=== PATIENT | female | born 1985 | race Two or more races ===

== ENCOUNTER → 2020-04-02 14:57 | Outpatient (BNVA) | payer OTHER, SELFPAY | PROVIDERS: PCP Internal Medicine; Visit Provider Advanced Practice Midwife | DX: Z30.42 Encounter for surveillance of injectable contraceptive (principal) | CPT/HCPCS: 96372; 99211; J1050 ==

== ENCOUNTER → 2020-06-23 12:37 | Outpatient (BNVA) | payer OTHER, SELFPAY | PROVIDERS: PCP Internal Medicine; Visit Provider Advanced Practice Midwife | DX: Z30.42 Encounter for surveillance of injectable contraceptive (principal) | CPT/HCPCS: 96372; 99211; J1050 ==

== ENCOUNTER → 2020-09-14 13:03 | Outpatient (BNVA) | payer OTHER, SELFPAY | PROVIDERS: PCP Internal Medicine; Visit Provider Advanced Practice Midwife | DX: Z30.42 Encounter for surveillance of injectable contraceptive (principal) | CPT/HCPCS: 96372; 99211 ==

== ENCOUNTER → 2020-10-22 13:01 | Outpatient (BNVA) | payer OTHER, SELFPAY | PROVIDERS: PCP Internal Medicine; Visit Provider Advanced Practice Midwife ==

== ENCOUNTER 2020-10-23 12:33 | Outpatient (REF) | payer OTHER, SELFPAY ==
[2020-10-23 13:22] LABS: MANUAL DIFF FLAG NO
[2020-10-23 13:27] LABS: Basophils Percent Auto 0.8 % (0-2); Eosinophils Absolute Auto 0.1 X10*3/uL (0.0-0.4); Hematocrit 41.1 % (37-47); Hemoglobin 13.6 g/dl (12.0-16.0); Imm Gran Abs Auto 0.05 X10*3/uL (0.00-0.03); Lymphocytes Absolute Auto 1.7 X10*3/uL (1.2-4.9); Lymphocytes Percent Auto 33.6 % (20-40); Mean Corpuscular HGB Conc 33.1 g/dl (31.0-35.0); Mean Corpuscular Hemoglobin 30.4 pg (27.0-33.0); Mean Corpuscular Volume 91.7 fL (80-98); Mean Platelet Volume 11.8 fL (9.4-12.3); Monocytes Absolute Auto 0.3 X10*3/uL (0.1-1.2); Monocytes Percent Auto 6.4 % (2-11); Neutrophils Percent Auto 57.2 % (45-73); Platelet Count 241 X10*3/uL (160-400); Red Blood Count 4.48 X10*6/uL (4.20-5.50); Red Cell Distribution Width 12.8 % (11.0-16.0); White Blood Count 5.2 X10*3/uL (4.8-10.8)
[2020-10-23 13:38] LABS: Glucose Urine UA NEG (NEG); Leukocyte Esterase Urine NEG (NEG); Nitrite Urine NEG (NEG); Specific Gravity - Urine 1.025 (1.005-1.025); Urine Blood NEG (NEG); Urine Ketones NEG (NEG); Urine Protein NEG (NEG-TRACE)
[2020-10-23 13:43] LABS: Appearance Urine CLEAR; Color Urine YELLOW
[2020-10-23 13:52] LABS: Alanine Aminotransferase 14 U/L (0-31); Albumin Level 4.6 g/dL (3.5-5.0); Alkaline Phosphatase 69 U/L (39-117); Anion Gap 13 (12-20); Aspartate Amino Transferase 12 U/L (5-31); Bilirubin Total 0.5 mg/dL (0.0-1.0); Blood Urea Nitrogen 9 mg/dL (9-16); Carbon Dioxide 27 mmol/L (22-29); Chloride 104 mmol/L (96-108); Cholesterol 209 mg/dL; Estimated Glomerular Filt Rate > 60; Glucose Fasting 100 mg/dL (60-99); HDL Cholesterol 55 mg/dL; LDL Cholesterol Calculated 130 mg/dl; Potassium 4.5 mmol/L (3.3-5.1); Sodium 139 mmol/L (135-145); Total Protein 7.4 g/dL (6.5-8.0); Triglycerides 124 mg/dL
[2020-10-23 14:13] LABS: TSH reflex Free T4 1.38 uIU/mL (0.32-4.0)
== END 2020-10-23 12:34 | disposition home or self-care (01) ==
LOC: HO.LAB 12:33
PROVIDERS: PCP Internal Medicine; Visit Provider Internal Medicine
DX: Z00.00 Encounter for general adult medical examination without abnormal findings (principal); F32.9 Major depressive disorder, single episode, unspecified
CPT/HCPCS: 36415; 80053; 80061; 81003; 84443; 85025

== ENCOUNTER → 2020-12-09 14:59 | Outpatient (BNVA) | payer OTHER, SELFPAY | PROVIDERS: PCP Internal Medicine; Visit Provider Advanced Practice Midwife | DX: Z30.42 Encounter for surveillance of injectable contraceptive (principal) | CPT/HCPCS: 96372; 99211 ==

== ENCOUNTER 2021-01-12 20:54 | Emergency (ER) | payer OTHER, SELFPAY ==
--- NOTE | ~2021-01-12 | XR_ITS ---
EXAMINATION: XR CHEST CLINICAL INFORMATION: Cough. Chest pain. COMPARISON: 12/30/2015 TECHNIQUE: Frontal view of the chest was obtained. FINDINGS: The lungs are well expanded. There is no focal consolidation, edema, or effusion. No pneumothorax. The cardiomediastinal silhouette is within normal limits. No acute osseous abnormality. XR/XR chest 1V IMPRESSION: Clear lungs.
[2021-01-12 22:20] VITALS: BP 117/85; PULSE 102; RESP 20; TEMP 36.8; O2SAT 98; BMI 25.9
--- NOTE | 2021-01-12 22:42 | ECG_ITS ---
Test Reason : CHEST PAIN Blood Pressure : / mmHG Vent. Rate : 089 BPM Atrial Rate : 089 BPM P-R Int : 138 ms QRS Dur : 072 ms QT Int : 354 ms P-R-T Axes : 047 036 020 degrees QTc Int : 430 ms Normal sinus rhythm Normal ECG When compared with ECG of 12-SEP-2019 10:16, No significant change was found Heart rate has increased Referred By: Madalyn Pedersen Electronically Signed By:MECHELLE BARRETT MD
--- NOTE | 2021-01-12 22:46 | ED.URI ---
HPI - URI/Sore Throat General Chief Complaint: Upper Respiratory Symptoms <LISA Lechuga - Last Filed: 01/13/21 00:27> Stated Complaint: cough, cp due to cough <LISA Lechuga - Last Filed: 01/13/21 00:27> Time Seen by Provider: 01/12/21 21:11 <LISA Lechuga Last Filed: 01/13/21 00:27> Source: patient <LISA Lechuga Last Filed: 01/13/21:27> Mode of arrival: ambulatory <LISA Lechuga Last Filed: 01/13/21:27> Limitations: no limitations <LISA Lechuga Last Filed: 01/13/21:27> History of Present Illness HPI Narrative: 35-year-old female past medical history significant for anxiety, depression presents to the emergency department with 5 days of cough, shortness of breath and chest pain since today. Patient states that she has been having a dry cough, that is intermittent in nature. Patient also reports she has been feeling increasing shortness of breath for the past 5 days, worse with exertion, better at rest. Patient also states that she has been having chest pain, this started today, it is centralized, nonradiating she describes as something sitting on her chest, it is an 8/10. Patient states that her daughter who is a baby, is sick at home with similar symptoms. Patient had a negative COVID test a few days ago. Patient is vaccinated against COVID-19. She denies fevers, chills, nausea, vomiting, abdominal pain, weakness, headache, vision changes, difficulties with urination. Patient is not a smoker. <LISA Lechuga Last Filed: 01/13/21 00:27> MD elicited complaint: cough and other (SOB,CP) <LISA Lechuga Last Filed: 01/13/21 00:27> Onset (ago): day(s) (5) <LISA Lechuga Last Filed: 01/13/21 00:27> Consistency: constant <LISA Lechuga Last Filed: 01/13/21 00:27> Severity: severe <LISA Lechuga - Last Filed: 01/13/21 00:27> Able to tolerate fluids by mouth: Yes <LISA Lechuga Last Filed: 01/13/21 00:27> Exacerbating factors: nothing <LISA Lechuga Last Filed: 01/13/21 00:27> Relieving factors: nothing <LISA Lechuga Last Filed: 01/13/21 00:27> Context: sick contacts (daughter with similar symptoms at home. ) <LISA Lechuga Last Filed: 01/13/21 00:27> Associated symptoms: cough <LISA Lechuga Last Filed: 01/13/21 00:27> Treatments prior to arrival: none <LISA Lechuga Last Filed: 01/13/21 00:27> Related Data Home Medications: Previous Rx's Medication Instructions Recorded escitalopram oxalate 10 mg tablet 10 mg PO DAILY #90 tab 10/18/20 medroxyprogesterone 150 mg/mL 150 mg IM [id number] 90 Days #1 ml 10/22/20 intramuscular suspension azithromycin 250 mg tablet See Rx Instructions .ROUTE 01/13/21 .COMPLEX #6 tab codeine 10 mg-guaifenesin 100 mg/5 5 ml PO Q6H PRN #120 ml 01/13/21 mL oral liquid <LISA Lechuga Last Filed: 01/13/21 00:27> Allergies/Adverse Reactions: Allergies Allergy/AdvReac Type Severity Reaction Status Date / Time No Known Allergies Allergy Verified 01/12/21 22:20 [No Known Allergies*] <LISA Lechuga Last Filed: 01/13/21 00:27> Review of Systems Review of Systems: Constitutional : No Weight loss, No Fever, No Chills, No Fatigue, No Malaise ENT/Mouth : No sore throat, No Rhinorrhea, Eyes: No Eye Pain, No Swelling, No Redness Cardiovascular : + Chest Pain, + SOB, No Dyspnea on Exertion, No Orthopnea, No Edema, No Palpitations Respiratory : + Cough, No Sputum, No Wheezing Gastrointestinal : No Nausea, No Vomiting, No Diarrhea, No Constipation, No abdominal Pain, No Hematochezia, No Melena Genitourinary : No Dysuria, No Urinary Frequency, No Hematuria, Musculoskeletal : No joint pain, No Myalgias, No Joint Swelling Skin : No Skin Lesions, No rash Neuro : No Weakness, No Numbness, No Dizziness, No Headache All other systems reviewed and are negative <LISA Lechuga - Last Filed: 01/13/21 00:27> [facility] Past Medical History Attestation statement: The following information was validated with the patient. <LISA Lechuga - Last Filed: 01/13/21 00:27> Source: old records reviewed and nursing notes reviewed <LISA Lechuga - Last Filed: 01/13/21 00:27> Medical History: Medical History Anxiety Carpal tunnel syndrome Depression Status post hysteroscopy (~03/12/17) <LISA Lechuga - Last Filed: 01/13/21 00:27> Surgical History: Surgical History History of mastopexy (~09/28/19) Status post abdominoplasty (~09/28/19) <LISA Lechuga - Last Filed: 01/13/21 00:27> Family History Family History: Family History Mother Hypertension Mental illness in member of household Maternal Grandfather Gastric cancer Other Mental health problem <LISA Lechuga - Last Filed: 01/13/21 00:27> Social History Social History: Social History Housing: House Alcohol intake: current Alcohol intake frequency: holidays/special occasions only Patient Tobacco Use Status: Never used Tobacco Second Hand Smoke Exposure: Yes Advance Directives: No Patient : No service: No Current occupational status: employed 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 Oriented X3.? No acute distress.? Eyes: Pupils equal, round and reactive to light.? ENT: Pharynx normal.? Neck: Normal inspection.? Neck supple.? CVS: Normal heart rate and rhythm.? Pulses normal.? Respiratory: No respiratory distress.? Breath sounds normal.? Abdomen: Soft and nontender.? Skin: Skin warm and dry.? Normal skin color.? Normal skin turgor.? Extremities: No lower extremity edema.? No calf ttp. Negative sixto sign bilaterally Neuro: Oriented X 3.? No motor deficit.? No sensory deficit. <LISA Lechuga Last Filed: 01/13/21 00:27> Course Course Course Narrative: I agree with the Mandie Lubin PA-C history and physical/review of systems/treatment and diagnosis plan <LISA Yun Last Filed: 01/12/21 23:06> Reevaluation(s) Reevaluation #1: EKG shows no acute findings or ischemia. No leukocytosis or anemia noted. No evident electrolyte abnormalities noted. D-dimer negative. Trop negative. Chest xray negative. Flu/COVID/RSV negative. negative. <LISA Lechuga Last Filed: 01/13/21 00:27> Time: 00:25 <LISA Lechuga - Last Filed: 01/13/21 00:27> Reevaluation #2: Patient's symptoms are likely secondary to bronchitis/upper respiratory infection. Patient will be discharged home with a Z-Phil, and guaifenesin with codeine for cough. She is safe for discharge home with PCP follow-up. She has been advised to return if shortness of breath, chest pain, fevers, chills or any new symptoms. I attest that I have reviewed patients MassPAT, and at the time prescribing the patient a controlled substance is appropriate based off of patients diagnosis and treatment plan. <LISA Lechuga - Last Filed: 01/13/21 00:27> MDM - URI/Sore Throat MDM Narrative Medical decision making narrative: [id number] 35-year-old female past medical history significant for anxiety and depression presents to the emergency department with 5 days of progressively worsening dry cough, shortness of breath worse with exertion, and chest pain x1 day that is centralized, nonradiating and an 8/10 described as somebody sitting on her chest. Patient recently tested negative for COVID-19. Patient is vaccinated against COVID-19. Patient is not a smoker. Patient denies fevers, chills, nausea, vomiting. Upon physical examination lungs are clear to auscultation bilaterally, S1-S2 appreciated free of murmurs. Abdomen soft nontender nondistended. Bilateral lower extremities 2+ pulses, capillary refill less than 2 seconds. Negative Homans sign bilaterally. No lower extremity edema. 5/5 strength upper and lower extremities. No focal neuro deficits noted. Based off of patient history, physical exam this is likely an upper respiratory infection, however ACS, PNA and PE will be ruled out. Plan at this time is to obtain an EKG, chest x-ray, CBC, CMP, D-dimer, flu/COVID/RSV, troponin. <LISA Lechuga Last Filed: 01/13/21 00:27> Medical Records Attestation: I reviewed the patient's medical records. <LISA Lechuga Last Filed: 01/13/21 00:27> Lab Data Attestation: I reviewed the patient's lab results. <LISA Lechuga - Last Filed: 01/13/21 00:27> Result diagrams: : 01/12/21 22:57 01/12/21 22:57 <LISA Lechuga - Last Filed: 01/13/21 00:27> Labs: Lab Results 01/12/21 01/12/21 01/12/21 Range/Units 22:57 22:57 22:57 WBC 6.2 (4.8-10.8) X10*3/uL RBC 4.53 (4.20-5.50) X10*6/uL Hgb 13.4 (12.0-16.0) g/dl Hct 40.7 (37.0-47.0) % MCV 89.8 (80.0-98.0) fL MCH 29.6 (27.0-33.0) pg MCHC 32.9 (31.0-35.0) g/dl RDW 12.1 (11.0-16.0) % Plt Count 229 (160-400) X10*3/uL MPV 11.0 (9.4-12.3) fL Immature Gran % (Auto) 0.8 H (0.0-0.4) % Neut % (Auto) 48.8 (45-73) % Lymph % (Auto) 34.7 (20-40) % [place] % (Auto) 9.8 (2-11) % Eos % (Auto) 5.3 H (0-4) % Baso % (Auto) 0.6 (0-2) % Lymph # (Auto) 2.2 (1.2-4.9) X10*3/uL [place] # (Auto) 0.6 (0.1-1.2) X10*3/uL Eos # (Auto) 0.3 (0.0-0.4) X10*3/uL Baso # (Auto) 0.0 (0.0-0.2) X10*3/uL Abs Immat Gran (auto) 0.05 H (0.00-0.03) X10*3/uL Absolute Neuts (auto) 3.0 (2.0-8.3) x10*3/uL Absolute Nucleated RBC 0.000 (0.0-0.012) X10*3/uL Nucleated RBC % (auto) 0.0 (0.0-0.2) /100WBC D-Dimer NG/ML Sodium 141 (135-145) mmol/L Potassium 3.7 (3.3-5.1) mmol/L Chloride 109 H (96-108) mmol/L Carbon Dioxide 25 (22-29) mmol/L Anion Gap 11 L (12-20) BUN 7 L (9-16) mg/dL Creatinine 0.88 (0.5-1.4) mg/dL Estim Creat Clear Calc 84.0 Estimated GFR > 60 Random Glucose 105 (60-115) mg/dL Calcium 9.0 D (8.4-10.2) mg/dL Total Bilirubin 0.3 (0.0-1.0) mg/dL AST 13 (5-31) U/L ALT 13 (0-31) U/L Alkaline Phosphatase 69 (39-117) U/L Troponin I High Sens < 3.5 (<3.5-17.0) ng/L Total Protein 6.9 (6.5-8.0) g/dL Albumin 4.3 (3.5-5.0) g/dL Beta HCG, Quant < 2 mIU/mL Influenza Type A (PCR) (Negative) Influenza Type B (PCR) (Negative) RSV RNA Qual (PCR) (Negative) SARS-CoV-2 RNA (RT-PCR) (Negative) 01/12/21 01/12/21 Range/Units 22:57 23:32 WBC (4.8-10.8) X10*3/uL RBC (4.20-5.50) X10*6/uL Hgb (12.0-16.0) g/dl Hct (37.0-47.0) % MCV (80.0-98.0) fL MCH (27.0-33.0) pg MCHC (31.0-35.0) g/dl RDW (11.0-16.0) % Plt Count (160-400) X10*3/uL MPV (9.4-12.3) fL Immature Gran % (Auto) (0.0-0.4) % Neut % (Auto) (45-73) % Lymph % (Auto) (20-40) % [place] % (Auto) (2-11) % Eos % (Auto) (0-4) % Baso % (Auto) (0-2) % Lymph # (Auto) (1.2-4.9) X10*3/uL [place] # (Auto) (0.1-1.2) X10*3/uL Eos # (Auto) (0.0-0.4) X10*3/uL Baso # (Auto) (0.0-0.2) X10*3/uL Abs Immat Gran (auto) (0.00-0.03) X10*3/uL Absolute Neuts (auto) (2.0-8.3) x10*3/uL Absolute Nucleated RBC (0.0-0.012) X10*3/uL Nucleated RBC % (auto) (0.0-0.2) /100WBC D-Dimer 209 NG/ML Sodium (135-145) mmol/L Potassium (3.3-5.1) mmol/L Chloride (96-108) mmol/L Carbon Dioxide (22-29) mmol/L Anion Gap (12-20) BUN (9-16) mg/dL Creatinine (0.5-1.4) mg/dL Estim Creat Clear Calc Estimated GFR Random Glucose (60-115) mg/dL Calcium (8.4-10.2) mg/dL Total Bilirubin (0.0-1.0) mg/dL AST (5-31) U/L ALT (0-31) U/L Alkaline Phosphatase (39-117) U/L Troponin I High Sens (<3.5-17.0) ng/L Total Protein (6.5-8.0) g/dL Albumin (3.5-5.0) g/dL Beta HCG, Quant mIU/mL Influenza Type A (PCR) NEGATIVE (Negative) Influenza Type B (PCR) NEGATIVE (Negative) RSV RNA Qual (PCR) NEGATIVE (Negative) SARS-CoV-2 RNA (RT-PCR) NEGATIVE (Negative) <LISA Lechuga - Last Filed: 01/13/21 00:27> Lab Results 01/12/21 01/12/21 01/12/21 Range/Units 22:57 22:57 22:57 WBC 6.2 (4.8-10.8) X10*3/uL RBC 4.53 (4.20-5.50) X10*6/uL Hgb 13.4 (12.0-16.0) g/dl Hct 40.7 (37.0-47.0) % MCV 89.8 (80.0-98.0) fL MCH 29.6 (27.0-33.0) pg MCHC 32.9 (31.0-35.0) g/dl RDW 12.1 (11.0-16.0) % Plt Count 229 (160-400) X10*3/uL MPV 11.0 (9.4-12.3) fL Immature Gran % (Auto) 0.8 H (0.0-0.4) % Neut % (Auto) 48.8 (45-73) % Lymph % (Auto) 34.7 (20-40) % [place] % (Auto) 9.8 (2-11) % Eos % (Auto) 5.3 H (0-4) % Baso % (Auto) 0.6 (0-2) % Lymph # (Auto) 2.2 (1.2-4.9) X10*3/uL [place] # (Auto) 0.6 (0.1-1.2) X10*3/uL Eos # (Auto) 0.3 (0.0-0.4) X10*3/uL Baso # (Auto) 0.0 (0.0-0.2) X10*3/uL Abs Immat Gran (auto) 0.05 H (0.00-0.03) X10*3/uL Absolute Neuts (auto) 3.0 (2.0-8.3) x10*3/uL Absolute Nucleated RBC 0.000 (0.0-0.012) X10*3/uL Nucleated RBC % (auto) 0.0 (0.0-0.2) /100WBC D-Dimer NG/ML Sodium 141 (135-145) mmol/L Potassium 3.7 (3.3-5.1) mmol/L Chloride 109 H (96-108) mmol/L Carbon Dioxide 25 (22-29) mmol/L Anion Gap 11 L (12-20) BUN 7 L (9-16) mg/dL Creatinine 0.88 (0.5-1.4) mg/dL Estim Creat Clear Calc 84.0 Estimated GFR > 60 Random Glucose 105 (60-115) mg/dL Calcium 9.0 D (8.4-10.2) mg/dL Total Bilirubin 0.3 (0.0-1.0) mg/dL AST 13 (5-31) U/L ALT 13 (0-31) U/L Alkaline Phosphatase 69 (39-117) U/L Troponin I High Sens < 3.5 (<3.5-17.0) ng/L Total Protein 6.9 (6.5-8.0) g/dL Albumin 4.3 (3.5-5.0) g/dL Beta HCG, Quant < 2 mIU/mL Influenza Type A (PCR) (Negative) Influenza Type B (PCR) (Negative) RSV RNA Qual (PCR) (Negative) SARS-CoV-2 RNA (RT-PCR) (Negative) 01/12/21 01/12/21 Range/Units 22:57 23:32 WBC (4.8-10.8) X10*3/uL RBC (4.20-5.50) X10*6/uL Hgb (12.0-16.0) g/dl Hct (37.0-47.0) % MCV (80.0-98.0) fL MCH (27.0-33.0) pg MCHC (31.0-35.0) g/dl RDW (11.0-16.0) % Plt Count (160-400) X10*3/uL MPV (9.4-12.3) fL Immature Gran % (Auto) (0.0-0.4) % Neut % (Auto) (45-73) % Lymph % (Auto) (20-40) % [place] % (Auto) (2-11) % Eos % (Auto) (0-4) % Baso % (Auto) (0-2) % Lymph # (Auto) (1.2-4.9) X10*3/uL [place] # (Auto) (0.1-1.2) X10*3/uL Eos # (Auto) (0.0-0.4) X10*3/uL Baso # (Auto) (0.0-0.2) X10*3/uL Abs Immat Gran (auto) (0.00-0.03) X10*3/uL Absolute Neuts (auto) (2.0-8.3) x10*3/uL Absolute Nucleated RBC (0.0-0.012) X10*3/uL Nucleated RBC % (auto) (0.0-0.2) /100WBC D-Dimer 209 NG/ML Sodium (135-145) mmol/L Potassium (3.3-5.1) mmol/L Chloride (96-108) mmol/L Carbon Dioxide (22-29) mmol/L Anion Gap (12-20) BUN (9-16) mg/dL Creatinine (0.5-1.4) mg/dL Estim Creat Clear Calc Estimated GFR Random Glucose (60-115) mg/dL Calcium (8.4-10.2) mg/dL Total Bilirubin (0.0-1.0) mg/dL AST (5-31) U/L ALT (0-31) U/L Alkaline Phosphatase (39-117) U/L Troponin I High Sens (<3.5-17.0) ng/L Total Protein (6.5-8.0) g/dL Albumin (3.5-5.0) g/dL Beta HCG, Quant mIU/mL Influenza Type A (PCR) NEGATIVE (Negative) Influenza Type B (PCR) NEGATIVE (Negative) RSV RNA Qual (PCR) NEGATIVE (Negative) SARS-CoV-2 RNA (RT-PCR) NEGATIVE (Negative) <LISA Yun - Last Filed: 01/12/21 23:06> Imaging Data Chest x-ray: Attestation: I personally reviewed and interpreted this imaging study as follows: <LISA Lechuga - Last Filed: 01/13/21 00:27> Radiologist's impression: FINDINGS: The lungs are well expanded. There is no focal consolidation, edema, or effusion. No pneumothorax. The cardiomediastinal silhouette is within normal limits. No acute osseous abnormality. XR/XR chest 1V IMPRESSION: Clear lungs. ? <LISA Lechuga - Last Filed: 01/13/21 00:27> ECG Data Attestation: I personally reviewed and interpreted this ECG as follows: <LISA Lechuga - Last Filed: 01/13/21 00:27> ECG interpretation date: 01/12/21 <LISA Lechuga - Last Filed: 01/13/21:> ECG interpretation time: 22:47 <LISA Lechuga - Last Filed: 01/13/21 00:27> Prior ECG tracings: available for review <LISA Lechuga - Last Filed: 01/13/21 00:27> Interpretation: Ventricular rate of 89, [place] normal, QRS normal, QT/QTC normal EKG shows normal sinus rhythm. No ST elevations, or depressions no T-wave inversions. No acute ischemia. No acute changes when compared to EKG from September 12, 2019. <LISA Lechuga - Last Filed: 01/13/21:27> Critical Care Time Critical Care Time Critical Care Time: No <LISA Lechuga - Last Filed: 01/13/21:27> Discharge Plan Discharge Clinical Impression: Upper respiratory infection <LISA Lechuga - Last Filed: 01/13/21 00:27> Patient Disposition: Home, Self-Care <LISA Lechuga - Last Filed: 01/13/21 00:27> Instructions: Acute Bronchitis (ED), Viral Syndrome (ED) <LISA Lechuga - Last Filed: 01/13/21 00:27> Additional Instructions: Take your medications as prescribed. If you were prescribed antibiotics today, it is important that you take your medication to their entirety, do not skip any doses, do not finish them early. Follow-up with your primary care provider this week. Flu/COVID/RSV negative Return to the emergency department with new or worsening symptoms. In case of emergency call 911 I attest that I have reviewed patients MassPAT, and at the time prescribing the patient a controlled substance is appropriate based off of patients diagnosis and treatment plan. <LISA Lechuga - Last Filed: 01/13/21 00:27> Prescriptions: New azithromycin 250 mg tablet See Rx Instructions .ROUTE .COMPLEX Qty: 6 RF: 0 codeine-guaifenesin 10-100 mg/5 mL liquid 5 ml PO Q6H PRN (Reason: cough) Qty: 120 RF: 0 No Action escitalopram oxalate 10 mg tablet 10 mg PO DAILY Qty: 90 RF: 1 medroxyprogesterone 150 mg/mL suspension 150 mg IM [id number] 90 Days Qty: 1 RF: 3 <LISA Lechuga - Last Filed: 01/13/21 00:27> Referrals: Robin Mcdaniels MD [Primary Care Provider] - 2 days <LISA Lechuga - Last Filed: 01/13/21 00:27> Stand Alone Forms: Work/School Release <LISA Lechuga - Last Filed: 01/13/21 00:27>
[2021-01-12 23:07] LABS: MANUAL DIFF FLAG NO
[2021-01-12 23:08] LABS: Basophils Percent Auto 0.6 % (0-2); Eosinophils Absolute Auto 0.3 X10*3/uL (0.0-0.4); Eosinophils Percent Auto 5.3 % (0-4); Hematocrit 40.7 % (37.0-47.0); Hemoglobin 13.4 g/dl (12.0-16.0); Imm Gran Abs Auto 0.05 X10*3/uL (0.00-0.03); Imm Gran Pct Auto 0.8 % (0.0-0.4); Lymphocytes Absolute Auto 2.2 X10*3/uL (1.2-4.9); Lymphocytes Percent Auto 34.7 % (20-40); Mean Corpuscular HGB Conc 32.9 g/dl (31.0-35.0); Mean Corpuscular Hemoglobin 29.6 pg (27.0-33.0); Mean Corpuscular Volume 89.8 fL (80.0-98.0); Monocytes Absolute Auto 0.6 X10*3/uL (0.1-1.2); Monocytes Percent Auto 9.8 % (2-11); Neutrophils Percent Auto 48.8 % (45-73); Platelet Count 229 X10*3/uL (160-400); Red Blood Count 4.53 X10*6/uL (4.20-5.50); Red Cell Distribution Width 12.1 % (11.0-16.0); White Blood Count 6.2 X10*3/uL (4.8-10.8)
[2021-01-12 23:16] LABS: D Dimer 209 NG/ML
[2021-01-12 23:32] LABS: Troponin-I High Sensitivity < 3.5 ng/L (<3.5-17.0)
[2021-01-12 23:58] LABS: Anion Gap 11 (12-20); Aspartate Amino Transferase 13 U/L (5-31); Bilirubin Total 0.3 mg/dL (0.0-1.0); Carbon Dioxide 25 mmol/L (22-29); Chloride 109 mmol/L (96-108); Potassium 3.7 mmol/L (3.3-5.1); Sodium 141 mmol/L (135-145)
[2021-01-13 00:05] LABS: HCG Quantitative < 2 mIU/mL
[2021-01-13 00:08] VITALS: BP 121/86; PULSE 91; RESP 17; TEMP 37.1; O2SAT 100
[2021-01-13 00:15] LABS: Alanine Aminotransferase 13 U/L (0-31); Albumin Level 4.3 g/dL (3.5-5.0); Alkaline Phosphatase 69 U/L (39-117); Blood Urea Nitrogen 7 mg/dL (9-16); Estimated Glomerular Filt Rate > 60; Glucose Random 105 mg/dL (60-115); Total Protein 6.9 g/dL (6.5-8.0)
[2021-01-13 00:20] LABS: Influenza A PCR NEGATIVE (Negative); Influenza B PCR NEGATIVE (Negative); Resp Syncy Virus RNA Qual PCR NEGATIVE (Negative); SARS COV2 PCR INHOUSE NEGATIVE (Negative)
== END 2021-01-13 00:35 | disposition home or self-care (01) ==
PROVIDERS: Physician Assistant; Physician Assistant Medical; Emergency Provider Emergency Medicine; PCP Internal Medicine
DX: J06.9 Acute upper respiratory infection, unspecified (principal); Z20.822 Contact with and (suspected) exposure to COVID-19
CPT/HCPCS: 0241U; 36415; 71045; 80053; 84484; 84702; 85025; 85379; 93005; 99284

== ENCOUNTER 2021-02-01 13:25 | Outpatient (REF) | payer OTHER, SELFPAY | END 2021-02-01 13:26 | disposition home or self-care (01) | LOC: HO.LAB 13:25 | PROVIDERS: Visit Provider Internal Medicine | DX: Z20.822 Contact with and (suspected) exposure to COVID-19 (principal) | CPT/HCPCS: C9803; U0003; U0005 ==

== ENCOUNTER → 2021-03-01 14:44 | Outpatient (BNVA) | payer OTHER, SELFPAY | PROVIDERS: PCP Internal Medicine; Visit Provider Advanced Practice Midwife | DX: Z30.42 Encounter for surveillance of injectable contraceptive (principal) | CPT/HCPCS: 96372; 99211 ==

== ENCOUNTER 2021-05-03 09:38 | Outpatient (REF) | payer OTHER, SELFPAY ==
[2021-05-03 10:04] LABS: MANUAL DIFF FLAG NO
[2021-05-03 10:26] LABS: Basophils Percent Auto 0.8 % (0-2); Eosinophils Absolute Auto 0.1 X10*3/uL (0.0-0.4); Eosinophils Percent Auto 2.6 % (0-4); Hematocrit 40.4 % (37.0-47.0); Imm Gran Abs Auto 0.03 X10*3/uL (0.00-0.03); Imm Gran Pct Auto 0.6 % (0.0-0.4); Lymphocytes Absolute Auto 2.1 X10*3/uL (1.2-4.9); Lymphocytes Percent Auto 40.8 % (20-40); Mean Corpuscular HGB Conc 32.2 g/dl (31.0-35.0); Mean Corpuscular Hemoglobin 29.8 pg (27.0-33.0); Mean Corpuscular Volume 92.7 fL (80.0-98.0); Mean Platelet Volume 11.6 fL (9.4-12.3); Monocytes Absolute Auto 0.5 X10*3/uL (0.1-1.2); Monocytes Percent Auto 8.9 % (2-11); Neutrophils Absolute Auto 2.3 x10*3/uL (2.0-8.3); Neutrophils Percent Auto 46.3 % (45-73); Platelet Count 210 X10*3/uL (160-400); Red Blood Count 4.36 X10*6/uL (4.20-5.50); Red Cell Distribution Width 12.6 % (11.0-16.0); White Blood Count 5.1 X10*3/uL (4.8-10.8)
[2021-05-03 10:58] LABS: Appearance Urine CLEAR; Color Urine YELLOW; Glucose Urine UA NEG (NEG); Leukocyte Esterase Urine NEG (NEG); Nitrite Urine NEG (NEG); PH 5.5 (5.0-8.0); Specific Gravity - Urine >= 1.030 (1.005-1.025); Urine Blood NEG (NEG); Urine Ketones NEG (NEG); Urine Protein NEG (NEG-TRACE)
[2021-05-03 11:08] LABS: Alanine Aminotransferase 11 U/L (0-31); Albumin Level 4.2 g/dL (3.5-5.0); Alkaline Phosphatase 64 U/L (39-117); Anion Gap 13 (12-20); Aspartate Amino Transferase 14 U/L (5-31); Bilirubin Total 0.3 mg/dL (0.0-1.0); Blood Urea Nitrogen 10 mg/dL (9-16); Calcium 9.3 mg/dL (8.4-10.2); Carbon Dioxide 22 mmol/L (22-29); Chloride 108 mmol/L (96-108); Cholesterol 203 mg/dL; Estimated Glomerular Filt Rate > 60; Glucose Fasting 87 mg/dL (60-99); HDL Cholesterol 52 mg/dL; LDL Cholesterol Calculated 128 mg/dl; Potassium 4.1 mmol/L (3.3-5.1); Sodium 139 mmol/L (135-145); Triglycerides 116 mg/dL
[2021-05-03 11:11] LABS: TSH reflex Free T4 1.32 uIU/mL (0.32-4.0); Vitamin D 25-OH Total 23.4 ng/mL (>30)
[2021-05-03 11:12] LABS: Estimated Average Glucose 111 mg/dL; Hemoglobin A1c % 5.5 %
== END 2021-05-03 09:39 | disposition home or self-care (01) ==
LOC: HO.LAB 09:38
PROVIDERS: PCP Internal Medicine; Visit Provider Internal Medicine
DX: Z00.00 Encounter for general adult medical examination without abnormal findings (principal); R73.9 Hyperglycemia, unspecified; E55.9 Vitamin D deficiency, unspecified
CPT/HCPCS: 36415; 80053; 80061; 81003; 82306; 83036; 84443; 85025

== ENCOUNTER → 2021-05-24 14:54 | Outpatient (BNVA) | payer OTHER, SELFPAY | PROVIDERS: PCP Internal Medicine; Visit Provider Advanced Practice Midwife | DX: Z30.42 Encounter for surveillance of injectable contraceptive (principal) | CPT/HCPCS: 96372; 99211 ==

== ENCOUNTER → 2021-08-24 13:02 | Outpatient (BNVA) | payer OTHER, SELFPAY | PROVIDERS: PCP Internal Medicine; Visit Provider Advanced Practice Midwife | DX: Z30.42 Encounter for surveillance of injectable contraceptive (principal) | CPT/HCPCS: 96372; 99211 ==

== ENCOUNTER → 2021-11-15 15:01 | Outpatient (BNVA) | payer OTHER, SELFPAY | PROVIDERS: PCP Internal Medicine; Visit Provider Advanced Practice Midwife | DX: Z30.42 Encounter for surveillance of injectable contraceptive (principal) | CPT/HCPCS: 96372; 99211 ==

== ENCOUNTER 2021-12-20 08:27 | Outpatient (REF) | payer OTHER, SELFPAY ==
--- NOTE | ~2021-12-20 | XR_ITS ---
EXAMINATION: XR LUMBOSACRAL SPINE CLINICAL INFORMATION: Low back pain COMPARISON: Previous lumbar spine x-ray January 2012 TECHNIQUE: Three views of the lumbosacral spine. FINDINGS: The vertebral bodies and posterior elements are normal. The disc spaces are preserved and the vertebral alignment is normal. The paraspinal soft tissues are normal. XR/XR lumbar spine 2-3V IMPRESSION: Unremarkable examination.
== END 2021-12-20 08:28 | disposition home or self-care (01) ==
LOC: HO.XRAY 08:27
PROVIDERS: PCP Internal Medicine; Visit Provider Internal Medicine
DX: M54.50 Low back pain, unspecified (principal)
CPT/HCPCS: 72100

== ENCOUNTER → 2022-02-07 15:01 | Outpatient (BNVA) | payer OTHER, SELFPAY | PROVIDERS: PCP Internal Medicine; Visit Provider Advanced Practice Midwife | DX: Z30.42 Encounter for surveillance of injectable contraceptive (principal) | CPT/HCPCS: 96372; 99211 ==

== ENCOUNTER → 2022-05-20 11:35 | Outpatient (BNVA) | payer OTHER, SELFPAY | PROVIDERS: PCP Internal Medicine; Visit Provider Advanced Practice Midwife | DX: Z30.42 Encounter for surveillance of injectable contraceptive (principal) | CPT/HCPCS: 81025; 96372; 99212 ==

== ENCOUNTER 2022-05-30 12:37 | Outpatient (REF) | payer OTHER, SELFPAY ==
[2022-05-30 12:54] LABS: MANUAL DIFF FLAG NO
[2022-05-30 14:14] LABS: Basophils Percent Auto 0.9 % (0-2); Eosinophils Absolute Auto 0.1 X10*3/uL (0.0-0.4); Eosinophils Percent Auto 1.4 % (0-4); Hematocrit 44.1 % (37.0-47.0); Hemoglobin 14.4 g/dl (12.0-16.0); Imm Gran Abs Auto 0.03 X10*3/uL (0.00-0.03); Imm Gran Pct Auto 0.7 % (0.0-0.4); Lymphocytes Absolute Auto 1.7 X10*3/uL (1.2-4.9); Lymphocytes Percent Auto 38.7 % (20-40); Mean Corpuscular HGB Conc 32.7 g/dl (31.0-35.0); Mean Corpuscular Hemoglobin 29.8 pg (27.0-33.0); Mean Corpuscular Volume 91.3 fL (80.0-98.0); Mean Platelet Volume 11.9 fL (9.4-12.3); Monocytes Absolute Auto 0.3 X10*3/uL (0.1-1.2); Monocytes Percent Auto 5.9 % (2-11); Neutrophils Absolute Auto 2.3 x10*3/uL (2.0-8.3); Neutrophils Percent Auto 52.4 % (45-73); Platelet Count 239 X10*3/uL (160-400); Red Blood Count 4.83 X10*6/uL (4.20-5.50); Red Cell Distribution Width 13.1 % (11.0-16.0); White Blood Count 4.4 X10*3/uL (4.8-10.8)
[2022-05-30 14:29] LABS: Appearance Urine Cloudy; Color Urine Yellow; Glucose Urine UA Negative (Negative); Leukocyte Esterase Urine Small (1+) (Negative); Nitrite Urine Negative (Negative); UMIC TRIGGER UACC YES; Urine Blood Negative (Negative); Urine Ketones Negative (Negative); Urine Protein Negative (Neg-Trace)
[2022-05-30 14:33] LABS: Bacteria Urine 1+ (None Seen); Hyaline Casts Urine 0-2 /LPF (0-2); RBC Urine 0-2 /HPF (0-2); UACC Culture Trigger YES; WBC Urine 21-50 /HPF (0-5)
[2022-05-30 15:05] LABS: Erythrocyte Sedimentation Rate 8 MM/HR (0-20)
[2022-05-30 15:17] LABS: Alanine Aminotransferase 15 U/L (0-31); Albumin Level 4.5 g/dL (3.5-5.0); Alkaline Phosphatase 72 U/L (39-117); Anion Gap 17 (12-20); Aspartate Amino Transferase 13 U/L (5-31); Bilirubin Total 0.6 mg/dL (0.0-1.0); Blood Urea Nitrogen 11 mg/dL (9-16); C Reactive Protein 0.16 mg/dL (< or = 0.50); Calcium 9.3 mg/dL (8.4-10.2); Carbon Dioxide 18 mmol/L (22-29); Chloride 107 mmol/L (96-108); Cholesterol 228 mg/dL; Estimated Glomerular Filt Rate > 60; Glucose Fasting 85 mg/dL (60-99); HDL Cholesterol 58 mg/dL; LDL Cholesterol Calculated 156 mg/dl; Rheumatoid Factor < 13.0 IU/mL (<15.0); Sodium 138 mmol/L (135-145); Total Protein 7.2 g/dL (6.5-8.0); Triglycerides 74 mg/dL
[2022-05-30 16:08] LABS: Folate 12.3 ng/mL (> or = 4.0); TSH reflex Free T4 2.28 uIU/mL (0.32-4.0); Vitamin B12 512 pg/mL (200-900); Vitamin D 25-OH Total 32.4 ng/mL (>30)
[2022-06-02 11:53] LABS: Anti Nuclear Antibody Screen POSITIVE (NEGATIVE); Anti Nuclear Antibody Titer 1:40 titer
== END 2022-05-30 12:38 | disposition home or self-care (01) ==
LOC: HO.LAB 12:37
PROVIDERS: PCP Internal Medicine; Visit Provider Internal Medicine
DX: Z00.00 Encounter for general adult medical examination without abnormal findings (principal); M79.7 Fibromyalgia; M79.89 Other specified soft tissue disorders; E53.8 Deficiency of other specified B group vitamins; E78.00 Pure hypercholesterolemia, unspecified; E55.9 Vitamin D deficiency, unspecified; I10 Essential (primary) hypertension
CPT/HCPCS: 36415; 80053; 80061; 81001; 82306; 82607; 82746; 84443; 85025; 85652; 86038; 86039; 86140; 86431; 87086

== ENCOUNTER 2022-06-23 10:58 | Outpatient (REF) | payer OTHER, SELFPAY ==
[2022-06-23 12:25] LABS: MANUAL DIFF FLAG NO
[2022-06-23 12:49] LABS: Basophils Absolute Auto 0.1 X10*3/uL (0.0-0.2); Basophils Percent Auto 0.8 % (0-2); Eosinophils Absolute Auto 0.1 X10*3/uL (0.0-0.4); Eosinophils Percent Auto 1.2 % (0-4); Hematocrit 40.9 % (37.0-47.0); Hemoglobin 13.3 g/dl (12.0-16.0); Imm Gran Abs Auto 0.05 X10*3/uL (0.00-0.03); Imm Gran Pct Auto 0.8 % (0.0-0.4); Lymphocytes Absolute Auto 1.8 X10*3/uL (1.2-4.9); Lymphocytes Percent Auto 27.4 % (20-40); Mean Corpuscular HGB Conc 32.5 g/dl (31.0-35.0); Mean Corpuscular Hemoglobin 29.5 pg (27.0-33.0); Mean Corpuscular Volume 90.7 fL (80.0-98.0); Mean Platelet Volume 11.5 fL (9.4-12.3); Monocytes Absolute Auto 0.4 X10*3/uL (0.1-1.2); Monocytes Percent Auto 6.2 % (2-11); Neutrophils Absolute Auto 4.2 x10*3/uL (2.0-8.3); Neutrophils Percent Auto 63.6 % (45-73); Platelet Count 242 X10*3/uL (160-400); Red Blood Count 4.51 X10*6/uL (4.20-5.50); Red Cell Distribution Width 12.4 % (11.0-16.0); White Blood Count 6.6 X10*3/uL (4.8-10.8)
[2022-06-23 13:21] LABS: Protein/Creatinine Ratio, Ur 0.05 (<0.2); Total Protein Urine Random 16 mg/dL (<12)
[2022-06-27 22:48] LABS: Complement C3 164 mg/dL (83-193)
[2022-06-28 14:47] LABS: Anti DNA DS Antibody 2 IU/mL; SM/Ribonucleoprotein Ab <1.0 NEG AI (<1.0 NEG); Smith Protein <1.0 NEG AI (<1.0 NEG)
== END 2022-06-23 10:59 | disposition home or self-care (01) ==
LOC: HO.LAB 10:58
PROVIDERS: PCP Internal Medicine; Visit Provider Internal Medicine Rheumatology
DX: G56.03 Carpal tunnel syndrome, bilateral upper limbs (principal); R76.8 Other specified abnormal immunological findings in serum
CPT/HCPCS: 36415; 84156; 85025; 86160; 86225; 86235; 99202

== ENCOUNTER 2022-06-28 16:56 | Outpatient (REF) | payer OTHER, SELFPAY ==
--- NOTE | ~2022-06-28 | XR_ITS ---
EXAMINATION: XR HAND/WRIST, RIGHT XR HAND/WRIST, LEFT CLINICAL INFORMATION: Pain. COMPARISON: 05/07/2019 TECHNIQUE: 3 views of each hand FINDINGS: LEFT HAND: There is no evidence of acute fracture or dislocation of the left hand. Joint spaces are maintained. No bony abnormalities are appreciated. No radiopaque foreign body. No significant soft tissue swelling. No erosive changes seen. RIGHT HAND: No acute fracture or dislocation. No significant soft tissue swelling. No radiopaque foreign body. No erosive changes. XR/XR hand wrist LT IMPRESSION: No significant abnormality of the right or left hand identified. No evidence of degenerative or erosive arthritides.
--- NOTE | ~2022-06-28 | XR_ITS ---
EXAMINATION: XR HAND/WRIST, RIGHT XR HAND/WRIST, LEFT CLINICAL INFORMATION: Pain. COMPARISON: 05/07/2019 TECHNIQUE: 3 views of each hand FINDINGS: LEFT HAND: There is no evidence of acute fracture or dislocation of the left hand. Joint spaces are maintained. No bony abnormalities are appreciated. No radiopaque foreign body. No significant soft tissue swelling. No erosive changes seen. RIGHT HAND: No acute fracture or dislocation. No significant soft tissue swelling. No radiopaque foreign body. No erosive changes. XR/XR hand wrist RT IMPRESSION: No significant abnormality of the right or left hand identified. No evidence of degenerative or erosive arthritides.
== END 2022-06-28 16:57 | disposition home or self-care (01) ==
LOC: HO.XRAY 16:56
PROVIDERS: PCP Internal Medicine; Visit Provider Internal Medicine
DX: M79.642 Pain in left hand (principal); M79.641 Pain in right hand; M25.531 Pain in right wrist; M25.532 Pain in left wrist
CPT/HCPCS: 73110; 73130

== ENCOUNTER → 2022-08-08 14:56 | Outpatient (BNVA) | payer OTHER, SELFPAY | PROVIDERS: PCP Internal Medicine; Visit Provider Advanced Practice Midwife | DX: Z30.42 Encounter for surveillance of injectable contraceptive (principal) | CPT/HCPCS: 96372; 99211 ==

== ENCOUNTER 2022-08-11 15:50 | Outpatient (REF) | payer OTHER, SELFPAY ==
--- NOTE | ~2022-08-11 | MR_ITS ---
EXAMINATION: MRI HAND WITHOUT CONTRAST, RIGHT CLINICAL INFORMATION: Pain. COMPARISON: X-ray 06/28/2022. TECHNIQUE: MRI in a high-field magnet without contrast. [id number] covering up to the level of the distal carpal row. The more proximal aspect of the hand/wrist is not included in the [id number]. FINDINGS: Bones/Joints: No evidence of acute fracture or dislocation. Joint spaces appear maintained. No definite erosive changes identified. No suspicious marrow signal changes. No significant wrist joint effusion is evident in the visualized portion of the hand. Tendons: Question mild intrasubstance signal in the extensor carpi ulnaris tendon with peritendinitis/tenosynovitis, partially imaged. Findings are suggestive of peritendinitis/tenosynovitis, possible component of tendinosis, incompletely imaged and evaluated. The tendons otherwise appear intact without appreciable tenosynovitis. MR/MR hand RT wo con IMPRESSION: 1. Imaging of the hand, [id number] to the level of the distal carpal row. No acute osseous abnormality seen. No evidence of significant arthropathy seen. 2. Partially imaged distal portion of the extensor carpi ulnaris tendon demonstrates peritendinitis/tenosynovitis, with possible mild tendinosis. This is incompletely imaged and evaluated. Wrist MRI for further evaluation as clinically warranted.
== END 2022-08-11 15:51 | disposition home or self-care (01) ==
LOC: HO.MRI 15:50
PROVIDERS: PCP Internal Medicine; Visit Provider Internal Medicine
DX: M79.641 Pain in right hand (principal); R29.898 Other symptoms and signs involving the musculoskeletal system
CPT/HCPCS: 73218

== ENCOUNTER 2022-08-18 10:20 | Outpatient (REF) | payer OTHER, SELFPAY ==
--- NOTE | 2022-08-18 10:22 | EMG_ITS ---
FINDINGS: Bilateral median and ulnar motor and sensory studies were performed. Bilateral radial sensory studies were performed. Paraspinal muscles were tested with a needle. IMPRESSION: 1. Mild bilateral median neuropathy across carpal tunnel. 2. Mild bilateral ulnar neuropathy across cubital tunnel. MD POLO Hale/ADAM / [id number]
== END 2022-08-18 10:21 | disposition home or self-care (01) ==
LOC: HO.NEURO 10:20
PROVIDERS: PCP Internal Medicine; Visit Provider Internal Medicine
DX: M79.641 Pain in right hand (principal); M79.642 Pain in left hand; R20.0 Anesthesia of skin
CPT/HCPCS: 95886; 95911

== ENCOUNTER 2022-10-27 12:47 | Outpatient (AMB) | payer OTHER, SELFPAY ==
[2022-10-27 13:06] VITALS: BMI 25.9
--- NOTE | 2022-10-27 13:06 | AM.OFFVISNUR ---
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 No c/o. Pt tolerated injection well. She will make an appt to return for next Depo injection in 12 weeks. Pt verbalizes understanding and agrees with plan. No further questions. Office Procedures Depo Questionnaire If YES to any of the following questions, please consult a provider. Date of last injection: 08/08/22 Date of last gynecology exam: 10/27/21 Menstrual pattern since last injection has been: Not Applicable Irregular bleeding?: No Breast lumps or other breast changes?: No Changes in weight or appetite?: No Depression or changes in mood?: No Abnormal hair growth or loss?: No Skin problems (rash, acne, discoloration)?: No Pain at the injection site?: No Headaches?: No Nervousness?: No Abdominal pain or cramping?: No Dizziness or nausea?: No Fatigue or weakness?: No Decrease in sexual drive?: No Chest pain or shortness of breath?: No Swelling in arms or legs?: No Form completed by?: Keesha Partida Office Meds Depo-Provera Performing Provider: Xena Puentes CNM Administered by: Keesha Partida on 10/27/22 13:09 Dose Route Admin Location Lot Number Expiration Date [facility] [employer] 150 mg IM left deltoid [id number] 12/03/24 31254-152-75 [facility] Coding Level of Care Code Established Pt Est Pt Level 1 (10596) Patient Type Established History Problem Focused Medical Decision Making Straight Forward Diagnoses Time Spent (min) 11 Assessment & Plan Assessment & Plan Orders: Orders AMB Medroxyprogesterone Injection Patient Supplied Today Z30.42 - Encounter for surveillance of injectable contraceptive
== END 2022-10-27 13:03 | disposition home or self-care (01) ==
LOC: HO.HWS 12:47
PROVIDERS: PCP Internal Medicine; Visit Provider Advanced Practice Midwife
DX: Z30.42 Encounter for surveillance of injectable contraceptive (principal)

== ENCOUNTER → 2022-10-27 12:47 | Outpatient (BNVA) | payer OTHER, SELFPAY | PROVIDERS: PCP Internal Medicine; Visit Provider Advanced Practice Midwife | DX: Z30.42 Encounter for surveillance of injectable contraceptive (principal) | CPT/HCPCS: 96372; 99211; J1050 ==

== ENCOUNTER 2022-10-28 15:58 | Outpatient (AMB) | payer OTHER, SELFPAY ==
[2022-10-28 16:00] VITALS: BP 116/76; PULSE 85; O2SAT 99; BMI 25.8
--- NOTE | 2022-10-28 16:00 | MHC.PC.OV ---
Vital Signs 10/28/22 16:00 Height 5 ft 4 in Weight 150 lb 4 oz BMI 25.8 BP 116/76 Blood Pressure Location Lt brachial Position Sitting Pulse 85 Pulse Source Pulse Oximeter Pulse Oximetry (%) 99 Oxygen Delivery Method Room Air Intake Visit Reasons: 4 month f/u Acquisition Advisor Required: No Accompanied by: Self / Same As Patient Allergies No Known Allergies [No Known Allergies*] Allergy (Verified 10/28/22 22:57) Medication List - Last Reconciled 10/28/22 by Robin Mcdaniels MD hydroxyzine HCl 25 mg PO TID PRN 30 days medroxyprogesterone 150 mg IM [id number] Tobacco use date assessed: 10/28/22 Dental Screening Dental Screen Date: 10/28/22 Did you have a dental visit in the last 12 months?: Yes Did you have a dental problem in the last 6 months where you did not have access to dental care?: No Was dental information given to patient?: Patient has dentist HPI 4 month f/u HPI Details Patient comes in today for her follow up visit Patient admits that she stopped taking her Escitalopram 20 mg about 3 months ago States that even though she thinks the medication is helping anxiety and mood, she really wanted to come off the medication and try to just control her mood on her own as much as possible She also has not been taking her Zolpidem to help her sleep at night - states that it also was not helping much and she did not want to take a chance and become dependent on the medication States that she more recently tried taking some OTC THC with Melatonin upon the recommendation of a friend and found that it helped a lot better and she did not wake up the next morning with any hangover effect or groggy feeling Patient however reports that she had a nervous breakdown last month and she was literally screaming in front of her kids States that she is not sure this point whether she wants to try going back on her medication or not - again emphasized her desire not to take any medication if possible She continues to pain in her hands as well recurrent tingling and numbness States that she is now scheduled for carpal tunnel surgery of both hands with Dr. Rubén Lopez Will be getting the surgery done first on left hand next month on 11/08/2022, followed by surgery on the other hand few weeks later in early December 2022 She denies any headaches or dizziness Denies any chest pains, no shortness of breath No nausea/ vomiting, no abdominal pain No change in bowel habits noted Adds that she has several skin tags on the back of her neck and would like to see if she can get a referral to have these removed Would also like to know how she did on her labs back in June 2022 [facility] Medical History Anxiety Bilateral hand numbness Carpal tunnel syndrome Depression Insomnia Overweight (BMI 25.0-29.9) Pain in both hands Pure hypercholesterolemia Status post hysteroscopy (~03/12/17) Vitamin D deficiency Surgical History History of mastopexy (~09/28/19) Status post abdominoplasty (~09/28/19) Family History Mother Hypertension Mental illness in member of household Maternal Grandfather Gastric cancer Other Mental health problem Social History Household Members: Spouse and Children Housing: House Alcohol intake: current Alcohol intake frequency: holidays/special occasions only Patient Tobacco Use Status: Never used Tobacco e-Cigarette/Vaping Use: Never Used Second Hand Smoke Exposure: Yes service: No Current occupational status: employed 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 1. Little interest or pleasure in doing things: several days 2. Feeling down, depressed, or hopeless: several days 3. Trouble falling or staying asleep, or sleeping too much: several days 4. Feeling tired or having little energy: several days 5. Poor appetite or overeating: not at all 6. Feeling bad about yourself - or that you are a failure or have let yourself or your family down: not at all 7. Trouble concentrating on things, such as reading the newspaper or watching television: not at all 8. Moving or speaking so slowly that other people could have noticed. Or the opposite - being so fidgety or restless that you have been moving around a lot more than usual: not at all 9. Thoughts that you would be better off or of hurting yourself in some way: not at all Total score: 4 Depression Screening Interpretation: Positive Depression Screening Follow-up: Existing condition and In treatment 91755 - PHQ-9 Billing: Yes Source: Developed by Drs. Raphael Goldstein, Ilda Michel, Daniel Sosa and colleagues, with an educational phan from [employer]. Thrive Questionnaire Date Thrive assessed: 10/28/22 I am a: Patient What is your living situation today?: I have a steady place to live Within the past 12 months, did the food you bought not last and you didn't have the money to get more?: Never true Within the past 12 months, did you worry whether your food would run out before you got money to buy more?: Never true Do you have trouble paying for medicines?: No Do you have trouble getting transportation to medical appointments?: No Do you have trouble paying your heating and electricity bill?: No Do you have trouble taking care of your child, family member or friend?: No Do you have trouble with day-to-day activities such as bathing, preparing meals, shopping, managing finances, etc.?: No Are you currently unemployed and looking for a job?: No Are you interested in more education?: No Please select the resources that you would like help with: None Currently or been in a relationship where the following occur: no concerns reported AUDIT C Alcohol Use Questionnaire (AUDIT-C) 1. How often do you have a drink containing alcohol?: Never 3. How often do you have six or more drinks on one occasion?: Never Total Score: 0 Score Reviewed/Action Taken: Yes DAMION-7 AMB Questionnaire DAMION-7 Date DAMION - 7 assessed: 10/28/22 Feeling nervous, anxious, or on edge: 3 = Nearly every day Not being able to stop or control worryin = Nearly every day Worrying too much about different things: 3 = Nearly every day Trouble relaxin = Nearly every day Being so restless that it is hard to sit still: 3 = Nearly every day Becoming easily annoyed or irritable: 3 = Nearly every day Feeling afraid as if something awful might happen: 3 = Nearly every day Total DAMION-7 score (0-4 normal; 5-9 mild; 10-14 moderate; 15-21 severe): 21 Source: Developed by Drs. Raphael Goldstein, Ilda Michel, Daniel Sosa and colleagues, with an educational phan from [employer]. Review of Systems Const Denies chills, Reports difficulty sleeping, Denies fatigue, Denies fever(s) and Denies headache(s) ENT Denies dysphagia, Denies dizziness, Denies otalgia, Denies headache(s), Denies neck pain, Denies odynophagia and Denies sore throat Card Denies chest pain, Denies palpitations and Denies dyspnea Resp Denies cough and Denies dyspnea GI Denies abdominal pain, Denies constipation, Denies dysphagia, Denies heartburn, Denies diarrhea, Denies nausea, Denies odynophagia and Denies vomiting Denies difficulty voiding, Denies nocturia and Denies dysuria Musc Reports arthralgias (in both wrists and hands), Denies neck pain and Reports tingling (in both hands, recurrent) Skin/Breast Details: (+) multiple skin tags, especially over the back of her neck Neuro Denies dizziness, Denies headache(s) and Reports tingling (in both hands, recurrent) Psych Reports anxiety and Reports depression Endo Denies fatigue and Denies palpitations Physical exam (Primary Care) Vital Signs: Last Vital Signs Pulse 85 10/28/22 16:00 BP 116/76 10/28/22 16:00 Pulse Ox 99 10/28/22 16:00 Oxygen Delivery Method Room Air 10/28/22 16:00 BMI result Body Mass Index 25.8 Tobacco/Smoking Status: Tobacco use Status Tobacco use date assessed 10/28/22 10/28/22 16:05 Patient Tobacco Use Status Never used Tobacco 10/28/22 16:05 e-Cigarette/Vaping Use Never Used 10/28/22 16:05 PHQ-9: PHQ-9 Score PHQ-9: Total score 4 10/28/22 22:51 Depression Screening Interpretation: Positive Depression Screening Follow-up: Existing condition and In treatment Thrive Assessment: Date of Thrive Assessment Date Thrive assessed 10/28/22 10/28/22 16:05 Currently or been in a relationship where the following occur: no concerns reported Const General: no acute distress and alert HENMT Ears: TM's normal bilaterally and EAC's normal Throat: Yes posterior oropharynx normal and Yes tonsils normal (no TP congestion) Neck Neck: Yes no lymphadenopathy and Yes supple Resp Auscultation: clear to auscultation bilaterally, no rales and no wheezes Cardio Rate: regular rate Rhythm: regular rhythm Heart sounds: no murmurs GI Palpation (GI): Soft to palpation and nontender Auscultation: normal bowel sounds Skin Other: (+) multiple skin tags over the back of the neck Extrem General: Yes no clubbing, cyanosis or edema Right upper extremity: wrist Details: tenderness; Tinel's positive and Phalen's positive Left upper extremity: wrist ((+) Tinel's and Phalen's sign over the left wrist) Results Reviewed Results Reviewed: Laboratory Tests 05/30/22 05/30/22 06/23/22 12:47 12:53 12:23 WBC 6.6 Hgb 13.3 Hct 40.9 Plt Count 242 Sodium 138 Potassium 4.0 Creatinine 0.76 Estimated GFR > 60 Fasting Glucose 85 Calcium 9.3 AST 13 ALT 15 Triglycerides 74 Cholesterol 228 LDL Cholesterol, Calc 156 HDL Cholesterol 58 Vitamin B12 512 25-OH Vitamin D Total 32.4 TSH 2.28 Ur Specific [place] 1.020 Urine Protein Negative Urine Glucose (UA) Negative Urine Blood Negative Assessment and Plan Assessment & Plan (1) Carpal tunnel syndrome: Code(s): G56.00 - Carpal tunnel syndrome, unspecified upper limb Qualifiers: Laterality: bilateral Qualified Code(s): G56.03 - Carpal tunnel syndrome, bilateral upper limbs Plan: She is now seeing [facility] [place] and is scheduled for carpal tunnel surgery on both of her wrists over he next few weeks (2) Pure hypercholesterolemia: Code(s): E78.00 - Pure hypercholesterolemia, unspecified Plan: Reminded that her cholesterol levels have increased slightly from a year ago on her labs done earlier this year and her LDL cholesterol is now high at 156 mg/dl Reinforced low cholesterol diet Will have her recheck her labs prior to her annual physical exam next year for follow-up (3) Vitamin D deficiency: Code(s): E55.9 - Vitamin D deficiency, unspecified Plan: Corrected - continue Vitamin D3 1000 units (25 mcg) QD (4) Multiple acquired skin tags: Code(s): L91.8 - Other hypertrophic disorders of the skin Plan: Will refer her to dermatology to have these skin tags removed/excised (5) Positive FRANCISCO (antinuclear antibody): Onset Date: Unknown Code(s): R76.8 - Other specified abnormal immunological findings in serum Plan: Has been referred to and seen by rheumatology recently and advised that this is most likely a false positive result as she currently has no signs of inflammatory joint disease on exam She was sent for some additional labs for further evaluation and so far, all of these tests appear to have come back normal (6) Insomnia: Code(s): G47.00 - Insomnia, unspecified Qualifiers: Insomnia type: unspecified Qualified Code(s): G47.00 - Insomnia, unspecified Plan: Sleep hygiene reinforced Used to take Zolpidem 10 mg Q HS PRN but states that it was not helping much and she stopped taking it a while back as she also does not wish to become dependent on the medication States that she recently tried some OTC THC with Melatonin upon the recommendation of a friend and finds that it helps a lot better and she has no lingering effects from the medication the next morning Would like to continue taking this for now and does not wish to take any other Rx at this time (7) Anxiety: Code(s): F41.9 - Anxiety disorder, unspecified Plan: Continue Hydroxyzine 25 mg TID PRN Was on Escitalopram 20 mg QD in the past but she self discontinued this about 3 months ago rash she would like to again try controlling her anxiety and mood without any prescription drug Advised that she can call for prescription again at any time if she changes her mind about this (8) Depression: Code(s): F32.9 - Major depressive disorder, single episode, unspecified Qualifiers: Depression Type: major depressive disorder Major depression recurrence: recurrent Active/Remission status: currently active Major depression episode severity: unspecified Qualified Code(s): F33.9 - Major depressive disorder, recurrent, unspecified Plan: She self-discontinued her Escitalopram 20 mg QD about 3 months ago and declines any other additional Rx for her depression and mood disorder as she would like to try controlling her anxiety and depression again without any prescription drug We have also recommended counseling and therapy for in the past, which she has also declined (9) Overweight (BMI 25.0-29.9): Code(s): E66.3 - Overweight Plan: Reinforced diet/exercise as tolerated/lose weight Plan To return in July 2023 for her next annual physical examination Orders: Orders Comprehensive [place]. Panel Fast 06/29/23 E78.00 - Pure hypercholesterolemia, unspecified Lipid Panel 06/29/23 E78.00 - Pure hypercholesterolemia, unspecified Complete Blood Count Auto Diff 06/29/23 R76.8 - Other specified abnormal immunological findings in serum TSH reflex Free T4 06/29/23 E78.00 - Pure hypercholesterolemia, unspecified, Z00.00 - Encounter for general adult medical examination without abnormal findings Vitamin D 25-OH Total 06/29/23 E55.9 - Vitamin D deficiency, unspecified, Z00.00 - Encounter for general adult medical examination without abnormal findings UA CC w/rflx Micro + Cult 06/29/23 R30.0 - Dysuria, Z00.00 - Encounter for general adult medical examination without abnormal findings Referrals Dermatology Referral L91.8 - Other hypertrophic disorders of the skin Coding Level of Care Code Est Pt Level 4 (66840) Diagnoses Carpal tunnel syndrome G56.03 Laterality: bilateral Pure hypercholesterolemia E78.00 Vitamin D deficiency E55.9 Multiple acquired skin tags L91.8 Positive FRANCISCO (antinuclear antibody) R76.8 Insomnia G47.00 Insomnia type: unspecified Anxiety F41.9 Depression F33.9 Depression Type: major depressive disorder Major depression recurrence: recurrent Active/Remission status: currently active Major depression episode severity: unspecified Overweight (BMI 25.0-29.9) E66.3
== END 2022-10-28 16:43 | disposition home or self-care (01) ==
PROVIDERS: PCP Internal Medicine; Visit Provider Internal Medicine
DX: G56.03 Carpal tunnel syndrome, bilateral upper limbs (principal); E78.00 Pure hypercholesterolemia, unspecified; E55.9 Vitamin D deficiency, unspecified; F41.9 Anxiety disorder, unspecified; L91.8 Other hypertrophic disorders of the skin
CPT/HCPCS: 99214

== ENCOUNTER 2023-01-13 13:55 | Outpatient (REF) | payer OTHER, SELFPAY ==
[2023-01-24 17:29] LABS: HPV 16 RNA NOT DETECTED (NOT DETECTED); HPV mRNA E6/E7 rflx Detected (Not Detected)
== END 2023-01-13 13:56 | disposition home or self-care (01) ==
LOC: HO.LNP 13:55
PROVIDERS: PCP Internal Medicine; Visit Provider Advanced Practice Midwife
DX: Z01.419 Encounter for gynecological examination (general) (routine) without abnormal findings (principal); Z11.51 Encounter for screening for human papillomavirus (HPV)
CPT/HCPCS: 87624; 87625; 88142

== ENCOUNTER 2023-01-13 13:55 | Outpatient (AMB) | payer OTHER, SELFPAY ==
[2023-01-13 14:00] VITALS: BP 110/66; BMI 26.1
--- NOTE | 2023-01-13 14:00 | A.OFFVIS_ITS ---
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 Scribed for NAMITA Baptiste by Carlyn Handley certified ophthalmic medical technician, on 01/13/2023 at 2:15 pm EST Chemical Dependency Therapist Required: No Information Interpreted: non-clinical & clinical Security Installation Sales Technician: Security Installation Sales Technician Present (Julita) Allergies No Known Allergies [No Known Allergies*] Allergy (Verified 01/13/23 14:04) Is last menstrual period known: No (no menses Depo) Post menopausal: No HPI HPI Comments History of Present Illness Details She is a premenopausal woman presenting for annual exam. She attempts to eat healthy and stay active. Currently sexually active. Uses Depo Provera for BC. She is inquiring at what age she should stop taking it. Reports small bump on left side of labia that lasted approximately one month, resolved. Denies vaginal itching and irritation. STD screening offered; she declines. Denies family hx of breast, colon and ovarian cancer. Last pap smear 2017. Patient denies any contraindications to Depo including PE, DVT and blood clotting disorders. [facility] Medical History Pain in both hands Bilateral hand numbness Overweight (BMI 25.0-29.9) Insomnia Vitamin D deficiency Pure hypercholesterolemia Depression Anxiety Status post hysteroscopy (~03/12/17) Carpal tunnel syndrome Surgical History (Updated 01/13/23 @ 14:06 by AARTI Khoury) Hx of carpal tunnel repair History of mastopexy (~09/28/19) Status post abdominoplasty (~09/28/19) Family History Mother Hypertension Mental illness in member of household Maternal Grandfather Gastric cancer Other Mental health problem Social History Household Members: Spouse and Children Housing: House Alcohol intake: current Alcohol intake frequency: holidays/special occasions only Patient Tobacco Use Status: Never used Tobacco e-Cigarette/Vaping Use: Never Used Second Hand Smoke Exposure: Yes service: No Current occupational status: employed 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 Sexual orientation: Straight/Heterosexual Gender identity: Female Cognitive needs: No Hearing needs: No Vision needs: No Female Reproductive History Menstrual Age of Menarche: 14 Duration of menses: 3-5 days control method: progesterone injection Total pregnancies: 3 Full term: 3 Number of Living Children: 3 Date of last pap smear: 08/09/17 (negative) Review of Systems Const All systems reviewed & are unremarkable except as noted in HPI and below Physical Exam Vital Signs: Last Vital Signs BP 110/66 01/13/23 14:00 BMI result Body Mass Index 26.1 Const General: cooperative, healthy appearing, no acute distress, well developed and alert Orientation/consciousness: patient oriented x3 HEENT Head: Yes normal to inspection Eyes General: appearance normal, both eyes and all related structures Neck Neck: Yes normal visual inspection Thyroid: Thyroid normal Chest Chest palpation & inspection: normal inspection of the chest Breast/axilla inspection: normal inspection of the breasts (no puckering, dimpling, peau de orange, retraction, discharge, masses) Breast/axilla palpation: normal palpation of the breasts Resp Effort & Inspection: normal respiratory effort GI Inspection: Yes normal to inspection and Yes scar (reconstructive and abdominoplasty) Palpation (GI): Soft to palpation Rectal Exam - Female: deferred General: Yes bladder normal to palpation External Female Exam: normal external appearance and normal appearance of the urethra Speculum Exam - Vagina: normal appearance of the vagina, normal palpation and normal vaginal discharge Speculum Exam - Cervix: normal appearance of the cervix and normal palpation Bimanual exam- vagina & uterus: normal bimanual exam, normal palpation, uterine size normal, bladder normal to palpation and normal palpation Bimanual Exam- Adnexa, other: normal adnexae and no masses Skin General skin exam: no rashes or lesions noted Neuro General: patient oriented x3 Cognition (Neuro): normal cognition Extrem General: Yes normal to inspection Psych Attitude: cooperative Thought process: Normal thought process present Assessment & Plan Assessment & Plan (1) Encounter for well woman exam: Code(s): Z01.419 - Encounter for gynecological examination (general) (routine) without abnormal findings Plan: Discussed: Current recommendations for pap smears per ASCCP guidelines. Breast awareness and periodic self breast exams. Maintaining a healthy lifestyle including a well balanced diet and routine exercise. All of her questions and concerns were addressed to the best of my ability. RTO in one year for AG. (2) Surveillance for Depo-Provera contraception: Code(s): Z30.42 - Encounter for surveillance of injectable contraceptive Plan: Counseled on decrease of bone loss which is usually reversible after stopping in a young woman. Encouraged Calcium and Vitamin D and weight bearing exercises. Discussed with use of estrogen and progesterone with undiagnosed breast cancer. Some breast cancer can have positive receptors for hormones that can cause to it grow aggressively and can lead to metastatic disease and possibly be life threatening.? She was instructed to go to ER if she develops loss of vision, severe headache that does not resolve, chest pain, difficulty breathing, abdominal pain, or severe pain or tenderness in extremity or new breast lumps. She will call the office with any concerns. Coding Level of Care Code Est Pt Prev Care 18-39y(28243) Diagnoses Encounter for well woman exam Z01.419 Surveillance for Depo-Provera contraception Z30.42
== END 2023-01-13 14:23 | disposition home or self-care (01) ==
PROVIDERS: PCP Internal Medicine; Visit Provider Advanced Practice Midwife
DX: Z01.419 Encounter for gynecological examination (general) (routine) without abnormal findings (principal); Z30.42 Encounter for surveillance of injectable contraceptive
CPT/HCPCS: 99395

== ENCOUNTER 2023-01-19 13:44 | Outpatient (AMB) | payer OTHER, SELFPAY ==
--- NOTE | 2023-01-19 13:55 | AM.OFFVISNUR ---
Intake Vital Signs 01/19/23 13:56 Height 5 ft 4 in Weight 69.116 kg BMI 26.2 Intake Visit Reasons: DEPO Allergies No Known Allergies [No Known Allergies*] Allergy (Verified 01/13/23 14:04) Office Procedures Depo Questionnaire If YES to any of the following questions, please consult a provider. Date of last injection: 10/27/22 Date of last menstrual period: 01/18/23 Date of last gynecology exam: 01/13/23 Menstrual pattern since last injection has been: Light Irregular bleeding?: No Breast lumps or other breast changes?: No Changes in weight or appetite?: No Depression or changes in mood?: No Abnormal hair growth or loss?: No Skin problems (rash, acne, discoloration)?: No Pain at the injection site?: No Headaches?: No Nervousness?: No Abdominal pain or cramping?: No Dizziness or nausea?: No Fatigue or weakness?: No Decrease in sexual drive?: No Chest pain or shortness of breath?: No Swelling in arms or legs?: No Form completed by?: Cyndi Vivas LPN Office Meds Depo-Provera 150 mg/mL intramuscular syringe Performing Provider: Xena Puentes CNM Performing Location: [facility] Administered by: Izabella Vivas LPN on 01/19/23 13:57 Dose Route Admin Location Dispensed Lot Number Expiration Date [facility] [employer] Age Teacher 150 mg IM rt. deltoid 1 mL [id number] 07/03/24 84036-514-80 [employer] Coding Level of Care Code Established Pt Est Pt Level 1 (02020) Patient Type Established History Problem Focused Exam Problem Focused Medical Decision Making Straight Forward Time Spent (min) 15 Assessment & Plan Assessment & Plan Orders: Orders AMB Medroxyprogesterone Injection Patient Supplied Today Z30.42 - Encounter for surveillance of injectable contraceptive
[2023-01-19 13:56] VITALS: BMI 26.2
== END 2023-01-19 13:56 | disposition home or self-care (01) ==
PROVIDERS: PCP Internal Medicine; Visit Provider Advanced Practice Midwife
DX: Z30.42 Encounter for surveillance of injectable contraceptive (principal)

== ENCOUNTER → 2023-01-19 13:44 | Outpatient (BNVA) | payer OTHER, SELFPAY | PROVIDERS: PCP Internal Medicine; Visit Provider Advanced Practice Midwife | DX: Z30.42 Encounter for surveillance of injectable contraceptive (principal) | CPT/HCPCS: 96372; 99211; J1050 ==

== ENCOUNTER 2023-01-20 14:16 | Outpatient (AMB) | payer OTHER, SELFPAY ==
[2023-01-20 14:18] VITALS: BP 118/78; PULSE 79; O2SAT 100; BMI 25.7
--- NOTE | 2023-01-20 14:18 | A.OFFPC_ITS ---
Vital Signs 01/20/23 14:18 Height 5 ft 4 in Weight 150 lb BMI 25.7 BP 118/78 Blood Pressure Location Lt brachial Position Sitting Pulse 79 Pulse Source Pulse Oximeter Pulse Oximetry (%) 100 Oxygen Delivery Method Room Air Intake Visit Reasons: pt with persistent cough for 3 weeks Intake Note: pt states persistent cough [id number] Allergies No Known Allergies [No Known Allergies*] Allergy (Verified 01/20/23 14:23) Medication List - Last Reconciled 01/20/23 by PIPO Kapadia hydroxyzine HCl 25 mg PO TID PRN 30 days medroxyprogesterone 150 mg IM [id number] Tobacco use date assessed: 01/20/23 HPI pt with persistent cough for 3 weeks HPI Details Patient is a 37-year-old female who presents today for the same day visit due to persistent cough for the past 3 weeks which is not improving. Patient of Dr. Mcdaniels. Denies history of asthma, does not smoke. Reports negative COVID test last week. Reports that cough is mostly dry although she feels like she cannot cough up phlegm from her lungs. Reports similar symptoms each year requiring antibiotic. Reports headache from coughing. No shortness of breath or chest pain. Did not use anything for this cough. [facility] Medical History Pain in both hands Bilateral hand numbness Overweight (BMI 25.0-29.9) Insomnia Vitamin D deficiency Pure hypercholesterolemia Depression Anxiety Status post hysteroscopy (~03/12/17) Carpal tunnel syndrome Surgical History Hx of carpal tunnel repair History of mastopexy (~09/28/19) Status post abdominoplasty (~09/28/19) Family History Mother Hypertension Mental illness in member of household Maternal Grandfather Gastric cancer Other Mental health problem Social History Household Members: Spouse and Children Housing: House Alcohol intake: current Alcohol intake frequency: holidays/special occasions only Patient Tobacco Use Status: Never used Tobacco e-Cigarette/Vaping Use: Never Used Second Hand Smoke Exposure: Yes service: No Current occupational status: employed 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 How often do you have a drink containing alcohol?: Never 3. How often do you have six or more drinks on one occasion?: Never Total Score: 0 Score Reviewed/Action Taken: Yes DAMION-7 AMB Questionnaire DAMION-7 Date DAMION - 7 assessed: 10/28/22 Source: Developed by Drs. Raphael Goldstein, Ilda Michel, Daniel Sosa and colleagues, with an educational phan from [employer]. Review of Systems Const Denies body aches, Denies chills, Denies fever(s) and Reports headache(s) ENT Denies dizziness, Denies otalgia, Reports headache(s), Denies nasal discharge, Denies sinus pain and Denies sore throat Card Denies chest pain, Denies edema, Denies lightheadedness and Denies dyspnea Resp Reports cough, Denies dyspnea and Denies wheezing GI Denies abdominal pain Musc Denies myalgias Skin/Breast Denies rash Neuro Denies dizziness and Reports headache(s) Aller/Immun Denies wheezing Physical exam (Primary Care) Vital Signs: Last Vital Signs Pulse 79 01/20/23 14:18 BP 118/78 01/20/23 14:18 Pulse Ox 100 01/20/23 14:18 Oxygen Delivery Method Room Air 01/20/23 14:18 BMI result Body Mass Index 25.7 Tobacco/Smoking Status: Tobacco use Status Tobacco use date assessed 01/20/23 01/20/23 14:22 Patient Tobacco Use Status Never used Tobacco 01/20/23 14:22 e-Cigarette/Vaping Use Never Used 01/20/23 14:22 Thrive Assessment: Date of Thrive Assessment Date Thrive assessed 10/28/22 01/20/23 14:22 Const General: cooperative and no acute distress Orientation/consciousness: patient oriented x3 HENMT Head: Yes normocephalic and Yes atraumatic Face and sinus: Yes sinuses nontender Mouth: oropharynx normal and moist mucous membranes Throat: Yes posterior oropharynx normal Eyes General: appearance normal, both eyes and all related structures Neck Neck: Yes normal visual inspection and Yes full ROM Resp Effort & Inspection: normal respiratory effort, able to speak in complete sentences and Actively coughing Auscultation: clear to auscultation bilaterally, no crackles, no rales, no rhonchi and no wheezes Cardio Rate: regular rate Rhythm: regular rhythm Heart sounds: S1 normal heart sound present and S2 normal heart sound present GI Auscultation: normal bowel sounds Skin General skin exam: no rashes or lesions noted Neuro General: patient oriented x3 Gait exam (Neuro): Normal gait present Extrem General: Yes full ROM and No edema Assessment and Plan Assessment & Plan (1) Cough: Code(s): R05.9 - Cough, unspecified Plan: Suspect bronchitis. Patient reports that cough is not improving. Lungs clear to auscultation. Start albuterol inhaler p.r.n., Z-Phil, benzonatate p.r.n.. Increase fluid consumption. Follow-up if no improvement after finishing antibiotic. Patient agreed with the plan Medications: New albuterol sulfate 90 mcg/actuation (Ventolin HFA) 2 puffs inhalation Q4-6H PRN 8.5 grams 0RF shortness of breath or wheezing R05.9 - Cough, unspecified azithromycin take 500 mg today (day 1), then 250 mg for 4 days (days 2-5) PO 6 tabs 0RF R05.9 - Cough, unspecified benzonatate 100 mg PO BID PRN 20 caps 0RF cough R05.9 - Cough, unspecified Coding Level of Care Code Est Pt Level 3 (58278) Diagnoses Cough R05.9
== END 2023-01-20 14:46 | disposition home or self-care (01) ==
PROVIDERS: PCP Internal Medicine; Visit Provider Nurse Practitioner Family
DX: R05.9 Cough, unspecified (principal)
CPT/HCPCS: 99213

== ENCOUNTER 2023-01-25 09:12 | Outpatient (REF) | payer OTHER, SELFPAY ==
--- NOTE | ~2023-01-25 | XR_ITS ---
EXAMINATION: XR CHEST CLINICAL INFORMATION: Cough COMPARISON: 01/13/2020 TECHNIQUE: 2 views of the chest were obtained. FINDINGS: No significant abnormality is noted involving the heart, lungs, mediastinum, bony thorax or soft tissues. XR/XR chest 2V IMPRESSION: Unremarkable examination with no interval change.
== END 2023-01-25 09:13 | disposition home or self-care (01) ==
LOC: HO.XRAY 09:12
PROVIDERS: PCP Internal Medicine; Visit Provider Internal Medicine
DX: R05.9 Cough, unspecified (principal)
CPT/HCPCS: 71046

== ENCOUNTER 2023-02-06 13:00 | Outpatient (RCR) | payer OTHER, SELFPAY | END 2023-02-17 08:30 | disposition home or self-care (01) | LOC: HO.OT 13:00 | PROVIDERS: PCP Internal Medicine; Visit Provider Plastic Surgery | DX: Z98.890 Other specified postprocedural states (principal) | CPT/HCPCS: 97033; 97035; 97110; 97140; 97166; 97530 ==

== ENCOUNTER 2023-02-08 08:30 | Outpatient (AMB) | payer OTHER, SELFPAY ==
--- NOTE | 2023-02-08 08:37 | MHC.OFFVIS ---
Intake Vital Signs 02/08/23 08:38 Height 5 ft 4 in Weight 149 lb 14.629 oz BMI 25.7 BP 120/74 Intake Visit Reasons: COLPO per msg Instant Printer Operator Required: No Information Interpreted: non-clinical & clinical B2B Managed Service Sales Exec: B2B Managed Service Sales Exec Present (Arpita Spenser BROUSSARD) Accompanied by: Self / Same As Patient Allergies No Known Allergies [No Known Allergies*] Allergy (Verified 02/08/23 08:46) Is last menstrual period known: No (depo shot) HPI HPI Comments History of Present Illness Details Presenting referred by Xena Puentes CNM regarding abnormal Pap smear showing LGSIL/HPV pause PFSH Medical History Pain in both hands Bilateral hand numbness Overweight (BMI 25.0-29.9) Insomnia Vitamin D deficiency Pure hypercholesterolemia Depression Anxiety Status post hysteroscopy (~03/12/17) Carpal tunnel syndrome Surgical History Hx of carpal tunnel repair History of mastopexy (~09/28/19) Status post abdominoplasty (~09/28/19) Family History Mother Hypertension Mental illness in member of household Maternal Grandfather Gastric cancer Other Mental health problem Social History Household Members: Spouse and Children Housing: House Alcohol intake: current Alcohol intake frequency: holidays/special occasions only Patient Tobacco Use Status: Never used Tobacco e-Cigarette/Vaping Use: Never Used Second Hand Smoke Exposure: Yes service: No Current occupational status: employed 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 [employer] Sexual orientation: Straight/Heterosexual Gender identity: Female Cognitive needs: No Hearing needs: No Vision needs: No Female Reproductive History Menstrual Age of Menarche: 14 control method: progesterone injection Physical Exam Vital Signs: Last Vital Signs BP 120/74 02/08/23 08:38 BMI result Body Mass Index 25.7 Office Procedures Colposcopy Before the procedure was started discussed with the patient the procedure, alternatives & all the risks associated with the procedure (bleeding, infection, injury to vagina, bladder, vessels, possible need for transfusion with all its risks) then patient signed the consent Pap smear = LSIL/HPV pause Urine test done in the office was negative Speculum inserted, acetic acid used Colposcopy done Transformation zone seen, acetowhite lesions identified at 5+6+11+1 o?clock, cervical biopsies taken from 5+6+11+1 o?clock, ECC done afterwards. Vaginoscopy of the upper vagina showed no evidence of any aceto-white lesions Monsel solution used for hemostasis. The patient tolerated well . At the end the patient was instructed to call if temp>100.4, abdominal pain, n/v, bleeding; The patient was given the following instructions: nothing per vagina, no intercourse or bath tub use. All questions answered the patient verbalized understanding. Instructed the patient to make an appointment in 2 weeks for follow-up This note was generated with a voice recognition program. Some errors may have been overlooked during the review of this note. Sometimes these errors may affect the content or meaning of a given sentence. 95902-Oonetgdhs of cervix including upper vagina with biopsy and ECC Procedure code (CPT) selection complete Results AMB Test Urine AMB Test Urine Negative Last Edit by Arpita Dueñas CMA on 02/08/23 08:48 Results Reviewed Results Reviewed: Laboratory Last Values [facility]st Clinic Negative 02/08/23 08:47 Assessment & Plan Assessment & Plan (1) LGSIL on Pap smear of cervix: Code(s): R87.612 - Low grade squamous intraepithelial lesion on cytologic smear of cervix (LGSIL) Plan: Colposcopy done, see procedure note Orders: Orders AMB HCG Urine Test Today Z32.02 - Encounter for test, result negative AMB Colposcopy Today R87.612 - Low grade squamous intraepithelial lesion on cytologic smear of cervix (LGSIL) Coding Level of Care Code Procedure Only Diagnoses LGSIL on Pap smear of cervix R87.612 CPT Codes Colposcopy - CPT: 68641-Kzuequwsa of cervix including upper vagina with biopsy and ECC ([id number])
[2023-02-08 08:38] VITALS: BP 120/74; BMI 25.7
== END 2023-02-08 09:01 | disposition home or self-care (01) ==
PROVIDERS: PCP Internal Medicine; Visit Provider Obstetrics & Gynecology
DX: R87.612 Low grade squamous intraepithelial lesion on cytologic smear of cervix (LGSIL) (principal); Z32.02 Encounter for pregnancy test, result negative
CPT/HCPCS: 57454

== ENCOUNTER 2023-02-08 08:30 | Outpatient (REF) | payer OTHER, SELFPAY | END 2023-02-08 08:31 | disposition home or self-care (01) | LOC: HO.LNP 08:30 | PROVIDERS: PCP Internal Medicine; Visit Provider Obstetrics & Gynecology | DX: R87.612 Low grade squamous intraepithelial lesion on cytologic smear of cervix (LGSIL) (principal); Z32.02 Encounter for pregnancy test, result negative | CPT/HCPCS: 57454; 81025; 88300; 88305 ==

== ENCOUNTER 2023-02-16 09:24 | Outpatient (AMB) | payer OTHER, SELFPAY ==
[2023-02-16 09:36] VITALS: BMI 25.7
--- NOTE | 2023-02-16 09:36 | MHC.OFFVIS ---
Intake Vital Signs 02/16/23 09:36 Height 5 ft 4 in Weight 149 lb 14.629 oz BMI 25.7 Intake Visit Reasons: 1 0 clock biopsy Allergies No Known Allergies [No Known Allergies*] Allergy (Verified 02/08/23 08:46) HPI HPI Comments History of Present Illness Details Presenting for repeat colpo/biopsy at 01:00 o'clock since tissue did not survive processing for abnormal Pap smear showing LGSIL/HPV positive. The pathology of the previous cervical biopsy showed the following: A. Endocervix, curettage: Scant superficial strips of squamous and endocervical mucosa within normal limits. B. Cervix, 1 o'clock, biopsy: Tissue did not survive processing. C. Cervix, 5 o'clock, biopsy: Squamous mucosa within normal limits. D. Cervix, 6 o'clock, biopsy: Mildly inflamed squamous mucosa with reactive changes. E. Cervix, 11 o'clock, biopsy: Mildly inflamed squamous and endocervical mucosa with reactive changes PFSH Medical History Pain in both hands Bilateral hand numbness Overweight (BMI 25.0-29.9) Insomnia Vitamin D deficiency Pure hypercholesterolemia Depression Anxiety Status post hysteroscopy (~03/12/17) Carpal tunnel syndrome Surgical History Hx of carpal tunnel repair History of mastopexy (~09/28/19) Status post abdominoplasty (~09/28/19) Family History Mother Hypertension Mental illness in member of household Maternal Grandfather Gastric cancer Other Mental health problem Social History Household Members: Spouse and Children Housing: House Alcohol intake: current Alcohol intake frequency: holidays/special occasions only Patient Tobacco Use Status: Never used Tobacco e-Cigarette/Vaping Use: Never Used Second Hand Smoke Exposure: Yes service: No Current occupational status: employed 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 Sexual orientation: Straight/Heterosexual Gender identity: Female Cognitive needs: No Hearing needs: No Vision needs: No Female Reproductive History Menstrual Age of Menarche: 14 Physical Exam Vital Signs: BMI result Body Mass Index 25.7 Office Procedures Colposcopy Before the procedure was started discussed with the patient the procedure, alternatives & all the risks associated with the procedure (bleeding, infection, injury to vagina, bladder, vessels, possible need for transfusion with all its risks) then patient signed the consent UPT done in the office & negative Pap smear = LGSIL/HPV positive, 01:00 o'clock cervical biopsy did not survive tissue process Speculum inserted, acetic acid used Colposcopy done Transformation zone seen, acetowhite lesions identified at 01:00 o'clock o?clock, cervical biopsies taken from 1 o?clock, Monsel solution used for hemostasis. The patient tolerated well . At the end the patient was instructed to call if temp>100.4, abdominal pain, n/v, bleeding; The patient was given the following instructions: nothing per vagina, no intercourse or bath tub use. All questions answered the patient verbalized understanding. Instructed the patient to make an appointment in 2 weeks for follow-up This note was generated with a voice recognition program. Some errors may have been overlooked during the review of this note. Sometimes these errors may affect the content or meaning of a given sentence. 23597-Cgyofspbp of cervix including upper vagina with biopsy and ECC Procedure code (CPT) selection complete Results AMB Test Urine AMB Test Urine Negative Last Edit by Arpita Dueñas CMA on 02/16/23 10:47 Results Reviewed Results Reviewed: Laboratory Last Values Tst Clinic Negative 02/16/23 10:47 Assessment & Plan Assessment & Plan (1) LGSIL on Pap smear of cervix: Code(s): R87.612 - Low grade squamous intraepithelial lesion on cytologic smear of cervix (LGSIL) Plan: Colpo biopsy at 1 o'clock repeated. Instructions given to patient to schedule 2 week post colpo appointment. Orders: Orders AMB HCG Urine Test Today Z32.02 - Encounter for test, result negative AMB Colposcopy Today R87.612 - Low grade squamous intraepithelial lesion on cytologic smear of cervix (LGSIL) Surgical Today R87.612 - Low grade squamous intraepithelial lesion on cytologic smear of cervix (LGSIL) Coding Level of Care Code Procedure Only Diagnoses LGSIL on Pap smear of cervix R87.612 CPT Codes Colposcopy - CPT: 83437-Lhbtdhnel of cervix including upper vagina with biopsy and ECC ([id number])
== END 2023-02-16 13:08 | disposition home or self-care (01) ==
LOC: HO.HWS 09:24
PROVIDERS: PCP Internal Medicine; Visit Provider Obstetrics & Gynecology
DX: R87.612 Low grade squamous intraepithelial lesion on cytologic smear of cervix (LGSIL) (principal); Z32.02 Encounter for pregnancy test, result negative
CPT/HCPCS: 57454

== ENCOUNTER 2023-02-16 09:24 | Outpatient (REF) | payer OTHER, SELFPAY | END 2023-02-16 09:25 | disposition home or self-care (01) | LOC: HO.LNP 09:24 | PROVIDERS: PCP Internal Medicine; Visit Provider Obstetrics & Gynecology | DX: R87.612 Low grade squamous intraepithelial lesion on cytologic smear of cervix (LGSIL) (principal) | CPT/HCPCS: 57454; 81025; 88305 ==

== ENCOUNTER 2023-03-08 10:09 | Outpatient (REF) | payer OTHER, SELFPAY ==
[2023-03-18 02:18] LABS: Class Alternaria alternata 0; Class Aspergillus fumigatus 0; Class Bermuda Grass 0; Class Birch 0; Class Cat Dander 0; Class Cladosporium herbarum 0; Class Cockroach 0; Class Common Ragweed 0; Class Cottonwood 0; Class Derm. pterony 0; Class Dermatophagoides farinae 0; Class Dog Dander 0; Class Elm 0; Class Maple Box Elder 0; Class Mountain Cedar 0; Class Mouse Urine Protein 0; Class Mugwort 0; Class Oak 0; Class Penicillium crysogenum 0; Class Rough Pigweed 0; Class Sheep Sorrel 0; Class Sycamore 0; Class Timothy Grass 0; Class Walnut Tree 0; Class White Ash 0; Class White Mulberry 0; D001 IgE D pteronyssinus <0.10 kU/L; D002 - IgE D farinae <0.10 kU/L; E001 - IgE Cat Dander <0.10 kU/L; E005 - IgE Dog Dander <0.10 kU/L; E072-IgE Mouse Urine <0.10 kU/L; G002 IgE Bermuda Grass <0.10 kU/L; G006 - IgE Timothy Grass <0.10 kU/L; I006-IgE Cockroach, German <0.10 kU/L; Immunoglobulin E 35 kU/L (<OR=114); M001 IgE Penicillium chrysogen <0.10 kU/L; M002 - IgE Cladosporium herbar <0.10 kU/L; M003 - IgE Aspergillus fumigat <0.10 kU/L; M006 - IgE Alternaria alternat <0.10 kU/L; T001 IgE Maple/Box Elder <0.10 kU/L; T003 IgE Common Silver Birch <0.10 kU/L; T006 - IgE Cedar, Mountain <0.10 kU/L; T007 - IgE Oak, White <0.10 kU/L; T008 IgE Elm, American <0.10 kU/L; T010 - IgE Walnut <0.10 kU/L; T011 - IgE Maple Leaf Sycamore <0.10 kU/L; T014 - IgE Cottonwood <0.10 kU/L; T015 - IgE Ash, White <0.10 kU/L; T070 - IgE White Mulberry <0.10 kU/L; W001 - IgE Ragweed, Short <0.10 kU/L; W006 - IgE Mugwort <0.10 kU/L; W014 IgE Pigweed, Common <0.10 kU/L; W018 IgE Sheep Sorrel <0.10 kU/L
== END 2023-03-08 10:10 | disposition home or self-care (01) ==
LOC: HO.LAB 10:09
PROVIDERS: PCP Internal Medicine; Referring Provider Internal Medicine; Visit Provider Internal Medicine Pulmonary Disease
DX: J45.909 Unspecified asthma, uncomplicated (principal); Z91.09 Other allergy status, other than to drugs and biological substances
CPT/HCPCS: 36415; 82785; 85025; 86003; 99212

== ENCOUNTER 2023-03-08 10:09 | Outpatient (AMB) | payer OTHER, SELFPAY ==
[2023-03-08 10:11] VITALS: BP 108/67; PULSE 100; O2SAT 100; BMI 25.5
--- NOTE | 2023-03-08 10:11 | MHC.OFFVIS ---
Intake Vital Signs 03/08/23 10:11 Height 5 ft 4 in Weight 148 lb 12.992 oz BMI 25.5 BP 108/67 Blood Pressure Location Rt brachial Position Sitting Pulse 100 Pulse Source Doppler Pulse Oximetry (%) 100 Oxygen Delivery Method Room Air Intake Visit Reasons: cough Allergies No Known Allergies [No Known Allergies*] Allergy (Verified 03/08/23 10:18) HPI cough HPI Details 38-year-old lady, lifetime nonsmoker, with multiple first-degree relatives with asthma referred for evaluation of chronic recurrent cough. Patient stated usually around November of every years she get bronchitis with a chronic nonproductive cough lingering thereafter for several months. She has been treated with several courses of azithromycin and albuterol MDI with no significant changes in her symptoms. She denies environmental allergies. She does have a dog as a pet. She is employed with no exposure to industrial dusts. [facility] Medical History Pain in both hands Bilateral hand numbness Overweight (BMI 25.0-29.9) Insomnia Vitamin D deficiency Pure hypercholesterolemia Depression Anxiety Status post hysteroscopy (~03/12/17) Carpal tunnel syndrome Surgical History Hx of carpal tunnel repair History of mastopexy (~09/28/19) Status post abdominoplasty (~09/28/19) Family History Mother Hypertension Mental illness in member of household Maternal Grandfather Gastric cancer Other Mental health problem Social History Household Members: Spouse and Children Housing: House Alcohol intake: current Alcohol intake frequency: holidays/special occasions only Patient Tobacco Use Status: Never used Tobacco e-Cigarette/Vaping Use: Never Used Second Hand Smoke Exposure: Yes service: No Current occupational status: employed 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 Sexual orientation: Straight/Heterosexual Gender identity: Female Cognitive needs: No Hearing needs: No Vision needs: No Female Reproductive History Menstrual Age of Menarche: 14 Review of Systems Const Denies daytime sleepiness, Denies excessive sweating, Denies fatigue, Denies fever(s), Denies lethargy, Denies malaise, Denies night sweats, Denies snoring and Denies weight loss Eyes Denies blurry vision and Denies itchy eyes ENT Denies nasal congestion, Denies post nasal drip, Denies sinus pain, Denies sinus pressure and Denies other ( Thrush) Card Denies chest pain, Denies pedal edema, Denies dyspnea, Denies orthopnea and Denies paroxysmal nocturnal dyspnea Resp Reports cough, Denies hemoptysis, Denies excessive phlegm production, Denies dyspnea, Denies snoring and Reports wheezing GI Denies abdominal pain and Denies heartburn Musc Denies myalgias, Denies arthralgias and Denies joint swelling Skin/Breast Denies rash Neuro Denies memory loss and Denies seizure-like activity Psych Denies abnormal sleep pattern, Denies anxiety and Denies memory loss Endo Denies excessive sweating, Denies fatigue and Denies heat intolerance Fredi/Lymph Denies easy bruising Aller/Immun Denies itchy eyes, Denies seasonal rhinorrhea and Reports wheezing Physical Exam Vital Signs: Last Vital Signs Pulse 100 03/08/23 10:11 BP 108/67 03/08/23 10:11 Pulse Ox 100 03/08/23 10:11 Oxygen Delivery Method Room Air 03/08/23 10:11 BMI result Body Mass Index 25.5 Const General: no acute distress and alert Nutritional Appearance: not obese Orientation/consciousness: Other orientation findings ( oriented) HEENT Head: Yes atraumatic Eyes General: appearance normal, both eyes and all related structures Sclerae: sclerae normal EOM: EOMs intact bilaterally Neck Neck: Yes supple Lymphatic: no lymphadenopathy noted Resp Effort & Inspection: normal respiratory effort and no use of accessory muscles Auscultation: clear to auscultation bilaterally Cardio Rate: regular rate Rhythm: regular rhythm Heart sounds: no gallops, no murmurs and no rubs Skin General skin exam: other ( warm) Extrem General: No clubbing, No cyanosis and No edema Assessment & Plan Assessment & Plan (1) Asthma: Code(s): J45.909 - Unspecified asthma, uncomplicated Plan: likely underlying cough variant asthma. Will start on empiric Breo and obtain full PFT. (2) Environmental allergies: Code(s): Z91.09 - Other allergy status, other than to drugs and biological substances Plan: Will obtain IgE level, CBC with differential, and RAST panel for further evaluation. Orders: Orders Resp Allergy Profile Region I Today J45.909 - Unspecified asthma, uncomplicated PFT pulmonary function test Today J45.909 - Unspecified asthma, uncomplicated Complete Blood Count Auto Diff Today J45.909 - Unspecified asthma, uncomplicated Medications: New fluticasone furoate-vilanterol 200-25 mcg/dose (Breo Ellipta) 1 inh inhalation DAILY 30 days 1 ea 6RF J45.909 - Unspecified asthma, uncomplicated Coding Level of Care Code Est Pt Level 4 (09752) Diagnoses Asthma J45.909 Environmental allergies Z91.09
== END 2023-03-08 10:37 | disposition home or self-care (01) ==
PROVIDERS: PCP Internal Medicine; Referring Provider Internal Medicine; Visit Provider Internal Medicine Pulmonary Disease
DX: J45.909 Unspecified asthma, uncomplicated (principal); Z91.09 Other allergy status, other than to drugs and biological substances
CPT/HCPCS: 99214

== ENCOUNTER 2023-03-09 15:36 | Outpatient (AMB) | payer OTHER, SELFPAY ==
--- NOTE | 2023-03-09 15:46 | MHC.OFFVIS ---
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 Since the previous cervical biopsy at 01:00 o'clock did not survive processing. The pathology showed the following: Cervix, 1:00, biopsy: Benign endocervical glandular mucosa without squamous epithelium; negative for dysplasia. Colpo/biopsy for LGSIL/HPV positive was done few weeks ago and the pathology showed the following: A. Endocervix, curettage: Scant superficial strips of squamous and endocervical mucosa within normal limits. B. Cervix, 1 o'clock, biopsy: Tissue did not survive processing. C. Cervix, 5 o'clock, biopsy: Squamous mucosa within normal limits. D. Cervix, 6 o'clock, biopsy: Mildly inflamed squamous mucosa with reactive changes. E. Cervix, 11 o'clock, biopsy: Mildly inflamed squamous and endocervical mucosa with reactive changes PFSH Medical History Pain in both hands Bilateral hand numbness Overweight (BMI 25.0-29.9) Insomnia Vitamin D deficiency Pure hypercholesterolemia Depression Anxiety Status post hysteroscopy (~03/12/17) Carpal tunnel syndrome Surgical History Hx of carpal tunnel repair History of mastopexy (~09/28/19) Status post abdominoplasty (~09/28/19) Family History Mother Hypertension Mental illness in member of household Maternal Grandfather Gastric cancer Other Mental health problem Social History Household Members: Spouse and Children Housing: House Alcohol intake: current Alcohol intake frequency: holidays/special occasions only Patient Tobacco Use Status: Never used Tobacco e-Cigarette/Vaping Use: Never Used Second Hand Smoke Exposure: Yes service: No Current occupational status: employed 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 Sexual orientation: Straight/Heterosexual Gender identity: Female Cognitive needs: No Hearing needs: No Vision needs: No Female Reproductive History Menstrual Age of Menarche: 14 control method: progesterone injection Date of last pap smear: 01/16/23 (OSEAS 1 +HPV) History of abnormal pap smear: Yes Review of Systems Const All systems reviewed & are unremarkable except as noted in HPI and below Reports as per HPI and Reports no additional complaints GI Reports no additional complaints Reports no additional complaints Physical Exam Vital Signs: Last Vital Signs BP 110/68 03/09/23 15:47 BMI result Body Mass Index 25.4 Assessment & Plan Assessment & Plan (1) LGSIL on Pap smear of cervix: Code(s): R87.612 - Low grade squamous intraepithelial lesion on cytologic smear of cervix (LGSIL) Plan: Discussed with the patient the pathology results of the colposcopy biopsies & endocervical curettage ( negative). Discussed with the patient the sensitivity specificity, positive and negative predictive value in detecting cervical cancer in addition discussed the regression, persistence and progression rates. Recommended co-testing in 12 months, if cytology and or HPV are abnormal will proceed was colposcopy biopsy and endocervical curettage. Instructions given to the patient to schedule a co test appointment in 1 year. All questions answered the patient verbalized understanding. Coding Level of Care Code Est Pt Level 3 (52155) Diagnoses LGSIL on Pap smear of cervix R87.612
[2023-03-09 15:47] VITALS: BP 110/68; BMI 25.4
== END 2023-03-09 15:57 | disposition home or self-care (01) ==
LOC: HO.HWS 15:36
PROVIDERS: PCP Internal Medicine; Visit Provider Obstetrics & Gynecology
DX: R87.612 Low grade squamous intraepithelial lesion on cytologic smear of cervix (LGSIL) (principal)
CPT/HCPCS: 99213

== ENCOUNTER → 2023-03-09 15:36 | Outpatient (BNVA) | payer OTHER, SELFPAY | PROVIDERS: PCP Internal Medicine; Visit Provider Obstetrics & Gynecology | DX: R87.612 Low grade squamous intraepithelial lesion on cytologic smear of cervix (LGSIL) (principal) | CPT/HCPCS: 99212 ==

== ENCOUNTER 2023-04-06 13:29 | Outpatient (AMB) | payer OTHER, SELFPAY ==
--- NOTE | 2023-04-06 13:32 | A.OFFVIS_ITS ---
Intake Vital Signs 04/06/23 13:33 Height 5 ft 4 in Weight 152 lb 1.903 oz BMI 26.1 BP 120/82 Blood Pressure Location Rt brachial Position Sitting Pulse 102 H Pulse Source Doppler Pulse Oximetry (%) 97 Oxygen Delivery Method Room Air Intake Visit Reasons: Cough Allergies No Known Allergies [No Known Allergies*] Allergy (Verified 04/06/23 13:38) HPI Cough HPI Details 38-year-old lady, lifetime nonsmoker, with multiple first-degree relatives with asthma referred for evaluation of chronic recurrent cough. Patient stated usually around November of every years she get bronchitis with a chronic nonproductive cough lingering thereafter for several months. She has been treated with several courses of azithromycin and albuterol MDI with no significant changes in her symptoms. She denies environmental allergies. She does have a dog as a pet. She is employed with no exposure to industrial dusts. After the last office visit no response to trial of empiric Breo. Patient continues to complain of persistent dry cough. No significant GERD symptoms. Pulmonary function test is pending. [facility] Medical History Pain in both hands Bilateral hand numbness Overweight (BMI 25.0-29.9) Insomnia Vitamin D deficiency Pure hypercholesterolemia Depression Anxiety Status post hysteroscopy (~03/12/17) Carpal tunnel syndrome Surgical History Hx of carpal tunnel repair History of mastopexy (~09/28/19) Status post abdominoplasty (~09/28/19) Family History Mother Hypertension Mental illness in member of household Maternal Grandfather Gastric cancer Other Mental health problem Social History Household Members: Spouse and Children Housing: House Alcohol intake: current Alcohol intake frequency: holidays/special occasions only Patient Tobacco Use Status: Never used Tobacco e-Cigarette/Vaping Use: Never Used Second Hand Smoke Exposure: Yes service: No Current occupational status: employed 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 Sexual orientation: Straight/Heterosexual Gender identity: Female Cognitive needs: No Hearing needs: No Vision needs: No Female Reproductive History Menstrual Age of Menarche: 14 Review of Systems Const Denies daytime sleepiness, Denies excessive sweating, Denies fatigue, Denies fever(s), Denies lethargy, Denies malaise, Denies night sweats, Denies snoring and Denies weight loss Eyes Denies blurry vision and Denies itchy eyes ENT Denies nasal congestion, Denies post nasal drip, Denies sinus pain, Denies sinus pressure and Denies other ( Thrush) Card Denies chest pain, Denies pedal edema, Denies dyspnea, Denies orthopnea and Denies paroxysmal nocturnal dyspnea Resp Reports cough, Denies hemoptysis, Denies excessive phlegm production, Denies dyspnea, Denies snoring and Denies wheezing GI Denies abdominal pain and Denies heartburn Musc Denies myalgias, Denies arthralgias and Denies joint swelling Skin/Breast Denies rash Neuro Denies memory loss and Denies seizure-like activity Psych Denies abnormal sleep pattern, Denies anxiety and Denies memory loss Endo Denies excessive sweating, Denies fatigue and Denies heat intolerance Fredi/Lymph Denies easy bruising Aller/Immun Denies itchy eyes, Denies seasonal rhinorrhea and Denies wheezing Physical Exam Vital Signs: Last Vital Signs Pulse 102 H 04/06/23 13:33 BP 120/82 04/06/23 13:33 Pulse Ox 97 04/06/23 13:33 Oxygen Delivery Method Room Air 04/06/23 13:33 BMI result Body Mass Index 26.1 Const General: no acute distress and alert Nutritional Appearance: not obese Orientation/consciousness: Other orientation findings ( oriented) HEENT Head: Yes atraumatic Eyes General: appearance normal, both eyes and all related structures Sclerae: sclerae normal EOM: EOMs intact bilaterally Neck Neck: Yes supple Lymphatic: no lymphadenopathy noted Resp Effort & Inspection: normal respiratory effort and no use of accessory muscles Auscultation: clear to auscultation bilaterally Cardio Rate: regular rate Rhythm: regular rhythm Heart sounds: no gallops, no murmurs and no rubs Skin General skin exam: other ( warm) Extrem General: No clubbing, No cyanosis and No edema Assessment & Plan Assessment & Plan (1) Asthma: Code(s): J45.909 - Unspecified asthma, uncomplicated Plan: Unclear if patient does have underlying asthma. No response to empiric Breo. PFT is pending. (2) Environmental allergies: Code(s): Z91.09 - Other allergy status, other than to drugs and biological substances Plan: Results of RAST, IgE level, and CBC reviewed, no underlying allergic etiology at this time. (3) ILD (interstitial lung disease): Code(s): J84.9 - Interstitial pulmonary disease, unspecified Plan: Concern for early ILD. Will obtain CT chest. (4) Recurrent cough: Code(s): R05.8 - Other specified cough Plan: Unclear etiology, no response to inhaled corticosteroids, now underlying GERD symptoms. Start on codeine for symptoms suppression. Orders: Orders CT chest wo IV con Today J84.9 - Interstitial pulmonary disease, unspecified Medications: New codeine-guaifenesin 10-100 mg/5 mL 10 mL PO TID PRN 473 mL 0RF cough Discontinued fluticasone furoate-vilanterol 200-25 mcg/dose (Breo Ellipta) Discontinued Reason: Doctor's Order 1 inh inhalation DAILY 30 days 1 ea 6RF J45.909 - Unspecified asthma, uncomplicated Coding Level of Care Code Est Pt Level 4 (81795) Diagnoses Asthma J45.909 Environmental allergies Z91.09 ILD (interstitial lung disease) J84.9 Recurrent cough R05.8
[2023-04-06 13:33] VITALS: BP 120/82; PULSE 102; O2SAT 97; BMI 26.1
== END 2023-04-06 13:55 | disposition home or self-care (01) ==
PROVIDERS: PCP Internal Medicine; Visit Provider Internal Medicine Pulmonary Disease
DX: J45.909 Unspecified asthma, uncomplicated (principal); Z91.09 Other allergy status, other than to drugs and biological substances; J84.9 Interstitial pulmonary disease, unspecified; R05.8 Other specified cough
CPT/HCPCS: 99214

== ENCOUNTER → 2023-04-06 13:29 | Outpatient (BNVA) | payer OTHER, SELFPAY | PROVIDERS: PCP Internal Medicine; Visit Provider Internal Medicine Pulmonary Disease | DX: R05.8 Other specified cough (principal); J45.909 Unspecified asthma, uncomplicated; J84.9 Interstitial pulmonary disease, unspecified; Z91.09 Other allergy status, other than to drugs and biological substances; Z30.42 Encounter for surveillance of injectable contraceptive | CPT/HCPCS: 96372; 99211; 99212; J1050 ==

== ENCOUNTER 2023-04-06 13:52 | Outpatient (AMB) | payer OTHER, SELFPAY ==
[2023-04-06 14:14] VITALS: BMI 25.5
--- NOTE | 2023-04-06 14:14 | AM.OFFVISNUR ---
Intake Vital Signs 04/06/23 14:14 Height 5 ft 4 in Weight 67.273 kg BMI 25.5 Intake Visit Reasons: Depo Allergies No Known Allergies [No Known Allergies*] Allergy (Verified 04/06/23 13:38) Nursing Note Stacy is here today for her scheduled Depo_provera inj. Pt reports she has been bleeding since she had her Colposcopy on 02/16. She reports bleedingn1-2 days each month. it is a light flow but has to wear a panty liner or tampon. She does not feel its from the Depo-provera as she has bee on it x 5 yrs. I asked pt to have a test done and she denied, saying she has not been sexually active since the Colposcopy , due to the bleeding. Pt was informed i will send a message to DR Kelley and will contact her regarding plan. Pt verbs understanding. Office Procedures Depo Questionnaire If YES to any of the following questions, please consult a provider. Date of last injection: 01/19/23 Date of last gynecology exam: 01/13/23 Menstrual pattern since last injection has been: Light Irregular bleeding?: Yes Breast lumps or other breast changes?: No Changes in weight or appetite?: No Depression or changes in mood?: No Abnormal hair growth or loss?: No Skin problems (rash, acne, discoloration)?: No Pain at the injection site?: No Headaches?: No Nervousness?: No Abdominal pain or cramping?: No Dizziness or nausea?: No Fatigue or weakness?: No Decrease in sexual drive?: No Chest pain or shortness of breath?: No Swelling in arms or legs?: No Any other problems or concerns?: Pt reports bleeding since Colposcopy in February. Bleeding q week for 1-2 d Form completed by?: PADDY Allison Office Meds Depo-Provera 150 mg/mL intramuscular syringe Performing Provider: Xena Puentes CNM Performing Location: [facility] Administered by: Izabella Vivas LPN on 04/06/23 14:15 Dose Route Admin Location Dispensed Lot Number Expiration Date [facility] Messenger Copy 150 mg IM Lt. deltoid 1 mL [id number] 11/03/24 78121-037-57 [employer] Coding Level of Care Code Established Pt Est Pt Level 1 (66408) Patient Type Established History Problem Focused Exam Problem Focused Medical Decision Making Low Complexity Time Spent (min) 20 Assessment & Plan Assessment & Plan Orders: Orders AMB Medroxyprogesterone Injection Patient Supplied Today Z30.42 - Encounter for surveillance of injectable contraceptive
== END 2023-04-06 14:12 | disposition home or self-care (01) ==
LOC: HO.HWS 13:52
PROVIDERS: PCP Internal Medicine; Visit Provider Advanced Practice Midwife
DX: Z30.42 Encounter for surveillance of injectable contraceptive (principal)

== ENCOUNTER 2023-04-06 14:49 | Outpatient (REF) | payer OTHER, SELFPAY ==
--- NOTE | ~2023-04-06 | CT_ITS ---
EXAMINATION: CT CHEST WITHOUT CONTRAST CLINICAL INFORMATION: Interstitial pulmonary disease COMPARISON: None available. TECHNIQUE: Multidetector volumetric CT imaging of the chest was done. Axial MIP volume rendering provided. Sagittal and coronal reformatted images were obtained. This CT examination was performed using dose optimization techniques as appropriate, variously including the following: *Automated exposure control *Adjustment of mA and/or kV according to patient size (this includes techniques or standardized protocols for targeted exams where dose is matched to indication/reason for exam; i.e. extremities or head) *Use of iterative reconstruction technique DLP: 108 mGy-cm FINDINGS: DOMESTIC TECHNICIAN: Well-expanded lungs. LUNGS: There is mild bronchiolar wall thickening in the right upper, mid and lower lobes. Some of the thickening appears more nodular for example axial image 91/6 in the right middle lobe and right lower lobe, axial image 62/6 right upper lobe. There is ill-defined scattered ground-glass attenuation seen in the right middle lobe axial image 81/6, 85/6, 88/6. The left lung is well-expanded without any bronchiolar wall thickening or ground-glass attenuation. The major bronchi and the trachea are widely patent. No interstitial or subpleural thickening seen. No bronchiectasis. MEDIASTINUM: Thyroid lobes are symmetric and normal. Heart size and the great vessels are normal caliber. No pericardial effusion. No abnormal size mediastinal or hilar lymph nodes. CORONARY ARTERY CALCIFICATION: None visualized on this study. PLEURA: There is no pleural effusion. No pleural mass or thickening. AXILLA: No abnormal axillary lymphadenopathy seen. There are bilateral breast prostheses. UPPER ABDOMEN: Visualized liver, spleen, pancreas and bilateral adrenal glands are unremarkable. OSSEOUS STRUCTURES: No aggressive lytic or sclerotic process seen. CT/CT chest wo IV con IMPRESSION: 1. Mild bronchiolar wall thickening in the right upper, mid and lower lobes with some of the thickening appears more nodular. There is ill-defined ground-glass attenuation in the right middle lobe. Findings are suggestive of inflammatory or infectious etiology. Left lung is relatively clear. 2. No abnormal mediastinal or axillary lymphadenopathy seen. Fleischner guidelines were followed.
== END 2023-04-06 14:50 | disposition home or self-care (01) ==
LOC: HO.CT 14:49
PROVIDERS: PCP Internal Medicine; Visit Provider Internal Medicine Pulmonary Disease
DX: J84.9 Interstitial pulmonary disease, unspecified (principal)
CPT/HCPCS: 71250

== ENCOUNTER 2023-04-10 08:23 | Outpatient (AMB) | payer OTHER, SELFPAY ==
[2023-04-10 08:25] VITALS: BP 110/72; BMI 25.4
--- NOTE | 2023-04-10 08:25 | A.OFFVIS_ITS ---
Intake Vital Signs 04/10/23 08:25 Height 5 ft 4 in Weight 148 lb BMI 25.4 BP 110/72 Intake Visit Reasons: Vaginal bleeding Intake Note: Bleeding since biopsies Service Provider: Service Provider Present (Cara) Allergies No Known Allergies [No Known Allergies*] Allergy (Verified 04/10/23 08:25) HPI HPI Comments History of Present Illness Details Presenting complaining of irregular menstrual cycles over the last few weeks, no other associated symptoms. Last co testing in 01/26 showed LGSIL/HPV pause, colpo/biopsy/ECC was negative The patient has been on Depo-Provera last 5 years, has been amenorrheic since then [facility] Medical History Pain in both hands Bilateral hand numbness Overweight (BMI 25.0-29.9) Insomnia Vitamin D deficiency Pure hypercholesterolemia Depression Anxiety Status post hysteroscopy (~03/12/17) Carpal tunnel syndrome Surgical History Hx of carpal tunnel repair History of mastopexy (~09/28/19) Status post abdominoplasty (~09/28/19) Family History Mother Hypertension Mental illness in member of household Maternal Grandfather Gastric cancer Other Mental health problem Social History Household Members: Spouse and Children Housing: House Alcohol intake: current Alcohol intake frequency: holidays/special occasions only Patient Tobacco Use Status: Never used Tobacco e-Cigarette/Vaping Use: Never Used Second Hand Smoke Exposure: Yes service: No Current occupational status: employed 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 Sexual orientation: Straight/Heterosexual Gender identity: Female Cognitive needs: No Hearing needs: No Vision needs: No Female Reproductive History Menstrual Age of Menarche: 14 Review of Systems Const All systems reviewed & are unremarkable except as noted in HPI and below Physical Exam Vital Signs: Last Vital Signs BP 110/72 04/10/23 08:25 BMI result Body Mass Index 25.4 General: Yes no CVA tenderness External Female Exam: normal external appearance and normal appearance of the urethra Speculum Exam - Vagina: normal appearance of the vagina, normal palpation, no lesions and no masses Speculum Exam - Cervix: normal appearance of the cervix, normal palpation, no lesions, no masses and nontender Bimanual exam- vagina & uterus: normal bimanual exam, normal palpation, uterine size normal, normal palpation, uterine shape normal, No Cervical tenderness present and non-tender Bimanual Exam- Adnexa, other: normal adnexae Back/Spine/Pelvis Back: no CVA tenderness Results AMB Test Urine AMB Test Urine Negative Last Edit by AARTI Gayle on 04/10/23 08:32 Results Reviewed Results Reviewed: Laboratory Last Values Tst Clinic Negative 04/10/23 08:32 Assessment & Plan Assessment & Plan (1) Abnormal uterine bleeding: Comment: On Depo-Provera Code(s): N93.9 - Abnormal uterine and vaginal bleeding, unspecified Plan: GC and chlamydia taken CBC, TSH, HCG, prolactin, and pelvic ultrasound ordered. Discussed with the patient the different causes of abnormal bleeding including thyroid disorders, uterine and ovarian pathology, endometrial hyperplasia, carcinoma and other potential causes. Discussed with the patient the work up including CBC (to r/o anemia), TSH, pelvic Ultrasound, endometrial biopsy to r/o endometrial pathology. All questions answered and the patient verbalized understanding. Instructed the patient to schedule an appointment for an endometrial biopsy in 2 weeks. Orders: Orders US pelvic and transvaginal Today N93.9 - Abnormal uterine and vaginal bleeding, unspecified Prolactin Today N93.9 - Abnormal uterine and vaginal bleeding, unspecified CT NG by PCR Today N93.9 - Abnormal uterine and vaginal bleeding, unspecified AMB HCG Urine Test Today N93.9 - Abnormal uterine and vaginal bleeding, unspecified CT NG by PCR Today N93.9 - Abnormal uterine and vaginal bleeding, unspecified TSH reflex Free T4 Today N93.9 - Abnormal uterine and vaginal bleeding, unspecified HCG Quantitative Today N93.9 - Abnormal uterine and vaginal bleeding, unspecified Coding Level of Care Code Est Pt Level 3 (23874) Diagnoses Abnormal uterine bleeding N93.9
== END 2023-04-10 08:40 | disposition home or self-care (01) ==
LOC: HO.HWS 08:23
PROVIDERS: PCP Internal Medicine; Visit Provider Obstetrics & Gynecology
DX: N93.9 Abnormal uterine and vaginal bleeding, unspecified (principal)
CPT/HCPCS: 99213

== ENCOUNTER 2023-04-10 08:23 | Outpatient (REF) | payer OTHER, SELFPAY ==
[2023-04-10 15:23] LABS: CT PCR NOT DETECTED (Not Detect.); NG PCR NOT DETECTED (Not Detect.)
== END 2023-04-10 08:24 | disposition home or self-care (01) ==
LOC: HO.LNP 08:23
PROVIDERS: PCP Internal Medicine; Visit Provider Obstetrics & Gynecology
DX: N93.9 Abnormal uterine and vaginal bleeding, unspecified (principal)
CPT/HCPCS: 0353U; 81025; 99212

== ENCOUNTER 2023-04-11 08:47 | Outpatient (REF) | payer OTHER, SELFPAY ==
--- NOTE | 2023-04-11 14:23 | PFT_ITS ---
Flows: FEV1: 87 % of predicted at 2.63 L FVC: 86 % of predicted at 3.20 L FEV1/FVC: 82 % Bronchodilator response: Absent Volumes: Total lung capacity: 78 % of predicted at 4.07 L Residual volume: 75 % of predicted at 0.97 L Slow vital capacity: 79 % of predicted at 3.10 L Expiratory reserve volume: 79 % of predicted at 0.98 L Diffusion capacity: Normal Impression: Mild restrictive ventilatory defect with no bronchodilator response. MTDD
== END 2023-04-11 08:48 | disposition home or self-care (01) ==
LOC: HO.RESP 08:47
PROVIDERS: PCP Internal Medicine; Visit Provider Internal Medicine Pulmonary Disease
DX: J45.909 Unspecified asthma, uncomplicated (principal)
CPT/HCPCS: 99212

== ENCOUNTER 2023-04-11 10:02 | Outpatient (AMB) | payer OTHER, SELFPAY ==
[2023-04-11 10:04] VITALS: BP 109/64; PULSE 93; O2SAT 99; BMI 25.4
--- NOTE | 2023-04-11 10:04 | A.OFFVIS_ITS ---
Intake Vital Signs 04/11/23 10:04 Height 5 ft 4 in Weight 148 lb BMI 25.4 BP 109/64 Blood Pressure Location Rt brachial Position Sitting Pulse 93 Pulse Source Doppler Pulse Oximetry (%) 99 Oxygen Delivery Method Room Air Intake Visit Reasons: pft follow up Allergies No Known Allergies [No Known Allergies*] Allergy (Verified 04/11/23 10:08) HPI pft follow up HPI Details 38-year-old lady, lifetime nonsmoker, wi th multiple first-degree relatives with asthma referred for evaluation of chronic recurrent cough. Patient stated usually around November of every years she get bronchitis with a chronic nonproductive cough lingering thereafter for several months. She has been treated with several courses of azithromycin and albuterol MDI with no significant changes in her symptoms. She denies environmental allergies. She does have a dog as a pet. She is employed with no exposure to industrial dusts. After the last office visit no response to trial of empiric Breo. Patient continues to complain of persistent dry cough. A pulmonary function test shows mild restriction, but accuracy is compromised by significant coughing. She completed her CT chest that shows unilateral right-sided bronchitic/early nodular findings. [facility] Medical History (Updated 04/11/23 @ 11:02 by Melo Pereyra MD) Pain in both hands Bilateral hand numbness Overweight (BMI 25.0-29.9) Insomnia Vitamin D deficiency Pure hypercholesterolemia Depression Anxiety Status post hysteroscopy (~03/12/17) Carpal tunnel syndrome Surgical History Hx of carpal tunnel repair History of mastopexy (~09/28/19) Status post abdominoplasty (~09/28/19) Family History Mother Hypertension Mental illness in member of household Maternal Grandfather Gastric cancer Other Mental health problem Social History Household Members: Spouse and Children Housing: House Alcohol intake: current Alcohol intake frequency: holidays/special occasions only Patient Tobacco Use Status: Never used Tobacco e-Cigarette/Vaping Use: Never Used Second Hand Smoke Exposure: Yes service: No Current occupational status: employed 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 Sexual orientation: Straight/Heterosexual Gender identity: Female Cognitive needs: No Hearing needs: No Vision needs: No Female Reproductive History Menstrual Age of Menarche: 14 Review of Systems Const Denies daytime sleepiness, Denies excessive sweating, Denies fatigue, Denies fever(s), Denies lethargy, Denies malaise, Denies night sweats, Denies snoring and Denies weight loss Eyes Denies blurry vision and Denies itchy eyes ENT Denies nasal congestion, Denies post nasal drip, Denies sinus pain, Denies sinus pressure and Denies other ( Thrush) Card Denies chest pain, Denies pedal edema, Denies dyspnea, Denies orthopnea and Denies paroxysmal nocturnal dyspnea Resp Reports cough, Denies hemoptysis, Denies excessive phlegm production, Denies dyspnea, Denies snoring and Denies wheezing GI Denies abdominal pain and Denies heartburn Musc Denies myalgias, Denies arthralgias and Denies joint swelling Skin/Breast Denies rash Neuro Denies memory loss and Denies seizure-like activity Psych Denies abnormal sleep pattern, Denies anxiety and Denies memory loss Endo Denies excessive sweating, Denies fatigue and Denies heat intolerance Fredi/Lymph Denies easy bruising Aller/Immun Denies itchy eyes, Denies seasonal rhinorrhea and Denies wheezing Physical Exam Vital Signs: Last Vital Signs Pulse 93 04/11/23 10:04 BP 109/64 04/11/23 10:04 Pulse Ox 99 04/11/23 10:04 Oxygen Delivery Method Room Air 04/11/23 10:04 BMI result Body Mass Index 25.4 Const General: no acute distress and alert Nutritional Appearance: not obese Orientation/consciousness: Other orientation findings ( oriented) HEENT Head: Yes atraumatic Eyes General: appearance normal, both eyes and all related structures Sclerae: sclerae normal EOM: EOMs intact bilaterally Neck Neck: Yes supple Lymphatic: no lymphadenopathy noted Resp Effort & Inspection: normal respiratory effort and no use of accessory muscles Auscultation: clear to auscultation bilaterally Cardio Rate: regular rate Rhythm: regular rhythm Heart sounds: no gallops, no murmurs and no rubs Skin General skin exam: other ( warm) Extrem General: No clubbing, No cyanosis and No edema Assessment & Plan Assessment & Plan (1) Recurrent cough: Code(s): R05.8 - Other specified cough Plan: Continues with recurrent cough. Patient has not received codeine. Codeine changed to pill form. Continue for symptoms suppression. (2) Abnormal CT scan, chest: Code(s): R93.89 - Abnormal findings on diagnostic imaging of other specified body structures Plan: Results of CT chest reviewed, suspicious for an early fungal findings. Will start on empiric itraconazole. If no improvement, will consider bronchoscopy. Medications: New itraconazole 3 times a day for the 1st 3 days, then once daily for 14 days; must administer with a meal/food 200 mg (2 x 100 mg) PO .per instruction 46 caps 0RF 17 days Refilled codeine sulfate Partial Fill upon patient request. 15 mg PO Q4-6H PRN 60 tabs 0RF cough 15 days Coding Level of Care Code Est Pt Level 4 (46248) Diagnoses Recurrent cough R05.[address] scan, chest R93.89
== END 2023-04-11 10:48 | disposition home or self-care (01) ==
PROVIDERS: PCP Internal Medicine; Visit Provider Internal Medicine Pulmonary Disease
DX: R05.8 Other specified cough (principal); R93.89 Abnormal findings on diagnostic imaging of other specified body structures
CPT/HCPCS: 94060; 94727; 94729; 99214

== ENCOUNTER 2023-04-27 09:45 | Day surgery (SDC) | payer OTHER, SELFPAY ==
--- NOTE | 2023-04-26 09:34 | P.CONAN_ITS ---
Documented by User: Dot Bermudez NP 04/26/23 09:34 HPI - Anesthesia Eval Consult details Narrative: 38yo F for Bronchoscopy Fiberoptic PMFSH Active Problems Active Problems: All Active Problems (Updated 04/11/23 @ 11:02 by Melo Pereyra MD) Abnormal CT scan, chest (Acute) Abnormal uterine bleeding (Acute) LGSIL on Pap smear of cervix (Acute) Recurrent cough (Acute) Multiple acquired skin tags (Acute) Left hand weakness (Acute) Left hand pain (Acute) Right hand weakness (Acute) Right hand pain (Acute) Pain in both wrists (Acute) Pain in both hands (Acute) Bilateral hand numbness (Acute) Positive FRANCISCO (antinuclear antibody) (Acute Unknown) Overweight (BMI 25.0-29.9) (Acute) Insomnia (Acute) Throat discomfort (Acute) Carpal tunnel syndrome (Acute) Swelling of hand (Acute) Pain in hand (Acute) Vitamin D deficiency (Acute) Right low back pain (Acute) Pure hypercholesterolemia (Acute) Cough (Acute) Encounter for management and injection of depo-Provera (Acute) Anxiety (Acute) Depression (Acute) Past Medical History Medical History Pain in both hands Bilateral hand numbness Overweight (BMI 25.0-29.9) Insomnia Vitamin D deficiency Pure hypercholesterolemia Depression Anxiety Status post hysteroscopy (~03/12/17) Carpal tunnel syndrome Family History Family History Mother Hypertension Mental illness in member of household Maternal Grandfather Gastric cancer Other Mental health problem Surgical History Surgical History Hx of carpal tunnel repair History of mastopexy (~09/28/19) Status post abdominoplasty (~09/28/19) Social History Social History Household Members: Spouse and Children Housing: House Alcohol intake: current Alcohol intake frequency: holidays/special occasions only Patient Tobacco Use Status: Never used Tobacco e-Cigarette/Vaping Use: Never Used Second Hand Smoke Exposure: Yes Use of substances other than those prescribed or required for medical reasons: Yes Substance Use Type Other:: cbd/melatonin Are you DNR?: No Advance Directives: No Advance Directives Information Provided: Yes service: No Current occupational status: employed 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 Sexual orientation: Straight/Heterosexual Gender identity: Female Cognitive needs: No Hearing needs: No Vision needs: No Meds Allergies Allergy/AdvReac Type Severity Reaction Status Date / Time No Known Allergies Allergy Verified 04/11/23 10:08 [No Known Allergies*] Assessment and Plan Assessment Anesthesia Assessment: Chart Reviewed Documented by User: Gini Paula MD 04/27/23 11:00 PMFSH Past Medical History Medical History Pain in both hands Bilateral hand numbness Overweight (BMI 25.0-29.9) Insomnia Vitamin D deficiency Pure hypercholesterolemia Depression Anxiety Status post hysteroscopy (~03/12/17) Carpal tunnel syndrome Family History Family History Mother Hypertension Mental illness in member of household Maternal Grandfather Gastric cancer Other Mental health problem Family history of problems with anesthesia: No Surgical History Surgical History Hx of carpal tunnel repair History of mastopexy (~09/28/19) Status post abdominoplasty (~09/28/19) History of Problems with Anesthesia: Yes Social History Social History Household Members: Spouse and Children Housing: House Alcohol intake: current Alcohol intake frequency: holidays/special occasions only Patient Tobacco Use Status: Never used Tobacco e-Cigarette/Vaping Use: Never Used Second Hand Smoke Exposure: Yes Use of substances other than those prescribed or required for medical reasons: Yes Substance Use Type Other:: cbd/melatonin Are you DNR?: No Advance Directives: No Advance Directives Information Provided: Yes service: No Current occupational status: employed 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 Sexual orientation: Straight/Heterosexual Gender identity: Female Cognitive needs: No Hearing needs: No Vision needs: No Meds Allergies Allergy/AdvReac Type Severity Reaction Status Date / Time No Known Allergies Allergy Verified 04/11/23 10:08 [No Known Allergies*] Exam Airway Mallampati Class: II TM Dist: >3cm Neck ROM: Full Heart: rrr Lungs: cta Assessment and Plan Assessment Anesthesia Assessment: Anesthesia Plan Discussed (artificial eyelashes prone to dislodge ment during eye tape placement and removal, pt accepts risk) Final Anesthetic Review Family History of Problems with Anesthesia: No History of Problems with Anesthesia: Yes NPO: Yes ASA Class: II Final Preanesthetic Review: No Changes in Pt Med Stat, Meds/Allgs Chart Reviewed, Consent Obtained/Reviewed and Anes Risks/Benef Reviewed Patient Risk: Low Procedure Risk: Low Anesthetic Plan Anesthetic Plan: GA Disposition: Standard PACU
[2023-04-27] VITALS (11 sets, daily range): BP systolic 101–149; BP diastolic 55–81; PULSE 80–129; RESP 16–24; TEMP 36.3–36.8; O2SAT 94–100; BMI 26.3
[2023-04-27 10:11] LABS: UPreg QC Valid YES; Urine Pregnancy NEGATIVE (NEGATIVE)
[2023-04-27] MEDS: Lactated Ringers 1,000 ML 100 ML IVCONT (10:47)
--- NOTE | 2023-04-27 11:43 | MHC.SHP ---
Pre-Procedural Eval Section A - 24 Hr Update-Section A only Date of Service: 04/27/23 The patient is an INPATIENT: No Changes since office visit: Yes Patient answered all questions; No Cold of Flu in the past 2 weeks, No New Medical Problems and No Changes in Medication The patient has been examined within 24 hours of the surgical procedure. The History & Physical has been completed within 30 days and I have reviewed it.: Yes Section B - Complete if H&P > 30 days Chief Complaint: Other specified cough Allergies: Allergies Allergy/AdvReac Type Severity Reaction Status Date / Time No Known Allergies Allergy Verified 04/11/23 10:08 [No Known Allergies*] Plan Diagnosis/Plan: Unchanged I have reviewed the history and physical and performed a pertinent physical examination on my patient. No changes have occurred unless specified. Time Spent With Patient Time: Total time managing care of this patient today ____ minutes.
[2023-04-27] MEDS: fentaNYL citrate/PF 100 MCG/2 ML VIAL 50 MCG IVPUSH (13:02)
--- NOTE | 2023-04-27 13:58 | PM.OP ---
Brief Operative Note Date of Service: 04/27/23 Pre-op diagnosis: Chronic cough Post-op diagnosis: same Procedure: Flexible bronchoscopy performed through the ET tube with patient intubated for the procedure. Bronchoscope advanced through the tracheobronchial tree with visualization of small amount of thick secretions in left lower lobe which were easily suctioned out with normal bronchial mucosa noted underneath. Bilateral combined bronchoalveolar lavage performed and sample sent for microbiologic testing. Patient tolerated the procedure well and was returned in stable condition to PACU. Surgeon: Melo Pereyra MD Anesthesia: GETA Was an Analysis Consultant used for this Procedure?: No Estimated blood loss (mL): 0
== END 2023-04-27 14:42 | disposition home or self-care (01) ==
PROVIDERS: Nurse Practitioner; PCP Internal Medicine; Visit Provider Internal Medicine Pulmonary Disease
PROC: 0BJ08ZZ Inspection of Tracheobronchial Tree, Via Natural or Artificial Opening Endoscopic (ICD-10-PCS; CPT 31622; principal; 2023-04-27 11:40)
DX: R05.3 Chronic cough (principal); R93.89 Abnormal findings on diagnostic imaging of other specified body structures; E78.00 Pure hypercholesterolemia, unspecified; E55.9 Vitamin D deficiency, unspecified; E66.3 Overweight; Z68.25 Body mass index [BMI] 25.0-25.9, adult; F32.A Depression, unspecified; F41.9 Anxiety disorder, unspecified; Z98.890 Other specified postprocedural states
CPT/HCPCS: 31624; 81025; 87070; 87077; 87102; 87116; 87185; 87205; 87206; J1805; J2250; J2704; J3010

== ENCOUNTER → 2023-04-27 09:45 | Outpatient (BNV) | payer OTHER, SELFPAY | PROVIDERS: PCP Internal Medicine; Visit Provider Internal Medicine Pulmonary Disease | DX: R05.3 Chronic cough (principal) | CPT/HCPCS: 31624 ==

== ENCOUNTER 2023-05-02 14:28 | Outpatient (REF) | payer OTHER, SELFPAY ==
--- NOTE | ~2023-05-02 | US_ITS ---
EXAMINATION: US PELVIS CLINICAL INFORMATION: Abnormal uterine bleeding, on Depo-Provera for 5 years with unknown last menstrual period. Pelvic discomfort. COMPARISON: Pelvic ultrasound of 05/04/2009. TECHNIQUE: Ultrasound of the pelvis is performed using both transabdominal and transvaginal transducers along with Doppler. Transvaginal imaging is performed due to inadequate visualization transabdominally. FINDINGS: Uterus: The uterus is anteverted and measures 7.7 x 4.5 x 6.5 cm. Small amount of fluid within the endometrial cavity. The double wall endometrial thickness is 5 mm. No visible fibroid. Adnexa: Bilateral ovaries are unremarkable. There is no pelvic ascites or fluid collection. Right ovary measures 2.5 x 1.4 x 1.9 cm. Volume 3.5 mL. Left ovary measures 2.4 x 1.7 x 1.0 cm. Volume 2.1 mL. US/US pelvic and transvaginal IMPRESSION: 1. Small amount of fluid within the endometrial cavity. The double wall endometrial thickness is 5 mm. 2. No visible fibroid. 3. Unremarkable bilateral ovaries.
== END 2023-05-02 14:29 | disposition home or self-care (01) ==
LOC: HO.US 14:28
PROVIDERS: PCP Internal Medicine; Visit Provider Obstetrics & Gynecology
DX: N93.9 Abnormal uterine and vaginal bleeding, unspecified (principal)
CPT/HCPCS: 76830; 76856

== ENCOUNTER 2023-05-09 13:41 | Outpatient (AMB) | payer OTHER, SELFPAY ==
[2023-05-09 13:44] VITALS: BP 102/64; PULSE 97; O2SAT 100
--- NOTE | 2023-05-09 13:44 | MHC.OFFVIS ---
Intake Vital Signs 05/09/23 13:44 Weight 145 lb 8.081 oz BP 102/64 Blood Pressure Location Lt brachial Position Sitting Pulse 97 Pulse Source Doppler Pulse Oximetry (%) 100 Oxygen Delivery Method Room Air Intake Visit Reasons: S/p bronch Allergies No Known Allergies [No Known Allergies*] Allergy (Verified 05/09/23 13:49) HPI S/p bronch HPI Details 38-year-old lady, lifetime nonsmoker, with multiple first-degree relatives with asthma referred for evaluation of chronic recurrent cough. Patient stated usually around November of every years she get bronchitis with a chronic nonproductive cough lingering thereafter for several months. She has been treated with several courses of azithromycin and albuterol MDI with no significant changes in her symptoms. She denies environmental allergies. She does have a dog as a pet. She is employed with no exposure to industrial dusts. After the last office visit patient had bronchoscopy with bronchoalveolar lavage growing Haemophilus. She was started on Levaquin, however still with no significant improvement. [facility] Medical History Pain in both hands Bilateral hand numbness Overweight (BMI 25.0-29.9) Insomnia Vitamin D deficiency Pure hypercholesterolemia Depression Anxiety Status post hysteroscopy (~03/12/17) Carpal tunnel syndrome Surgical History Hx of carpal tunnel repair History of mastopexy (~09/28/19) Status post abdominoplasty (~09/28/19) Family History Mother Hypertension Mental illness in member of household Maternal Grandfather Gastric cancer Other Mental health problem Social History Household Members: Spouse and Children Housing: House Alcohol intake: current Alcohol intake frequency: holidays/special occasions only Patient Tobacco Use Status: Never used Tobacco e-Cigarette/Vaping Use: Never Used Second Hand Smoke Exposure: Yes service: No Current occupational status: employed 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 Sexual orientation: Straight/Heterosexual Gender identity: Female Cognitive needs: No Hearing needs: No Vision needs: No Female Reproductive History Menstrual Age of Menarche: 14 Review of Systems Const Denies daytime sleepiness, Denies excessive sweating, Denies fatigue, Denies fever(s), Denies lethargy, Denies malaise, Denies night sweats, Denies snoring and Denies weight loss Eyes Denies blurry vision and Denies itchy eyes ENT Denies nasal congestion, Denies post nasal drip, Denies sinus pain, Denies sinus pressure and Denies other ( Thrush) Card Denies chest pain, Denies pedal edema, Denies dyspnea, Denies orthopnea and Denies paroxysmal nocturnal dyspnea Resp Denies cough, Denies hemoptysis, Denies excessive phlegm production, Denies dyspnea, Denies snoring and Denies wheezing GI Denies abdominal pain and Denies heartburn Musc Denies myalgias, Denies arthralgias and Denies joint swelling Skin/Breast Denies rash Neuro Denies memory loss and Denies seizure-like activity Psych Denies abnormal sleep pattern, Denies anxiety and Denies memory loss Endo Denies excessive sweating, Denies fatigue and Denies heat intolerance Fredi/Lymph Denies easy bruising Aller/Immun Denies itchy eyes, Denies seasonal rhinorrhea and Denies wheezing Physical Exam Vital Signs: Last Vital Signs Pulse 97 05/09/23 13:44 BP 102/64 05/09/23 13:44 Pulse Ox 100 05/09/23 13:44 Oxygen Delivery Method Room Air 05/09/23 13:44 Const General: no acute distress and alert Nutritional Appearance: not obese Orientation/consciousness: Other orientation findings ( oriented) HEENT Head: Yes atraumatic Eyes General: appearance normal, both eyes and all related structures Sclerae: sclerae normal EOM: EOMs intact bilaterally Neck Neck: Yes supple Lymphatic: no lymphadenopathy noted Resp Effort & Inspection: normal respiratory effort and no use of accessory muscles Auscultation: clear to auscultation bilaterally Cardio Rate: regular rate Rhythm: regular rhythm Heart sounds: no gallops, no murmurs and no rubs Skin General skin exam: other ( warm) Extrem General: No clubbing, No cyanosis and No edema Assessment & Plan Assessment & Plan (1) Recurrent cough: Code(s): R05.8 - Other specified cough Plan: Status post bronchoalveolar lavage with cultures growing Haemophilus, poor response to p.o. Levaquin. Will add nebulized tobramycin. (2) Abnormal CT scan, chest: Code(s): R93.89 - Abnormal findings on diagnostic imaging of other specified body structures Plan: No evidence of fungal elements on both care of a lavage. Will continue voriconazole and monitor clinically. Medications: New tobramycin separate doses by at least 6 hours 300 mg (4 mL) inhalation BID 224 mL 0RF 28 days Coding Level of Care Code Est Pt Level 4 (50617) Diagnoses Recurrent cough R05.[address] scan, chest R93.89
== END 2023-05-09 14:06 | disposition home or self-care (01) ==
PROVIDERS: PCP Internal Medicine; Visit Provider Internal Medicine Pulmonary Disease
DX: R05.8 Other specified cough (principal); R93.89 Abnormal findings on diagnostic imaging of other specified body structures
CPT/HCPCS: 99214

== ENCOUNTER → 2023-05-09 13:41 | Outpatient (BNVA) | payer OTHER, SELFPAY | PROVIDERS: PCP Internal Medicine; Visit Provider Internal Medicine Pulmonary Disease | DX: R05.8 Other specified cough (principal); R93.89 Abnormal findings on diagnostic imaging of other specified body structures | CPT/HCPCS: 99212 ==

== ENCOUNTER 2023-05-22 16:06 | Outpatient (REF) | payer OTHER, SELFPAY ==
[2023-05-22 17:44] LABS: Appearance Urine Clear; Color Urine Yellow; Glucose Urine UA Negative (Negative); Leukocyte Esterase Urine Negative (Negative); Nitrite Urine Negative (Negative); Specific Gravity - Urine 1.025 (1.005-1.025); Urine Blood Negative (Negative); Urine Ketones Negative (Negative); Urine Protein Negative (Neg-Trace)
[2023-05-22 17:58] LABS: HCG Quantitative < 2 mIU/mL; TSH reflex Free T4 0.92 uIU/mL (0.32-4.0)
[2023-05-23 14:54] LABS: Immunoglobulin G Subclass 1 598 mg/dL (382-929); Immunoglobulin G Subclass 2 174 mg/dL (241-700); Immunoglobulin G Subclass 3 22 mg/dL (22-178); Immunoglobulin G Subclass 4 21.5 mg/dL (4-86); Immunoglobulin G Total 884 mg/dL (600-1640)
[2023-05-24 22:28] LABS: IgA 363 mg/dL (47-310); IgG 1024 mg/dL (600-1640); IgM 78 mg/dL (50-300)
== END 2023-05-22 16:07 | disposition home or self-care (01) ==
LOC: HO.LAB 16:06
PROVIDERS: Obstetrics & Gynecology; PCP Internal Medicine; Visit Provider Internal Medicine Pulmonary Disease
DX: Z00.00 Encounter for general adult medical examination without abnormal findings (principal); R30.0 Dysuria; R05.8 Other specified cough; N93.9 Abnormal uterine and vaginal bleeding, unspecified
CPT/HCPCS: 36415; 81003; 82784; 84146; 84443; 84702

== ENCOUNTER 2023-06-07 17:15 | Outpatient (REF) | payer OTHER, SELFPAY ==
[2023-06-09 16:18] LABS: Immunoglobulin G Subclass 1 709 mg/dL (382-929); Immunoglobulin G Subclass 2 196 mg/dL (241-700); Immunoglobulin G Subclass 3 25 mg/dL (22-178); Immunoglobulin G Subclass 4 21.5 mg/dL (4-86); Immunoglobulin G Total 928 mg/dL (600-1640)
== END 2023-06-07 17:16 | disposition home or self-care (01) ==
LOC: HO.LAB 17:15
PROVIDERS: PCP Internal Medicine; Visit Provider Internal Medicine Pulmonary Disease
DX: D80.1 Nonfamilial hypogammaglobulinemia (principal)
CPT/HCPCS: 36415; 82784

== ENCOUNTER 2023-06-14 14:32 | Outpatient (AMB) | payer OTHER, SELFPAY ==
[2023-06-14 14:39] VITALS: BP 110/76; BMI 25.8
--- NOTE | 2023-06-14 14:39 | MHC.OFFVIS ---
Intake Vital Signs 06/14/23 14:39 Height 5 ft 3.5 in Weight 148 lb BMI 25.8 BP 110/76 Intake Visit Reasons: EMB/Ultrasound follow up/visit is for 2:30 PM Porter Luggage Required: No Information Interpreted: non-clinical & clinical Mortgage Originator: Mortgage Originator Present (Aidyn) Allergies No Known Allergies [No Known Allergies*] Allergy (Verified 06/14/23 14:46) Post menopausal: No Patient : No HPI HPI Comments History of Present Illness Details Presenting for EMB PFSH Medical History Pain in both hands Bilateral hand numbness Overweight (BMI 25.0-29.9) Insomnia Vitamin D deficiency Pure hypercholesterolemia Depression Anxiety Status post hysteroscopy (~03/12/17) Carpal tunnel syndrome Surgical History Hx of carpal tunnel repair History of mastopexy (~09/28/19) Status post abdominoplasty (~09/28/19) Family History Mother Hypertension Mental illness in member of household Maternal Grandfather Gastric cancer Other Mental health problem Social History Household Members: Spouse and Children Housing: House Alcohol intake: current Alcohol intake frequency: holidays/special occasions only Patient Tobacco Use Status: Never used Tobacco e-Cigarette/Vaping Use: Never Used Second Hand Smoke Exposure: Yes Patient : No service: No Current occupational status: employed 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 Sexual orientation: Straight/Heterosexual Gender identity: Female Cognitive needs: No Hearing needs: No Vision needs: No Female Reproductive History Menstrual Age of Menarche: 14 control method: none Date of last pap smear: 01/16/23 (CIN1 and +HPV) History of abnormal pap smear: Yes Physical Exam Vital Signs: Last Vital Signs BP 110/76 06/14/23 14:39 BMI result Body Mass Index 25.8 Office Procedures Endometrial Biopsy Details: The patient was counseled regarding the indication and benefits of endometrial sampling to rule out endometrial pathology including not limited to endometrial hyperplasia or endometrial cancer and others; The alternatives (Either do nothing vs. hysteroscopy D&C) & the risks were discussed with the patient including but not limited: pain, uterine perforation, bleeding, infection, possible injury to bladder, bowel, ureter, possible need for blood transfusion with all its possible risks. The patient verbalized understanding all questions answered and signed consent. Urine test done in the office was negative The patient was placed into the dorsal lithotomy position; a speculum was inserted in the vagina. Using aseptic technique for the procedure, the cervix was cleansed with Betadine. The anterior lip of the cervix was grasped with a single tooth tenaculum. The uterus was sounded to 7 cm with a 4 mm Pipelle was used. Tissues samples were obtained and placed in formalin, in a patient labeled container and sent to the pathology department. At the end of the procedure, there was minimal bleeding noted The patient tolerated the procedure well and was discharged in good condition with the following instructions: Nothing in the vagina until the bleeding stops. No sex until the bleeding stops, to call if any of the following occurs: fever (>100.4), flu-like symptoms, abdominal pain, heavy bleeding, four smelling vaginal discharge. The patient was instructed to schedule a Follow up appointment in 2 weeks to discuss pathology results of the biopsy and treatment options. This note was generated with a voice recognition program. Some errors may have been overlooked during the review of this note. Sometimes these errors may affect the content or meaning of a given sentence. [id number] Biopsy Results AMB Test Urine AMB Test Urine Negative Last Edit by AARTI Khoury on 06/14/23 14:47 Results Reviewed Results Reviewed: Laboratory Last Values Tst Clinic Negative 06/14/23 14:47 Assessment & Plan Assessment & Plan (1) Abnormal uterine bleeding: Comment: On Depo-Provera Code(s): N93.9 - Abnormal uterine and vaginal bleeding, unspecified Plan: EMB done, see procedure note Orders: Orders AMB HCG Urine Test Today Z32.02 - Encounter for test, result negative AMB Endometrial Biopsy Today N93.9 - Abnormal uterine and vaginal bleeding, unspecified Coding Level of Care Code Procedure Only Diagnoses Abnormal uterine bleeding N93.9 CPT Codes Endometrial Biopsy - CPT: 56890-[id number] Biopsy ([id number])
== END 2023-06-14 15:58 | disposition home or self-care (01) ==
PROVIDERS: PCP Internal Medicine; Visit Provider Obstetrics & Gynecology
DX: N93.9 Abnormal uterine and vaginal bleeding, unspecified (principal); Z32.02 Encounter for pregnancy test, result negative
CPT/HCPCS: 58100

== ENCOUNTER 2023-06-14 14:32 | Outpatient (REF) | payer OTHER, SELFPAY | END 2023-06-14 14:33 | disposition home or self-care (01) | LOC: HO.LNP 14:32 | PROVIDERS: PCP Internal Medicine; Visit Provider Obstetrics & Gynecology | DX: N93.9 Abnormal uterine and vaginal bleeding, unspecified (principal); Z32.02 Encounter for pregnancy test, result negative | CPT/HCPCS: 58100; 81025; 88305 ==

== ENCOUNTER 2023-06-30 12:48 | Outpatient (AMB) | payer OTHER, SELFPAY ==
[2023-06-30 13:16] VITALS: BMI 25.7
--- NOTE | 2023-06-30 13:16 | AM.OFFVISNUR ---
Intake Vital Signs 06/30/23 13:16 Height 5 ft 3.5 in Weight 147 lb 5 oz BMI 25.7 Intake Visit Reasons: DEPO [employer] Associate Required: No Allergies No Known Allergies [No Known Allergies*] Allergy (Verified 06/14/23 14:46) Is last menstrual period known: No Post menopausal: No Patient : No Do you need a note to return to daycare/school/sports/work: No Nursing Note Stacy is here for her scheduled Depo injection. No c/o, no new medical problems or new medications. Pt. tolerated injection well. She will schedule her next injection in 12 weeks. Pt verbalizes understanding and agrees with plan. No further questions. Office Procedures Depo Questionnaire If YES to any of the following questions, please consult a provider. Date of last injection: 04/06/23 Date of last gynecology exam: 01/13/23 Menstrual pattern since last injection has been: Not Applicable Irregular bleeding?: No Breast lumps or other breast changes?: No Changes in weight or appetite?: No Depression or changes in mood?: No Abnormal hair growth or loss?: No Skin problems (rash, acne, discoloration)?: No Pain at the injection site?: No Headaches?: No Nervousness?: No Abdominal pain or cramping?: No Dizziness or nausea?: No Fatigue or weakness?: No Decrease in sexual drive?: No Chest pain or shortness of breath?: No Swelling in arms or legs?: No Form completed by?: Keesha Partida RN Office Meds Depo-Provera 150 mg/mL intramuscular syringe Performing Provider: Xena Puentes CNM Performing Location: [facility] Administered by: Keesha Partida on 06/30/23 13:19 Dose Route Admin Location Dispensed Lot Number Expiration Date [facility] Pressure Supervisor 150 mg IM left deltoid 1 mL [id number] 11/03/24 14028-655-10 [employer] Coding Level of Care Code Established Pt Est Pt Level 1 (55010) Patient Type Established History Problem Focused Medical Decision Making Straight Forward Time Spent (min) 11 Assessment & Plan Assessment & Plan Orders: Orders AMB Medroxyprogesterone Injection Patient Supplied Today Z30.42 - Encounter for surveillance of injectable contraceptive Medications: New Depo-Provera (medroxyprogesterone) 150 mg IM ONCE 1 mL 0RF NS Z30.42 - Encounter for surveillance of injectable contraceptive
== END 2023-06-30 13:10 | disposition home or self-care (01) ==
PROVIDERS: PCP Internal Medicine; Visit Provider Advanced Practice Midwife
DX: Z30.42 Encounter for surveillance of injectable contraceptive (principal)

== ENCOUNTER → 2023-06-30 12:48 | Outpatient (BNVA) | payer OTHER, SELFPAY | PROVIDERS: PCP Internal Medicine; Visit Provider Advanced Practice Midwife | DX: Z30.42 Encounter for surveillance of injectable contraceptive (principal) | CPT/HCPCS: 96372; 99211; J1050 ==

== ENCOUNTER 2023-07-14 12:44 | Outpatient (REF) | payer OTHER, SELFPAY | END 2023-07-14 12:45 | disposition home or self-care (01) | LOC: HO.LAB 12:44 | PROVIDERS: PCP Internal Medicine; Visit Provider Internal Medicine Pulmonary Disease | DX: Z23 Encounter for immunization (principal); D80.3 Selective deficiency of immunoglobulin G [IgG] subclasses; D80.1 Nonfamilial hypogammaglobulinemia | CPT/HCPCS: 36415; 86317; 86648; 86774; 90471; 90472; 90677; 90714; 99211 ==

== ENCOUNTER 2023-07-14 13:18 | Outpatient (AMB) | payer OTHER, SELFPAY ==
--- NOTE | 2023-07-14 13:38 | A.OFFVIS_ITS ---
Vital Signs 07/14/23 13:39 BP 106/64 Blood Pressure Location Rt brachial Position Sitting Pulse 100 Pulse Source Pulse Oximeter Pulse Oximetry (%) 96 Oxygen Delivery Method Room Air Intake Visit Reasons: Vaccine injections Allergies No Known Allergies [No Known Allergies*] Allergy (Verified 07/14/23 13:39) Medication List - Last Reconciled 07/14/23 by Aaliyah Ogden LPN albuterol sulfate 90 mcg/actuation (Ventolin HFA) 2 puffs inhalation Q4-6H PRN codeine sulfate 15 mg PO Q4-6H PRN 15 days hydroxyzine HCl 25 mg PO TID PRN 30 days immun glob Q-zww-buiz-IgA 0-50 10 gram (Gammagard S-D (IgA < 1 mcg/mL)) 30 grams IV Q4W 28 days levofloxacin 750 mg PO DAILY medroxyprogesterone 150 mg IM [id number] tobramycin in 0.225 % NaCl 300 mg/5 mL 300 mg (5 mL) inhalation BID 28 days PFSH Medical History Pain in both hands Bilateral hand numbness Overweight (BMI 25.0-29.9) Insomnia Vitamin D deficiency Pure hypercholesterolemia Depression Anxiety Status post hysteroscopy (~03/12/17) Carpal tunnel syndrome Surgical History Hx of carpal tunnel repair History of mastopexy (~09/28/19) Status post abdominoplasty (~09/28/19) Family History Mother Hypertension Mental illness in member of household Maternal Grandfather Gastric cancer Other Mental health problem Social History Household Members: Spouse and Children Housing: House Alcohol intake: current Alcohol intake frequency: holidays/special occasions only Patient Tobacco Use Status: Never used Tobacco e-Cigarette/Vaping Use: Never Used Second Hand Smoke Exposure: Yes service: No Current occupational status: employed 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 Sexual orientation: Straight/Heterosexual Gender identity: Female Cognitive needs: No Hearing needs: No Vision needs: No Female Reproductive History Menstrual Age of Menarche: 14 Physical Exam Vital Signs: Last Vital Signs Pulse 100 07/14/23 13:39 BP 106/64 07/14/23 13:39 Pulse Ox 96 07/14/23 13:39 Oxygen Delivery Method Room Air 07/14/23 13:39 Assessment & Plan Assessment & Plan (1) Hypogammaglobulinaemia, 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
[2023-07-14 13:39] VITALS: BP 106/64; PULSE 100; O2SAT 96
== END 2023-07-14 13:50 | disposition home or self-care (01) ==
PROVIDERS: PCP Internal Medicine; Visit Provider Internal Medicine Pulmonary Disease
DX: D80.1 Nonfamilial hypogammaglobulinemia (principal); Z23 Encounter for immunization; D80.3 Selective deficiency of immunoglobulin G [IgG] subclasses

== ENCOUNTER 2023-08-03 15:25 | Outpatient (AMB) | payer OTHER, SELFPAY ==
[2023-08-03 15:31] VITALS: BP 110/72; BMI 25.4
--- NOTE | 2023-08-03 15:31 | A.OFFVIS_ITS ---
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 The patient has stated that her spotting has resolved completely The following workup was done.: H&H= 12.5/37 TSH, prolactin, hCG, GC and chlamydia were negative. Endometrial biopsy pathology showed the following: Benign endometrium with atrophic glands and decidual stromal change, consistent with progestin effect; no atypia or carcinoma Co testing was done in 01/26 was LGSIL/HPV E6/E7 positive, colpo/biopsy/ECC was negative Pelvic ultrasound showed the following: Uterus: The uterus is anteverted and measures 7.7 x 4.5 x 6.5 cm. Small amount of fluid within the endometrial cavity. The double wall endometrial thickness is 5 mm. No visible fibroid. Adnexa: Bilateral ovaries are unremarkable. There is no pelvic ascites or fluid collection. Right ovary measures 2.5 x 1.4 x 1.9 cm. Volume 3.5 mL. Left ovary measures 2.4 x 1.7 x 1.0 cm. Volume 2.1 mL. [facility] Medical History Pain in both hands Bilateral hand numbness Overweight (BMI 25.0-29.9) Insomnia Vitamin D deficiency Pure hypercholesterolemia Depression Anxiety Status post hysteroscopy (~03/12/17) Carpal tunnel syndrome Surgical History Hx of carpal tunnel repair History of mastopexy (~09/28/19) Status post abdominoplasty (~09/28/19) Family History Mother Hypertension Mental illness in member of household Maternal Grandfather Gastric cancer Other Mental health problem Social History Household Members: Spouse and Children Housing: House Alcohol intake: current Alcohol intake frequency: holidays/special occasions only Patient Tobacco Use Status: Never used Tobacco e-Cigarette/Vaping Use: Never Used Second Hand Smoke Exposure: Yes service: No Current occupational status: employed 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 Sexual orientation: Straight/Heterosexual Gender identity: Female Cognitive needs: No Hearing needs: No Vision needs: No Female Reproductive History Menstrual Age of Menarche: 14 control method: progesterone injection Review of Systems Const All systems reviewed & are unremarkable except as noted in HPI and below Reports as per HPI and Reports no additional complaints GI Reports no additional complaints Reports no additional complaints Assessment & Plan Assessment & Plan (1) Abnormal uterine bleeding: Comment: On Depo-Provera Code(s): N93.9 - Abnormal uterine and vaginal bleeding, unspecified Category: Medical Plan: Discussed with the patient the results of the work up done . Discussed with the patient to consider discontinuing Depo-Provera for the risk of bone loss that is a reversible to give herself enough time to build up her bone mass spontaneously prior menopause. All questions answered the patient verbalized understanding. Coding Level of Care Code Est Pt Level 3 (09777) Diagnoses Abnormal uterine bleeding N93.9
== END 2023-08-03 15:42 | disposition home or self-care (01) ==
LOC: HO.HWS 15:25
PROVIDERS: PCP Internal Medicine; Visit Provider Obstetrics & Gynecology
DX: N93.9 Abnormal uterine and vaginal bleeding, unspecified (principal)
CPT/HCPCS: 99213

== ENCOUNTER → 2023-08-03 15:25 | Outpatient (BNVA) | payer OTHER, SELFPAY | PROVIDERS: PCP Internal Medicine; Visit Provider Obstetrics & Gynecology | DX: N93.9 Abnormal uterine and vaginal bleeding, unspecified (principal) | CPT/HCPCS: 99212 ==

== ENCOUNTER 2023-08-07 11:45 | Outpatient (REF) | payer OTHER, SELFPAY ==
[2023-08-13 17:10] LABS: Tetanus Antitoxiod Antibody >7.00 IU/mL
== END 2023-08-07 11:46 | disposition home or self-care (01) ==
LOC: HO.LAB 11:45
PROVIDERS: PCP Internal Medicine; Visit Provider Internal Medicine Pulmonary Disease
DX: Z13.89 Encounter for screening for other disorder (principal)
CPT/HCPCS: 36415; 86317; 86774

== ENCOUNTER 2023-08-10 10:32 | Outpatient (AMB) | payer OTHER, SELFPAY ==
[2023-08-10 10:35] VITALS: BP 104/66; PULSE 98; O2SAT 99; BMI 25.3
--- NOTE | 2023-08-10 10:35 | MHC.OFFVIS ---
Vital Signs 08/10/23 10:35 Height 5 ft 3.5 in Weight 145 lb BMI 25.3 BP 104/66 Blood Pressure Location Rt brachial Position Sitting Pulse 98 Pulse Source Doppler Pulse Oximetry (%) 99 Oxygen Delivery Method Room Air Intake Visit Reasons: follow up IVIG Allergies No Known Allergies [No Known Allergies*] Allergy (Verified 08/10/23 10:41) HPI HPI follow up IVIG: Details: 38-year-old lady, lifetime nonsmoker, with multiple first-degree relatives with asthma referred for evaluation of chronic recurrent cough. Patient stated usually around November of every years she get bronchitis with a chronic nonproductive cough lingering thereafter for several months. She has been treated with several courses of azithromycin and albuterol MDI with no significant changes in her symptoms. She denies environmental allergies. She does have a dog as a pet. She is employed with no exposure to industrial dusts. Ppatient had bronchoscopy with bronchoalveolar lavage growing Haemophilus. her IgG 2 levels consistently low. IVIG was requested, however was denied by insurance secondary to now vaccine challenge. Patient was started on vaccine challenge and follow-up lab results are pending. She continues to complain of chronic cough. [facility] Medical History Pain in both hands Bilateral hand numbness Overweight (BMI 25.0-29.9) Insomnia Vitamin D deficiency Pure hypercholesterolemia Depression Anxiety Status post hysteroscopy (~03/12/17) Carpal tunnel syndrome Surgical History Hx of carpal tunnel repair History of mastopexy (~09/28/19) Status post abdominoplasty (~09/28/19) Family History Mother Hypertension Mental illness in member of household Maternal Grandfather Gastric cancer Other Mental health problem Social History Household Members: Spouse and Children Housing: House Alcohol intake: current Alcohol intake frequency: holidays/special occasions only Patient Tobacco Use Status: Never used Tobacco e-Cigarette/Vaping Use: Never Used Second Hand Smoke Exposure: Yes service: No Current occupational status: employed 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 Sexual orientation: Straight/Heterosexual Gender identity: Female Cognitive needs: No Hearing needs: No Vision needs: No Female Reproductive History Menstrual Age of Menarche: 14 Review of Systems Const Denies daytime sleepiness, Denies excessive sweating, Denies fatigue, Denies fever(s), Denies lethargy, Denies malaise, Denies night sweats, Denies snoring and Denies weight loss Eyes Denies blurry vision and Denies itchy eyes ENT Denies nasal congestion, Denies post nasal drip, Denies sinus pain, Denies sinus pressure and Denies other ( Thrush) Card Denies chest pain, Denies pedal edema, Denies dyspnea, Denies orthopnea and Denies paroxysmal nocturnal dyspnea Resp Reports cough, Denies hemoptysis, Reports excessive phlegm production, Denies dyspnea, Denies snoring and Denies wheezing GI Denies abdominal pain and Denies heartburn Musc Denies myalgias, Denies arthralgias and Denies joint swelling Skin/Breast Denies rash Neuro Denies memory loss and Denies seizure-like activity Psych Denies abnormal sleep pattern, Denies anxiety and Denies memory loss Endo Denies excessive sweating, Denies fatigue and Denies heat intolerance Fredi/Lymph Denies easy bruising Aller/Immun Denies itchy eyes, Denies seasonal rhinorrhea and Denies wheezing Physical Exam Vital Signs: Last Vital Signs Pulse 98 08/10/23 10:35 BP 104/66 08/10/23 10:35 Pulse Ox 99 08/10/23 10:35 Oxygen Delivery Method Room Air 08/10/23 10:35 BMI result Body Mass Index 25.3 Const General: no acute distress and alert Nutritional Appearance: not obese Orientation/consciousness: Other orientation findings ( oriented) HEENT Head: Yes atraumatic Eyes General: appearance normal, both eyes and all related structures Sclerae: sclerae normal EOM: EOMs intact bilaterally Neck Neck: Yes supple Lymphatic: no lymphadenopathy noted Resp Effort & Inspection: normal respiratory effort and no use of accessory muscles Auscultation: clear to auscultation bilaterally Cardio Rate: regular rate Rhythm: regular rhythm Heart sounds: no gallops, no murmurs and no rubs Skin General skin exam: other ( warm) Extrem General: No clubbing, No cyanosis and No edema Assessment & Plan Assessment & Plan (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 Vaccine challenge laboratory studies are pending, when available, will request IVIG approval. Poor response to p.o. and nebulized antibiotics. Coding Level of Care Code Est Pt Level 4 (81492) 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 Recurrent cough R05.8
== END 2023-08-10 10:56 | disposition home or self-care (01) ==
PROVIDERS: PCP Internal Medicine; Visit Provider Internal Medicine Pulmonary Disease
DX: D80.3 Selective deficiency of immunoglobulin G [IgG] subclasses (principal); R05.8 Other specified cough
CPT/HCPCS: 99214

== ENCOUNTER → 2023-08-10 10:32 | Outpatient (BNVA) | payer OTHER, SELFPAY | PROVIDERS: PCP Internal Medicine; Visit Provider Internal Medicine Pulmonary Disease | DX: D80.3 Selective deficiency of immunoglobulin G [IgG] subclasses (principal); R05.8 Other specified cough | CPT/HCPCS: 99212 ==

== ENCOUNTER 2023-08-29 09:49 | Outpatient (AMB) | payer OTHER, SELFPAY ==
[2023-08-29 09:51] VITALS: BP 122/90; PULSE 96; O2SAT 98; BMI 25.6
--- NOTE | 2023-08-29 09:51 | MHC.PC.OV ---
Vital Signs 08/29/23 09:51 Height 5 ft 3.5 in Weight 147 lb BMI 25.6 BP 122/90 H Blood Pressure Location Lt brachial Position Sitting Pulse 96 Pulse Source Pulse Oximeter Pulse Oximetry (%) 98 Oxygen Delivery Method Room Air Intake Visit Reasons: Depression f/u Intake Note: Patient is here to follow up on depression Assembler Type Bar And Segment Required: No Allergies No Known Allergies [No Known Allergies*] Allergy (Verified 08/29/23 10:28) Medication List - Last Reconciled 08/29/23 by Robin Mcdaniels MD albuterol sulfate 90 mcg/actuation (Ventolin HFA) 2 puffs inhalation Q4-6H PRN hydroxyzine HCl 25 mg PO TID PRN 30 days immun glob C-our-mfec-IgA 0-50 10 gram (Gammagard S-D (IgA < 1 mcg/mL)) 30 grams IV Q4W 28 days medroxyprogesterone 150 mg IM [id number] tobramycin in 0.225 % NaCl 300 mg/5 mL 300 mg (5 mL) inhalation BID 28 days Tobacco use date assessed: 08/29/23 Dental Screening Dental Screen Date: 08/29/23 Did you have a dental visit in the last 12 months?: Yes Did you have a dental problem in the last 6 months where you did not have access to dental care?: No Was dental information given to patient?: Patient has dentist HPI Depression f/u HPI Details Patient comes in today for follow up of increasing depression lately States that she has been feeling very depressed for a while now and has tried calling up several places over the past few weeks to see if she can talk to a therapist or counselor to help with her mood disorder but has been unsuccessful so far Feels that she has been trying to get help for a long time but no one seems to be responding back to her and states that she is ready to just give up completely When asked further about what exactly her comment means, she was noncommital but did not seem to indicate any intent of self-harm Feels that her recent depression is also straining her relationship to her and other family members and would like to get some help She was on Escitalopram in the past and was doing well for a while and she decided to come off the medication over a year ago States that she did well off Rx for a while until recently She was also recently diagnosed with IgG deficiency after she was referred to pulmonary a few months ago for further evaluation of a recurrent non-productive cough that was not responding to empiric Tx with Abx and oral prednisone Bronchoscopy with bronchoalveolar lavage was done, which grew Haemophilus Her IgG 2 levels were consistently low and IVIG was requested but this was denied by her health insurance as they want her to undergo a vaccine challenge first This was done a couple of weeks ago and pulmonary will try to request for approval again for IVIG Tx once her vaccine challenge result comes out Patient states that she is still experiencing a recurrent and mostly non-productive cough but she denies any fever or sore throat Denies any headaches or dizziness Denies any chest pains, no increased SOB No nausea/vomiting, no abdominal pain No change in bowel habits noted PFSH Medical History Pain in both hands Bilateral hand numbness Overweight (BMI 25.0-29.9) Insomnia Vitamin D deficiency Pure hypercholesterolemia Depression Anxiety Status post hysteroscopy (~03/12/17) Carpal tunnel syndrome Surgical History (Updated 08/29/23 @ 12:07 by Robin Mcdaniels MD) S/P cubital tunnel release History of carpal tunnel release History of mastopexy (~09/28/19) Status post abdominoplasty (~09/28/19) Family History Mother Hypertension Mental illness in member of household Maternal Grandfather Gastric cancer Other Mental health problem Social History Household Members: Spouse and Children Housing: House Alcohol intake: current Alcohol intake frequency: holidays/special occasions only Patient Tobacco Use Status: Never used Tobacco e-Cigarette/Vaping Use: Never Used Second Hand Smoke Exposure: Yes service: No Current occupational status: employed 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 1. Little interest or pleasure in doing things: more than half the days 2. Feeling down, depressed, or hopeless: nearly every day 3. Trouble falling or staying asleep, or sleeping too much: nearly every day 4. Feeling tired or having little energy: nearly every day 5. Poor appetite or overeating: not at all 6. Feeling bad about yourself - or that you are a failure or have let yourself or your family down: nearly every day 7. Trouble concentrating on things, such as reading the newspaper or watching television: several days 8. Moving or speaking so slowly that other people could have noticed. Or the opposite - being so fidgety or restless that you have been moving around a lot more than usual: not at all 9. Thoughts that you would be better off or of hurting yourself in some way: not at all (patient states i dont know ) Total score: 15 Depression Screening Interpretation: Positive Depression Screening Follow-up: Existing condition, New Medication prescribed and Community Mental Health Worker F/U Depression Screening Done: Yes 59309 - PHQ-9 Billing: Yes Source: Developed by Drs. Raphael Goldstein, Ilda Michel, Daniel Sosa and colleagues, with an educational phan from [employer],. Thrive Questionnaire Date Thrive assessed: 08/29/23 I am a: Patient What is your living situation today?: I have a steady place to live Within the past 12 months, did the food you bought not last and you didn't have the money to get more?: Never true Within the past 12 months, did you worry whether your food would run out before you got money to buy more?: Never true Do you have trouble paying for medicines?: No Do you have trouble getting transportation to medical appointments?: No Do you have trouble paying your heating and electricity bill?: No Do you have trouble taking care of your child, family member or friend?: No Do you have trouble with day-to-day activities such as bathing, preparing meals, shopping, managing finances, etc.?: No Are you currently unemployed and looking for a job?: No Are you interested in more education?: No Please select the resources that you would like help with: None Currently or been in a relationship where the following occur: no concerns reported THRIVE Score: 0 AUDIT C Alcohol Use Questionnaire (AUDIT-C) 1. How often do you have a drink containing alcohol?: Never 3. How often do you have six or more drinks on one occasion?: Never Total Score: 0 Score Reviewed/Action Taken: Yes DAMION-7 AMB Questionnaire DAMION-7 Date DAMION - 7 assessed: 08/29/23 Feeling nervous, anxious, or on edge: 3 = Nearly every day Not being able to stop or control worryin = Nearly every day Worrying too much about different things: 3 = Nearly every day Trouble relaxin = Nearly every day Being so restless that it is hard to sit still: 1 = Several days Becoming easily annoyed or irritable: 3 = Nearly every day Feeling afraid as if something awful might happen: 0 = Not at all (patient states i dont know ) Total DAMION-7 score (0-4 normal; 5-9 mild; 10-14 moderate; 15-21 severe): 16 Source: Developed by Drs. Raphael Goldstein, Ilda Michel, Daniel Sosa and colleagues, with an educational phan from [employer],. DAMION-7 Assessment Billing DAMION-7 Assessment Tool: DAMION-7 Assessment 52621 Review of Systems Const Denies chills, Reports difficulty sleeping, Reports fatigue, Denies fever(s) and Denies headache(s) ENT Denies dysphagia, Denies dizziness, Denies otalgia, Denies headache(s), Denies neck pain, Denies odynophagia and Denies sore throat Card Denies chest pain, Denies palpitations and Denies dyspnea Resp Denies chest congestion, Reports cough (recurrent, mostly non-productive), Denies dyspnea and Denies wheezing GI Denies abdominal pain, Denies constipation, Denies dysphagia, Denies heartburn, Denies diarrhea, Denies nausea, Denies odynophagia and Denies vomiting Denies difficulty voiding, Denies nocturia, Denies dysuria and Denies urinary urgency Musc Reports arthralgias (in both wrists and hands), Denies neck pain and Reports tingling (in both hands, recurrent) Skin/Breast Denies rash Neuro Denies dizziness, Denies headache(s) and Reports tingling (in both hands, recurrent) Psych Reports anxiety, Reports depression (increasing) and Denies suicidal ideation Endo Reports fatigue and Denies palpitations Aller/Immun Denies wheezing Physical exam (Primary Care) Vital Signs: Last Vital Signs Pulse 96 08/29/23 09:51 BP 122/90 H 08/29/23 09:51 Pulse Ox 98 08/29/23 09:51 Oxygen Delivery Method Room Air 08/29/23 09:51 BMI result Body Mass Index 25.6 Tobacco/Smoking Status: Tobacco use Status Tobacco use date assessed 08/29/23 08/29/23 09:53 Patient Tobacco Use Status Never used Tobacco 08/29/23 09:53 e-Cigarette/Vaping Use Never Used 08/29/23 09:53 PHQ-9: PHQ-9 Score PHQ-9: Total score 15 08/29/23 12:05 Depression Screening Interpretation: Positive Depression Screening Follow-up: Existing condition, New Medication prescribed and Community Mental Health Worker F/U Thrive Assessment: Date of Thrive Assessment Date Thrive assessed 08/29/23 08/29/23 10:03 Currently or been in a relationship where the following occur: no concerns reported Const General: no acute distress and alert HENMT Ears: TM's normal bilaterally and EAC's normal Throat: Yes posterior oropharynx normal and Yes tonsils normal (no TP congestion) Neck Neck: Yes no lymphadenopathy and Yes supple Thyroid: Thyroid normal Resp Auscultation: clear to auscultation bilaterally, no crackles, no rales, no wheezes and diminished lung sounds (slightly) bilateral Cardio Rate: regular rate Rhythm: regular rhythm Heart sounds: no murmurs GI Palpation (GI): Soft to palpation and nontender Auscultation: normal bowel sounds General: Yes no CVA tenderness Back/Spine/Pelvis Back: no CVA tenderness Skin Rashes: no rashes Extrem General: Yes no clubbing, cyanosis or edema Right upper extremity: wrist Details: tenderness; Tinel's positive and Phalen's positive Left upper extremity: wrist ((+) Tinel's and Phalen's sign over the left wrist) Assessment and Plan Assessment & Plan (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 Rub[facility] [place] [facility] November 2022 - states that she has been doing well since her surgery Follow up with the [facility] as scheduled or as needed (3) Pure hypercholesterolemia: Code(s): E78.00 - Pure hypercholesterolemia, unspecified Plan: Patient is reminded that her cholesterol levels were high and her LDL cholesterol was at 156 mg/dl when they were last checked in May 2022 Reinforced low cholesterol diet Will have her recheck her labs and fasting lipids prior to her annual physical exam next month for follow-up (4) Vitamin D deficiency: Code(s): E55.9 - Vitamin D deficiency, unspecified Plan: Continue Vitamin D3 1000 units (25 mcg) QD (5) Insomnia: Code(s): G47.00 - Insomnia, unspecified Qualifiers: Insomnia type: unspecified Qualified Code(s): G47.00 - Insomnia, unspecified Plan: Sleep hygiene reinforced She used to take Zolpidem 10 mg Q HS PRN but states that it was not helping much and she stopped taking it a while back as she also does not wish to become dependent on the medication States that she also tried some OTC THC with Melatonin last year upon the recommendation of a friend and finds that it helps a lot better and she has no lingering effects from the medication the next morning (6) Anxiety: Code(s): F41.9 - Anxiety disorder, unspecified Plan: Continue Hydroxyzine 25 mg TID PRN Was on Escitalopram 20 mg QD in the past but she self discontinued this last year as she wanted to again try controlling her anxiety and mood without any prescription drug (7) Depression: Code(s): F32.9 - Major depressive disorder, single episode, unspecified Qualifiers: Active/Remission status: currently active Depression Type: major depressive disorder Major depression episode severity: unspecified Major depression recurrence: recurrent Qualified Code(s): F33.9 - Major depressive disorder, recurrent, unspecified Plan: She self-discontinued her Escitalopram 20 mg QD last year as she wanted to try controlling her anxiety and depression again without any prescription drug but now would like to go back on her Rx Will start her back on Escitalopram 20 mg QD Will also try referring her to the outpatient psychiatry clinic here in [place] as she has reportedly tried unsuccessfully to get in to see psychiatry or counseling services here in [facility] for the past few months now (8) Overweight (BMI 25.0-29.9): Code(s): E66.3 - Overweight Plan: Reinforced diet/exercise as tolerated/lose weight Plan To return as scheduled next month for her annual physical examination Orders: Referrals Psychiatry Outpatient Consultation Service F33.9 - Major depressive disorder, recurrent, unspecified, F41.9 - Anxiety disorder, unspecified Medications: Refilled escitalopram oxalate 20 mg PO DAILY 90 days 90 tabs 1RF F32.9 - Major depressive disorder, single episode, unspecified, F41.9 - Anxiety disorder, unspecified Coding Level of Care Code Est Pt Level 4 (04258) 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 Bilateral carpal tunnel syndrome G56.03 Laterality: bilateral Pure hypercholesterolemia E78.00 Vitamin D deficiency E55.9 Insomnia, unspecified type G47.00 Insomnia type: unspecified Anxiety F41.9 Episode of recurrent major depressive disorder, unspecified depression episode severity F33.9 Active/Remission status: currently active Depression Type: major depressive disorder Major depression episode severity: unspecified Major depression recurrence: recurrent Overweight (BMI 25.0-29.9) E66.3 Additional Codes DAMION-7 Assessment Billing - DAMION-7 Assessment Tool: DAMION-7 Assessment 33947 ([id number])
== END 2023-08-29 10:42 | disposition home or self-care (01) ==
PROVIDERS: PCP Internal Medicine; Visit Provider Internal Medicine
DX: E78.00 Pure hypercholesterolemia, unspecified (principal); F33.9 Major depressive disorder, recurrent, unspecified; D80.3 Selective deficiency of immunoglobulin G [IgG] subclasses; G56.03 Carpal tunnel syndrome, bilateral upper limbs; E55.9 Vitamin D deficiency, unspecified; G47.00 Insomnia, unspecified; F41.9 Anxiety disorder, unspecified; E66.3 Overweight
CPT/HCPCS: 96127; 99214

== ENCOUNTER 2023-09-11 15:02 | Outpatient (REF) | payer OTHER, SELFPAY ==
[2023-09-11 16:31] LABS: MANUAL DIFF FLAG NO
[2023-09-11 17:17] LABS: Basophils Absolute Auto 0.1 X10*3/uL (0.0-0.2); Basophils Percent Auto 1.2 % (0-2); Eosinophils Absolute Auto 0.1 X10*3/uL (0.0-0.4); Eosinophils Percent Auto 1.5 % (0-4); Hematocrit 40.8 % (37.0-47.0); Hemoglobin 13.4 g/dl (12.0-16.0); Imm Gran Abs Auto 0.02 X10*3/uL (0.00-0.03); Imm Gran Pct Auto 0.5 % (0.0-0.4); Lymphocytes Absolute Auto 1.6 X10*3/uL (1.2-4.9); Lymphocytes Percent Auto 39.5 % (20-40); Mean Corpuscular HGB Conc 32.8 g/dl (31.0-35.0); Mean Corpuscular Volume 91.3 fL (80.0-98.0); Mean Platelet Volume 11.9 fL (9.4-12.3); Monocytes Absolute Auto 0.4 X10*3/uL (0.1-1.2); Monocytes Percent Auto 9.4 % (2-11); Neutrophils Absolute Auto 1.9 x10*3/uL (2.0-8.3); Neutrophils Percent Auto 47.9 % (45-73); Platelet Count 214 X10*3/uL (160-400); Red Blood Count 4.47 X10*6/uL (4.20-5.50); Red Cell Distribution Width 12.7 % (11.0-16.0)
[2023-09-11 17:37] LABS: Appearance Urine Cloudy; Color Urine Yellow; Glucose Urine UA Negative (Negative); Leukocyte Esterase Urine Negative (Negative); Nitrite Urine Negative (Negative); Specific Gravity - Urine >= 1.030 (1.005-1.025); Urine Blood Negative (Negative); Urine Ketones Trace mg/dL (Negative); Urine Protein Negative (Neg-Trace)
[2023-09-11 18:06] LABS: Alanine Aminotransferase 15 U/L (0-31); Albumin Level 4.2 g/dL (3.5-5.0); Alkaline Phosphatase 72 U/L (39-117); Anion Gap 11 (12-20); Aspartate Amino Transferase 12 U/L (5-31); Bilirubin Total 0.5 mg/dL (0.0-1.0); Blood Urea Nitrogen 8 mg/dL (9-16); Carbon Dioxide 24 mmol/L (22-29); Chloride 110 mmol/L (96-108); Cholesterol 198 mg/dL (<200); Estimated Glomerular Filt Rate > 60; Glucose Fasting 89 mg/dL (60-99); HDL Cholesterol 51 mg/dL (>40); LDL Cholesterol Calculated 129 mg/dL (<100); Potassium 3.5 mmol/L (3.3-5.1); Sodium 141 mmol/L (135-145); Total Protein 7.1 g/dL (6.5-8.0); Triglycerides 93 mg/dL (<150)
[2023-09-11 18:22] LABS: TSH reflex Free T4 0.68 uIU/mL (0.32-4.0); Vitamin D 25-OH Total 29.6 ng/mL (>30)
== END 2023-09-11 15:03 | disposition home or self-care (01) ==
LOC: HO.LAB 15:02
PROVIDERS: PCP Internal Medicine; Visit Provider Internal Medicine
DX: Z00.00 Encounter for general adult medical examination without abnormal findings (principal); R30.0 Dysuria; E55.9 Vitamin D deficiency, unspecified; R76.8 Other specified abnormal immunological findings in serum; E78.00 Pure hypercholesterolemia, unspecified; F33.1 Major depressive disorder, recurrent, moderate; F41.1 Generalized anxiety disorder
CPT/HCPCS: 36415; 80053; 80061; 81003; 82306; 84443; 85025; 90792

== ENCOUNTER 2023-09-11 15:02 | Outpatient (AMB) | payer OTHER, SELFPAY ==
--- NOTE | 2023-09-11 15:17 | MHC.OFFVISPS ---
Intake Intake Visit Reasons: consultation Allergies No Known Allergies [No Known Allergies*] Allergy (Verified 08/29/23 10:28) Medication List - Last Reconciled 09/11/23 by Rosette Davalos APRN albuterol sulfate 90 mcg/actuation (Ventolin HFA) 2 puffs inhalation Q4-6H PRN escitalopram oxalate 20 mg PO DAILY 90 days hydroxyzine HCl 25 mg PO TID PRN 30 days immun glob [id number]-IgA 0-50 10 gram (Gammagard S-D (IgA < 1 mcg/mL)) 30 grams IV Q4W 28 days medroxyprogesterone 150 mg IM [id number] tobramycin in 0.225 % NaCl 300 mg/5 mL 300 mg (5 mL) inhalation BID 28 days HPI- Psychiatric Chief Complaint: consultation HPI Narrative: 38 yo mother of 3 children referred by PCP for increasing depression; She reports she feels sad, unhappy, everything gets on her nerves she is easily tearful; she feels like a bad person, Her PHQ9 is 16 and Her GAD7 is 18. States that she has been feeling very depressed for a while now and has tried to get help but no one calling her back. She has finally connected with [facility] for therapy. Her PCP started her on lexapro 20 mg daily whixh she had been on in past [facility] success. Pt denies SI or Hi. She often feels overwhelmed especially with her family of origin who seems to resent her success and hard work; She has an argument with her mother on September 06 and this has increased her feeling of sorrow and shame. She is also very angry. Feels that her recent depression is also straining her relationship to her and other family members and would like to get some help. She works 3 jobs. Another stressors is that she was also recently diagnosed with IgG deficiency after she was referred to pulmonary a few months ago for further evaluation of a recurrent non-productive cough that was not responding to empiric Tx with Abx and oral prednisone Bronchoscopy with bronchoalveolar lavage was done, which grew Haemophilus. Her IgG 2 levels were consistently low and IVIG was requested but this was denied by her health insurance as they want her to undergo a vaccine challenge first This was done a couple of weeks ago and pulmonary will try to request for approval again for IVIG Tx once her vaccine challenge result comes out. Patient states that she is still experiencing a recurrent and mostly non-productive cough but she denies any fever or sore throat. She feels frustrated that insurance is holding up her treatment. She has also had several abnormal pap smears and cervical biopsies and worries about cancer. Past Psychiatric History: outpt tx with lexapro; past trial of ambien and hydroxyzine in past Subjective Subjective Subjective Medication Compliance: Yes Side effects from medications: No Review of Systems Medical Review of Systems: unchanged Mental Status Exam Mental Status Exam Patient Appearance: Well Grooomed and Appropriate Patient Orientation: Person, Place, Time and Situation Level of Consciousness: Awake, Appropriate and Alert Patient Behavior: Appropriate and Cooperative Mood Description: Anxious and Sad Affect Description: Anxious and Sad Patient Cognition Impaired: No Ability to Follow Directions: Good Speech Pattern: Clear and Appropriate Memory Description: Intact Hallucinations: None Delusions: Not Present Thought Process: Intact and Goal Oriented Thought Content: positive for Intact and positive for Goal Oriented Judgement: Good Assessment and Plan Assessment & Plan (1) Major depressive disorder, recurrent, moderate: Status: Acute Code(s): F33.1 - Major depressive disorder, recurrent, moderate (2) DAMION (generalized anxiety disorder): Status: Acute Code(s): F41.1 - Generalized anxiety disorder Plan continue lexarpo 20mg daily start hydroxysine 25 mg tid prn anxiety - montior for sedation vitamin D 3 2000 IU daily consider buffered vit C supplement 1000 mg daily, magnesium glycinate or citrate 100-200 mg daily consider lysine suplememtn [id number] mg daily discuss supplement with pcp and pulmonary/obgyn for immune suuport. Counseling and coordination of Care Pt. Self Management counseling: Maintenance-social rhythm, Med illness tx adherence, Mod caffeine/ETOH intake, Nutrition education and improvement, Sleep hygiene and General coping skills Medication management counseling: Effectiveness, Side effects, Dosing range, Duration, Drug interaction and Adherence Diagnosis and Prognosis Counseling: Accuracy of diagnosis, Prognosis over time, Impact of diagnosis on life functions, Impact of family relationship, Problematic behaviors secondary to diagnosis and Adequacy of current interventions Details: I spent 75 minutes reviewing the record, seeing the patient and documenting in the medical record. Counseling provided to the patient/caregiver as outlined below. Addressed patient/caregiver concerns regarding current medication regime including effective adherence. Addressed patient/caregiver concerns regarding diagnosis and prognosis including accuracy of diagnosis, prognosis over time, impact of diagnosis. Addressed patient/caregiver concerns regarding impact of recent stressors. [facility] Medical History (Updated 09/21/23 @ 10:20 by Rosette Davalos APRN) Pain in both hands Bilateral hand numbness Overweight (BMI 25.0-29.9) Insomnia Vitamin D deficiency Pure hypercholesterolemia Depression Anxiety Status post hysteroscopy (~03/12/17) Carpal tunnel syndrome Surgical History (Updated 08/29/23 @ 12:07 by Robin Mcdaniels MD) S/P cubital tunnel release History of carpal tunnel release History of mastopexy (~09/28/19) Status post abdominoplasty (~09/28/19) Family History Mother Hypertension Mental illness in member of household Maternal Grandfather Gastric cancer Other Mental health problem Social History Household Members: Spouse and Children Housing: House Alcohol intake: current Alcohol intake frequency: holidays/special occasions only Patient Tobacco Use Status: Never used Tobacco e-Cigarette/Vaping Use: Never Used Second Hand Smoke Exposure: Yes service: No Current occupational status: employed 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 Substance History: none Trauma History: difficult childhood Coding Level of Care Code Psych Diag Eval w/Med (53400) Diagnoses Major depressive disorder, recurrent, moderate F33.1 DAMION (generalized anxiety disorder) F41.1
== END 2023-09-11 16:03 | disposition home or self-care (01) ==
LOC: HO.HOP 15:02
PROVIDERS: PCP Internal Medicine; Visit Provider Clinical Nurse Specialist Psychiatric/Mental Health
DX: F33.1 Major depressive disorder, recurrent, moderate (principal); F41.1 Generalized anxiety disorder
CPT/HCPCS: 90792

== ENCOUNTER 2023-09-19 12:48 | Outpatient (AMB) | payer OTHER, SELFPAY ==
[2023-09-19 13:08] VITALS: BMI 24.6
--- NOTE | 2023-09-19 13:08 | AM.OFFVISNUR ---
Vital Signs 09/19/23 13:08 Height 5 ft 3.5 in Weight 64.07 kg BMI 24.6 Intake Visit Reasons: Depo Allergies No Known Allergies [No Known Allergies*] Allergy (Verified 08/29/23 10:28) Nursing Note Stacy is here today for her scheduled Depo-Provera inj. She had c/o cramping last week, which has resolved. Follow up in 12 weeks fro next inj. Office Procedures Depo Questionnaire If YES to any of the following questions, please consult a provider. Date of last injection: 06/30/23 Date of last gynecology exam: 01/13/23 Menstrual pattern since last injection has been: Not Applicable Irregular bleeding?: No Breast lumps or other breast changes?: No Changes in weight or appetite?: No Depression or changes in mood?: No Abnormal hair growth or loss?: No Skin problems (rash, acne, discoloration)?: No Pain at the injection site?: No Headaches?: No Nervousness?: No Abdominal pain or cramping?: Yes (week prior to Depo-Provera appt.) Dizziness or nausea?: No Fatigue or weakness?: No Decrease in sexual drive?: No Chest pain or shortness of breath?: No Swelling in arms or legs?: No Form completed by?: Cyndi Vivas LPN Office Meds Depo-Provera 150 mg/mL intramuscular syringe Performing Provider: Xena Puentes CNM [place]forming Location[place] [facility] [place] [facility] Administered by: Izabella Vivas LPN on 09/19/23 13:09 Dose Route Admin Location Dispensed Lot Number Expiration Date [facility] Manager [employer] 150 mg IM rt. deltoid 1 mL [id number] 01/03/25 19993-422-80 [employer] Assessment & Plan Assessment & Plan Orders: Orders AMB Medroxyprogesterone Injection Patient Supplied Today N93.9 - Abnormal uterine and vaginal bleeding, unspecified Medications: New Depo-Provera (medroxyprogesterone) 150 mg IM ONCE 1 mL 0RF NS N93.9 - Abnormal uterine and vaginal bleeding, unspecified
== END 2023-09-19 12:55 | disposition home or self-care (01) ==
LOC: HO.HWS 12:48
PROVIDERS: PCP Internal Medicine; Visit Provider Advanced Practice Midwife
DX: N93.9 Abnormal uterine and vaginal bleeding, unspecified (principal)

== ENCOUNTER → 2023-09-19 12:48 | Outpatient (BNVA) | payer OTHER, SELFPAY | PROVIDERS: PCP Internal Medicine; Visit Provider Advanced Practice Midwife | DX: N93.9 Abnormal uterine and vaginal bleeding, unspecified (principal) | CPT/HCPCS: 96372; 99211; J1050 ==

== ENCOUNTER 2023-09-22 14:46 | Outpatient (AMB) | payer OTHER, SELFPAY ==
--- NOTE | 2023-09-22 14:56 | A.OFFPC_ITS ---
Vital Signs 09/22/23 14:57 Height 5 ft 3.5 in Weight 144 lb 8 oz BMI 25.2 BP 130/70 Blood Pressure Location Lt brachial Position Sitting Pulse 94 Pulse Source Pulse Oximeter Pulse Oximetry (%) 97 Oxygen Delivery Method Room Air Intake Visit Reasons: Annual Exam Intake Note: Patient is here today for a physical. Epic Interface Analyst Required: No Screw Remover: Not Required per policy Accompanied by: Self / Same As Patient Allergies No Known Allergies [No Known Allergies*] Allergy (Verified 09/24/23 02:29) Medication List - Last Reconciled 09/24/23 by Robin Mcdaniels MD albuterol sulfate 90 mcg/actuation (Ventolin HFA) 2 puffs inhalation Q4-6H PRN escitalopram oxalate 20 mg PO DAILY 90 days hydroxyzine HCl 25 mg PO TID PRN 30 days immun glob V-ypj-kpra-IgA 0-50 10 gram (Gammagard S-D (IgA < 1 mcg/mL)) 30 grams IV Q4W 28 days medroxyprogesterone 150 mg IM [id number] tobramycin in 0.225 % NaCl 300 mg/5 mL 300 mg (5 mL) inhalation BID 28 days Tobacco use date assessed: 09/22/23 Dental Screening Dental Screen Date: 08/29/23 HPI Annual Exam HPI Details Patient comes in today for her annual physical examination States that she is still experiencing symptoms of increased depression She is now seeing Guera Edge at the partial hospitalization program at [facility] She was started on Escitalopram few weeks ago and will be seeing Guera Edge again next week for follow-up Patient states that she has noticed frequent blurring of her vision ever since she was started on Escitalopram and is concerned that it is a side effect of her medication although she has not stopped taking Escitalopram as she really wanted it to help with her mood disorder States that she feels okay otherwise She denies any headaches or dizziness Denies any chest pains, no shortness of breath No nausea/ vomiting, no abdominal pains No change in bowel habits noted She denies any acute urinary symptoms She had her follow-up labs done a couple of weeks ago - to discuss her results She is scheduled for her next gynecology exam and annual pap smear with Dr. Kelley in January 2024 [facility] Medical History Pain in both hands Bilateral hand numbness Overweight (BMI 25.0-29.9) Insomnia Vitamin D deficiency Pure hypercholesterolemia Depression Anxiety Status post hysteroscopy (~03/12/17) Carpal tunnel syndrome Surgical History S/P cubital tunnel release History of carpal tunnel release History of mastopexy (~09/28/19) Status post abdominoplasty (~09/28/19) Family History Mother Hypertension Mental illness in member of household Maternal Grandfather Gastric cancer Other Mental health problem Social History Household Members: Spouse and Children Housing: House Alcohol intake: current Alcohol intake frequency: holidays/special occasions only Patient Tobacco Use Status: Never used Tobacco e-Cigarette/Vaping Use: Never Used Second Hand Smoke Exposure: Yes service: No Current occupational status: employed 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 Raphael Goldstein, Ilda Michel, Daniel Sosa and colleagues, with an educational phan from [employer]. Review of Systems Const Denies chills, Reports difficulty sleeping, Reports fatigue, Denies fever(s), Denies headache(s) and Denies malaise Eyes Reports blurry vision (recently - since starting on Escitalopram), Denies change in vision, Denies irritation and Denies itchy eyes ENT Denies dysphagia, Denies dizziness, Denies otalgia, Denies headache(s), Denies nasal congestion, Denies neck pain, Denies odynophagia, Denies sinus pain and Denies sore throat Card Denies chest pain, Denies rapid heart rate, Denies irregular heart rhythm, Denies palpitations and Denies dyspnea Resp Denies chest congestion, Denies cough, Denies dyspnea and Denies wheezing GI Denies abdominal pain, Denies bloating, Denies constipation, Denies dysphagia, Denies heartburn, Denies diarrhea, Denies nausea, Denies odynophagia and Denies vomiting Denies hematuria, Denies urinary frequency, Denies dysuria, Denies urinary incontinence and Denies urinary urgency Musc Denies back pain, Denies arthralgias and Denies neck pain Skin/Breast Denies breast pain, Denies breast mass, Denies change in pigmentation, Denies lesions, Denies rash and Denies unusual bruising Neuro Denies dizziness, Denies headache(s) and Denies paresthesias Psych Reports anxiety, Reports depression and Denies suicidal ideation Endo Reports fatigue and Denies palpitations Fredi/Lymph Denies easy bruising Aller/Immun Denies itchy eyes and Denies wheezing Physical exam (Primary Care) Vital Signs: Last Vital Signs Pulse 94 09/22/23 14:57 BP 130/70 09/22/23 14:57 Pulse Ox 97 09/22/23 14:57 Oxygen Delivery Method Room Air 09/22/23 14:57 BMI result Body Mass Index 25.2 Tobacco/Smoking Status: Tobacco use Status Tobacco use date assessed 09/22/23 09/22/23 15:00 Patient Tobacco Use Status Never used Tobacco 09/22/23 15:00 e-Cigarette/Vaping Use Never Used 09/22/23 15:00 Thrive Assessment: Date of Thrive Assessment Date Thrive assessed 08/29/23 09/22/23 15:00 Const General: no acute distress, alert and awake Orientation/consciousness: patient oriented x3 HENMT Head: Yes normocephalic and Yes atraumatic Ears: external ears normal, TM's normal bilaterally and EAC's normal General nose exam: No nasal discharge present Face and sinus: Yes normal facial exam and Yes sinuses nontender Teeth and gingiva: dentition normal Throat: Yes posterior oropharynx normal and Yes tonsils normal (no TP congestion) Eyes Eyelids: Yes eyelids normal Conjunctivae: conjunctivae normal Pupils: Equal, round and reactive pupils present EOM: EOMs intact bilaterally Neck Neck: Yes no lymphadenopathy and Yes supple Thyroid: Thyroid normal Resp Auscultation: clear to auscultation bilaterally, no rales and no wheezes Cardio Rate: regular rate Rhythm: regular rhythm Heart sounds: no murmurs GI Palpation (GI): Soft to palpation, nontender and No hepatosplenomegaly present Auscultation: normal bowel sounds General: Yes no CVA tenderness Back/Spine/Pelvis Back: no CVA tenderness Thoracic/Lumbar Spine: thoracic and lumbar spine normal to inspection Skin Lesions: no lesions Rashes: no rashes Neuro General: patient oriented x3, moves all extremities, no focal motor deficits and CN's II-XI intact bilaterally Cranial nerves: Yes Equal, round and reactive pupils present Cognition (Neuro): normal cognition Gait exam (Neuro): Normal gait present Extrem General: Yes no clubbing, cyanosis or edema Results Reviewed Results Reviewed: Laboratory Tests 09/11/23 09/11/23 04:24 16:29 WBC 4.0 L Hgb 13.4 Hct 40.8 Plt Count 214 Sodium 141 Potassium 3.5 Creatinine 0.82 Estimated GFR > 60 Fasting Glucose 89 Calcium 9.0 AST 12 ALT 15 Triglycerides 93 Cholesterol 198 LDL Cholesterol, Calc 129 H HDL Cholesterol 51 25-OH Vitamin D Total 29.6 L TSH 0.68 Urine pH 6.0 Ur Specific [place] >= 1.030 H Urine Protein Negative Urine Glucose (UA) Negative Urine Blood Negative Urine Nitrite Negative Ur Leukocyte Esterase Negative Assessment and Plan Assessment & Plan (1) Annual physical exam: Code(s): Z00.00 - Encounter for general adult medical examination without abnormal findings Plan: Results of her labs done a couple of weeks ago reviewed and discussed with patient She is up-to-date with her annual gynecology exam and pap smear - is scheduled for her next exam with Dr. 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 Pereyra) as scheduled (3) Carpal tunnel syndrome: Code(s): G56.00 - Carpal tunnel syndrome, unspecified upper limb Qualifiers: Laterality: bilateral Qualified Code(s): G56.03 - Carpal tunnel syndrome, bilateral upper limbs Plan: S/P right carpal tunnel release and right cubital tunnel release surgery done by [facility] Rub[facility] [place] in November 2022 - states that she has been doing well since her surgery, with significant relief of her hand/wrist symptoms Follow up with the [facility] as scheduled or as needed (4) Pure hypercholesterolemia: Code(s): E78.00 - Pure hypercholesterolemia, unspecified Plan: Patient's cholesterol levels were high, with her LDL cholesterol at 156 mg/dl back in May 2022 but they have improved down to 129 mg/dL on her recent labs done a couple of weeks ago Reinforced low cholesterol diet (5) Vitamin D deficiency: Code(s): E55.9 - Vitamin D deficiency, unspecified Plan: She is advised that her Vitamin D level was still slightly low on her recent labs Continue Vitamin D3 1000 units (25 mcg) QD (6) Insomnia: Code(s): G47.00 - Insomnia, unspecified Qualifiers: Insomnia type: unspecified Qualified Code(s): G47.00 - Insomnia, unspecified Plan: Sleep hygiene reinforced She used to take Zolpidem 10 mg Q HS PRN but states that it was not helping much and she stopped taking it a while back as she also does not wish to become dependent on the medication States that she also tried some OTC THC with Melatonin last year with variable results Is now taking some CBD gummies with (+) results (7) Anxiety: Code(s): F41.9 - Anxiety disorder, unspecified Plan: Continue Hydroxyzine 25 mg TID PRN She is also currently back on Escitalopram 20 mg QD (8) Depression: Code(s): F32.9 - Major depressive disorder, single episode, unspecified Qualifiers: Depression Type: major depressive disorder Major depression recurrence: recurrent Active/Remission status: currently active Major depression episode severity: unspecified Qualified Code(s): F33.9 - Major depressive disorder, recurrent, unspecified Plan: Continue Escitalopram 20 mg QD although she is concerned about her recent blurring of vision and that it can be a side effect of her Escitalopram As she is now seeing psychiatry for her mood disorder, I will leave it up to them to determine the best appropriate course of action at this point and have advised patient to speak to Psychiatry about her concerns regarding side effects at her next upcoming appointment in a week Plan Follow up in 6 months Coding Level of Care Code Est Pt Prev Care 18-39y([id number]) Diagnoses Annual physical exam Z00.0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 Bilateral carpal tunnel syndrome G56.03 Laterality: bilateral Pure hypercholesterolemia E78.00 Vitamin D deficiency E55.9 Insomnia, unspecified type G47.00 Insomnia type: unspecified Anxiety F41.9 Episode of recurrent major depressive disorder, unspecified depression episode severity F33.9 Depression Type: major depressive disorder Major depression recurrence: recurrent Active/Remission status: currently active Major depression episode severity: unspecified
[2023-09-22 14:57] VITALS: BP 130/70; PULSE 94; O2SAT 97; BMI 25.2
== END 2023-09-22 15:48 | disposition home or self-care (01) ==
PROVIDERS: PCP Internal Medicine; Visit Provider Internal Medicine
DX: Z00.00 Encounter for general adult medical examination without abnormal findings (principal); D80.3 Selective deficiency of immunoglobulin G [IgG] subclasses; F33.9 Major depressive disorder, recurrent, unspecified; G56.03 Carpal tunnel syndrome, bilateral upper limbs; E78.00 Pure hypercholesterolemia, unspecified; E55.9 Vitamin D deficiency, unspecified; G47.00 Insomnia, unspecified; F41.9 Anxiety disorder, unspecified
CPT/HCPCS: 99395

== ENCOUNTER 2023-09-29 14:56 | Outpatient (AMB) | payer OTHER, SELFPAY ==
--- NOTE | 2023-09-29 15:26 | MHC.OFFVISPS ---
Intake Intake Visit Reasons: consultation Senior Management Consultant Required: No Allergies No Known Allergies [No Known Allergies*] Allergy (Verified 09/24/23 02:29) Medication List - Last Reconciled 09/29/23 by Rosette Davalos APRN albuterol sulfate 90 mcg/actuation (Ventolin HFA) 2 puffs inhalation Q4-6H PRN escitalopram oxalate 20 mg PO DAILY 90 days hydroxyzine HCl 25 mg PO TID PRN 30 days immun glob Y-aqk-zbkk-IgA 0-50 10 gram (Gammagard S-D (IgA < 1 mcg/mL)) 30 grams IV Q4W 28 days medroxyprogesterone 150 mg IM [id number] tobramycin in 0.225 % NaCl 300 mg/5 mL 300 mg (5 mL) inhalation BID 28 days HPI- Psychiatric Chief Complaint: consultation HPI Narrative: pt reports she feels worse since starting lexapro 20mg dialy; she is more anxious, more restless, she feels tense and always worried and shaky. no SI no HI; she is struggling with her physical health- not feeling well- low energy, cough, body aches. The Igg treatment she needs was denied by her new insurance 3 times and she appealed it but they denied again; she will make a complaint with insurance board and also reach out her self pay representative about the [facility] insurance that rejected the treatment. she feels overwhlemd and helpless at times. her physical healthis effecting her mental health and worsening her depression as she has not felt well for close to a year. Past Psychiatric History: outpt tx with lexapro; past trial of ambien and hydroxyzine in past Subjective Subjective Subjective Medication Compliance: Yes Side effects from medications: Yes (lexapro may be causing too much activation) Review of Systems Medical Review of Systems: unchanged Mental Status Exam Mental Status Exam Patient Appearance: Well Grooomed and Appropriate Patient Orientation: Person, Place, Time and Situation Level of Consciousness: Appropriate and Restless Patient Behavior: Anxious Mood Description: Anxious Affect Description: Anxious Patient Cognition Impaired: No Ability to Follow Directions: Good Speech Pattern: Clear Memory Description: Intact Hallucinations: None Delusions: Not Present Thought Process: Intact and Goal Oriented Thought Content: positive for Intact and positive for Circumstantial Judgement: Good Assessment and Plan Assessment & Plan (1) DAMION (generalized anxiety disorder): Status: Acute Code(s): F41.1 - Generalized anxiety disorder (2) Major depressive disorder, recurrent, moderate: Status: Acute Code(s): F33.1 - Major depressive disorder, recurrent, moderate Plan reduce lexapro to 10mg daily return in 2-3 weeks for follow up Counseling and coordination of Care Pt. Self Management counseling: Maintenance-social rhythm, Mod caffeine/ETOH intake, Sleep hygiene, Cognitive restructuring, General coping skills and Problem solving Medication management counseling: Effectiveness, Side effects, Dosing range, Duration, Drug interaction and Adherence Diagnosis and Prognosis Counseling: Accuracy of diagnosis, Prognosis over time, Impact of diagnosis on life functions, Impact of family relationship and Adequacy of current interventions Details: I spent 30 minutes reviewing the record, seeing the patient and documenting in the medical record. Counseling provided to the patient/caregiver as outlined below. Addressed patient/caregiver concerns regarding current medication regime including effective adherence. Addressed patient/caregiver concerns regarding diagnosis and prognosis including accuracy of diagnosis, prognosis over time, impact of diagnosis. Addressed patient/caregiver concerns regarding impact of recent stressors. [facility] Medical History Pain in both hands Bilateral hand numbness Overweight (BMI 25.0-29.9) Insomnia Vitamin D deficiency Pure hypercholesterolemia Depression Anxiety Status post hysteroscopy (~03/12/17) Carpal tunnel syndrome Surgical History S/P cubital tunnel release History of carpal tunnel release History of mastopexy (~09/28/19) Status post abdominoplasty (~09/28/19) Family History Mother Hypertension Mental illness in member of household Maternal Grandfather Gastric cancer Other Mental health problem Social History Household Members: Spouse and Children Housing: House Alcohol intake: current Alcohol intake frequency: holidays/special occasions only Patient Tobacco Use Status: Never used Tobacco e-Cigarette/Vaping Use: Never Used Second Hand Smoke Exposure: Yes service: No Current occupational status: employed 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 Substance History: none Trauma History: difficult childhood Coding Level of Care Code Est Pt Level 4 (01151) Diagnoses DAMION (generalized anxiety disorder) F41.1 Major depressive disorder, recurrent, moderate F33.1
== END 2023-09-29 16:00 | disposition home or self-care (01) ==
LOC: HO.HOP 14:56
PROVIDERS: PCP Internal Medicine; Visit Provider Clinical Nurse Specialist Psychiatric/Mental Health
DX: F41.1 Generalized anxiety disorder (principal); F33.1 Major depressive disorder, recurrent, moderate
CPT/HCPCS: 99214

== ENCOUNTER → 2023-09-29 14:56 | Outpatient (BNVA) | payer OTHER, SELFPAY | PROVIDERS: PCP Internal Medicine; Visit Provider Clinical Nurse Specialist Psychiatric/Mental Health | DX: F41.1 Generalized anxiety disorder (principal); F33.1 Major depressive disorder, recurrent, moderate | CPT/HCPCS: 99212 ==

== ENCOUNTER 2023-10-17 14:31 | Outpatient (AMB) | payer OTHER, SELFPAY ==
--- NOTE | 2023-10-17 14:43 | MHC.OFFVISPS ---
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 Required: No Allergies No Known Allergies [No Known Allergies*] Allergy (Verified 09/24/23 02:29) Medication List - Last Reconciled 10/17/23 by Rosette Davalos APRN albuterol sulfate 90 mcg/actuation (Ventolin HFA) 2 puffs inhalation Q4-6H PRN escitalopram oxalate 20 mg PO DAILY 90 days hydroxyzine HCl 25 mg PO TID PRN 30 days immun glob G-mrw-ipzp-IgA 0-50 10 gram (Gammagard S-D (IgA < 1 mcg/mL)) 30 grams IV Q4W 28 days medroxyprogesterone 150 mg IM [id number] tobramycin in 0.225 % NaCl 300 mg/5 mL 300 mg (5 mL) inhalation BID 28 days HPI- Psychiatric Chief Complaint: consultation HPI Narrative: pt very tearful; no improvement with lexapro; anxious, depressed, tired; very frustrated in her relationships. criticizes herself for having angry thoughts and wanting more from relationship; passive SI at times. she was bale to make an appt with science technician fro December. reports restless legs every night; sleep meds not helping. Past Psychiatric History: outpt tx with lexapro; past trial of ambien and hydroxyzine in past Subjective Subjective Subjective Medication Compliance: Yes Side effects from medications: Yes Review of Systems Medical Review of Systems: unchanged Mental Status Exam Mental Status Exam Patient Appearance: Well Grooomed, Fatigued and Appropriate Patient Orientation: Person, Place, Time and Situation Level of Consciousness: Awake and Restless Patient Behavior: Appropriate, Cooperative, Anxious and Crying Mood Description: Anxious and Sad Affect Description: Anxious and Sad Patient Cognition Impaired: No Ability to Follow Directions: Good Speech Pattern: Appropriate Memory Description: Intact Hallucinations: None Delusions: Not Present Thought Process: Intact Thought Content: positive for Intact Judgement: Good Assessment and Plan Assessment & Plan (1) DAMION (generalized anxiety disorder): Status: Acute Code(s): F41.1 - Generalized anxiety disorder (2) Major depressive disorder, recurrent, moderate: Status: Acute Code(s): F33.1 - Major depressive disorder, recurrent, moderate Plan rule out PTSD stop lexapro- ineffective and possibly agitating Medications: New lamotrigine (Lamictal) 25 mg orally take one tablet daily x 14 days then take 2 tabs every morning; 30 tabs 0RF ropinirole administer 1-3 hours before bedtime 0.25 mg PO BEDTIME 30 tabs 1RF Discontinued escitalopram oxalate Discontinued Reason: Doctor's Order 20 mg PO DAILY 90 days 90 tabs 1RF F32.9 - Major depressive disorder, single episode, unspecified, F41.9 - Anxiety disorder, unspecified Counseling and coordination of Care Pt. Self Management counseling: Maintenance-social rhythm, Mod caffeine/ETOH intake, Sleep hygiene, General coping skills, Greif counseling and Problem solving Medication management counseling: Effectiveness, Side effects, Dosing range, Duration, Drug interaction and Adherence Diagnosis and Prognosis Counseling: Accuracy of diagnosis, Prognosis over time, Impact of diagnosis on life functions, Impact of family relationship, Problematic behaviors secondary to diagnosis and Adequacy of current interventions Details: I spent 55 minutes reviewing the record, seeing the patient and documenting in the medical record. Counseling provided to the patient/caregiver as outlined below. Addressed patient/caregiver concerns regarding current medication regime including effective adherence. Addressed patient/caregiver concerns regarding diagnosis and prognosis including accuracy of diagnosis, prognosis over time, impact of diagnosis. Addressed patient/caregiver concerns regarding impact of recent stressors. [facility] Medical History Pain in both hands Bilateral hand numbness Overweight (BMI 25.0-29.9) Insomnia Vitamin D deficiency Pure hypercholesterolemia Depression Anxiety Status post hysteroscopy (~03/12/17) Carpal tunnel syndrome Surgical History S/P cubital tunnel release History of carpal tunnel release History of mastopexy (~09/28/19) Status post abdominoplasty (~09/28/19) Family History Mother Hypertension Mental illness in member of household Maternal Grandfather Gastric cancer Other Mental health problem Social History Household Members: Spouse and Children Housing: House Alcohol intake: current Alcohol intake frequency: holidays/special occasions only Patient Tobacco Use Status: Never used Tobacco e-Cigarette/Vaping Use: Never Used Second Hand Smoke Exposure: Yes service: No Current occupational status: employed 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 Substance History: none Trauma History: difficult childhood Coding Level of Care Code Est Pt Level 4 (18676) Therapy 30m w/E&M (93184) Diagnoses DAMION (generalized anxiety disorder) F41.1 Major depressive disorder, recurrent, moderate F33.1
== END 2023-10-17 15:29 | disposition home or self-care (01) ==
LOC: HO.HOP 14:31
PROVIDERS: PCP Internal Medicine; Visit Provider Clinical Nurse Specialist Psychiatric/Mental Health
DX: F41.1 Generalized anxiety disorder (principal); F33.1 Major depressive disorder, recurrent, moderate
CPT/HCPCS: 90833; 99214

== ENCOUNTER → 2023-10-17 14:31 | Outpatient (BNVA) | payer OTHER, SELFPAY | PROVIDERS: PCP Internal Medicine; Visit Provider Clinical Nurse Specialist Psychiatric/Mental Health | DX: F33.1 Major depressive disorder, recurrent, moderate (principal); F41.1 Generalized anxiety disorder | CPT/HCPCS: 99212 ==

== ENCOUNTER 2023-10-31 13:59 | Outpatient (AMB) | payer OTHER, SELFPAY ==
--- NOTE | 2023-10-31 14:02 | MHC.OFFVISPS ---
Intake Intake Visit Reasons: consultation Division Engineer Required: No Allergies No Known Allergies [No Known Allergies*] Allergy (Verified 09/24/23 02:29) Medication List - Last Reconciled 10/31/23 by Rosette Davalos APRN albuterol sulfate 90 mcg/actuation (Ventolin HFA) 2 puffs inhalation Q4-6H PRN hydroxyzine HCl 25 mg PO TID PRN 30 days immun glob D-aur-riht-IgA 0-50 10 gram (Gammagard S-D (IgA < 1 mcg/mL)) 30 grams IV Q4W 28 days lamotrigine (Lamictal) 25 mg orally take one tablet daily x 14 days then take 2 tabs every morning; medroxyprogesterone 150 mg IM [id number] ropinirole 0.25 mg PO BEDTIME tobramycin in 0.225 % NaCl 300 mg/5 mL 300 mg (5 mL) inhalation BID 28 days HPI- Psychiatric Chief Complaint: consultation HPI Narrative: pt feeling slightly better but still angry anxious and sad; very hard on herself. no side effects from lamictal; discussed response to lexapro and she is clear that she felt more anxious and agitated don it. she is less anxious but still struggling; her mind is always going ; she is always worrying; she has trouble falling sleep due to thinking about all the things she has to do; she wakes in the middle of the night recalling that her daughter needs something and she orders it right away on line so she doesn't forget; she falls back to sleep for a little while but wakes at least 3 times a night and gets approximately 3-4 hours of broken sleep. she had a good conversation with her about how she doesn't want to be in charge and responsible for everything in their lives and needs him to step up more. she says he responded positively but she feels guilty and still gets very irritable with him. She is often overwhelmed and feels a strong need to talk to someone and is struggling to wait for a therapist. no SI no HI. easily tearful Past Psychiatric History: outpt tx with lexapro; past trial of ambien and hydroxyzine in past Subjective Subjective Subjective Medication Compliance: Yes Review of Systems Medical Review of Systems: unchanged Mental Status Exam Mental Status Exam Patient Appearance: Well Grooomed and Appropriate Patient Orientation: Person, Place, Time and Situation Level of Consciousness: Awake and Appropriate Patient Behavior: Appropriate and Cooperative Mood Description: Anxious and Sad Affect Description: Anxious and Sad Patient Cognition Impaired: No Ability to Follow Directions: Good Speech Pattern: Clear and Soft-Spoken Memory Description: Intact Hallucinations: None Delusions: Not Present Thought Process: Intact and Goal Oriented Thought Content: positive for Intact and positive for Goal Oriented Judgement: Good Assessment and Plan Assessment & Plan (1) DAMION (generalized anxiety disorder): Status: Acute Code(s): F41.1 - Generalized anxiety disorder (2) Major depressive disorder, recurrent, moderate: Status: Acute Code(s): F33.1 - Major depressive disorder, recurrent, moderate Medications: New lamotrigine (Lamictal) 100 mg PO DAILY 30 tabs 1RF clonidine HCl 0.1 mg orally take 1/2 tablet at bedtime and may take an additional 1/2 tab if still awake in one hour; 30 tabs 0RF Discontinued lamotrigine Discontinued Reason: Doctor's Order 25 mg orally take one tablet daily x 14 days then take 2 tabs every morning; 30 tabs 0RF ropinirole administer 1-3 hours before bedtime Discontinued Reason: Doctor's Order 0.25 mg PO BEDTIME 30 tabs 1RF Counseling and coordination of Care Pt. Self Management counseling: Maintenance-social rhythm, Mod caffeine/ETOH intake, Sleep hygiene, Behavior activation and General coping skills Medication management counseling: Effectiveness, Side effects, Dosing range, Duration, Drug interaction and Adherence Diagnosis and Prognosis Counseling: Accuracy of diagnosis, Prognosis over time, Impact of diagnosis on life functions, Impact of family relationship and Adequacy of current interventions Details: I spent 45 minutes reviewing the record, seeing the patient and documenting in the medical record. Counseling provided to the patient/caregiver as outlined below. Addressed patient/caregiver concerns regarding current medication regime including effective adherence. Addressed patient/caregiver concerns regarding diagnosis and prognosis including accuracy of diagnosis, prognosis over time, impact of diagnosis. Addressed patient/caregiver concerns regarding impact of recent stressors. [facility] Medical History Pain in both hands Bilateral hand numbness Overweight (BMI 25.0-29.9) Insomnia Vitamin D deficiency Pure hypercholesterolemia Depression Anxiety Status post hysteroscopy (~03/12/17) Carpal tunnel syndrome Surgical History S/P cubital tunnel release History of carpal tunnel release History of mastopexy (~09/28/19) Status post abdominoplasty (~09/28/19) Family History Mother Hypertension Mental illness in member of household Maternal Grandfather Gastric cancer Other Mental health problem Social History Household Members: Spouse and Children Housing: House Alcohol intake: current Alcohol intake frequency: holidays/special occasions only Patient Tobacco Use Status: Never used Tobacco e-Cigarette/Vaping Use: Never Used Second Hand Smoke Exposure: Yes service: No Current occupational status: employed 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 Substance History: none Trauma History: difficult childhood Coding Level of Care Code Est Pt Level 4 (67627) Therapy 30m w/E&M (89118) Diagnoses DAMION (generalized anxiety disorder) F41.1 Major depressive disorder, recurrent, moderate F33.1
== END 2023-10-31 14:45 | disposition home or self-care (01) ==
LOC: HO.HOP 13:59
PROVIDERS: PCP Internal Medicine; Visit Provider Clinical Nurse Specialist Psychiatric/Mental Health
DX: F41.1 Generalized anxiety disorder (principal); F33.1 Major depressive disorder, recurrent, moderate
CPT/HCPCS: 90833; 99214

== ENCOUNTER → 2023-10-31 13:59 | Outpatient (BNVA) | payer OTHER, SELFPAY | PROVIDERS: PCP Internal Medicine; Visit Provider Clinical Nurse Specialist Psychiatric/Mental Health | DX: F41.1 Generalized anxiety disorder (principal); F33.1 Major depressive disorder, recurrent, moderate; Z71.89 Other specified counseling | CPT/HCPCS: 99212 ==

== ENCOUNTER 2023-11-23 16:24 | Outpatient (AMB) | payer OTHER, SELFPAY ==
--- NOTE | 2023-11-23 16:52 | MHC.OFFVISPS ---
Intake Intake Visit Reasons: consultation Orthotic Practitioner Required: No Allergies No Known Allergies [No Known Allergies*] Allergy (Verified 09/24/23 02:29) Medication List - Last Reconciled 11/23/23 by Rosette Davalos APRN albuterol sulfate 90 mcg/actuation (Ventolin HFA) 2 puffs inhalation Q4-6H PRN clonidine HCl 0.1 mg orally take 1/2 tablet at bedtime and may take an additional 1/2 tab if still awake in one hour; fluoxetine 10 mg PO DAILY hydroxyzine HCl 25 mg PO TID PRN 30 days immun glob Y-vxu-mdiq-IgA 0-50 10 gram (Gammagard S-D (IgA < 1 mcg/mL)) 30 grams IV Q4W 28 days lamotrigine (Lamictal) 100 mg PO DAILY medroxyprogesterone 150 mg IM [id number] tobramycin in 0.225 % NaCl 300 mg/5 mL 300 mg (5 mL) inhalation BID 28 days HPI- Psychiatric Chief Complaint: consultation HPI Narrative: pt start with new provider for meds; had a good connection; has stopped lamictal and started prozac 10mg daily. pt responding well to it. she is also seeing a new therpaist next week; feels relieved; pt expressing hope for future; much less tearful; much less angry. discussed termination issues. Past Psychiatric History: outpt tx with lexapro; past trial of ambien and hydroxyzine in past Subjective Subjective Subjective Medication Compliance: Yes Side effects from medications: No Review of Systems Medical Review of Systems: unchanged Mental Status Exam Mental Status Exam Patient Appearance: Well Grooomed and Appropriate Patient Orientation: Person, Place, Time and Situation Level of Consciousness: Awake and Appropriate Patient Behavior: Appropriate Mood Description: Calm Affect Description: Calm Patient Cognition Impaired: No Ability to Follow Directions: Good Speech Pattern: Clear and Appropriate Memory Description: Intact Hallucinations: None Delusions: Not Present Thought Process: Intact and Goal Oriented Thought Content: positive for Intact and positive for Goal Oriented Judgement: Good Assessment and Plan Assessment & Plan (1) DAMION (generalized anxiety disorder): Status: Acute Code(s): F41.1 - Generalized anxiety disorder (2) Major depressive disorder, recurrent, moderate: Status: Acute Code(s): F33.1 - Major depressive disorder, recurrent, moderate Plan continue with new providers case closed Medications: Refilled clonidine HCl 0.1 mg orally take 1/2 tablet at bedtime and may take an additional 1/2 tab if still awake in one hour; 90 tabs 1RF Discontinued lamotrigine (Lamictal) Discontinued Reason: Doctor's Order 100 mg PO DAILY 90 tabs 1RF Counseling and coordination of Care Pt. Self Management counseling: Maintenance-social rhythm, General coping skills and Problem solving Medication management counseling: Effectiveness, Side effects, Dosing range, Duration, Drug interaction and Adherence Diagnosis and Prognosis Counseling: Accuracy of diagnosis, Prognosis over time, Impact of diagnosis on life functions, Impact of family relationship, Problematic behaviors secondary to diagnosis and Adequacy of current interventions Details: I spent 30 minutes reviewing the record, seeing the patient and documenting in the medical record. Counseling provided to the patient/caregiver as outlined below. Addressed patient/caregiver concerns regarding current medication regime including effective adherence. Addressed patient/caregiver concerns regarding diagnosis and prognosis including accuracy of diagnosis, prognosis over time, impact of diagnosis. Addressed patient/caregiver concerns regarding impact of recent stressors. [facility] Medical History Pain in both hands Bilateral hand numbness Overweight (BMI 25.0-29.9) Insomnia Vitamin D deficiency Pure hypercholesterolemia Depression Anxiety Status post hysteroscopy (~03/12/17) Carpal tunnel syndrome Surgical History S/P cubital tunnel release History of carpal tunnel release History of mastopexy (~09/28/19) Status post abdominoplasty (~09/28/19) Family History Mother Hypertension Mental illness in member of household Maternal Grandfather Gastric cancer Other Mental health problem Social History Household Members: Spouse and Children Housing: House Alcohol intake: current Alcohol intake frequency: holidays/special occasions only Patient Tobacco Use Status: Never used Tobacco e-Cigarette/Vaping Use: Never Used Second Hand Smoke Exposure: Yes service: No Current occupational status: employed 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 Substance History: none Trauma History: difficult childhood Coding Level of Care Code Est Pt Level 4 (72820) Diagnoses DAMION (generalized anxiety disorder) F41.1 Major depressive disorder, recurrent, moderate F33.1
== END 2023-11-23 17:15 | disposition home or self-care (01) ==
LOC: HO.HOP 16:24
PROVIDERS: PCP Internal Medicine; Visit Provider Clinical Nurse Specialist Psychiatric/Mental Health
DX: F41.1 Generalized anxiety disorder (principal); F33.1 Major depressive disorder, recurrent, moderate
CPT/HCPCS: 99214

== ENCOUNTER → 2023-11-23 16:24 | Outpatient (BNVA) | payer OTHER, SELFPAY | PROVIDERS: PCP Internal Medicine; Visit Provider Clinical Nurse Specialist Psychiatric/Mental Health | DX: F33.1 Major depressive disorder, recurrent, moderate (principal); F41.1 Generalized anxiety disorder | CPT/HCPCS: 99212 ==

== ENCOUNTER 2023-12-05 14:57 | Outpatient (AMB) | payer OTHER, SELFPAY ==
[2023-12-05 15:05] VITALS: BMI 26.2
--- NOTE | 2023-12-05 15:05 | AM.OFFVISNUR ---
Vital Signs 12/05/23 15:05 Height 5 ft 3.5 in Weight 68.152 kg BMI 26.2 Intake Visit Reasons: depo Allergies No Known Allergies [No Known Allergies*] Allergy (Verified 09/24/23 02:29) Nursing Note Stacy is here today for her scheduled injection. LMP 12/04/23. Pt hasn't had menses for several months. Pt aware to call if menses continues, as she has hx of AUB. Pt reminded of AG coming up in January. Office Procedures Depo Questionnaire If YES to any of the following questions, please consult a provider. Date of last injection: 09/19/23 Date of last menstrual period: 12/04/23 Date of last gynecology exam: 01/13/23 Menstrual pattern since last injection has been: Normal Irregular bleeding?: No Breast lumps or other breast changes?: No Changes in weight or appetite?: No Depression or changes in mood?: No Abnormal hair growth or loss?: No Skin problems (rash, acne, discoloration)?: No Pain at the injection site?: No Headaches?: No Nervousness?: No Abdominal pain or cramping?: No Dizziness or nausea?: No Fatigue or weakness?: No Decrease in sexual drive?: No Chest pain or shortness of breath?: No Swelling in arms or legs?: No Form completed by?: Cyndi Vivas LPN Office Meds Depo-Provera 150 mg/mL intramuscular syringe Performing Provider: Xena Puentes CNM Performing Location: [facility] Administered by: Izabella Vivas LPN on 12/05/23 15:06 Dose Route Admin Location Dispensed Lot Number Expiration Date [facility] [employer] Engine Techn[employer] 150 mg IM left deltoid 1 mL [id number] 04/05/25 26573-137-37 [place] Assessment & Plan Assessment & Plan Orders: Orders AMB Medroxyprogesterone Injection Patient Supplied Today N93.9 - Abnormal uterine and vaginal bleeding, unspecified Medications: New Depo-Provera (medroxyprogesterone) 150 mg IM ONCE 1 mL 0RF NS N93.9 - Abnormal uterine and vaginal bleeding, unspecified
== END 2023-12-05 15:04 | disposition home or self-care (01) ==
PROVIDERS: PCP Internal Medicine; Visit Provider Advanced Practice Midwife
DX: N93.9 Abnormal uterine and vaginal bleeding, unspecified (principal)

== ENCOUNTER → 2023-12-05 14:57 | Outpatient (BNVA) | payer OTHER, SELFPAY | PROVIDERS: PCP Internal Medicine; Visit Provider Advanced Practice Midwife | DX: N93.9 Abnormal uterine and vaginal bleeding, unspecified (principal) | CPT/HCPCS: 96372; 99211; J1050 ==

== ENCOUNTER 2024-01-25 12:48 | Outpatient (REF) | payer OTHER, SELFPAY ==
[2024-01-26 11:07] LABS: HPV 16,18/45 See PAP report
[2024-01-26 12:13] LABS: Bacterial Vaginosis PCR NEGATIVE (Negative); Candida Group PCR NOT DETECTED (Not Detect); Candida glab krusei PCR NOT DETECTED (Not Detect); Trichomonas vaginalis PCR NOT DETECTED (Not Detect)
[2024-01-26 14:30] LABS: CT PCR NOT DETECTED (Not Detect.); NG PCR NOT DETECTED (Not Detect.)
== END 2024-01-25 12:49 | disposition home or self-care (01) ==
LOC: HO.LNP 12:48
PROVIDERS: PCP Internal Medicine; Visit Provider Obstetrics & Gynecology
DX: Z01.419 Encounter for gynecological examination (general) (routine) without abnormal findings (principal); N76.0 Acute vaginitis; Z87.42 Personal history of other diseases of the female genital tract; Z11.3 Encounter for screening for infections with a predominantly sexual mode of transmission
CPT/HCPCS: 0352U; 87491; 87591; 87624; 88175; 99395; 99459

== ENCOUNTER 2024-01-25 12:48 | Outpatient (AMB) | payer OTHER, SELFPAY ==
[2024-01-25 12:58] VITALS: BP 110/72; BMI 26.1
--- NOTE | 2024-01-25 12:58 | MHC.OFFVIS ---
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 Complaining of vaginal discomfort after starting antibiotic few days ago no vaginal discharge or vaginal odor Last Pap/HPV was LSIL/HPV E6 E7 positive, colpo/biopsy/ECC was negative PFSH Medical History LGSIL on Pap smear of cervix Pain in both hands Bilateral hand numbness Overweight (BMI 25.0-29.9) Insomnia Vitamin D deficiency Pure hypercholesterolemia Depression Anxiety Status post hysteroscopy (~03/12/17) Carpal tunnel syndrome Surgical History S/P cubital tunnel release History of carpal tunnel release History of mastopexy (~09/28/19) Status post abdominoplasty (~09/28/19) Family History Mother Hypertension Mental illness in member of household Maternal Grandfather Gastric cancer Other Mental health problem Social History Household Members: Spouse and Children Housing: House Alcohol intake: current Alcohol intake frequency: holidays/special occasions only Patient Tobacco Use Status: Never used Tobacco e-Cigarette/Vaping Use: Never Used Second Hand Smoke Exposure: Yes service: No Current occupational status: employed 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 Sexual orientation: Straight/Heterosexual Gender identity: Female Cognitive needs: No Hearing needs: No Vision needs: No Female Reproductive History Menstrual Age of Menarche: 14 control method: progesterone injection Total pregnancies: 3 Full term: 3 Number of Living Children: 3 Date of last pap smear: 01/16/23 History of abnormal pap smear: Yes (HPV +) Review of Systems Const All systems reviewed & are unremarkable except as noted in HPI and below Card Reports as per HPI Resp Reports as per HPI GI Reports as per HPI and Reports no additional complaints Reports as per HPI Physical Exam Vital Signs: Last Vital Signs BP 110/72 01/25/24 12:58 BMI result Body Mass Index 26.1 Const General: cooperative, healthy appearing and comfortable Chest Chest palpation & inspection: normal inspection of the chest and normal palpation of entire chest wall Breast/axilla inspection: normal inspection of the breasts and normal inspection of the axillae Breast/axilla palpation: normal palpation of the breasts, normal palpation of the axillae and no axillary lymphadenopathy Resp Effort & Inspection: normal respiratory effort Auscultation: clear to auscultation bilaterally Percussion: percussion normal Cardio Palpation: normal PMI Rate: regular rate Rhythm: regular rhythm Heart sounds: no murmurs and no rubs Peripheral pulses: Peripheral pulses 2+ throughout GI Inspection: Yes normal to inspection Palpation (GI): Soft to palpation, nontender, no guarding, not rigid and No hepatosplenomegaly present Percussion: Yes normal to percussion Auscultation: normal bowel sounds Rectal Exam - Female: deferred General: Yes bladder normal to palpation External Female Exam: No lesion Speculum Exam - Vagina: normal appearance of the vagina, normal palpation, normal vaginal discharge and not erythematous Speculum Exam - Cervix: normal appearance of the cervix and normal palpation Bimanual exam- vagina & uterus: normal bimanual exam, normal palpation, uterine size normal, bladder normal to palpation, consistency normal and normal palpation Bimanual Exam- Adnexa, other: normal adnexae, no masses and no tenderness Assessment & Plan Assessment & Plan (1) Well woman exam: Code(s): Z01.419 - Encounter for gynecological examination (general) (routine) without abnormal findings Category: Medical Plan: Cotesting done. Mammogram ordered. Counseled the patient about the recommended dietary allowance of 1000 mg of Calcium & 600 IU of vitamin D. The patient was instructed to perform monthly self-breast exams and to schedule an annual exam in a year; All questions answered and the patient verbalized understanding. Instructed the patient to schedule annual exam in a year (2) Vulvovaginitis: Code(s): N76.0 - Acute vaginitis Category: Medical Plan: GC/CT, Bacterial Vaginosis panel taken, Terazol 0.8% q.h.s. for 3 days was sent to the patient's pharmacy. The patient was instructed to call if symptoms don't improve in 48 hours. Orders: Orders MM tomosynthesis screening BI 01/25/24 Z12.31 - Encounter for screening mammogram for malignant neoplasm of breast Pap Smear 01/25/24 Z01.419 - Encounter for gynecological examination (general) (routine) without abnormal findings, N76.0 - Acute vaginitis HPV High risk 01/26/24 Z01.419 - Encounter for gynecological examination (general) (routine) without abnormal findings, N76.0 - Acute vaginitis CT NG by PCR 01/25/24 Z01.419 - Encounter for gynecological examination (general) (routine) without abnormal findings, N76.0 - Acute vaginitis Bacterial Vaginosis Panel 01/25/24 Z01.419 - Encounter for gynecological examination (general) (routine) without abnormal findings, N76.0 - Acute vaginitis Medications: New terconazole 0.8% 1 appful vaginal BEDTIME 20 grams 0RF 3 days Coding Level of Care Code Est Pt Prev Care 18-39y(31687) Diagnoses Well woman exam Z01.419 Vulvovaginitis N76.0
== END 2024-01-25 13:42 | disposition home or self-care (01) ==
LOC: HO.HWS 12:48
PROVIDERS: PCP Internal Medicine; Visit Provider Obstetrics & Gynecology
DX: Z01.419 Encounter for gynecological examination (general) (routine) without abnormal findings (principal); N76.0 Acute vaginitis
CPT/HCPCS: 99395

== ENCOUNTER → 2024-02-21 15:11 | Outpatient (BNVA) | payer OTHER, SELFPAY | PROVIDERS: PCP Internal Medicine; Visit Provider Advanced Practice Midwife | DX: Z30.42 Encounter for surveillance of injectable contraceptive (principal) | CPT/HCPCS: 96372; 99211; J1050 ==

== ENCOUNTER → 2024-02-21 15:11 | Outpatient (AMB) | payer OTHER, SELFPAY ==
[2024-02-21 15:21] VITALS: BMI 26.8
--- NOTE | 2024-02-21 15:21 | AM.OFFVISNUR ---
Vital Signs 02/21/24 15:21 Height 5 ft 3.5 in Weight 154 lb BMI 26.8 Intake Visit Reasons: depo Allergies No Known Allergies [No Known Allergies*] Allergy (Verified 01/25/24 13:03) Nursing Note Stacy is here today for her scheduled Depo-Provera inj. She reports she had a period last week, slightly heavy, but is has stopped. INJ given follow up in 12 weeks. Office Procedures Depo Questionnaire If YES to any of the following questions, please consult a provider. Date of last injection: 12/05/23 Date of last menstrual period: 02/12/24 Date of last gynecology exam: 01/25/24 Menstrual pattern since last injection has been: Heavy Irregular bleeding?: No Breast lumps or other breast changes?: No Changes in weight or appetite?: No Depression or changes in mood?: No Abnormal hair growth or loss?: No Skin problems (rash, acne, discoloration)?: No Pain at the injection site?: No Headaches?: No Nervousness?: No Abdominal pain or cramping?: No Dizziness or nausea?: No Fatigue or weakness?: No Decrease in sexual drive?: No Chest pain or shortness of breath?: No Swelling in arms or legs?: No Form completed by?: Cyndi Vivas LPN Office Meds Depo-Provera 150 mg/mL intramuscular syringe Performing Provider: Xena Puentes CNM Performing Location: [facility] [place] [facility] Administered by: Izabella Vivas LPN on 02/21/24 15:22 Dose Route Admin Location Dispensed Lot Number Expiration Date [facility] [employer] Account Executive 150 mg IM rt. deltoid 1 mL [id number] 06/03/25 71165-974-80 [facility] Assessment & Plan Assessment & Plan Orders: Orders AMB Medroxyprogesterone Injection Patient Supplied Today Z30.42 - Encounter for surveillance of injectable contraceptive Medications: New Depo-Provera (medroxyprogesterone) 150 mg IM ONCE 1 mL 0RF NS Z30.42 - Encounter for surveillance of injectable contraceptive
== END ==
LOC: HO.HWS 15:11
PROVIDERS: PCP Internal Medicine; Visit Provider Advanced Practice Midwife
DX: Z30.42 Encounter for surveillance of injectable contraceptive (principal)

== ENCOUNTER 2024-03-05 16:06 | Outpatient (REF) | payer OTHER, SELFPAY ==
--- NOTE | ~2024-03-05 | MM_ITS ---
EXAMINATION: MM SCREENING DIGITAL BREAST TOMOSYNTHESIS, BILATERAL CLINICAL INFORMATION: Screening. Asymptomatic. COMPARISON: Mammography: Comparison is made with relevant avialable priors. TECHNIQUE: Digital mammography is performed in craniocaudal and mediolateral oblique views along with computer-aided detection (CAD). Digital breast tomosynthesis is performed in implant-displaced craniocaudal and implant-displaced mediolateral oblique views along with computer-aided detection (CAD). FINDINGS: The breasts are extremely dense, which lowers the sensitivity of mammography (ACR BI-RADS breast composition Category d). Bilateral retropectoral silicone implants are normal-appearing. There are no significant masses, abnormal calcifications, or other abnormalities. MM/MM tomosynthesis screen imp BI IMPRESSION: There are no significant changes from prior study. ASSESSMENT: BI-RADS BI-RADS 2 - Benign Findings RECOMMENDATION: Routine annual mammography screening. 1 year F/U This patient's information was entered into a reminder system with a target due date for their next mammogram. Electronically signed by: Kenia Mayers DO 03/16/2024 08:23 PM [facility]
== END 2024-03-05 16:07 | disposition home or self-care (01) ==
LOC: HO.MAMMO 16:06
PROVIDERS: PCP Internal Medicine; Visit Provider Obstetrics & Gynecology
DX: Z12.31 Encounter for screening mammogram for malignant neoplasm of breast (principal)
CPT/HCPCS: 77063; 77067

== ENCOUNTER → 2024-03-05 16:15 | Outpatient (BNV) | payer OTHER, SELFPAY | PROVIDERS: PCP Internal Medicine; Visit Provider Internal Medicine | DX: Z12.31 Encounter for screening mammogram for malignant neoplasm of breast (principal) | CPT/HCPCS: 77063; 77067 ==

== ENCOUNTER 2024-03-25 15:22 | Outpatient (AMB) | payer OTHER, SELFPAY ==
--- NOTE | 2024-03-25 15:24 | MHC.PC.OV ---
Vital Signs 03/25/24 15:26 Height 5 ft 3.5 in Weight 151 lb 2 oz BMI 26.3 BP 110/72 Blood Pressure Location Lt brachial Position Sitting Pulse 84 Pulse Source Pulse Oximeter Temp Source Temporal Artery Scan Pulse Oximetry (%) 99 Oxygen Delivery Method Room Air Intake Visit Reasons: 6 month f/u Performance Solutions Specialist Required: No Accompanied by: Self / Same As Patient Allergies No Known Allergies [No Known Allergies*] Allergy (Verified 03/25/24 15:56) Medication List - Last Reconciled 03/25/24 by Robin Mcdaniels MD albuterol sulfate 90 mcg/actuation (Ventolin HFA) 2 puffs inhalation Q4-6H PRN clonidine HCl 0.2 mg PO BEDTIME PRN fluoxetine 40 mg PO DAILY hydroxyzine HCl 25 mg PO TID PRN 30 days immun glob L-gmr-[id number]-IgA 0-50 10 gram (Gammagard S-D (IgA < 1 mcg/mL)) 30 grams IV Q4W 28 days medroxyprogesterone 150 mg IM [id number] Tobacco use date assessed: 03/25/24 Dental Screening Dental Screen Date: 03/25/24 Did you have a dental visit in the last 12 months?: Yes Did you have a dental problem in the last 6 months where you did not have access to dental care?: No Was dental information given to patient?: Patient has dentist HPI 6 month f/u HPI Details The patient is a 39-year-old female presenting today for her follow up visit and for ongoing management needs for several chronic conditions. She has a history of Generalized Anxiety Disorder and Major Depressive Disorder, previously managed by psychiatrist Rosette Edge, but is now under the care of a new medication records management manager, Brenda, at [facility]. Her medication was changed from fluoxetine 10 mg to 40 mg. She is also taking clonidine at bedtime as needed for sleep. She feels that her medications are working well for her anxiety and mood disorder at present Additionally, she has asthma, managed with an inhaler, which she uses on an as-needed basis She has also recently starteded on an infusion therapy to manage recurrent respiratory symptoms with a new career information specialist, Dr. Perry, and recently started immunoglobulin infusions to hopefully control her asthma better overall The patient also experiences persistent symptoms related to carpal tunnel syndrome, for which she had undergone surgery and recently received a cortisone injection in January due to pain persisting in her hands. She reports that while the surgery has helped lessen the severity of the pain, she continues to experience numbness and some pain. She remains in her current employment, which she identifies as the potential trigger for her symptoms States that changing jobs or retiring are not options for her at this time Patient denies any headaches or dizziness Denies any chest pains, no increased shortness of breath No nausea/vomiting, no abdominal pain No change in bowel habits noted [facility] Medical History LGSIL on Pap smear of cervix Pain in both hands Bilateral hand numbness Overweight (BMI 25.0-29.9) Insomnia Vitamin D deficiency Pure hypercholesterolemia Depression Anxiety Status post hysteroscopy (~03/12/17) Carpal tunnel syndrome Surgical History S/P cubital tunnel release History of carpal tunnel release History of mastopexy (~09/28/19) Status post abdominoplasty (~09/28/19) Family History Mother Hypertension Mental illness in member of household Maternal Grandfather Gastric cancer Other Mental health problem Social History Household Members: Spouse and Children Housing: House Alcohol intake: current Alcohol intake frequency: holidays/special occasions only Patient Tobacco Use Status: Never used Tobacco e-Cigarette/Vaping Use: Never Used Second Hand Smoke Exposure: Yes service: No Current occupational status: employed 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 1. Little interest or pleasure in doing things: more than half the days 2. Feeling down, depressed, or hopeless: nearly every day 3. Trouble falling or staying asleep, or sleeping too much: nearly every day 4. Feeling tired or having little energy: nearly every day 5. Poor appetite or overeating: not at all 6. Feeling bad about yourself - or that you are a failure or have let yourself or your family down: nearly every day 7. Trouble concentrating on things, such as reading the newspaper or watching television: several days 8. Moving or speaking so slowly that other people could have noticed. Or the opposite - being so fidgety or restless that you have been moving around a lot more than usual: not at all 9. Thoughts that you would be better off or of hurting yourself in some way: not at all (patient states i dont know ) Total score: 15 Depression Screening Interpretation: Positive Depression Screening Follow-up: Existing condition, New Medication prescribed and Community Mental Health Worker F/U Depression Screening Done: Yes 00562 - PHQ-9 Billing: Yes Source: Developed by Drs. Raphael Goldstein, Ilda Michel, Daniel Sosa and colleagues, with an educational phan from [employer]. Thrive Questionnaire Date Thrive assessed: 03/25/24 I am a: Patient What is your living situation today?: I have a steady place to live Within the past 12 months, did the food you bought not last and you didn't have the money to get more?: Never true Within the past 12 months, did you worry whether your food would run out before you got money to buy more?: Never true Do you have trouble paying for medicines?: No Do you have trouble getting transportation to medical appointments?: No Do you have trouble paying your heating and electricity bill?: No Do you have trouble taking care of your child, family member or friend?: No Do you have trouble with day-to-day activities such as bathing, preparing meals, shopping, managing finances, etc.?: No Are you currently unemployed and looking for a job?: No Are you interested in more education?: No Please select the resources that you would like help with: None Currently or been in a relationship where the following occur: No concerns reported THRIVE Score: 0 AUDIT C Alcohol Use Questionnaire (AUDIT-C) 1. How often do you have a drink containing alcohol?: Monthly or less 2. How many drinks containing alcohol do you have on a typical day when you are drinking?: 1 or 2 3. How often do you have six or more drinks on one occasion?: Never Total Score: 1 DAMION-7 AMB Questionnaire DAMION-7 Date DAMION - 7 assessed: 03/25/24 Feeling nervous, anxious, or on edge: 0 = Not at all Not being able to stop or control worryin = Not at all Worrying too much about different things: 0 = Not at all Trouble relaxin = Not at all Being so restless that it is hard to sit still: 0 = Not at all Becoming easily annoyed or irritable: 0 = Not at all Feeling afraid as if something awful might happen: 0 = Not at all Total DAMION-7 score (0-4 normal; 5-9 mild; 10-14 moderate; 15-21 severe): 0 Source: Developed by Drs. Raphael Goldstein, Ilda Michel, Daniel Sosa and colleagues, with an educational phan from [employer]. Review of Systems Const Denies chills, Reports difficulty sleeping, Reports fatigue, Denies fever(s) and Denies headache(s) ENT Denies dysphagia, Denies dizziness, Denies otalgia, Denies headache(s), Denies neck pain, Denies odynophagia and Denies sore throat Card Denies chest pain, Denies irregular heart rhythm, Denies palpitations and Denies dyspnea Resp Denies chest congestion, Denies cough and Denies dyspnea GI Denies abdominal pain, Denies constipation, Denies dysphagia, Denies heartburn, Denies diarrhea, Denies nausea, Denies odynophagia and Denies vomiting Denies urinary frequency, Denies dysuria and Denies urinary urgency Musc Denies back pain, Denies arthralgias and Denies neck pain Skin/Breast Denies rash Neuro Denies dizziness, Denies headache(s) and Denies paresthesias Psych Reports anxiety (better controlled), Reports depression (better controlled) and Denies suicidal ideation Endo Reports fatigue and Denies palpitations Frdei/Lymph Denies easy bruising Physical exam (Primary Care) Vital Signs: Last Vital Signs Pulse 84 03/25/24 15:26 BP 110/72 03/25/24 15:26 Pulse Ox 99 03/25/24 15:26 Oxygen Delivery Method Room Air 03/25/24 15:26 BMI result Body Mass Index 26.3 Tobacco/Smoking Status: Tobacco use Status Tobacco use date assessed 03/25/24 03/25/24 15:32 Patient Tobacco Use Status Never used Tobacco 03/25/24 15:28 e-Cigarette/Vaping Use Never Used 03/25/24 15:28 PHQ-9: PHQ-9 Score PHQ-9: Total score 15 03/25/24 16:10 Depression Screening Interpretation: Positive Depression Screening Follow-up: Existing condition, New Medication prescribed and Community Mental Health Worker F/U Thrive Assessment: Date of Thrive Assessment Date Thrive assessed 03/25/24 03/25/24 15:28 Currently or been in a relationship where the following occur: No concerns reported Const General: no acute distress and alert HENMT Ears: TM's normal bilaterally and EAC's normal Throat: Yes posterior oropharynx normal and Yes tonsils normal (no TP congestion) Neck Neck: Yes no lymphadenopathy and Yes supple Thyroid: Thyroid normal Resp Auscultation: clear to auscultation bilaterally, no rales and no wheezes Cardio Rate: regular rate Rhythm: regular rhythm Heart sounds: no murmurs GI Palpation (GI): Soft to palpation and nontender Auscultation: normal bowel sounds General: Yes no CVA tenderness Back/Spine/Pelvis Back: no CVA tenderness Thoracic/Lumbar Spine: thoracic and lumbar spine normal to inspection Skin Rashes: no rashes Extrem General: Yes no clubbing, cyanosis or edema Coding Level of Care Code Est Pt Level 4 (17367) 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 Bilateral carpal tunnel syndrome G56.03 Laterality: bilateral Pure hypercholesterolemia E78.00 Vitamin D deficiency E55.9 Insomnia, unspecified type G47.00 Insomnia type: unspecified Anxiety F41.9 Episode of recurrent major depressive disorder, unspecified depression episode severity F33.9 Depression Type: major depressive disorder Major depression recurrence: recurrent Active/Remission status: currently active Major depression episode severity: unspecified Additional Codes PHQ-9 - 26777 - PHQ-9 Billing: Yes ([id number]) Assessment & Plan Assessment & Plan (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 Hall (2) Carpal tunnel syndrome: Code(s): G56.00 - Carpal tunnel syndrome, unspecified upper limb Category: Medical Qualifiers: Laterality: bilateral Qualified Code(s): G56.03 - Carpal tunnel syndrome, bilateral upper limbs Plan: S/P right carpal tunnel release and right cubital tunnel release surgery [facility] Rub[facility] [place] [facility] November 2022 - states that she has been doing well since her surgery, with significant relief of her hand/wrist symptoms Follow up with the [facility] as scheduled or as needed (3) Pure hypercholesterolemia: Code(s): E78.00 - Pure hypercholesterolemia, unspecified Category: Medical Plan: Reinforced low cholesterol diet Will recheck her labs and fasting lipids in 6 months for follow-up (4) Vitamin D deficiency: Code(s): E55.9 - Vitamin D deficiency, unspecified Category: Medical Plan: Continue Vitamin D3 1000 units (25 mcg) QD (5) Insomnia: Code(s): G47.00 - Insomnia, unspecified Category: Medical Qualifiers: Insomnia type: unspecified Qualified Code(s): G47.00 - Insomnia, unspecified Plan: Sleep hygiene reinforced She used to take Zolpidem 10 mg Q HS PRN but states that it was not helping much and she stopped taking it a while back as she also does not wish to become dependent on the medication States that she also tried some OTC THC with Melatonin last year with variable results (6) Anxiety: Code(s): F41.9 - Anxiety disorder, unspecified Category: Medical Plan: Continue Hydroxyzine 25 mg TID PRN and Fluoxetine 40 mg QD (7) Depression: Code(s): F32.9 - Major depressive disorder, single episode, unspecified Category: Medical Qualifiers: Depression Type: major depressive disorder Major depression recurrence: recurrent Active/Remission status: currently active Major depression episode severity: unspecified Qualified Code(s): F33.9 - Major depressive disorder, recurrent, unspecified Plan: Continue Fluoxetine 40 mg QD Follow up with psychiatry as scheduled Plan To return in 6 months for her next annual physical examination Orders: Orders Complete Blood Count Auto Diff 6 Months D64.9 - Anemia, unspecified, Z00.00 - Encounter for general adult medical examination without abnormal findings Comprehensive Hume. Panel Fast 6 Months E78.00 - Pure hypercholesterolemia, unspecified, Z00.00 - Encounter for general adult medical examination without abnormal findings Lipid Panel 6 Months E78.00 - Pure hypercholesterolemia, unspecified, Z00.00 - Encounter for general adult medical examination without abnormal findings TSH reflex Free T4 6 Months E78.00 - Pure hypercholesterolemia, unspecified, Z00.00 - Encounter for general adult medical examination without abnormal findings UA CC w/rflx Micro + Cult 6 Months R30.0 - Dysuria, Z00.00 - Encounter for general adult medical examination without abnormal findings Vitamin D 25-OH Total 6 Months E55.9 - Vitamin D deficiency, unspecified, Z00.00 - Encounter for general adult medical examination without abnormal findings Medications: Refilled albuterol sulfate 90 mcg/actuation (Ventolin HFA) 2 puffs inhalation Q4-6H PRN 8.5 grams 5RF shortness of breath or wheezing R05.9 - Cough, unspecified
[2024-03-25 15:26] VITALS: BP 110/72; PULSE 84; O2SAT 99; BMI 26.3
== END 2024-03-25 16:13 | disposition home or self-care (01) ==
PROVIDERS: PCP Internal Medicine; Visit Provider Internal Medicine
DX: G47.00 Insomnia, unspecified (principal); D80.3 Selective deficiency of immunoglobulin G [IgG] subclasses; F33.9 Major depressive disorder, recurrent, unspecified; G56.03 Carpal tunnel syndrome, bilateral upper limbs; E78.00 Pure hypercholesterolemia, unspecified; E55.9 Vitamin D deficiency, unspecified; F41.9 Anxiety disorder, unspecified

== ENCOUNTER → 2024-03-25 15:22 | Outpatient (BNVA) | payer OTHER, SELFPAY | PROVIDERS: PCP Internal Medicine; Visit Provider Internal Medicine | DX: D80.3 Selective deficiency of immunoglobulin G [IgG] subclasses (principal); G56.03 Carpal tunnel syndrome, bilateral upper limbs; E78.00 Pure hypercholesterolemia, unspecified; E55.9 Vitamin D deficiency, unspecified; F41.9 Anxiety disorder, unspecified; F33.9 Major depressive disorder, recurrent, unspecified; G47.00 Insomnia, unspecified | CPT/HCPCS: 96127; 99212 ==

== ENCOUNTER 2024-05-02 11:45 | Outpatient (AMB) | payer OTHER, SELFPAY ==
[2024-05-02 11:49] VITALS: BP 100/52; PULSE 80; O2SAT 98; BMI 26.2
--- NOTE | 2024-05-02 11:49 | MHC.PC.OV ---
Vital Signs 05/02/24 11:49 Height 5 ft 3.5 in Weight 150 lb BMI 26.2 BP 100/52 L Blood Pressure Location Lt brachial Position Sitting Pulse 80 Pulse Source Pulse Oximeter Pulse Oximetry (%) 98 Oxygen Delivery Method Room Air Intake Visit Reasons: throat hurts felling sick Allergies No Known Allergies [No Known Allergies*] Allergy (Verified 05/02/24 12:00) Medication List - Last Reconciled 05/02/24 by Madalyn Pedersen PA-C albuterol sulfate 90 mcg/actuation (Ventolin HFA) 2 puffs inhalation Q4-6H PRN clonidine HCl 0.2 mg PO BEDTIME PRN fluoxetine 40 mg PO DAILY hydroxyzine HCl 25 mg PO TID PRN 30 days immun glob F-yxj-ewfn-IgA 0-50 10 gram (Gammagard S-D (IgA < 1 mcg/mL)) 30 grams IV Q4W 28 days medroxyprogesterone 150 mg IM [id number] Tobacco use date assessed: 03/25/24 Dental Screening Dental Screen Date: 03/25/24 [facility] Medical History Sore throat LGSIL on Pap smear of cervix Pain in both hands Bilateral hand numbness Overweight (BMI 25.0-29.9) Insomnia Vitamin D deficiency Pure hypercholesterolemia Depression Anxiety Status post hysteroscopy (~03/12/17) Carpal tunnel syndrome Surgical History S/P cubital tunnel release History of carpal tunnel release History of mastopexy (~09/28/19) Status post abdominoplasty (~09/28/19) Family History Mother Hypertension Mental illness in member of household Maternal Grandfather Gastric cancer Other Mental health problem Social History Household Members: Spouse and Children Housing: House Alcohol intake: current Alcohol intake frequency: holidays/special occasions only Patient Tobacco Use Status: Never used Tobacco Tobacco use type: Cigarette e-Cigarette/Vaping Use: Never Used Second Hand Smoke Exposure: Yes service: No Current occupational status: employed 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 1. Little interest or pleasure in doing things: more than half the days 2. Feeling down, depressed, or hopeless: nearly every day 3. Trouble falling or staying asleep, or sleeping too much: nearly every day 4. Feeling tired or having little energy: nearly every day 5. Poor appetite or overeating: not at all 6. Feeling bad about yourself - or that you are a failure or have let yourself or your family down: nearly every day 7. Trouble concentrating on things, such as reading the newspaper or watching television: several days 8. Moving or speaking so slowly that other people could have noticed. Or the opposite - being so fidgety or restless that you have been moving around a lot more than usual: not at all 9. Thoughts that you would be better off or of hurting yourself in some way: not at all (patient states i dont know ) Total score: 15 Depression Screening Interpretation: Positive Depression Screening Follow-up: Existing condition, New Medication prescribed and Community Mental Health Worker F/U Depression Screening Done: Yes 05445 - PHQ-9 Billing: Yes Source: Developed by Drs. Raphael Goldstein, Ilda Michel, Daniel Sosa and colleagues, with an educational phan from [employer]. Thrive Questionnaire Date Thrive assessed: 03/25/24 DAMION-7 AMB Questionnaire DAMION-7 Date DAMION - 7 assessed: 03/25/24 Source: Developed by Drs. Raphael Goldstein, Ilda Michel, Daniel Sosa and colleagues, with an educational phan from [employer]. Physical exam (Primary Care) Vital Signs: Last Vital Signs Pulse 80 05/02/24 11:49 BP 100/52 L 05/02/24 11:49 Pulse Ox 98 05/02/24 11:49 Oxygen Delivery Method Room Air 05/02/24 11:49 Care Plan Goal for BP management: <130/80 at goal BMI result Body Mass Index 26.2 BMI Assessment/Plan discussion: High BMI High, discussed plan: lifestyle, weight reduction, dietary, physical activity and alcohol moderation Tobacco/Smoking Status: Tobacco use Status Tobacco use date assessed 03/25/24 05/02/24 11:50 Patient Tobacco Use Status Never used Tobacco 05/02/24 11:50 Tobacco use type Cigarette 05/02/24 11:50 e-Cigarette/Vaping Use Never Used 05/02/24 11:50 PHQ-9: PHQ-9 Score PHQ-9: Total score 15 05/02/24 12:01 Depression Screening Interpretation: Positive Depression Screening Follow-up: Existing condition, New Medication prescribed and Community Mental Health Worker F/U Thrive Assessment: Date of Thrive Assessment Date Thrive assessed 03/25/24 05/02/24 11:50 Coding Level of Care Code Est Pt Level 4 (08273) Complex EM visit Add On G2211 Diagnoses Throat discomfort R07.0 Sore throat J02.9 DAMION (generalized anxiety disorder) F41.1 Major depressive disorder, recurrent, moderate F33.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 No trismus drooling or stridor. Normal voice. No abnormalities to the oropharynx or posterior pharynx. There is no abnormalities to the neck there is no soft tissue swelling. Thyroid is within normal limits. Patient tolerating secretions well and swallowing well. Patient most likely pharyngitis. Also concerned for mononucleosis. H and P not consistent with pharyngeal abscess, peritonsillar abscess, John's angina, any masses. Patient will be sent over for COVID/RSV/flu swab, blood work including Monospot and a rapid strep. Patient will be started on Augmentin for 10 days and instructed to return if symptoms persist or worsen despite being on the Augmentin. Condition is stable at this time will continue to monitor. (2) Sore throat: Code(s): J02.9 - Acute pharyngitis, unspecified Category: Medical Plan: See above (3) DAMION (generalized anxiety disorder): Code(s): F41.1 - Generalized anxiety disorder Category: Medical Plan: Patient to continue clonidine 0.2 mg p.o. at bedtime p.r.n., fluoxetine 40 mg daily, hydroxyzine 25 mg t.i.d./p.r.n.. Condition is chronic and stable continue to monitor. (4) Major depressive disorder, recurrent, moderate: Code(s): F33.1 - Major depressive disorder, recurrent, moderate Category: Medical Plan: Patient to continue clonidine 0.2 mg p.o. at bedtime p.r.n., fluoxetine 40 mg daily, hydroxyzine 25 mg t.i.d./p.r.n.. Condition is chronic and stable continue to monitor. 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 Condition is chronic and stable continue to monitor. 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 Condition is chronic and stable continue to monitor. (7) Overweight (BMI 25.0-29.9): Code(s): E66.3 - Overweight Category: Medical Plan: Patient to improve her diet and exercise regimen. Condition is chronic and stable continue to monitor. Plan Plan The patient will undergo testing for mononucleosis, COVID-19, RSV, influenza, and strep throat to identify any infectious causes for her sore throat, given her immunosuppressed state due to regular intravenous immunoglobulin infusion. Immediate pharmacological management with Amoxicillin-Clavulanate is indicated to address any potential bacterial infection, aligned with the possible diagnosis of streptococcal pharyngitis. Baseline blood tests, including CBC and CMP, will be completed to analyze for any irregularities that could explain the reported hypotension and dizziness. The patient is advised to monitor and document her blood pressure over the next several weeks. Further management may include imaging studies should signs or symptoms suggest complications or abscess formation. A follow-up appointment will be scheduled to evaluate medication efficacy, with consideration for adjusting the treatment plan based on her clinical progress and diagnostic results. Orders: Orders Strep A Nucleic Acid Today J02.9 - Acute pharyngitis, unspecified Monotest Today R07.0 - Pain in throat Comprehensive Met. Panel Today Z00.00 - Encounter for general adult medical examination without abnormal findings Complete Blood Count Auto Diff Today Z00.00 - Encounter for general adult medical examination without abnormal findings SARS-CoV2/FLU/RSV Today J02.9 - Acute pharyngitis, unspecified Medications: New amoxicillin-pot clavulanate 875-125 mg 1 tab PO BID 20 tabs 0RF 10 days Patient Instructions: Patient Instructions - Begin Amoxicillin-Clavulanate as prescribed, twice daily for ten days. - Complete laboratory tests including blood work and additional testing for mono, COVID-19, RSV, flu, and strep at the hospital. - No fasting required for the bloodwork. - Monitor blood pressure daily and record readings. - Schedule a follow-up appointment if symptoms persist or worsen despite completing the antibiotic course. - Contact the office if test results return positive or if unusual symptoms develop. - Maintain hydration and rest as needed to aid recovery. Scribe Plan - Not visible on output: History of Present Illness The patient is a 39-year-old female presenting with a sore throat that has persisted for approximately two weeks. She reports the presence of significant discomfort when swallowing, with a burning sensation and perceived swelling in her throat, sometimes radiating towards the right ear. She has attempted to manage her symptoms without prior medical consultation until this visit. The patient has experienced similar episodes resembling strep throat in childhood and is concerned due to the duration of symptoms. The patient has a background of an immune deficiency disorder, managing her condition with regular intravenous immunoglobulin infusions of Gammaguard every four weeks. During these treatments and routine checkups, it has been noted that she often presents with low blood pressure, though this is recognized as a recurring condition for her. She also recently experienced a sudden onset of nausea and dizziness while in the car, which made her feel unwell and required her to promptly remove extra clothing for relief. She has a history of occasional similar experiences. Social History - Family status: with children. - Functional status: Engages in daily activities but mentioned her reaction during a recent car ride. - No specific dietary, exercise, or substance use details were mentioned during the conversation. Review of Systems - HEENT: Reports sore throat, difficulty swallowing due to pain. - Respiratory: Denies any associated coughing or ear pain. - Gastrointestinal: Reports nausea associated with a recent dizziness episode. - Cardiovascular: Reports recent low blood pressure readings. Physical Exam Appearance: Alert. Oriented X3. No acute distress. Head: Normal external exam. Normocephalic. Atraumatic. Eyes: Pupils are equal, round, and reactive to light. Extraocular movements intact. Conjunctiva and sclera normal. Eyelids normal. Ears: External auditory canal normal. Tympanic membranes normal. Throat: Pharynx normal. Uvula midline. Moist mucous membranes. Patient reports sore throat and pain when swallowing. No trismus drooling or stridor. Patient has a normal voice. No swelling to the neck. There is no cervical lymphadenopathy or lymphadenopathy noted on exam. Patient tolerating secretions well. No abnormalities to the thyroid. Neck: Normal inspection. Neck supple. Full range of motion. No adenopathy. Thyroid Normal. No meningeal signs. No neck mass noted. Patient reports pain radiating to the ear. Cardiovascular: Normal heart rate and rhythm. Heart sound normal. No murmurs noted. Pulses normal throughout. Respiratory: No respiratory distress. Painless inspiration. Breath sounds normal. No wheezes/rales/rhonchi noted. Chest nontender. No accessory muscle usage noted or decreased air movement noted. Back: Full range of motion noted. Skin: Skin warm and dry. Normal skin color. Normal skin turgor. No rashes/lesions/lacerations noted. Extremities: Extremities exhibit normal range of motion. Extremities nontender. Neuro: Oriented X 3. No motor deficit. No sensory deficit. Reflexes normal. Patient reports episodes of nausea and dizziness. Patient was informed and verbally consented to the use of an ambient scribe for clinic note documentation during this visit. Discussion Notes I informed the patient about the potential infectious causes of her sore throat and discussed the importance of testing for mononucleosis, COVID-19, RSV, influenza, and strep throat given her symptoms and immunocompromised status due to underlying immunodeficiency. I explained that initial management would include administering Amoxicillin-Clavulanate to preemptively treat potential bacterial infections. Testing through a CBC and CMP would verify metabolic stability and explain her systemic symptoms. I instructed the patient to regularly check her blood pressure and encouraged self-monitoring over the next couple of weeks to better understand her baseline. Additional imaging studies may be pursued if she does not respond adequately to current interventions. I assured the patient of my commitment to follow up on all laboratory results and to make necessary adjustments to her treatment plan as indicated. We discussed the importance of ongoing follow-up care and when to return for evaluation if symptoms persist or worsen. I provided guidance on using caution with sudden position changes to avoid dizziness and reassured her on managing hypotension, emphasizing its significance only if symptomatic.
== END 2024-05-02 12:10 | disposition home or self-care (01) ==
PROVIDERS: PCP Internal Medicine; Visit Provider Physician Assistant Medical
DX: J02.9 Acute pharyngitis, unspecified (principal); F33.1 Major depressive disorder, recurrent, moderate; D80.3 Selective deficiency of immunoglobulin G [IgG] subclasses; D80.1 Nonfamilial hypogammaglobulinemia; E66.3 Overweight; Z68.26 Body mass index [BMI] 26.0-26.9, adult; R07.0 Pain in throat; F41.1 Generalized anxiety disorder

== ENCOUNTER 2024-05-02 11:45 | Outpatient (REF) | payer OTHER, SELFPAY ==
[2024-05-02 13:00] LABS: MANUAL DIFF FLAG NO
[2024-05-02 13:26] LABS: Basophils Percent Auto 0.7 % (0-2); Eosinophils Absolute Auto 0.1 X10*3/uL (0.0-0.4); Hematocrit 39.6 % (37.0-47.0); Hemoglobin 12.8 g/dl (12.0-16.0); Imm Gran Abs Auto 0.04 X10*3/uL (0.00-0.03); Imm Gran Pct Auto 0.9 % (0.0-0.4); Lymphocytes Absolute Auto 1.2 X10*3/uL (1.2-4.9); Lymphocytes Percent Auto 27.5 % (20-40); Mean Corpuscular HGB Conc 32.3 g/dl (31.0-35.0); Mean Corpuscular Hemoglobin 29.5 pg (27.0-33.0); Mean Corpuscular Volume 91.2 fL (80.0-98.0); Mean Platelet Volume 11.4 fL (9.4-12.3); Monocytes Absolute Auto 0.4 X10*3/uL (0.1-1.2); Monocytes Percent Auto 8.4 % (2-11); Neutrophils Absolute Auto 2.7 x10*3/uL (2.0-8.3); Neutrophils Percent Auto 60.5 % (45-73); Platelet Count 247 X10*3/uL (160-400); Red Blood Count 4.34 X10*6/uL (4.20-5.50); Red Cell Distribution Width 12.7 % (11.0-16.0); White Blood Count 4.5 X10*3/uL (4.8-10.8)
[2024-05-02 13:45] LABS: Influenza A PCR NEGATIVE (Negative); Influenza B PCR NEGATIVE (Negative); Resp Syncy Virus RNA Qual PCR NEGATIVE (Negative); SARS COV2 PCR INHOUSE NEGATIVE (Negative)
[2024-05-02 13:56] LABS: Alanine Aminotransferase 21 U/L (0-31); Albumin Level 4.1 g/dL (3.5-5.0); Alkaline Phosphatase 74 U/L (39-117); Anion Gap 11 (12-20); Aspartate Amino Transferase 18 U/L (5-31); Bilirubin Total 0.5 mg/dL (0.0-1.0); Blood Urea Nitrogen 9 mg/dL (9-16); Calcium 9.4 mg/dL (8.4-10.2); Carbon Dioxide 25 mmol/L (22-29); Chloride 109 mmol/L (96-108); Estimated Glomerular Filt Rate > 60; Glucose Random 88 mg/dL (60-115); Potassium 3.7 mmol/L (3.3-5.1); Sodium 141 mmol/L (135-145); Total Protein 7.6 g/dL (6.5-8.0)
[2024-05-02 14:09] LABS: Monotest Negative (Negative)
== END 2024-05-02 11:46 | disposition home or self-care (01) ==
LOC: HO.LAB 11:45
PROVIDERS: PCP Internal Medicine; Visit Provider Physician Assistant Medical
DX: J02.9 Acute pharyngitis, unspecified (principal); F41.1 Generalized anxiety disorder; F33.1 Major depressive disorder, recurrent, moderate; D80.3 Selective deficiency of immunoglobulin G [IgG] subclasses; D80.1 Nonfamilial hypogammaglobulinemia; E66.3 Overweight; Z68.26 Body mass index [BMI] 26.0-26.9, adult; Z00.00 Encounter for general adult medical examination without abnormal findings
CPT/HCPCS: 0241U; 80053; 85025; 86308; 96127; 99212

== ENCOUNTER 2024-05-13 15:01 | Outpatient (AMB) | payer OTHER, SELFPAY ==
--- NOTE | 2024-05-13 15:26 | A.OFFVIS_ITS ---
Intake Visit Reasons: DEPO Allergies No Known Allergies [No Known Allergies*] Allergy (Verified 05/02/24 12:00) PFSH Medical History Sore throat LGSIL on Pap smear of cervix Pain in both hands Bilateral hand numbness Overweight (BMI 25.0-29.9) Insomnia Vitamin D deficiency Pure hypercholesterolemia Depression Anxiety Status post hysteroscopy (~03/12/17) Carpal tunnel syndrome Surgical History S/P cubital tunnel release History of carpal tunnel release History of mastopexy (~09/28/19) Status post abdominoplasty (~09/28/19) Family History Mother Hypertension Mental illness in member of household Maternal Grandfather Gastric cancer Other Mental health problem Social History Household Members: Spouse and Children Housing: House Alcohol intake: current Alcohol intake frequency: holidays/special occasions only Patient Tobacco Use Status: Never used Tobacco Tobacco use type: Cigarette e-Cigarette/Vaping Use: Never Used Second Hand Smoke Exposure: Yes service: No Current occupational status: employed 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 Form completed by?: Amber Deleon Office Meds Depo-Provera 150 mg/mL intramuscular syringe Performing Provider: Xena Puentes CNM Performing Location: [facility] Administered by: Amber Deleon on 05/13/24 16:25 Dose Route Admin Location Dispensed Lot Number Expiration Date [facility] Client Care Manager 150 mg IM left deltoid 1 mL [id number] 06/04/25 Assessment & Plan Assessment & Plan Orders: Orders AMB Medroxyprogesterone Injection Patient Supplied Today Z30.42 - Encounter for surveillance of injectable contraceptive Medications: New Depo-Provera (medroxyprogesterone) 150 mg IM ONCE 1 mL 0RF NS Z30.42 - Encounter for surveillance of injectable contraceptive Coding
== END 2024-05-13 15:37 | disposition home or self-care (01) ==
LOC: HO.HWS 15:01
PROVIDERS: PCP Internal Medicine; Visit Provider Advanced Practice Midwife
DX: Z30.42 Encounter for surveillance of injectable contraceptive (principal)

== ENCOUNTER → 2024-05-13 15:01 | Outpatient (BNVA) | payer OTHER, SELFPAY | PROVIDERS: PCP Internal Medicine; Visit Provider Advanced Practice Midwife | DX: Z30.42 Encounter for surveillance of injectable contraceptive (principal) | CPT/HCPCS: 96372; J1050 ==

== ENCOUNTER 2024-05-24 18:44 | Emergency (ER) | payer OTHER, SELFPAY ==
[2024-05-24 18:50] VITALS: BP 158/94; PULSE 81; RESP 18; TEMP 36.6; O2SAT 100; BMI 25.6
--- NOTE | 2024-05-24 18:53 | ED_ITS ---
HPI - General Adult General Chief complaint: Headache Stated complaint: High blood pressure, headache Related Data Home Medications ?Medication ?Instructions ?Recorded ?Confirmed clonidine HCl 0.2 mg tablet 0.2 mg PO BEDTIME PRN 03/25/24 05/27/24 fluoxetine 40 mg capsule 40 mg PO DAILY 03/25/24 05/27/24 Previous Rx's ?Medication ?Instructions ?Recorded immune glob,gamma(IgG) 10 30 g IV Q4W 28 days #1 ea 05/31/23 laww-[id number]-[id number]-IgA 0 to 50 mcg/mL IV solution (Gammagard S-D (IgA < 1 mcg/mL)) hydroxyzine HCl 25 mg tablet 25 mg PO TID PRN anxiety 30 days 09/21/23 #90 tabs medroxyprogesterone 150 mg/mL 150 mg IM [id number] #1 mL 02/20/24 intramuscular suspension albuterol sulfate 90 mcg/actuation 2 puff inhalation Q4-6H PRN 03/25/24 aerosol inhaler (Ventolin HFA) shortness of breath or wheezing #8.5 grams amlodipine 5 mg tablet 5 mg PO DAILY #30 tabs 05/27/24 Allergies Allergy/AdvReac Type Severity Reaction Status Date / Time No Known Allergies Allergy Verified 05/27/24 15:01 [No Known Allergies*] [facility] Past Medical History Medical History Sore throat LGSIL on Pap smear of cervix Pain in both hands Bilateral hand numbness Overweight (BMI 25.0-29.9) Insomnia Vitamin D deficiency Pure hypercholesterolemia Depression Anxiety Status post hysteroscopy (~03/12/17) Carpal tunnel syndrome Surgical History S/P cubital tunnel release History of carpal tunnel release History of mastopexy (~09/28/19) Status post abdominoplasty (~09/28/19) Family History Family History Mother Hypertension Mental illness in member of household Maternal Grandfather Gastric cancer Other Mental health problem Social History Social History Household Members: Spouse and Children Housing: House Alcohol intake: current Alcohol intake frequency: holidays/special occasions only Patient Tobacco Use Status: Never used Tobacco Tobacco use type: Cigarette e-Cigarette/Vaping Use: Never Used Second Hand Smoke Exposure: Yes service: No Current occupational status: employed 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 Full HPI, ROS and PE to be performed by primary ED provider. 39yo ZF w/PMHx DAMION, HLD, IgG2 deficiency, presenting to the ED c/o MAIRN, elevated BP at home, nausea, shakiness, a little off x yesterday. admits commonly gets MARIN's however MARIN is worse than normal PE: No focal neuro deficits, nontoxic appearing Plan: SARs, labs Medical Decision Making Lab Data 05/24/24 20:22 05/24/24 20:22 Labs: Lab Results 05/24/24 Range/Units 20:22 WBC 5.1 (4.8-10.8) X10*3/uL RBC 4.76 (4.20-5.50) X10*6/uL Hgb 14.3 (12.0-16.0) g/dl Hct 42.0 (37.0-47.0) % MCV 88.2 (80.0-98.0) fL MCH 30.0 (27.0-33.0) pg MCHC 34.0 (31.0-35.0) g/dl RDW 12.7 (11.0-16.0) % Plt Count 220 (160-400) X10*3/uL MPV 11.6 (9.4-12.3) fL Immature Gran % (Auto) 0.4 (0.0-0.4) % Neut % (Auto) 49.5 (45-73) % Lymph % (Auto) 34.7 (20-40) % [place]ding % (Auto) 13.2 H (2-11) % Eos % (Auto) 1.0 (0-4) % Baso % (Auto) 1.2 (0-2) % Lymph # (Auto) 1.8 (1.2-4.9) X10*3/uL [place] # (Auto) 0.7 (0.1-1.2) X10*3/uL Eos # (Auto) 0.1 (0.0-0.4) X10*3/uL Baso # (Auto) 0.1 (0.0-0.2) X10*3/uL Abs Immat Gran (auto) 0.02 (0.00-0.03) X10*3/uL Absolute Neuts (auto) 2.5 (2.0-8.3) x10*3/uL Absolute Nucleated RBC 0.000 (0.0-0.012) X10*3/uL Nucleated RBC % (auto) 0.0 (0.0-0.2) /100WBC Sodium 138 (135-145) mmol/L Potassium 3.9 (3.3-5.1) mmol/L Chloride 108 (96-108) mmol/L Carbon Dioxide 21 L (22-29) mmol/L Anion Gap 13 (12-20) BUN 6 L (9-16) mg/dL Creatinine 0.72 (0.5-1.4) mg/dL Estim Creat Clear Calc 98.1 Estimated GFR > 60 Random Glucose 91 (60-115) mg/dL Calcium 9.3 (8.4-10.2) mg/dL Magnesium 2.1 (1.6-2.6) mg/dL Total Bilirubin 0.3 (0.0-1.0) mg/dL Direct Bilirubin 0.1 (0.0-0.5) mg/dL AST 26 (5-31) U/L ALT 36 H (0-31) U/L Alkaline Phosphatase 83 (39-117) U/L Total Protein 8.6 H (6.5-8.0) g/dL Albumin 4.4 (3.5-5.0) g/dL Beta HCG, Quant < 2 mIU/mL Influenza Type A (PCR) NEGATIVE (Negative) Influenza Type B (PCR) NEGATIVE (Negative) RSV RNA Qual (PCR) NEGATIVE (Negative) SARS-CoV-2 RNA (RT-PCR) NEGATIVE (Negative) Discharge Plan Discharge Clinical Impression: Headache Qualifiers: Headache type: tension-type Headache chronicity pattern: episodic headache I ntractability: not intractable Qualified Code(s): G44.219 - Episodic tension- type headache, not intractable Patient Disposition: Left W/O Completing Treatment Prescriptions: No Action Gammagard S-D (IgA < 1 mcg/mL) 10 gram recon soln 30 g IV Q4W 28 Days Qty: 1 12RF medroxyprogesterone 150 mg/mL suspension 150 mg IM [id number] Qty: 1 4RF fluoxetine 40 mg capsule 40 mg PO DAILY clonidine HCl 0.2 mg tablet 0.2 mg PO BEDTIME PRN albuterol sulfate [Ventolin HFA] 90 mcg/actuation HFA aerosol inhaler 2 puff inhalation Q4-6H PRN (Reason: shortness of breath or wheezing) Qty: 8.5 5RF amlodipine 5 mg tablet 5 mg PO DAILY Qty: 30 0RF hydroxyzine HCl 25 mg tablet 25 mg PO TID PRN (Reason: anxiety) 30 Days Qty: 90 1RF Discharge Date/Time: 05/25/24 00:50
[2024-05-24 20:38] LABS: MANUAL DIFF FLAG NO
[2024-05-24 20:45] LABS: Basophils Absolute Auto 0.1 X10*3/uL (0.0-0.2); Basophils Percent Auto 1.2 % (0-2); Eosinophils Absolute Auto 0.1 X10*3/uL (0.0-0.4); Hemoglobin 14.3 g/dl (12.0-16.0); Imm Gran Abs Auto 0.02 X10*3/uL (0.00-0.03); Imm Gran Pct Auto 0.4 % (0.0-0.4); Lymphocytes Absolute Auto 1.8 X10*3/uL (1.2-4.9); Lymphocytes Percent Auto 34.7 % (20-40); Mean Corpuscular Volume 88.2 fL (80.0-98.0); Mean Platelet Volume 11.6 fL (9.4-12.3); Monocytes Absolute Auto 0.7 X10*3/uL (0.1-1.2); Monocytes Percent Auto 13.2 % (2-11); Neutrophils Absolute Auto 2.5 x10*3/uL (2.0-8.3); Neutrophils Percent Auto 49.5 % (45-73); Platelet Count 220 X10*3/uL (160-400); Red Blood Count 4.76 X10*6/uL (4.20-5.50); Red Cell Distribution Width 12.7 % (11.0-16.0); White Blood Count 5.1 X10*3/uL (4.8-10.8)
[2024-05-24 21:02] LABS: Alanine Aminotransferase 36 U/L (0-31); Albumin Level 4.4 g/dL (3.5-5.0); Alkaline Phosphatase 83 U/L (39-117); Anion Gap 13 (12-20); Aspartate Amino Transferase 26 U/L (5-31); Bilirubin Direct 0.1 mg/dL (0.0-0.5); Bilirubin Total 0.3 mg/dL (0.0-1.0); Blood Urea Nitrogen 6 mg/dL (9-16); Calcium 9.3 mg/dL (8.4-10.2); Carbon Dioxide 21 mmol/L (22-29); Chloride 108 mmol/L (96-108); Creatinine Clr Calc Pharmacy 98.1; Estimated Glomerular Filt Rate > 60; Glucose Random 91 mg/dL (60-115); HCG Quantitative < 2 mIU/mL; Magnesium 2.1 mg/dL (1.6-2.6); Potassium 3.9 mmol/L (3.3-5.1); Sodium 138 mmol/L (135-145); Total Protein 8.6 g/dL (6.5-8.0)
[2024-05-24 21:19] LABS: Influenza A PCR NEGATIVE (Negative); Influenza B PCR NEGATIVE (Negative); Resp Syncy Virus RNA Qual PCR NEGATIVE (Negative); SARS COV2 PCR INHOUSE NEGATIVE (Negative)
== END 2024-05-25 00:50 | disposition left against medical advice (07) ==
PROVIDERS: Physician Assistant; Emergency Provider Emergency Medicine; PCP Internal Medicine
DX: G44.219 Episodic tension-type headache, not intractable (principal); R11.0 Nausea; I10 Essential (primary) hypertension; Z79.899 Other long term (current) drug therapy; Z03.818 Encounter for observation for suspected exposure to other biological agents ruled out
CPT/HCPCS: 0241U; 80048; 80076; 83735; 84702; 85025; 99281; 99283

== ENCOUNTER 2024-05-27 14:30 | Outpatient (AMB) | payer OTHER, SELFPAY ==
[2024-05-27 14:54] VITALS: BP 130/86; PULSE 88; O2SAT 99; BMI 26.8
--- NOTE | 2024-05-27 14:54 | A.OFFPC_ITS ---
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 Required: No Accompanied by: Self / Same As Patient Allergies No Known Allergies [No Known Allergies*] Allergy (Verified 05/27/24 15:01) Medication List - Last Reconciled 05/27/24 by ELIJAH De Jesus albuterol sulfate 90 mcg/actuation (Ventolin HFA) 2 puffs inhalation Q4-6H PRN clonidine HCl 0.2 mg PO BEDTIME PRN fluoxetine 40 mg PO DAILY hydroxyzine HCl 25 mg PO TID PRN 30 days immun glob H-ajt-xlur-IgA 0-50 10 gram (Gammagard S-D (IgA < 1 mcg/mL)) 30 grams IV Q4W 28 days medroxyprogesterone 150 mg IM [id number] Tobacco use date assessed: 05/27/24 Dental Screening Dental Screen Date: 05/27/24 HPI high BPs HPI Details The patient is a 39-year-old female with significant past medical history of generalized anxiety disorder, major depressive disorder recurrent moderate, IgG 2 deficiency, hypogammaglobulinaem, HLD. Patient of Dr. Mcdaniels. Patient is presenting with complaints of headaches that started on night Reports that she had blood shot eyes and blurry vision. Reports that this continues into Monday and she went to the [facility] on Monday night. Reports that blood work was done but nothing else and she was discharged without any treatments for blood pressure Patient reports that on Monday morning an on-call doctor from this office called and told her to take 1 of her clonidine 0.2 mg. Reports that she took this medication and her blood pressure decreased to a systolic of 111 on he home blood pressure cuff and her headache felt better-however this was short- lived, as her blood pressure elevated again The patient reports that she took 2 Advils today without any relief Patient reports that she feels like her eyes wants to bulge out and the pain starts from her shoulders into the back of her neck up into her head and settled all over her head Patient has notes with home blood pressures that ranges from systolic 130s to 1 50s. Blood pressure in office 130/86. Discussed with the patient that a headache can causes her blood pressure to rise and a rise in her blood pressure can cause her to have headaches, so we need to figure out which one is the driving force. The patient reports that she has an history of headaches but not this intense. SDM: start the patient and a low on amlodipine 5 mg daily and have her return in 4 weeks to re-eval. The patient reports that she is upset that no one is concern that her blood pressure is high. Discussed with the patient that her blood pressure might be higher than it has been but it is not at a critical range. The patient is concern that she is having pressure behind her eyes that is causing her to have blurry vision. Discussed with the patient that the description of her headaches- tense shoulder, radiating into her posterior neck and head, is consistent with a tension headache. The patient is requesting and CTH of her head to be done. [facility] Medical History Sore throat LGSIL on Pap smear of cervix Pain in both hands Bilateral hand numbness Overweight (BMI 25.0-29.9) Insomnia Vitamin D deficiency Pure hypercholesterolemia Depression Anxiety Status post hysteroscopy (~03/12/17) Carpal tunnel syndrome Surgical History S/P cubital tunnel release History of carpal tunnel release History of mastopexy (~09/28/19) Status post abdominoplasty (~09/28/19) Family History Mother Hypertension Mental illness in member of household Maternal Grandfather Gastric cancer Other Mental health problem Social History Household Members: Spouse and Children Housing: House Alcohol intake: current Alcohol intake frequency: holidays/special occasions only Patient Tobacco Use Status: Never used Tobacco Tobacco use type: Cigarette e-Cigarette/Vaping Use: Never Used Second Hand Smoke Exposure: Yes service: No Current occupational status: employed 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 1. Little interest or pleasure in doing things: more than half the days 2. Feeling down, depressed, or hopeless: nearly every day 3. Trouble falling or staying asleep, or sleeping too much: nearly every day 4. Feeling tired or having little energy: nearly every day 5. Poor appetite or overeating: not at all 6. Feeling bad about yourself - or that you are a failure or have let yourself or your family down: nearly every day 7. Trouble concentrating on things, such as reading the newspaper or watching television: several days 8. Moving or speaking so slowly that other people could have noticed. Or the opposite - being so fidgety or restless that you have been moving around a lot more than usual: not at all 9. Thoughts that you would be better off or of hurting yourself in some way: not at all (patient states i dont know ) Total score: 15 Depression Screening Interpretation: Positive Depression Screening Follow-up: Existing condition, New Medication prescribed and Community Mental Health Worker F/U Depression Screening Done: Yes Source: Developed by Drs. Raphael Goldstein, Ilda Michel, Daniel Sosa and colleagues, with an educational phan from [employer]. Thrive Questionnaire Date Thrive assessed: 05/27/24 I am a: Patient What is your living situation today?: I have a steady place to live Within the past 12 months, did the food you bought not last and you didn't have the money to get more?: Never true Within the past 12 months, did you worry whether your food would run out before you got money to buy more?: Never true Do you have trouble paying for medicines?: No Do you have trouble getting transportation to medical appointments?: No Do you have trouble paying your heating and electricity bill?: No Do you have trouble taking care of your child, family member or friend?: No Do you have trouble with day-to-day activities such as bathing, preparing meals, shopping, managing finances, etc.?: No Are you currently unemployed and looking for a job?: No Are you interested in more education?: No Please select the resources that you would like help with: None Currently or been in a relationship where the following occur: No concerns reported THRIVE Score: 0 AUDIT C Alcohol Use Questionnaire (AUDIT-C) 1. How often do you have a drink containing alcohol?: Monthly or less 2. How many drinks containing alcohol do you have on a typical day when you are drinking?: 1 or 2 3. How often do you have six or more drinks on one occasion?: Never Total Score: 1 DAMION-7 AMB Questionnaire DAMION-7 Date DAMION - 7 assessed: 05/27/24 Feeling nervous, anxious, or on edge: 0 = Not at all Not being able to stop or control worryin = Not at all Worrying too much about different things: 0 = Not at all Trouble relaxin = Not at all Being so restless that it is hard to sit still: 0 = Not at all Becoming easily annoyed or irritable: 0 = Not at all Feeling afraid as if something awful might happen: 0 = Not at all Total DAMION-7 score (0-4 normal; 5-9 mild; 10-14 moderate; 15-21 severe): 0 Source: Developed by Drs. Raphael Goldstein, Ilda Michel, Daniel Sosa and colleagues, with an educational phan from [employer]. Review of Systems Const Reports headache(s) Eyes Reports blurry vision and Reports photophobia ENT Denies vertigo, Denies dizziness, Reports headache(s) and Denies sore throat Card Denies chest pain, Denies leg edema and Denies lightheadedness Resp Denies cough and Denies hemoptysis GI Denies abdominal pain, Denies melena, Denies constipation, Denies diarrhea and Denies vomiting Denies urinary frequency, Denies dysuria and Denies urinary urgency Neuro Denies Abnormal speech present, Denies behavioral changes, Denies vertigo, Denies dizziness, Reports headache(s) and Denies memory loss Psych Reports anxiety, Denies behavioral changes, Reports depression, Denies memory loss and Denies panic attacks Physical exam (Primary Care) Vital Signs: Last Vital Signs Pulse 88 05/27/24 14:54 BP 130/86 05/27/24 14:54 Pulse Ox 99 05/27/24 14:54 Oxygen Delivery Method Room Air 05/27/24 14:54 BMI result Body Mass Index 26.8 Tobacco/Smoking Status: Tobacco use Status Tobacco use date assessed 05/27/24 05/27/24 14:59 Patient Tobacco Use Status Never used Tobacco 05/27/24 14:59 Tobacco use type Cigarette 05/27/24 14:59 e-Cigarette/Vaping Use Never Used 05/27/24 14:59 PHQ-9: PHQ-9 Score PHQ-9: Total score 15 05/27/24 14:59 Depression Screening Interpretation: Positive Depression Screening Follow-up: Existing condition, New Medication prescribed and Community Mental Health Worker F/U Thrive Assessment: Date of Thrive Assessment Date Thrive assessed 05/27/24 05/27/24 14:59 Currently or been in a relationship where the following occur: No concerns reported Const General: healthy appearing, no acute distress, alert and awake Nutritional Appearance: well nourished Orientation/consciousness: oriented to person, oriented to place and oriented to time HENMT Head: Yes normocephalic Ears: TM's normal bilaterally General nose exam: Normal nasal mucous membranes and turbinates present Eyes Conjunctivae: conjunctivae normal Sclerae: sclerae normal Pupils: Equal, round and reactive pupils present EOM: No Nystagmus present Direct Ophthalmoscopy: photophobia Neck Neck: Yes no lymphadenopathy and Yes no JVD Thyroid: Thyroid normal Carotids: no bruits Resp Effort & Inspection: normal respiratory effort and not tachypneic Auscultation: no crackles, no rales, no rhonchi and no wheezes Cardio Rate: regular rate Rhythm: regular rhythm Heart sounds: no murmurs and normal S1 and S2 GI Palpation (GI): Soft to palpation, nontender, no hepatomegaly and no splenomegaly Auscultation: normal bowel sounds Skin General skin exam: no rashes or lesions noted and dry skin Neuro General: oriented to person, oriented to place and oriented to time Cranial nerves: Yes Equal, round and reactive pupils present and No Nystagmus present Speech: No Abnormal speech present Gait exam (Neuro): Normal gait present Motor exam (neuro): 5/5 motor strength present throughout and no tremor noted Romberg Test: Negative Extrem Right upper extremity: full ROM Left upper extremity: full ROM Right lower extremity: full ROM; no edema Left lower extremity: full ROM; no edema Psych Mental Status: mental status grossly normal Speech and movement: Normal speech and movement present Affect: normal affect Attitude: cooperative Thought process: Normal thought process present Results Reviewed Results Reviewed: Laboratory Tests 05/24/24 20:22 WBC 5.1 RBC 4.76 Hgb 14.3 Hct 42.0 MCV 88.2 RDW 12.7 Plt Count 220 Sodium 138 Potassium 3.9 Chloride 108 BUN 6 L Creatinine 0.72 Estim Creat Clear Calc 98.1 Estimated GFR > 60 Random Glucose 91 Calcium 9.3 Magnesium 2.1 Total Bilirubin 0.3 AST 26 ALT 36 H Alkaline Phosphatase 83 Total Protein 8.6 H Albumin 4.4 Beta HCG, Quant < 2 Coding Level of Care Code Est Pt Level 4 (17805) Diagnoses Elevated blood pressure reading R03.0 Episodic tension-type headache, not intractable G44.219 Headache type: tension-type Headache chronicity pattern: episodic headache Intractability: not intractable Time Spent (min) 43 Assessment & Plan Assessment & Plan (1) Elevated blood pressure reading: Code(s): R03.0 - Elevated blood-pressure reading, without diagnosis of hypertension Category: Medical Plan: The patient reports that he normal systolic blood pressures range in the 100s. Chart view: showed that most of her systolics were in the low 100s with few spikes in the high 140s. The patient reports that he headache decreased after she took one of her clonidine 0.2mg. She reports that she uses this medication for sleep and she does not want to be sleepy during the daytime. SDM: Amlodipine 5 mg daily ordered; pt to monitor bp and return in 4 weeks. The patient is requesting and CTH done due to the pressure in her eyes. Will order CTH without contrast. (2) Headache: Code(s): R51.9 - Headache, unspecified Category: Medical Qualifiers: Headache type: tension-type Headache chronicity pattern: episodic headache Intractability: not intractable Qualified Code(s): G44.219 - Episodic tension-type headache, not intractable Plan: The patient reports and hx of headache, but said it has not been as intense before. The patient reports pressure starting from both shoulders, posterior neck and headache and settled all over her head. Offered the patient sumatriptan but she declined-reports that she is not fond of medications. She is requesting for a CTH of her head to be ordered. Orders: Orders CT head/brain wo IV con Today G44.219 - Episodic tension-type headache, not intractable, H53.8 - Other visual disturbances Medications: New amlodipine 5 mg PO DAILY 30 tabs 0RF R03.0 - Elevated blood-pressure reading, without diagnosis of hypertension
== END 2024-05-27 15:36 | disposition home or self-care (01) ==
LOC: HO.HMCH 14:30
PROVIDERS: PCP Internal Medicine
DX: R03.0 Elevated blood-pressure reading, without diagnosis of hypertension (principal); G44.219 Episodic tension-type headache, not intractable

== ENCOUNTER → 2024-05-27 14:30 | Outpatient (BNVA) | payer OTHER, SELFPAY | PROVIDERS: PCP Internal Medicine | DX: R03.0 Elevated blood-pressure reading, without diagnosis of hypertension (principal); G44.219 Episodic tension-type headache, not intractable | CPT/HCPCS: 99212 ==

== ENCOUNTER 2024-06-06 12:46 | Outpatient (AMB) | payer OTHER, SELFPAY ==
[2024-06-06 13:09] VITALS: BP 120/86; PULSE 73; O2SAT 98; BMI 26.4
--- NOTE | 2024-06-06 13:09 | MHC.PC.OV ---
Vital Signs 06/06/24 13:09 Height 5 ft 3.5 in Weight 151 lb 6 oz BMI 26.4 BP 120/86 Blood Pressure Location Lt brachial Position Sitting Pulse 73 Pulse Source Pulse Oximeter Pulse Oximetry (%) 98 Oxygen Delivery Method Room Air Intake Visit Reasons: 06/01 Leather Finisher Required: No Accompanied by: Self / Same As Patient Allergies No Known Allergies [No Known Allergies*] Allergy (Verified 06/07/24 04:26) Medication List - Last Reconciled 06/07/24 by Robin Mcdaniels MD albuterol sulfate 90 mcg/actuation (Ventolin HFA) 2 puffs inhalation Q4-6H PRN amlodipine 5 mg PO DAILY apixaban (Eliquis) 5 mg PO BID clonidine HCl 0.2 mg PO BEDTIME PRN fluoxetine 40 mg PO DAILY hydroxyzine HCl 25 mg PO TID PRN 30 days immun glob P-sje-eobo-IgA 0-50 10 gram (Gammagard S-D (IgA < 1 mcg/mL)) 30 grams IV Q4W 28 days medroxyprogesterone 150 mg IM [id number] Tobacco use date assessed: 06/06/24 Dental Screening Dental Screen Date: 06/06/24 Did you have a dental visit in the last 12 months?: Yes Did you have a dental problem in the last 6 months where you did not have access to dental care?: No Was dental information given to patient?: Patient has dentist HPI Marsh 06/01 HPI Details Patient comes in today for her HDF follow up visit She was diagnosed with pulmonary embolism a few days ago at [facility] when she went there for symptoms of recurrent dizziness, weakness, fatigue and exertional dyspnea Her D-dimer initially came back elevated and she was sent for a chest CTA, which confirmed the presence of pulmonary embolism bilaterally She has since been started on Eliquis 5 mg BID and is currently still on this medication Patient adds that she stopped taking her Amlodipine after her ER visit a few days ago and her blood pressure seems to be doing okay without the medication so she would like to know if she needs to continue on it or not She is currently still taking her Clonidine 0.2 mg daily at bedtime States that she has been gradually starting to feel better over the past few days but still feels very tired and fatigues easily, with recurrent exertional dyspnea She is presently back at work and is wondering if she should continue to do so She denies any recent headaches Denies any exertional chest pains No nausea/vomiting, no abdominal pain No change in bowel habits noted [facility] Medical History (Updated 06/07/24 @ 04:22 by Robin Mcdaniels MD) Pulmonary embolism Sore throat LGSIL on Pap smear of cervix Pain in both hands Bilateral hand numbness Overweight (BMI 25.0-29.9) Insomnia Vitamin D deficiency Pure hypercholesterolemia Depression Anxiety Status post hysteroscopy (~03/12/17) Carpal tunnel syndrome Surgical History S/P cubital tunnel release History of carpal tunnel release History of mastopexy (~09/28/19) Status post abdominoplasty (~09/28/19) Family History Mother Hypertension Mental illness in member of household Maternal Grandfather Gastric cancer Other Mental health problem Social History Household Members: Spouse and Children Housing: House Alcohol intake: current Alcohol intake frequency: holidays/special occasions only Patient Tobacco Use Status: Never used Tobacco Tobacco use type: Cigarette e-Cigarette/Vaping Use: Never Used Second Hand Smoke Exposure: Yes service: No Current occupational status: employed 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 1. Little interest or pleasure in doing things: more than half the days 2. Feeling down, depressed, or hopeless: nearly every day 3. Trouble falling or staying asleep, or sleeping too much: nearly every day 4. Feeling tired or having little energy: nearly every day 5. Poor appetite or overeating: not at all 6. Feeling bad about yourself - or that you are a failure or have let yourself or your family down: nearly every day 7. Trouble concentrating on things, such as reading the newspaper or watching television: several days 8. Moving or speaking so slowly that other people could have noticed. Or the opposite - being so fidgety or restless that you have been moving around a lot more than usual: not at all 9. Thoughts that you would be better off or of hurting yourself in some way: not at all (patient states i dont know ) Total score: 15 Depression Screening Interpretation: Positive Depression Screening Follow-up: Existing condition, In treatment and Community Mental Health Worker F/U Depression Screening Done: Yes 88018 - PHQ-9 Billing: Yes Source: Developed by Drs. Raphael Goldstein, Idla Michel, Daniel Sosa and colleagues, with an educational phan from [employer]. Thrive Questionnaire Date Thrive assessed: 06/06/24 I am a: Patient What is your living situation today?: I have a steady place to live Within the past 12 months, did the food you bought not last and you didn't have the money to get more?: Never true Within the past 12 months, did you worry whether your food would run out before you got money to buy more?: Never true Do you have trouble paying for medicines?: No Do you have trouble getting transportation to medical appointments?: No Do you have trouble paying your heating and electricity bill?: No Do you have trouble taking care of your child, family member or friend?: No Do you have trouble with day-to-day activities such as bathing, preparing meals, shopping, managing finances, etc.?: No Are you currently unemployed and looking for a job?: No Are you interested in more education?: No Please select the resources that you would like help with: None Currently or been in a relationship where the following occur: No concerns reported THRIVE Score: 0 AUDIT C Alcohol Use Questionnaire (AUDIT-C) 1. How often do you have a drink containing alcohol?: Monthly or less 2. How many drinks containing alcohol do you have on a typical day when you are drinking?: 1 or 2 3. How often do you have six or more drinks on one occasion?: Never Total Score: 1 Score Reviewed/Action Taken: Yes DAMION-7 AMB Questionnaire DAMION-7 Date DAMION - 7 assessed: 06/06/24 Feeling nervous, anxious, or on edge: 0 = Not at all Not being able to stop or control worryin = Not at all Worrying too much about different things: 0 = Not at all Trouble relaxin = Not at all Being so restless that it is hard to sit still: 0 = Not at all Becoming easily annoyed or irritable: 0 = Not at all Feeling afraid as if something awful might happen: 0 = Not at all Total DAMION-7 score (0-4 normal; 5-9 mild; 10-14 moderate; 15-21 severe): 0 Source: Developed by Drs. Raphael Goldstein, Ilda Michel, Daniel Sosa and colleagues, with an educational phan from [employer]. Review of Systems Const Denies chills, Reports difficulty sleeping, Reports fatigue, Denies fever(s) and Denies headache(s) ENT Denies dysphagia, Reports dizziness (on and off), Denies otalgia, Denies headache(s), Denies neck pain, Denies odynophagia and Denies sore throat Card Denies chest pain, Denies irregular heart rhythm, Denies palpitations and Reports dyspnea on exertion (mild) Resp Denies chest congestion, Denies cough, Reports dyspnea on exertion (mild) and Denies wheezing GI Denies abdominal pain, Denies constipation, Denies dysphagia, Denies heartburn, Denies diarrhea, Denies nausea, Denies odynophagia and Denies vomiting Denies urinary frequency, Denies dysuria and Denies urinary urgency Musc Denies back pain, Denies arthralgias and Denies neck pain Skin/Breast Denies rash Neuro Reports dizziness (on and off), Denies headache(s) and Denies paresthesias Psych Reports anxiety and Reports depression (better controlled) Endo Reports fatigue and Denies palpitations Fredi/Lymph Denies easy bruising Aller/Immun Denies wheezing Physical exam (Primary Care) Vital Signs: Last Vital Signs Pulse 73 06/06/24 13:09 BP 120/86 06/06/24 13:09 Pulse Ox 98 06/06/24 13:09 Oxygen Delivery Method Room Air 06/06/24 13:09 BMI result Body Mass Index 26.4 Tobacco/Smoking Status: Tobacco use Status Tobacco use date assessed 06/06/24 06/06/24 13:15 Patient Tobacco Use Status Never used Tobacco 06/06/24 13:15 Tobacco use type Cigarette 06/06/24 13:15 e-Cigarette/Vaping Use Never Used 06/06/24 13:15 PHQ-9: PHQ-9 Score PHQ-9: Total score 15 06/06/24 13:58 Depression Screening Interpretation: Positive Depression Screening Follow-up: Existing condition, In treatment and Community Mental Health Worker F/U Thrive Assessment: Date of Thrive Assessment Date Thrive assessed 06/06/24 06/06/24 13:15 Currently or been in a relationship where the following occur: No concerns reported Const General: no acute distress and alert HENMT Throat: Yes posterior oropharynx normal and Yes tonsils normal (no TP congestion) Neck Neck: Yes supple and No lymphadenopathy Thyroid: Thyroid normal Resp Auscultation: clear to auscultation bilaterally, no rales and no wheezes Cardio Rate: regular rate Rhythm: regular rhythm Heart sounds: no murmurs GI Palpation (GI): Soft to palpation and nontender Auscultation: normal bowel sounds General: Yes no CVA tenderness Back/Spine/Pelvis Back: no CVA tenderness Thoracic/Lumbar Spine: No lumbar spinal tenderness Skin Rashes: no rashes Extrem General: Yes no clubbing, cyanosis or edema Coding Level of Care Code Est Pt Level 4 (91597) Diagnoses Acute pulmonary embolism without acute cor pulmonale, unspecified pulmonary embolism type I26.99 Pulmonary embolism type: unspecified Chronicity: acute Acute cor pulmonale presence: without acute cor pulmonale 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 Pure hypercholesterolemia E78.00 Vitamin D deficiency E55.9 Insomnia, unspecified type G47.00 Insomnia type: unspecified Anxiety F41.9 Episode of recurrent major depressive disorder, unspecified depression episode severity F33.9 Depression Type: major depressive disorder Major depression recurrence: recurrent Active/Remission status: currently active Major depression episode severity: unspecified Additional Codes PHQ-9 - 03378 - PHQ-9 Billing: Yes ([id number]) Assessment & Plan Assessment & Plan (1) Pulmonary embolism: Code(s): I26.99 - Other pulmonary embolism without acute cor pulmonale Category: Medical Qualifiers: Pulmonary embolism type: unspecified Chronicity: acute Acute cor pulmonale presence: without acute cor pulmonale Qualified Code(s): I26.99 - Other pulmonary embolism without acute cor pulmonale Plan: This was discovered when patient went to the ER at [facility] back on 06/01/2024 for recurrent symptoms of chest tightness, exertional dyspnea, dizziness and fatigue and had chest CTA done as part of her work up when her d-dimer level came back elevated Continue Eliquis 5 mg BID Will refer her to hematology for further evaluation and management - will need to evaluate her for any possible hypercoagulable state but discussed with patient that I suspect that her Gammagard infusions were the most likely trigger of her pulmonary embolism (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 Hall (3) Pure hypercholesterolemia: Code(s): E78.00 - Pure hypercholesterolemia, unspecified Category: Medical Plan: Reinforced low cholesterol diet (4) Vitamin D deficiency: Code(s): E55.9 - Vitamin D deficiency, unspecified Category: Medical Plan: Continue Vitamin D3 1000 units (25 mcg) QD (5) Insomnia: Code(s): G47.00 - Insomnia, unspecified Category: Medical Qualifiers: Insomnia type: unspecified Qualified Code(s): G47.00 - Insomnia, unspecified Plan: Sleep hygiene reinforced She used to take Zolpidem 10 mg Q HS PRN but states that it was not helping much and she stopped taking it a while back as she also does not wish to become dependent on the medication States that she also tried some OTC THC with Melatonin last year with variable results She is currently taking Clonidine 0.2 mg daily at bedtime PRN (6) Anxiety: Code(s): F41.9 - Anxiety disorder, unspecified Category: Medical Plan: Continue Hydroxyzine 25 mg TID PRN and Fluoxetine 40 mg QD (7) Depression: Code(s): F32.9 - Major depressive disorder, single episode, unspecified Category: Medical Qualifiers: Depression Type: major depressive disorder Major depression recurrence: recurrent Active/Remission status: currently active Major depression episode severity: unspecified Qualified Code(s): F33.9 - Major depressive disorder, recurrent, unspecified Plan: Continue Fluoxetine 40 mg QD Follow up with psychiatry as scheduled Plan Follow up in 1 month Orders: Referrals Hematology & Oncology Referral I26.99 - Other pulmonary embolism without acute cor pulmonale
== END 2024-06-06 14:01 | disposition home or self-care (01) ==
LOC: HO.HMCH 12:47
PROVIDERS: PCP Internal Medicine; Visit Provider Internal Medicine
DX: I26.99 Other pulmonary embolism without acute cor pulmonale (principal); D80.3 Selective deficiency of immunoglobulin G [IgG] subclasses; E78.00 Pure hypercholesterolemia, unspecified; E55.9 Vitamin D deficiency, unspecified; G47.00 Insomnia, unspecified; F41.9 Anxiety disorder, unspecified; F33.9 Major depressive disorder, recurrent, unspecified

== ENCOUNTER → 2024-06-06 12:46 | Outpatient (BNVA) | payer OTHER, SELFPAY | PROVIDERS: PCP Internal Medicine; Visit Provider Internal Medicine | DX: I26.99 Other pulmonary embolism without acute cor pulmonale (principal); D80.3 Selective deficiency of immunoglobulin G [IgG] subclasses; E78.00 Pure hypercholesterolemia, unspecified; E55.9 Vitamin D deficiency, unspecified; G47.00 Insomnia, unspecified; F41.9 Anxiety disorder, unspecified; F33.9 Major depressive disorder, recurrent, unspecified; Z79.899 Other long term (current) drug therapy | CPT/HCPCS: 96127; 99212 ==

== ENCOUNTER → 2024-06-12 10:54 | Outpatient (BNV) | payer OTHER, SELFPAY | PROVIDERS: PCP Internal Medicine; Referring Provider Internal Medicine; Visit Provider Internal Medicine | DX: I26.99 Other pulmonary embolism without acute cor pulmonale (principal) | CPT/HCPCS: 99204; G2211 ==

== ENCOUNTER 2024-07-10 14:18 | Outpatient (AMB) | payer OTHER, SELFPAY ==
[2024-07-10 14:21] VITALS: BP 110/80; PULSE 63; O2SAT 98; BMI 26.2
--- NOTE | 2024-07-10 14:21 | A.OFFPC_ITS ---
Vital Signs 07/10/24 14:21 Height 5 ft 4 in Weight 152 lb 6 oz BMI 26.2 BP 110/80 Blood Pressure Location Lt brachial Position Sitting Pulse 63 Pulse Source Pulse Oximeter Pulse Oximetry (%) 98 Oxygen Delivery Method Room Air Intake Visit Reasons: Follow Up Mma Fighter Required: No Accompanied by: Self / Same As Patient Allergies No Known Allergies [No Known Allergies*] Allergy (Verified 07/10/24 14:41) Medication List - Last Reconciled 07/10/24 by Robin Mcdaniels MD albuterol sulfate 90 mcg/actuation (Ventolin HFA) 2 puffs inhalation Q4-6H PRN amlodipine 5 mg PO DAILY apixaban (Eliquis) 5 mg PO BID clonidine HCl 0.2 mg PO BEDTIME PRN fluoxetine 40 mg PO DAILY hydroxyzine HCl 25 mg PO TID PRN 30 days immun glob G-[id number]-[id number]-IgA 0-50 10 gram (Gammagard S-D (IgA < 1 mcg/mL)) 30 grams IV Q4W 28 days medroxyprogesterone 150 mg IM [id number] Tobacco use date assessed: 07/10/24 Dental Screening Dental Screen Date: 07/10/24 Did you have a dental visit in the last 12 months?: Yes Did you have a dental problem in the last 6 months where you did not have access to dental care?: No Was dental information given to patient?: Patient has dentist HPI Follow Up HPI Details Patient comes in today for her follow-up visit States that she is currently still experiencing on and off headaches and dizziness, increased fatigue and on and off chest pains that are mostly due to her pulmonary embolism although she has noticed a slight improvement of her symptoms lately except for her headaches, which she feels are getting worse She has also noticed some blurring of her vision associated with her headaches lately as well as frequent/recurrent nausea States that she has discussed with her freight broker as to whether her Gammagard is the one responsible for pulmonary embolism or not and was advised that it is a possibility and they can try to switch her to a different gamma globulin infusion but they are still currently working on insurance approval for this Was advised that she should continue on her current infusion in the meantime as her specialist does not want her to risk not getting any infusion, as this would put her at a significantly increased risk for infections and other complications She was also seen by Hematology recently and was going to be worked up for hypercoagulable state but states that her insurance declined to cover the cost of the tests Adds that she has been experiencing increased sun sensitivity with easy blistering of her skin recently due to her Eliquis She denies any fever Denies any increased SOB No vomiting, no abdominal pain and no change in bowel habits noted PFSH Medical History Pulmonary embolism Sore throat LGSIL on Pap smear of cervix Pain in both hands Bilateral hand numbness Overweight (BMI 25.0-29.9) Insomnia Vitamin D deficiency Pure hypercholesterolemia Depression Anxiety Status post hysteroscopy (~03/12/17) Carpal tunnel syndrome Surgical History S/P cubital tunnel release History of carpal tunnel release History of mastopexy (~09/28/19) Status post abdominoplasty (~09/28/19) Family History Mother Mental illness in member of household Hypertension Cervical cancer Maternal Grandfather Gastric cancer Other Mental health problem Social History Household Members: Spouse and Children Housing: House Alcohol intake: current Alcohol intake frequency: holidays/special occasions only Patient Tobacco Use Status: Never used Tobacco Tobacco use type: Cigarette e-Cigarette/Vaping Use: Never Used Second Hand Smoke Exposure: Yes service: No Current occupational status: employed 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 1. Little interest or pleasure in doing things: several days 2. Feeling down, depressed, or hopeless: several days 3. Trouble falling or staying asleep, or sleeping too much: several days 4. Feeling tired or having little energy: several days 5. Poor appetite or overeating: not at all 6. Feeling bad about yourself - or that you are a failure or have let yourself or your family down: not at all 7. Trouble concentrating on things, such as reading the newspaper or watching television: several days 8. Moving or speaking so slowly that other people could have noticed. Or the opposite - being so fidgety or restless that you have been moving around a lot more than usual: not at all 9. Thoughts that you would be better off or of hurting yourself in some way: not at all Total score: 5 Depression Screening Interpretation: Positive Depression Screening Follow-up: Existing condition, In treatment and Community Mental Health Worker F/U Depression Screening Done: Yes 80521 - PHQ-9 Billing: Yes Source: Developed by Drs. Raphael Goldstein, Ilda Michel, Daniel Sosa and colleagues, with an educational phan from [employer]. Thrive Questionnaire Date Thrive assessed: 07/10/24 I am a: Patient What is your living situation today?: I have a steady place to live Within the past 12 months, did the food you bought not last and you didn't have the money to get more?: Never true Within the past 12 months, did you worry whether your food would run out before you got money to buy more?: Never true Do you have trouble paying for medicines?: No Do you have trouble getting transportation to medical appointments?: No Do you have trouble paying your heating and electricity bill?: No Do you have trouble taking care of your child, family member or friend?: No Do you have trouble with day-to-day activities such as bathing, preparing meals, shopping, managing finances, etc.?: No Are you currently unemployed and looking for a job?: No Are you interested in more education?: No Please select the resources that you would like help with: None Currently or been in a relationship where the following occur: No concerns reported THRIVE Score: 0 AUDIT C Alcohol Use Questionnaire (AUDIT-C) 1. How often do you have a drink containing alcohol?: Monthly or less 2. How many drinks containing alcohol do you have on a typical day when you are drinking?: 1 or 2 3. How often do you have six or more drinks on one occasion?: Never Total Score: 1 Score Reviewed/Action Taken: Yes DAMION-7 AMB Questionnaire DAMION-7 Date DAMION - 7 assessed: 07/10/24 Feeling nervous, anxious, or on edge: 1 = Several days Not being able to stop or control worryin = Several days Worrying too much about different things: 1 = Several days Trouble relaxin = Several days Being so restless that it is hard to sit still: 1 = Several days Becoming easily annoyed or irritable: 0 = Not at all Feeling afraid as if something awful might happen: 0 = Not at all Total DAMION-7 score (0-4 normal; 5-9 mild; 10-14 moderate; 15-21 severe): 5 Source: Developed by Drs. Raphael Goldstein, Ilda Michel, Daniel Sosa and colleagues, with an educational phan from [employer]. Review of Systems Const Denies chills, Reports difficulty sleeping, Reports fatigue, Denies fever(s) and Reports headache(s) (worsening lately) Eyes Reports blurry vision (lately - feels that this is related to her recently increasing headaches) ENT Denies dysphagia, Reports dizziness (on and off), Denies otalgia, Reports headache(s) (worsening lately), Denies neck pain, Denies odynophagia and Denies sore throat Card Denies chest pain, Denies irregular heart rhythm, Denies palpitations and Reports dyspnea on exertion (mild) Resp Denies chest congestion, Denies cough and Reports dyspnea on exertion (mild) GI Denies abdominal pain, Denies constipation, Denies dysphagia, Denies heartburn, Denies diarrhea, Reports nausea (on and off, associated with her headaches), Denies odynophagia and Denies vomiting Denies difficulty voiding, Denies dysuria and Denies urinary urgency Musc Denies back pain, Denies arthralgias and Denies neck pain Skin/Breast Details: sensitivity to sunlight and easy blistering of the skin lately Denies rash Neuro Reports dizziness (on and off), Reports headache(s) (worsening lately) and Denies paresthesias Psych Reports anxiety and Reports depression (better controlled) Endo Reports fatigue and Denies palpitations Fredi/Lymph Denies easy bruising Physical exam (Primary Care) Vital Signs: Last Vital Signs Pulse 63 07/10/24 14:21 BP 110/80 07/10/24 14:21 Pulse Ox 98 07/10/24 14:21 Oxygen Delivery Method Room Air 07/10/24 14:21 BMI result Body Mass Index 26.2 Tobacco/Smoking Status: Tobacco use Status Tobacco use date assessed 07/10/24 07/10/24 14:22 Patient Tobacco Use Status Never used Tobacco 07/10/24 14:22 Tobacco use type Cigarette 07/10/24 14:22 e-Cigarette/Vaping Use Never Used 07/10/24 14:22 PHQ-9: PHQ-9 Score PHQ-9: Total score 5 07/10/24 14:46 Depression Screening Interpretation: Positive Depression Screening Follow-up: Existing condition, In treatment and Community Mental Health Worker F/U Thrive Assessment: Date of Thrive Assessment Date Thrive assessed 07/10/24 07/10/24 14:22 Currently or been in a relationship where the following occur: No concerns reported Const General: no acute distress and alert HENMT Throat: Yes posterior oropharynx normal and Yes tonsils normal (no TP congestion) Neck Neck: Yes supple and No lymphadenopathy Thyroid: Thyroid normal Resp Auscultation: clear to auscultation bilaterally, no rales and no wheezes Cardio Rate: regular rate Rhythm: regular rhythm Heart sounds: no murmurs GI Palpation (GI): Soft to palpation and nontender Auscultation: normal bowel sounds General: Yes no CVA tenderness Back/Spine/Pelvis Back: no CVA tenderness Thoracic/Lumbar Spine: No lumbar spinal tenderness Skin Rashes: no rashes Extrem General: Yes no clubbing, cyanosis or edema Coding Level of Care Code Est Pt Level 4 (18980) Diagnoses Acute pulmonary embolism without acute cor pulmonale, unspecified pulmonary embolism type I26.99 Pulmonary embolism type: unspecified Chronicity: acute Acute cor pulmonale presence: without acute cor pulmonale 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 Episodic tension-type headache, not intractable G44.219 Headache type: tension-type Headache chronicity pattern: episodic headache Intractability: not intractable Pure hypercholesterolemia E78.00 Vitamin D deficiency E55.9 Insomnia, unspecified type G47.00 Insomnia type: unspecified Anxiety F41.9 Episode of recurrent major depressive disorder, unspecified depression episode severity F33.9 Depression Type: major depressive disorder Major depression recurrence: recurrent Active/Remission status: currently active Major depression episode severity: unspecified Additional Codes PHQ-9 - 06558 - PHQ-9 Billing: Yes ([id number]) Assessment & Plan Assessment & Plan (1) Pulmonary embolism: Code(s): I26.99 - Other pulmonary embolism without acute cor pulmonale Category: Medical Qualifiers: Pulmonary embolism type: unspecified Chronicity: acute Acute cor pulmonale presence: without acute cor pulmonale Qualified Code(s): I26.99 - Other pulmonary embolism without acute cor pulmonale Plan: This was discovered when patient went to the ER at [facility] back on 06/01/2024 for recurrent symptoms of chest tightness, exertional dyspnea, dizziness and fatigue She had a chest CTA done as part of her work up when her d-dimer level came back elevated, and CTA revealed (+) segmental and subsegmental emboli in the lower lobe pulmonary artery branches Continue Eliquis 5 mg BID She has been advised by her freight broker that her Gammagard infusion may be a possible etiology for her pulmonary embolism in they are currently working on getting an alternative infusion approved for her Was advised in the meantime to continue on Gammagard infusion as her freight broker does not wish to put her at an increased risk for infection and complications if she misses her infusions She was also seen by Hematology recently and was advised that they will need to work her up for a hypercoagulable state but her insurance is reportedly denying coverage for any of these tests (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 Hall Was advised that they will try to switch her to a different infusion but are currently still working on insurance approval for this (3) Headache: Code(s): R51.9 - Headache, unspecified Category: Medical Qualifiers: Headache type: tension-type Headache chronicity pattern: episodic headache Intractability: not intractable Qualified Code(s): G44.219 - Episodic tension-type headache, not intractable Plan: Due to her recently increasing headaches that seem to be associated with blurring of vision and recurrent nausea, will send her for head CT AMBREEN for further evaluation (4) Pure hypercholesterolemia: Code(s): E78.00 - Pure hypercholesterolemia, unspecified Category: Medical Plan: Reinforced low cholesterol diet (5) Vitamin D deficiency: Code(s): E55.9 - Vitamin D deficiency, unspecified Category: Medical Plan: Continue Vitamin D3 1000 units (25 mcg) QD (6) Insomnia: Code(s): G47.00 - Insomnia, unspecified Category: Medical Qualifiers: Insomnia type: unspecified Qualified Code(s): G47.00 - Insomnia, unspecified Plan: Sleep hygiene reinforced She used to take Zolpidem 10 mg Q HS PRN but states that it was not helping much and she stopped taking it a while back as she also does not wish to become dependent on the medication States that she also tried some OTC THC with Melatonin last year with variable results She is currently taking Clonidine 0.2 mg daily at bedtime PRN (7) Anxiety: Code(s): F41.9 - Anxiety disorder, unspecified Category: Medical Plan: Continue Hydroxyzine 25 mg TID PRN and Fluoxetine 40 mg QD (8) Depression: Code(s): F32.9 - Major depressive disorder, single episode, unspecified Category: Medical Qualifiers: Depression Type: major depressive disorder Major depression recurrence: recurrent Active/Remission status: currently active Major depression episode severity: unspecified Qualified Code(s): F33.9 - Major depressive disorder, recurrent, unspecified Plan: Continue Fluoxetine 40 mg QD Follow up with psychiatry as scheduled Plan Follow up in 3 months Orders: Orders CT head/brain w IV con 07/10/24 G44.219 - Episodic tension-type headache, not intractable, H53.8 - Other visual disturbances, I26.99 - Other pulmonary embolism without acute cor pulmonale, R11.0 - Nausea Medications: Changed From apixaban (Eliquis) 5 mg PO BID To apixaban (Eliquis) 5 mg PO BID 30 days 60 tabs 5RF
== END 2024-07-10 15:05 | disposition home or self-care (01) ==
LOC: HO.HMCH 14:19
PROVIDERS: PCP Internal Medicine; Visit Provider Internal Medicine
DX: I26.99 Other pulmonary embolism without acute cor pulmonale (principal); D80.3 Selective deficiency of immunoglobulin G [IgG] subclasses; G44.219 Episodic tension-type headache, not intractable; E78.00 Pure hypercholesterolemia, unspecified; E55.9 Vitamin D deficiency, unspecified; G47.00 Insomnia, unspecified; F41.9 Anxiety disorder, unspecified; F33.9 Major depressive disorder, recurrent, unspecified

== ENCOUNTER → 2024-07-10 14:18 | Outpatient (BNVA) | payer OTHER, SELFPAY | PROVIDERS: PCP Internal Medicine; Visit Provider Internal Medicine | DX: I26.99 Other pulmonary embolism without acute cor pulmonale (principal); D80.3 Selective deficiency of immunoglobulin G [IgG] subclasses; G44.219 Episodic tension-type headache, not intractable; E78.00 Pure hypercholesterolemia, unspecified; E55.9 Vitamin D deficiency, unspecified; G47.00 Insomnia, unspecified; F41.9 Anxiety disorder, unspecified; F33.9 Major depressive disorder, recurrent, unspecified; Z79.01 Long term (current) use of anticoagulants; Z79.899 Other long term (current) drug therapy | CPT/HCPCS: 96127; 99212 ==

== ENCOUNTER 2024-08-02 14:55 | Outpatient (AMB) | payer OTHER, SELFPAY ==
--- NOTE | 2024-08-02 15:14 | AM.OFFVISNUR ---
Vital Signs 08/02/24 15:16 Weight 151 lb Intake Visit Reasons: DEPO Allergies No Known Allergies [No Known Allergies*] Allergy (Verified 07/10/24 14:41) Office Procedures Depo Questionnaire If YES to any of the following questions, please consult a provider. Date of last injection: 05/13/24 Date of last gynecology exam: 01/25/24 Menstrual pattern since last injection has been: Not Applicable Irregular bleeding?: No Breast lumps or other breast changes?: No Changes in weight or appetite?: No Depression or changes in mood?: No Abnormal hair growth or loss?: No Skin problems (rash, acne, discoloration)?: No Pain at the injection site?: No Headaches?: No Nervousness?: No Abdominal pain or cramping?: No Dizziness or nausea?: No Fatigue or weakness?: No Decrease in sexual drive?: No Chest pain or shortness of breath?: No Swelling in arms or legs?: No Form completed by?: Ryanne Causey LPN Office Meds Depo-Provera 150 mg/mL intramuscular syringe Performing Provider: Xena Puentes CNM Performing Location: [facility] Administered by: Ryanne Causey LPN on 08/02/24 15:17 Dose Route Admin Location Dispensed Lot Number Expiration Date [facility] Dem[employer] 150 mg IM 1 mL [id number] 07/03/25 48813-974-07 MYLAN Assessment & Plan Assessment & Plan Orders: Orders AMB Medroxyprogesterone Injection Patient Supplied Today Z30.42 - Encounter for surveillance of injectable contraceptive Medications: New Depo-Provera (medroxyprogesterone) 150 mg IM ONCE 1 mL 0RF NS Z30.42 - Encounter for surveillance of injectable contraceptive Coding Level of Care Code Established Pt Est Pt Level 1 (58989) Patient Type Established History Problem Focused Exam Problem Focused Medical Decision Making Straight Forward Time Spent (min) 20
== END 2024-08-02 15:04 | disposition home or self-care (01) ==
LOC: HO.HWS 14:55
PROVIDERS: PCP Internal Medicine; Visit Provider Advanced Practice Midwife
DX: Z30.42 Encounter for surveillance of injectable contraceptive (principal)

== ENCOUNTER → 2024-08-02 14:55 | Outpatient (BNVA) | payer OTHER, SELFPAY | PROVIDERS: PCP Internal Medicine; Visit Provider Advanced Practice Midwife | DX: Z30.42 Encounter for surveillance of injectable contraceptive (principal) | CPT/HCPCS: 96372; 99211; J1050 ==

== ENCOUNTER → 2024-09-10 15:11 | Outpatient (BNV) | payer OTHER, SELFPAY | PROVIDERS: PCP Internal Medicine; Visit Provider Radiology Diagnostic Radiology | DX: G93.0 Cerebral cysts (principal) | CPT/HCPCS: 70553 ==

== ENCOUNTER 2024-09-10 15:18 | Outpatient (REF) | payer OTHER, SELFPAY ==
--- NOTE | ~2024-09-10 | MR_ITS ---
EXAMINATION: MR BRAIN WITHOUT AND WITH CONTRAST CLINICAL INFORMATION: Headache. COMPARISON: None available. TECHNIQUE: Multiplanar, multisequence MRI of the brain was obtained before and after the intravenous administration of 6.5 mL gadolinium based contrast without reported immediate complications.. FINDINGS: No restricted diffusion. No acute intracranial hemorrhage, mass effect, midline shift, hydrocephalus or herniation. Bilateral, patchy deep periventricular white matter and perpendicularly oriented to the corpus callosum nonrestricted diffusion, nonenhancing deep periventricular white matter hyperintense T2 FLAIR signal, the most conspicuous in the left frontal/cingulate gyrus. There is a 2 cm nonenhancing CSF signal abnormality in the vellum interpositum cistern. Small cavum septa pellucida. Truong-white matter differentiation is normal. No abnormal intra-axial or extra-axial enhancing signal abnormality and or mass. Posterior cranial fossa contents demonstrated normal position of the cerebellar tonsils. Flow-void signal within the main cerebral vessels is normal. Sellar/suprasellar region demonstrated no masses or signal abnormality. MR/MR head/brain wo/w con IMPRESSION: Concerning demyelinating plaques in the correct clinical settings. Simple cyst, vellum interpositum cistern. No acute stroke/nonhemorrhagic ischemia or acute intracranial hemorrhage. No abnormal enhancement. Electronically signed by: Darci Dominique MD 09/11/2024 07:16 AM EDT
== END 2024-09-10 15:19 | disposition home or self-care (01) ==
LOC: HO.MRI 15:18
PROVIDERS: PCP Internal Medicine
DX: I26.99 Other pulmonary embolism without acute cor pulmonale (principal); H53.8 Other visual disturbances; R11.0 Nausea
CPT/HCPCS: 70553; A9585

== ENCOUNTER 2024-09-18 09:37 | Outpatient (AMB) | payer OTHER, SELFPAY ==
[2024-09-18 09:48] VITALS: BP 122/70; PULSE 77; O2SAT 99; BMI 26.4
--- NOTE | 2024-09-18 09:48 | MHC.OFFVIS ---
Vital Signs 09/18/24 09:48 Height 5 ft 4 in Weight 154 lb BMI 26.4 BP 122/70 Blood Pressure Location Rt brachial Position Sitting Pulse 77 Pulse Source Pulse Oximeter Pulse Oximetry (%) 99 Oxygen Delivery Method Room Air Intake Visit Reasons: INP-Demyelinating disease of central nervous Facility Specialist Required: No Accompanied by: Self / Same As Patient Allergies No Known Allergies (No Known Allergies*) Allergy (Verified 09/18/24 09:55) Medication List - Last Reconciled 09/18/24 by Mariela Castle MD albuterol sulfate 90 mcg/actuation (Ventolin HFA) 2 puffs inhalation Q4-6H PRN amitriptyline 10 mg PO BEDTIME amlodipine 5 mg PO DAILY apixaban (Eliquis) 5 mg PO BID 30 days clonidine HCl 0.2 mg PO BEDTIME PRN fluoxetine 40 mg PO DAILY hydroxyzine HCl 25 mg PO TID PRN 30 days immun glob Y-[id number]-[id number]-IgA 0-50 10 gram (Gammagard S-D (IgA < 1 mcg/mL)) 30 grams IV Q4W 28 days medroxyprogesterone 150 mg IM [id number] ubrogepant (Ubrelvy) 50 mg PO ONCE PRN HPI Comments Details: 39y/o female with a complex medical comes for evaluation of possible MS . she was hospitalized for pulmonary embolism 2 mths ago and had headaches dizziness, blurry vision at that time.she had MRI brain which showed white matter changes c/w demyelinating plaques . 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 she has blurry vision , denies double vision , has phil hand numbness( has carpal tunnel and cubital tunnel), denies weakness, has vertigo sometimes. she denies any gait issues. Her reports daily headaches for over 1 year.the daily headaches are bitemporal frontal , it worsens once a week where she has severe eye pain, with nausea, photophobia, phonophobia , no visual aura.The severe headaches can last 24 hrs . she treats with motrin. She has neck pain when she has a severe headache. [facility] Medical History (Updated 09/18/24 @ 10:37 by Mariela Castle MD) Chronic migraine without aura Abnormal MRI of the head Pulmonary embolism Sore throat LGSIL on Pap smear of cervix Pain in both hands Bilateral hand numbness Overweight (BMI 25.0-29.9) Insomnia Vitamin D deficiency Pure hypercholesterolemia Depression Anxiety Status post hysteroscopy (~03/12/17) Carpal tunnel syndrome Surgical History S/P cubital tunnel release History of carpal tunnel release History of mastopexy (~09/28/19) Status post abdominoplasty (~09/28/19) Family History Mother Mental illness in member of household Hypertension Cervical cancer Maternal Grandfather Gastric cancer Other Mental health problem Social History Household Members: Spouse and Children Housing: House Alcohol intake: current Alcohol intake frequency: holidays/special occasions only Patient Tobacco Use Status: Never used Tobacco Tobacco use type: Cigarette e-Cigarette/Vaping Use: Never Used Second Hand Smoke Exposure: Yes service: No Current occupational status: employed 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 Sexual orientation: Straight/Heterosexual Gender identity: Female Cognitive needs: No Hearing needs: No Vision needs: No Female Reproductive History Menstrual Age of Menarche: 14 Physical Exam Vital Signs: Last Vital Signs Pulse 77 09/18/24 09:48 BP 122/70 09/18/24 09:48 Pulse Ox 99 09/18/24 09:48 Oxygen Delivery Method Room Air 09/18/24 09:48 BMI result Body Mass Index 26.4 Const General: cooperative, healthy appearing, comfortable and no acute distress Nutritional Appearance: average body habitus Orientation/consciousness: patient oriented x3 Eyes Pupils: Equal, round and reactive pupils present Neuro General: patient oriented x3, gait normal, tone normal, moves all extremities and no focal motor deficits Cranial nerves: Yes Equal, round and reactive pupils present, Yes Bilaterally intact EOM present, Yes Nystagmus not present, Yes Normal facial strength present, Yes Midline tongue present, Yes Symmetric palate elevation present and Yes Ability to bilaterally elevate shoulders present Cognition (Neuro): normal cognition Gait exam (Neuro): Normal gait present Motor exam (neuro): 5/5 motor strength present throughout and Normal motor muscle tone present throughout Deep tendon reflexes (DTR's): Right triceps reflex intensity grade: 2+, Left triceps reflex intensity grade: 2+, Rt Biceps (C5, C6): 2+, Left biceps reflex intensity grade: 2+, Right brachioradialis reflex intensity grade: 2+, Left brachioradialis reflex intensity grade: 2+, Right patellar reflex intensity grade: 2+ and Left patellar reflex intensity grade: 2+ Coordination: [id number] test normal Assessment & Plan Assessment & Plan (1) Abnormal MRI of the head: Comment: white matter chnages suspicious of demyelination Code(s): R93.0 - Abnormal findings on diagnostic imaging of skull and head, not elsewhere classified Category: Medical (2) Chronic migraine without aura: Code(s): G43.709 - Chronic migraine without aura, not intractable, without status migrainosus Category: Medical Qualifiers: Status migrainosus presence: without status migrainosus Intractability: not intractable Qualified Code(s): G43.709 - Chronic migraine without aura, not intractable, without status migrainosus Plan Reviewed MRI images with patient I will refer her to [facility] center for further eval I will trial her on amitriptyline 10mg qhs and ubelvy 50 mg as needed for migraine s TRIPTANS CONTRAINDICATED DUE TO PULMONARY EMBOLISM Orders: Referrals Neurology Referral R93.0 - Abnormal findings on diagnostic imaging of skull and head, not elsewhere classified Medications: New amitriptyline 10 mg PO BEDTIME 30 tabs 6RF ubrogepant (Ubrelvy) 1 tab at onset of migraine and repeat in 2 hrs a s needed maximum 4 tabs a day 50 mg PO ONCE PRN 14 tabs 4RF migraine Coding Level of Care Code New Pt Level 4 (64773) Complex EM visit Add On G2211 Diagnoses Abnormal MRI of the head R93.0 Chronic migraine without aura without status migrainosus, not intractable G43.709 Status migrainosus presence: without status migrainosus Intractability: not intractable
== END 2024-09-18 10:38 | disposition home or self-care (01) ==
LOC: HO.HSMS 09:38
PROVIDERS: PCP Internal Medicine; Visit Provider Psychiatry & Neurology Neurology
DX: R93.0 Abnormal findings on diagnostic imaging of skull and head, not elsewhere classified (principal); G43.709 Chronic migraine without aura, not intractable, without status migrainosus
CPT/HCPCS: 99204

== ENCOUNTER → 2024-09-18 09:37 | Outpatient (BNVA) | payer OTHER, SELFPAY | PROVIDERS: PCP Internal Medicine; Visit Provider Psychiatry & Neurology Neurology | DX: R93.0 Abnormal findings on diagnostic imaging of skull and head, not elsewhere classified (principal); G43.709 Chronic migraine without aura, not intractable, without status migrainosus | CPT/HCPCS: 99202 ==

== ENCOUNTER 2024-09-27 14:46 | Outpatient (AMB) | payer OTHER, SELFPAY ==
[2024-09-27 14:49] VITALS: BP 108/72; PULSE 96; TEMP 36.2; O2SAT 97; BMI 26.3
--- NOTE | 2024-09-27 14:49 | A.OFFPC_ITS ---
Vital Signs 09/27/24 14:49 Height 5 ft 4 in Weight 153 lb 6 oz BMI 26.3 BP 108/72 Blood Pressure Location Lt brachial Position Sitting Pulse 96 Pulse Source Pulse Oximeter Temp 97.1 F Temp Source Temporal Artery Scan Pulse Oximetry (%) 97 Oxygen Delivery Method Room Air Intake Visit Reasons: Annual Exam Dry Folder Cloth Required: No Accompanied by: Self / Same As Patient Allergies No Known Allergies (No Known Allergies*) Allergy (Verified 09/27/24 15:12) Medication List - Last Reconciled 09/28/24 by Robin Mcdaniels MD albuterol sulfate 90 mcg/actuation (Ventolin HFA) 2 puffs inhalation Q4-6H PRN amitriptyline 10 mg PO BEDTIME amlodipine 5 mg PO DAILY apixaban (Eliquis) 5 mg PO BID 30 days clonidine HCl 0.2 mg PO BEDTIME PRN fluoxetine 40 mg PO DAILY vyybwgbeqje-bzttukacp-eghahkqx 100-62.5-25 mcg (Trelegy Ellipta) 1 inh inhalation DAILY hydroxyzine HCl 25 mg PO TID PRN 30 days medroxyprogesterone 150 mg IM [id number] ubrogepant (Ubrelvy) 50 mg PO ONCE PRN Tobacco use date assessed: 09/27/24 Dental Screening Dental Screen Date: 09/27/24 Did you have a dental visit in the last 12 months?: Yes Did you have a dental problem in the last 6 months where you did not have access to dental care?: No Was dental information given to patient?: Patient has dentist HPI Annual Exam HPI Details Patient comes in today for her annual physical examination States that she still feels fatigued often but her previous symptoms of recurrent headaches, dizziness and blurring of vision seem to have improved somewhat with treatment with Eliquis over the past few months She was seen by H[place]ology here [place] [facility] [place] ago but did not get worked up for hypercoagulable state as her insurance reportedly declined to cover these tests but patient states that her wet finisher wool, Dr. Rafita Hall in [place], was able to get these covered and done and her tests supposedly all came back negative - will try to get a copy of these results sent over [facility] for review and documentation Patient also had abnormal findings came up on a brain MRI that she had done a few weeks ago for further evaluation of her increased headaches - MRI revealed the presence of concerning demyelinating plaques in the deep periventricular white matter areas She was supposedly advised by neurology when she was seen last week that these are suggestive of MS and she has been referred to the [facility] for further evaluation Patient states that she is currently scheduled to be seen there on 10/22/2024 She was also recently trialed on Ubrelvy 50 mg PRN as well as Amitriptyline at 10 mg at bedtime for prophylaxis of her headaches Patient denies any exertional chest pains but she still experiences occasional mild exertional dyspnea States that she was started on Trelegy Ellipta by Dr. Hall in [place] and this seems to be helping No nausea/vomiting, no abdominal pain No change in bowel habits noted She denies any acute urinary symptoms Patient states that she has been back at work but she tries not to involve herself in any activities that will require heavy exertion Patient states that she is up-to-date with her yearly gynecology exam and Pap smear Her annual mammogram is up-to-date - she had this last done in February 2024 and is scheduled for her next mammogram on 03/11/2025 She was not able to get her follow up labs done prior to her appointment today [facility] Medical History (Updated 09/28/24 @ 20:01 by Robin Mcdaniels MD) Reactive airway disease Asthma Chronic migraine without aura Abnormal MRI of the head Pulmonary embolism Sore throat LGSIL on Pap smear of cervix Pain in both hands Bilateral hand numbness Overweight (BMI 25.0-29.9) Insomnia Vitamin D deficiency Pure hypercholesterolemia Depression Anxiety Status post hysteroscopy (~03/12/17) Carpal tunnel syndrome Surgical History S/P cubital tunnel release History of carpal tunnel release History of mastopexy (~09/28/19) Status post abdominoplasty (~09/28/19) Family History Mother Mental illness in member of household Hypertension Cervical cancer Maternal Grandfather Gastric cancer Other Mental health problem Social History Household Members: Spouse and Children Housing: House Alcohol intake: current Alcohol intake frequency: holidays/special occasions only Patient Tobacco Use Status: Never used Tobacco Tobacco use type: Cigarette e-Cigarette/Vaping Use: Never Used Second Hand Smoke Exposure: Yes service: No Current occupational status: employed 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 1. Little interest or pleasure in doing things: several days 2. Feeling down, depressed, or hopeless: several days 3. Trouble falling or staying asleep, or sleeping too much: several days 4. Feeling tired or having little energy: several days 5. Poor appetite or overeating: not at all 6. Feeling bad about yourself - or that you are a failure or have let yourself or your family down: not at all 7. Trouble concentrating on things, such as reading the newspaper or watching television: several days 8. Moving or speaking so slowly that other people could have noticed. Or the opposite - being so fidgety or restless that you have been moving around a lot more than usual: not at all 9. Thoughts that you would be better off or of hurting yourself in some way: not at all Total score: 5 Depression Screening Interpretation: Positive Depression Screening Follow-up: Existing condition, In treatment and Community Mental Health Worker F/U Depression Screening Done: Yes 21477 - PHQ-9 Billing: Yes Source: Developed by Drs. Raphael Goldstein, Ilda Michel, Daniel Sosa and colleagues, with an educational phan from [employer] (formerly [employer]). Thrive Questionnaire Date Thrive assessed: 09/27/24 I am a: Patient What is your living situation today?: I have a steady place to live Within the past 12 months, did the food you bought not last and you didn't have the money to get more?: Never true Within the past 12 months, did you worry whether your food would run out before you got money to buy more?: Never true Do you have trouble paying for medicines?: No Do you have trouble getting transportation to medical appointments?: No Do you have trouble paying your heating and electricity bill?: No Do you have trouble taking care of your child, family member or friend?: No Do you have trouble with day-to-day activities such as bathing, preparing meals, shopping, managing finances, etc.?: No Are you currently unemployed and looking for a job?: No Are you interested in more education?: No Please select the resources that you would like help with: None Currently or been in a relationship where the following occur: No concerns reported THRIVE Score: 0 AUDIT C Alcohol Use Questionnaire (AUDIT-C) 1. How often do you have a drink containing alcohol?: Monthly or less 2. How many drinks containing alcohol do you have on a typical day when you are drinking?: 1 or 2 3. How often do you have six or more drinks on one occasion?: Never Total Score: 1 Score Reviewed/Action Taken: Yes DAMION-7 AMB Questionnaire DAMION-7 Date DAMION - 7 assessed: 09/27/24 Feeling nervous, anxious, or on edge: 1 = Several days Not being able to stop or control worryin = Several days Worrying too much about different things: 1 = Several days Trouble relaxin = Several days Being so restless that it is hard to sit still: 1 = Several days Becoming easily annoyed or irritable: 0 = Not at all Feeling afraid as if something awful might happen: 0 = Not at all Total DAMION-7 score (0-4 normal; 5-9 mild; 10-14 moderate; 15-21 severe): 5 Source: Developed by Drs. Raphael Goldstein, Ilda Michel, Daniel Sosa and colleagues, with an educational phan from [employer] (formerly [employer]). Review of Systems Const Denies chills, Reports difficulty sleeping, Reports fatigue, Denies fever(s) and Reports headache(s) (recurrent) Eyes Denies blurry vision, Denies change in vision, Denies irritation and Denies itchy eyes ENT Denies dysphagia, Reports dizziness (on and off), Denies otalgia, Reports headache(s) (recurrent), Denies neck pain, Denies odynophagia and Denies sore throat Card Denies chest pain, Denies irregular heart rhythm, Denies palpitations and Reports dyspnea on exertion (mild) Resp Denies chest congestion, Denies cough, Reports dyspnea on exertion (mild) and Denies wheezing GI Denies abdominal pain, Denies constipation, Denies dysphagia, Denies heartburn, Denies diarrhea, Reports nausea (on and off, associated with her headaches), Denies odynophagia and Denies vomiting Denies difficulty voiding, Denies dysuria and Denies urinary urgency Musc Denies back pain, Denies arthralgias and Denies neck pain Skin/Breast Denies lesions and Denies rash Neuro Reports dizziness (on and off), Reports headache(s) (recurrent) and Denies paresthesias Psych Reports anxiety and Reports depression (better controlled) Endo Reports fatigue and Denies palpitations Fredi/Lymph Denies easy bruising Aller/Immun Denies itchy eyes and Denies wheezing Physical exam (Primary Care) Vital Signs: Last Vital Signs Temp 97.1 F 09/27/24 14:49 Pulse 96 09/27/24 14:49 BP 108/72 09/27/24 14:49 Pulse Ox 97 09/27/24 14:49 Oxygen Delivery Method Room Air 09/27/24 14:49 BMI result Body Mass Index 26.3 Tobacco/Smoking Status: Tobacco use Status Tobacco use date assessed 09/27/24 09/27/24 14:57 Patient Tobacco Use Status Never used Tobacco 09/27/24 14:57 Tobacco use type Cigarette 09/27/24 14:57 e-Cigarette/Vaping Use Never Used 09/27/24 14:57 PHQ-9: PHQ-9 Score PHQ-9: Total score 5 09/27/24 15:14 Depression Screening Interpretation: Positive Depression Screening Follow-up: Existing condition, In treatment and Community Mental Health Worker F/U Thrive Assessment: Date of Thrive Assessment Date Thrive assessed 09/27/24 09/27/24 14:57 Currently or been in a relationship where the following occur: No concerns reported Const General: no acute distress and alert Orientation/consciousness: patient oriented x3 HENMT Head: Yes normocephalic and Yes atraumatic Ears: external ears normal, TM's normal bilaterally and EAC's normal General nose exam: No nasal discharge present Face and sinus: Yes normal facial exam and Yes sinuses nontender Teeth and gingiva: dentition normal Throat: Yes posterior oropharynx normal and Yes tonsils normal (no TP congestion) Eyes Eyelids: Yes eyelids normal Conjunctivae: conjunctivae normal Pupils: Equal, round and reactive pupils present EOM: EOMs intact bilaterally Neck Neck: Yes supple and No lymphadenopathy Thyroid: Thyroid normal Resp Auscultation: clear to auscultation bilaterally, no rales and no wheezes Cardio Rate: regular rate Rhythm: regular rhythm Heart sounds: no murmurs GI Palpation (GI): Soft to palpation and nontender Auscultation: normal bowel sounds General: Yes no CVA tenderness Back/Spine/Pelvis Back: no CVA tenderness Thoracic/Lumbar Spine: No lumbar spinal tenderness Skin Lesions: no lesions Rashes: no rashes Neuro General: patient oriented x3, moves all extremities, no focal motor deficits and CN's II-XI intact bilaterally Cranial nerves: Yes Equal, round and reactive pupils present Cognition (Neuro): normal cognition Gait exam (Neuro): Normal gait present Extrem General: Yes no clubbing, cyanosis or edema Coding Level of Care Code Est Pt Prev Care 40-64y(55653) Diagnoses Annual physical exam Z00.00 Abnormal MRI of the head R93.0 Acute pulmonary embolism without acute cor pulmonale, unspecified pulmonary embolism type I26.99 Pulmonary embolism type: unspecified Chronicity: acute Acute cor pulmonale presence: without acute cor pulmonale 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 Moderate persistent reactive airway disease without complication J45.40 Asthma severity: moderate Asthma persistence: persistent Asthma complication type: uncomplicated Pure hypercholesterolemia E78.00 Vitamin D deficiency E55.9 Insomnia, unspecified type G47.00 Insomnia type: unspecified Anxiety F41.9 Episode of recurrent major depressive disorder, unspecified depression episode severity F33.9 Depression Type: major depressive disorder Major depression recurrence: recurrent Active/Remission status: currently active Major depression episode severity: unspecified Additional Codes PHQ-9 - 40741 - PHQ-9 Billing: Yes ([id number]) Assessment & Plan Assessment & Plan (1) Annual physical exam: Code(s): Z00.00 - Encounter for general adult medical examination without abnormal findings Category: Medical Plan: Patient is instructed to get her previously ordered labs done AMBREEN to complete her physical exam today She is reportedly up-to-date with her yearly gynecology exam and pap smear Her annual mammogram is also up-to-date - she had this last done in February 2024 and is scheduled for her next mammogram on 03/11/2025 (2) Abnormal MRI of the head: Comment: white matter chnages suspicious of demyelination Code(s): R93.0 - Abnormal findings on diagnostic imaging of skull and head, not elsewhere classified Category: Medical Plan: Her brain MRI done earlier this month revealed the presence of concerning demyelinating plaques in the deep periventricular white matter areas She was seen by neurology last week and was reportedly advised that these findings are highly suggestive of MS and she has been referred to the [facility] for further evaluation Patient states that she has an appointment now scheduled there on 10/22/2024 (3) Pulmonary embolism: Code(s): I26.99 - Other pulmonary embolism without acute cor pulmonale Category: Medical Qualifiers: Pulmonary embolism type: unspecified Chronicity: acute Acute cor pulmonale presence: without acute cor pulmonale Qualified Code(s): I26.99 - Other pulmonary embolism without acute cor pulmonale Plan: This was discovered when patient went to the ER at [facility] back on 06/01/2024 for recurrent symptoms of chest tightness, exertional dyspnea, dizziness and fatigue and was likely related to her Gammagard infusions at the time She had a chest CTA done as part of her work up when her d-dimer level came back elevated, and CTA revealed (+) segmental and subsegmental emboli in the lower lobe pulmonary artery branches She was seen by Hematology a few months ago but was not worked up for hypercoagulable state as her insurance reportedly denied covering any of her tests but patient states that her wet finisher wool, Dr. 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 Hall but this was recently discontinued as this was likely the etiology of patient's pulmonary emboli a few months ago (5) Reactive airway disease: Code(s): J45.909 - Unspecified asthma, uncomplicated Category: Medical Qualifiers: Asthma severity: moderate Asthma persistence: persistent Asthma complication type: uncomplicated Qualified Code(s): J45.40 - Moderate persistent asthma, uncomplicated Plan: She was supposedly advised by Dr. Hall that she does have asthma and was started on Trelegy Ellipta at her last visit Patient feels that this has helped a lot with her respiratory symptoms lately Continue Trelegy Ellipta 100-62.5-25 mcg 1 inhalation QD and Albuterol HFA 1 to 2 inhalations Q 6 hours PRN (6) Pure hypercholesterolemia: Code(s): E78.00 - Pure hypercholesterolemia, unspecified Category: Medical Plan: Reinforced low cholesterol diet (7) Vitamin D deficiency: Code(s): E55.9 - Vitamin D deficiency, unspecified Category: Medical Plan: Continue Vitamin D3 1000 units (25 mcg) QD (8) Insomnia: Code(s): G47.00 - Insomnia, unspecified Category: Medical Qualifiers: Insomnia type: unspecified Qualified Code(s): G47.00 - Insomnia, unspecified Plan: Sleep hygiene reinforced She used to take Zolpidem 10 mg Q HS PRN but states that it was not helping much and she stopped taking it a while back as she also does not wish to become dependent on the medication States that she also tried some OTC THC with Melatonin last year with variable results She is currently taking Clonidine 0.2 mg daily at bedtime PRN (9) Anxiety: Code(s): F41.9 - Anxiety disorder, unspecified Category: Medical Plan: Continue Hydroxyzine 25 mg TID PRN and Fluoxetine 40 mg QD (10) Depression: Code(s): F32.9 - Major depressive disorder, single episode, unspecified Category: Medical Qualifiers: Depression Type: major depressive disorder Major depression recurrence: recurrent Active/Remission status: currently active Major depression episode severity: unspecified Qualified Code(s): F33.9 - Major depressive disorder, recurrent, unspecified Plan: Continue Fluoxetine 40 mg QD Follow up with psychiatry as scheduled Plan Follow up as scheduled in November 2024
--- OUTSIDE RECORDS SUMMARY | 2024-09-27 14:49 | XMS_ITS | Clinical Summary ---
Author Organization [facility] Address [address] [place] [phone] Phone Care Team Providers Care Fly Rail Operator Name Role Phone Pcp, Unknown Primary Care Provider Unavailabl e Social History Tobacco Use Types Packs/Day Years Used Date Smoking Tobacco: Never Assessed Education Answer Date Recorded Are you interested in more education? Not on jessie e 11/09/2023 Are you concerned about learning? Not on file 11/09/2023 No 11/09/2023 No 11/09/2023 Digital Access Answer Date Recorded No 11/09/2023 No 11/09/2023 Reliable internet access at home? Not on file 11/09/2023 Device with a working camera? Not on file Comments Unknown Sex and Gender Information Value Date Recorded Sex Assigned at Not on file Legal Sex Female 9:51 AM EDT Gender Identity Not on file Sexual Orientation Not on file Plan of Treatment Health Maintenance Due Date Last Done Comments Adult Td,Tdap Booster 1984 DEPRESSION SCREENING 1996 SMOKING Hx and SMOKELESS TOB ACCO SCREENING 02/27/1997 HEPATITIS C SCREENING 02/27/2002 HIV ONE-TIME SCREENING (18-6 5 YEARS) 02/27/2002 PAP SMEAR 02/27/2005 COVID-19 VACCINE (2023-2 5 season) 2023 MAMMOGRAM 2024 HEPATITIS A VACCINES Aged Out No long er eligible based on patient's age to complete this topic HIB VACCINES Aged Out No longer eligi ble based on patient's age to complete this topic MENINGOCOCCAL VACCINES (ACWY) Aged Out No longer eligible based on patient's age to complete this topic MENINGOCOCCAL VACCINES (B) Aged Out N o longer eligible based on patient's age to complete this topic PNEUMOCOCCAL VACCINES (0-49 years) Aged Out No longer eligible based on patient's age to complete this topic Medical Devices Not on file Insurance [employer] DIRECT [employer] DIRECT [employer] DIRECT [employer] DIRECT [employer] DIRECT [employer] DIRECT Care Teams Fly Rail Operator Relationship Specialty Start Date End Date Pcp, Unknown PCP - General 11/09/23 Additional Source Comments The information contained in this document represents components of the legal health record. It is not the complete legal health record.[facility]
--- OUTSIDE RECORDS SUMMARY | 2024-09-27 14:49 | XMS_ITS | Clinical Summary ---
Author Organization [facility] Address [address] [place] [address] Phone Care Team Providers Care Insurance Follow Up Rep Name Role Phone Robin Mcdaniels MD Primary Care Provider [phone] Social History Tobacco Use Types Packs/Day Years Used Date Smoking Tobacco: Never Assessed Comments Unknown Sex and Gender Information Value Date Recorded Sex Assigned at Not on file Legal Sex Female 8:58 AM EST Gender Identity Not on file Sexual Orientation Not on file Plan of Treatment Upcoming Encounters Date Type Department Care Team (Late st Contact Info) Description 10/22/2024 11:[address] [facility] [address] [phone] Vladislav Ramirez MD [address] [phone] Health Maintenance Due Date Last Done Comments Breast Cancer Screening 1984 DTaP,Tdap,and Td Vaccines (1 - Tdap) 02/27/2003 Hepatitis B Vaccines (1 of 3 - 19+ 3-dose series) 02/27/2003 Cervical Cancer Screening: P ap Smear 02/27/2005 COVID-19 Vaccine ( - 2023-2 5 season) 2023 Depression Screening 03/06/2024 HIV Screening 09/20/2024 Hepatitis C Screening 09/20/2024 Social Influencers of Health Screening 09/20/2024 Influenza Vaccine (#1) 2024 HIB Vaccines Aged Out No longer eligi ble based on patient's age to complete this topic HPV Vaccines Aged Out No longer eligi ble based on patient's age to complete this topic Hepatitis A Vaccines Aged Out No long er eligible based on patient's age to complete this topic IPV Vaccines Aged Out No longer eligi ble based on patient's age to complete this topic MMR Vaccines Aged Out No longer eligi ble based on patient's age to complete this topic Meningococcal ACWY Vaccine Aged Out N o longer eligible based on patient's age to complete this topic Meningococcal B Vaccine Aged Out No l onger eligible based on patient's age to complete this topic Pneumococcal Vaccine: Pediat rics (0 to 5 Years) and At-Risk Patients (6 to 49 Years) Aged Out No longer eligible b ased on patient's age to complete this topic RSV Immunization Patients Un elmer 20 months Aged Out No longer eligible b ased on patient's age to complete this topic Varicella Vaccines Aged Out No longer eligible based on patient's age to complete this topic Insurance [address] [place] [address] [employer] Care Teams Insurance Follow Up Rep Relationship Specialty Start Date End Date Robin Mcdaniels MD [address] [place] [phone] PCP - General Internal Medicine 09/19/24
== END 2024-09-27 15:34 | disposition home or self-care (01) ==
LOC: HO.HMCH 14:47
PROVIDERS: PCP Internal Medicine; Visit Provider Internal Medicine
DX: Z00.00 Encounter for general adult medical examination without abnormal findings (principal); R93.0 Abnormal findings on diagnostic imaging of skull and head, not elsewhere classified; I26.99 Other pulmonary embolism without acute cor pulmonale; D80.3 Selective deficiency of immunoglobulin G [IgG] subclasses; J45.40 Moderate persistent asthma, uncomplicated; E78.00 Pure hypercholesterolemia, unspecified; E55.9 Vitamin D deficiency, unspecified; G47.00 Insomnia, unspecified; F41.9 Anxiety disorder, unspecified; F33.9 Major depressive disorder, recurrent, unspecified

== ENCOUNTER → 2024-09-27 14:46 | Outpatient (BNVA) | payer OTHER, SELFPAY | PROVIDERS: PCP Internal Medicine; Visit Provider Internal Medicine | DX: Z00.00 Encounter for general adult medical examination without abnormal findings (principal); R93.0 Abnormal findings on diagnostic imaging of skull and head, not elsewhere classified; I26.99 Other pulmonary embolism without acute cor pulmonale; D80.3 Selective deficiency of immunoglobulin G [IgG] subclasses; J45.40 Moderate persistent asthma, uncomplicated; E78.00 Pure hypercholesterolemia, unspecified; E55.9 Vitamin D deficiency, unspecified; G47.00 Insomnia, unspecified; F41.9 Anxiety disorder, unspecified; F33.9 Major depressive disorder, recurrent, unspecified | CPT/HCPCS: 96127; 99396 ==

== ENCOUNTER 2024-10-11 08:30 | Outpatient (REF) | payer OTHER, SELFPAY ==
--- OUTSIDE RECORDS SUMMARY | 2024-10-11 08:43 | XMS_ITS | Clinical Summary ---
Author Organization [facility] Address [address] [place] [id number] Phone Care Team Providers Care Straight Ruling Machine Operator Name Role Phone Pcp, Unknown Primary [...] DIRECT CONNECTORCARE DIRECT CONNECTORCARE DIRECT Care Teams Straight Ruling Machine Operator Relationship Specialty Start Date End Date Pcp, Unknown PCP - General 11/09/23 Additional Source Comments The information contained in this document represents components of the legal health record. It is not the complete legal health record.[facility]
--- OUTSIDE RECORDS SUMMARY | 2024-10-11 08:43 | XMS_ITS | Clinical Summary ---
Author Organization [facility] Address [address] [place] [address] Phone Care Team Providers Care Journeyman Lineman Name Role Phone Robin Mcdaniels MD Primary Care Provider Social History Tobacco Use Types Packs/Day Years Used Date Smoking Tobacco: Never Assessed Comments Unknown Sex and Gender Information Value Date Recorded Sex Assigned at Not on file Legal Sex Female 8:58 AM EST Gender Identity Not on file Sexual Orientation Not on file Plan of Treatment Upcoming Encounters Date Type Department Care Team ([facility] Contact Info) Description 10/22/2024 11:00 AM EDT Consult [facility] [address] [id number] Vladislav Ramirez MD [address] [phone] Health Maintenance Due Date Last Done Comments Breast Cancer Screening 1984 Hepatitis B Vaccines (1 of 3 - 19+ 3-dose series) 02/27/2003 Cervical Cancer Screening: P ap Smear 02/27/2005 DTaP,Tdap,and Td Vaccines (2 - Td or Tdap) 11/16/2021 11/17/2011 COVID-19 Vaccine (2023-2 5 season) 2023 Depression Screening 03/06/2024 HIV [...] to 49 Years) Aged Out No longer eligi ble based on patient's age to complete this topic RSV Immunization Patients Un elmer 20 months Aged Out No longer eligible b ased on patient's age to complete this topic Varicella Vaccines Aged Out No longer eligible based on patient's age to complete this topic Insurance [employer] Care Teams Journeyman Lineman Relationship Specialty Start Date End Date Robin Mcdaniels MD PCP - General Internal Medicine 09/19/24
[2024-10-11 08:51] LABS: MANUAL DIFF FLAG NO
[2024-10-11 09:08] LABS: Appearance Urine Cloudy; Glucose Urine UA Negative (Negative); PH 5.5 (5.0-9.0); Specific Gravity - Urine >= 1.030 (1.005-1.025); UMIC TRIGGER UACC YES
[2024-10-11 09:11] LABS: UACC Culture Trigger YES
[2024-10-11 09:13] LABS: Hematocrit 38.2 % (37.0-47.0); Hemoglobin 12.8 g/dl (12.0-16.0); Imm Gran Abs Auto 0.08 X10*3/uL (0.00-0.03); Imm Gran Pct Auto 1.7 % (0.0-0.4); Lymphocytes Absolute Auto 1.5 X10*3/uL (1.2-4.9); Mean Corpuscular HGB Conc 33.5 g/dl (31.0-35.0); Mean Corpuscular Hemoglobin 29.7 pg (27.0-33.0); Mean Corpuscular Volume 88.6 fL (80.0-98.0); NRBC Abs Auto 0.000 X10*3/uL (0.0-0.012); NRBC Pct Auto 0.0 /100WBC (0.0-0.2); Platelet Count 254 X10*3/uL (160-400); Red Blood Count 4.31 X10*6/uL (4.20-5.50); White Blood Count 4.7 X10*3/uL (4.8-10.8)
[2024-10-11 09:43] LABS: Alanine Aminotransferase 22 U/L (0-31); Albumin Level 4.2 g/dL (3.5-5.0); Alkaline Phosphatase 64 U/L (39-117); Anion Gap 11 (12-20); Aspartate Amino Transferase 20 U/L (5-31); Blood Urea Nitrogen 9 mg/dL (9-16); Calcium 8.7 mg/dL (8.4-10.2); Carbon Dioxide 23 mmol/L (22-29); Chloride 110 mmol/L (96-108); Cholesterol 208 mg/dL (<200); Estimated Glomerular Filt Rate > 60; HDL Cholesterol 55 mg/dL (>40); Potassium 4.0 mmol/L (3.3-5.1); Sodium 140 mmol/L (135-145); Total Protein 7.3 g/dL (6.5-8.0); Triglycerides 70 mg/dL (<150)
== END 2024-10-11 08:31 | disposition home or self-care (01) ==
LOC: HO.LAB 08:30
PROVIDERS: PCP Internal Medicine; Visit Provider Internal Medicine
DX: Z00.00 Encounter for general adult medical examination without abnormal findings (principal); D64.9 Anemia, unspecified; E78.00 Pure hypercholesterolemia, unspecified; R30.0 Dysuria; E55.9 Vitamin D deficiency, unspecified
CPT/HCPCS: 36415; 80053; 80061; 81001; 82306; 84443; 85025; 87086

== ENCOUNTER → 2024-10-30 14:51 | Outpatient (BNVA) | payer OTHER, SELFPAY | PROVIDERS: PCP Internal Medicine; Visit Provider Advanced Practice Midwife | DX: N93.9 Abnormal uterine and vaginal bleeding, unspecified (principal) | CPT/HCPCS: 96372; 99211; J1050 ==

== ENCOUNTER 2024-11-07 11:46 | Outpatient (AMB) | payer OTHER, SELFPAY ==
--- NOTE | 2024-11-07 11:47 | MHC.OFFVIS ---
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 Intern Required: No Information Interpreted: non-clinical & clinical Allergies No Known Allergies (No Known Allergies*) Allergy (Verified 11/07/24 11:48) HPI Comments Details: The patient is schedule telehealth visit to discuss different options of control since she has been on Provera and developed PE on infusions PFSH Medical History Reactive airway disease Asthma Chronic migraine without aura Abnormal MRI of the head Pulmonary embolism Sore throat LGSIL on Pap smear of cervix Pain in both hands Bilateral hand numbness Overweight (BMI 25.0-29.9) Insomnia Vitamin D deficiency Pure hypercholesterolemia Depression Anxiety Status post hysteroscopy (~03/12/17) Carpal tunnel syndrome Surgical History S/P cubital tunnel release History of carpal tunnel release History of mastopexy (~09/28/19) Status post abdominoplasty (~09/28/19) Family History Mother Mental illness in member of household Hypertension Cervical cancer Maternal Grandfather Gastric cancer Other Mental health problem Social History Household Members: Spouse and Children Housing: House Alcohol intake: current Alcohol intake frequency: holidays/special occasions only Patient Tobacco Use Status: Never used Tobacco Tobacco use type: Cigarette e-Cigarette/Vaping Use: Never Used Second Hand Smoke Exposure: Yes service: No Current occupational status: employed 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 Sexual orientation: Straight/Heterosexual Gender identity: Female Cognitive needs: No Hearing needs: No Vision needs: No Female Reproductive History Menstrual Age of Menarche: 14 Review of Systems Const All systems reviewed & are unremarkable except as noted in HPI and below Reports as per HPI and Reports no additional complaints GI Reports no additional complaints Reports no additional complaints Telehealth Telehealth Telehealth Platform: [facility] Location of provider rendering services: practice address Location of patient: address on file Patient Identification confirmed using: Name, : Yes Telehealth method: video Patient verbally consented to treatment: Yes Patient verbally consented to billing insurance company: Yes Patient informed of any privacy concerns related to visit: Yes Minutes spent on Phone/Video with Pt.: 12 Assessment & Plan Assessment & Plan (1) Family planning: Comment: History of PE Code(s): Z30.09 - Encounter for other general counseling and advice on contraception Category: Social Hx Plan: Recommended discontinuation of Depo-Provera. Discussed with the patient the different options of control including Mirena IUD, ParaGard IUD, sterilization vasectomy. All pros and cons, risks and benefits of each were discussed with the patient, the patient decided to proceed with vasectomy will discuss it with her . All questions answered, the patient verbalized understanding. I spent a total of 20 minutes reviewing the chart, talking to the patient via video and documenting in the medical record. Coding Level of Care Code Tele Est Pt Level 3 (90065) Diagnoses Family planning Z30.09
--- OUTSIDE RECORDS SUMMARY | 2024-11-07 13:25 | XMS_ITS | Clinical Summary ---
Author Organization [facility] Address [address] [place] [id number] Phone Care Team Providers Care Supervisor Fertilizer Name Role Phone Pcp, Unknown Primary Care [...] DIRECT CONNECTORCARE DIRECT CONNECTORCARE DIRECT Care Teams Supervisor Fertilizer Relationship Specialty Start Date End Date Pcp, Unknown PCP - General 11/09/23 Additional Source Comments The information contained in this document represents components of the legal health record. It is not the complete legal health record.[facility]
--- OUTSIDE RECORDS SUMMARY | 2024-11-07 13:26 | XMS_ITS | Clinical Summary ---
Author Organization [address] [facility] Address [address] [place] [address] Phone Care Team Providers Care Rn Lactation Consultant Name Role Phone Robin Mcdaniels MD Primary Care Provider + [phone] Allergies No known active allergies Medications amitriptyline (ELAVIL) 10 mg tablet Take 1 tablet (10 mg total) by mouth at bedtime. Active FLUoxetine (PROzac) 40 mg capsule Take 1 capsule (40 mg total) by mouth 1 (one) time each day. Active cloNIDine (CATAPRES) 0.2 mg tablet Take 1 tablet (0.2 mg total) by mouth at bedtime. Active cloNIDine (CATAPRES) 0.1 mg tablet Take 1 tablet (0.1 mg total) by mouth at bedtime. Active Eliquis 5 mg tablet Take 1 tablet (5 mg total) by mouth 2 (two) times a day. 5 Active albuterol HFA (PROAIR HFA ; PROVENTIL HFA ; VENTOLIN HFA) 90 mcg/actuation inhaler Inhale 2 puffs by mouth if needed for wheezing or shortness of breath. 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) from Last 3 Months Social History Tobacco Use Types Packs/Day Years Used Date Smoking Tobacco: Never Assessed Comments Unknown Sex and Gender Information Value Date Recorded Sex Assigned at Not on file Legal Sex Female 8:58 AM EST Gender Identity Not on file Sexual Orientation Not on file Travel History Travel Start Travel End [place] 10/14/2024 10/20/2024 Last Filed Vital Signs Vital Sign Reading Time Taken Comments Blood Pressure 119/83 10/22/2024 11:06 AM EDT Pulse 83 10/22/2024 11:06 AM EDT Temperature - - Respiratory Rate - - Oxygen Saturation 99% 10/22/2024 11:06 AM EDT Inhaled Oxygen Concentration - - Weight 68 kg (150 lb) 10/22/2024 11:06 AM EDT Height 162.6 cm (5' 4 ) 10/22/2024 11:06 AM EDT Body Mass Index 25.75 10/22/2024 11:06 AM EDT Plan of Treatment Upcoming Encounters Date Type Department Care Team (Late st Contact Info) Description 11/08/2024 3:30 PM EDT Appointment [facility] [address] [place] [address] 11/08/2024 4:15 PM EDT Appointment [facility] [address] [place] [address] 12/12/2024 4:00 PM EDT Office Visit [facility] [address] [facility] [address] [place] [address] Vladislav Ramirez MD [address] [place] [phone] Health Maintenance Due Date Last Done Comments Breast Cancer Screening 1984 Hepatitis B Vaccines (1 of 3 - 19+ 3-dose series) 02/27/2003 Cervical Cancer Screening: P ap Smear 02/27/2005 Depression Screening 03/06/2024 Social Influencers of Health Screening 09/20/2024 COVID-19 Vaccine (3 - 2024-2 6 season) 2024 07/30/2020, 07/09/2020 Influenza Vaccine (#1) 2024 DTaP,Tdap,and Td Vaccines (4 - Td or Tdap) 07/13/2033 07/14/2023, 01/02/2018, 11/17/2011 Pneumococcal Vaccine: Pediatrics (0 to 5 Years) and At-Risk Patients (6 to 49 Years) Aged Out 07/14/2023 No longer eligible b ased on patient's age to complete this topic HIV Screening Completed 10/22/2024 Hepatitis C Screening Completed 10/22/2024 HIB Vaccines Aged Out No longer eligi [...] to complete this topic RSV Immunization Patients Under 20 months Aged Out No longer eligible b ased on patient's age to complete this topic Varicella Vaccines Aged Out No longer eligible based on patient's age to complete this topic Procedures Procedure Name Priority Date/Time Associated Diagnosis Comments INTERFERON GAMMA INTERPRETATION Routine 10/22/2024 12:13 PM EDT White matter lesion of central nervous system INTERFERON GAMMA ANTIGEN 2 Routine 10/22/2024 12:13 PM EDT White matter lesion of central nervous system INTERFERON GAMMA ANTIGEN 1 Routine 10/22/2024 12:13 PM EDT White matter lesion of central nervous system INTERFERON GAMMA MITOGEN Routine 10/22/2024 12:13 PM EDT White matter lesion of central nervous system INTERFERON GAMMA NIL Routine 10/22/2024 12:13 PM EDT White matter lesion of central nervous system CBC WITH AUTO DIFFERENTIAL Routine 10/22/2024 12:13 PM EDT White matter lesion of central nervous system TRUONG URINE CULTURE TUBE Routine 10/23/19 12:13 PM EDT White matter lesion of central nervous system URINALYSIS WITH REFLEX MICROSCOPIC AND CULTURE Routine 10/22/2024 12:13 PM EDT White matter lesion of central nervous system IMMUNOGLOBULIN IGM Routine 10/22/2024 12 :13 PM EDT White matter lesion of central nervous system IMMUNOGLOBULIN IGG Routine 10/22/2024 12 :13 PM EDT White matter lesion of central nervous system IMMUNOGLOBULIN IGA Routine 10/22/2024 12 :13 PM EDT White matter lesion of central nervous system HIV 1, 2 ANTIBODY, P24 ANTIGEN WITH REFLEX TO DIFFERENTIATION Routine 10/22/2024 12:13 PM EDT White matter lesion of central nervous system INTERFERON GAMMA FOR TB, QUALITATIVE Routine 10/22/2024 12:13 PM EDT White matter lesion of central nervous system HEPATITIS B SURFACE ANTIGEN WITH CONFIRMATION Routine 10/22/2024 12:13 PM EDT White matter lesion of central nervous system HEPATITIS B CORE ANTIBODY IGM Routine 10/22/2024 12:13 PM EDT White matter lesion of central nervous system HEPATITIS C ANTIBODY Routine 10/22/2024 12:13 PM EDT White matter lesion of central nervous system HEPATIC FUNCTION PANEL Routine 12:13 PM EDT White matter lesion of central nervous system VARICELLA ZOSTER ANTIBODY IGG Routine 10/22/2024 12:13 PM EDT White matter lesion of central nervous system MYELIN OLIGODENDROCYTE GLYCOPROTEIN ANTIBODY WITH REFLEX TO TITER Routine 10/22/2024 12:13 PM EDT White matter lesion of central nervous system SJOGRENS ANTIBODIES, SSA AND SSB Routine 10/22/2024 12:13 PM EDT White matter lesion of central nervous system RHEUMATOID FACTOR Routine 10/22/2024 12: 13 PM EDT White matter lesion of central nervous system BUN Routine 10/22/2024 12:13 PM EDT White matter lesion of central nervous system CREATININE, SERUM Routine 10/22/2024 12: 13 PM EDT White matter lesion of central nervous system CBC AND DIFFERENTIAL Routine 10/22/2024 12:13 PM EDT White matter lesion of central nervous system BORRELIA BURGDORFERI ANTIBODY Routine 10/22/2024 12:13 PM EDT White matter lesion of central nervous system URINALYSIS WITH REFLEX MICROSCOPIC AND CULTURE Routine 10/22/2024 12:13 PM EDT White matter lesion of central nervous system CULTURE URINE Routine 10/22/2024 12:13 PM EDT White matter lesion of central nervous system from Last 3 Months Results * Hepatitis C antibody (10/22/2024 12:13 PM EDT) Hepatitis C Antibody Negative Negative LAB CHEMISTRY METHOD 10/22/2024 8:27 PM EDT [facility] Blood Venous blood specimen / Unknown Venipuncture / Unknown 10/22/2024 12:13 PM EDT 10/22/2024 12:13 PM EDT Vladislav Ramirez MD LAB BLOOD ORDERABLES Fin al Result [facility] [address] [place] [address], * HIV 1,2 antibody, p24 antigen with reflex to differentiation (10/22/2024 12:13 PM EDT) HIV Combo AB/AG Negative Negative LAB CHEMISTRY METHOD 10/22/2024 8:28 PM EDT [facility] Blood Venous blood specimen / Unknown Venipuncture / Unknown 10/22/2024 12:13 PM EDT 10/22/2024 12:13 PM EDT Narrative [facility] - 10/22/2024 8:28 PM EDT This assay is a 4th generation assay allowing for earlier detection of HIV infection by detecting the presence of the HIV-1 p24 antigen as well as the traditional antibodies to HIV type 1 (including group O) and type 2. Use of a 4th generation assay is the current CDC recommendation for HIV screening. Vldaislav Ramirez MD LAB BLOOD ORDERABLES Fin al Result [facility] [address] [place] [address], [place] [phone] * (ABNORMAL) Urinalysis with reflex microscopic and culture (10/22/2024 12:13 PM EDT) Specific [place] Urine 1.017 1.003 - 1.030 LAB URINALYSIS - AUTOMATED METHOD 10/22/2024 2:25 PM EDT [facility] pH, Urine 7.0 5.0 - 8.0 pH LAB URINALYSIS - AUTOMATED METHOD 10/22/2024 2:25 PM EDT [facility] Leukocytes, Urine Small(A) Negative LAB URINALYSIS - AUTOMATED METHOD 10/22/2024 2:25 PM EDT [facility] Nitrite, Urine Negative Negative LAB URINALYSIS - AUTOMATED METHOD 10/22/2024 2:25 PM EDT [facility] Protein, Urine Negative <=Trace mg/dL LAB URINALYSIS - AUTOMATED METHOD 10/22/2024 2:25 PM EDT [facility] Glucose, Urine Negative Negative mg/dL LAB URINALYSIS - AUTOMATED METHOD 10/22/2024 2:25 PM EDT [facility] Ketones, Urine Negative Negative mg/dL LAB URINALYSIS - AUTOMATED METHOD 10/22/2024 2:25 PM EDT [facility] Urobilinogen, Urine 1.0 0.2 - 1.0 mg/dL LAB URINALYSIS - AUTOMATED METHOD 10/22/2024 2:25 PM EDT [facility] Bilirubin, Urine Negative Negative LAB URINALYSIS - AUTOMATED METHOD 10/22/2024 2:25 PM EDT [facility] Blood, Urine Negative Negative LAB URINALYSIS - AUTOMATED METHOD 10/22/2024 2:25 PM T [facility] RBC, Urine 2.1 0 - 4 /HPF LAB URINALYSIS - AUTOMATED METHOD 10/22/2024 2:25 PM [facility] WBC, Urine 2.6 0 - 4 /HPF LAB URINALYSIS - AUTOMATED METHOD 10/22/2024 2:25 PM [facility] Squamous Epithelial, Urine >100(H) 0 - 60 /LPF LAB URINALYSIS - AUTOMATED METHOD 10/22/2024 2:25 PM [facility] Bacteria, Urine Few(A) Negative /HPF LAB URINALYSIS - AUTOMATED METHOD 10/22/2024 2:25 PM [facility] Hyaline Casts, Urine 0.4 0 - 3 /LPF LAB URINALYSIS - AUTOMATED METHOD 10/22/2024 2:25 PM [facility] Urine Urine specimen obtained by clean catch procedure / Unknown Non-blood Collection / Unknown 10/22/2024 12:13 PM EDT 10/22/2024 12:13 PM EDT Vladislav Ramirez MD LAB URINE ORDERABLES Fin al Result [facility] [address] [place] [address], * Interferon gamma interpretation (10/22/2024 12:13 PM EDT) Quantiferon Plus Interpretation Negative Negative LAB CHEMISTRY METHOD 10/23/2024 1:46 PM EDT [facility] Blood Venous blood specimen / Unknown Venipuncture / Unknown 10/22/2024 12:13 PM EDT 10/22/2024 12:13 PM EDT us Vladislav Ramirez MD LAB BLOOD ORDERABLES Fin al Result Performing Organization Address City/[facility]/ZIP Co de Phone Number [facility] [address] [place] [address], [place] [phone] * Interferon gamma antigen 2 (10/22/2024 12:13 PM EDT) Blood Venous blood specimen / Unknown Venipuncture / Unknown 10/22/2024 12:13 PM EDT 10/22/2024 12:13 PM EDT us Vladislav Ramirez MD LAB BLOOD ORDERABLES Fin al Result Performing Organization Address [facility] Co de Phone Number [facility] [address] [place] [address], [place] [phone] * Interferon gamma antigen 1 (10/22/2024 12:13 PM EDT) Blood Venous blood specimen / Unknown Venipuncture / Unknown 10/22/2024 12:13 PM EDT 10/22/2024 12:13 PM EDT us Vladislav Ramirez MD LAB BLOOD ORDERABLES Fin al Result Performing Organization Address City/[facility]/ZIP Co de Phone Number [facility] [address] [place] [address], [place] [phone] * Interferon gamma mitogen (10/22/2024 12:13 PM EDT) Blood Venous blood specimen / Unknown Venipuncture / Unknown 10/22/2024 12:13 PM EDT 10/22/2024 12:13 PM EDT us Vladislav Ramirez MD LAB BLOOD ORDERABLES Fin al Result Performing Organization Address City/[facility]/ZIP Co de Phone Number [facility] [address] [place] [address], * Interferon gamma NIL (10/22/2024 12:13 PM EDT) Blood Venous blood specimen / Unknown Venipuncture / Unknown 10/22/2024 12:13 PM EDT 10/22/2024 12:13 PM EDT us Vladislav Ramirez MD LAB BLOOD ORDERABLES Fin al Result Performing Organization Address City/[facility]/ZIP Co de Phone Number [facility] [address] [place] [address], * Hepatitis B surface antigen with reflex to confirmation (10/22/2024 12:13 PM EDT) [facility] Hepatitis B Surface Ag Negative Negative LAB CHEMISTRY METHOD 10/22/2024 8:44 PM EDT [facility] Blood Venous blood specimen / Unknown Venipuncture / Unknown 10/22/2024 12:13 PM EDT 10/22/2024 12:13 PM EDT Narrative [facility] - 10/22/2024 8:44 PM EDT Over the counter supplements containing high doses of biotin may interfere with this assay. If interference is suspected, patients shoud be retested after refraining from biotin supplements for 72 hours. us Vladislav Ramirez MD LAB BLOOD ORDERABLES Fin al Result Performing Organization Address [facility] Co de Phone Number [facility] [address] [place] [address], * Truong urine culture tube (10/22/2024 12:13 PM EDT) [facility] Extra Tube Hold for add-ons. 10/22/2024 2:01 PM EDT [facility] Comment:Auto resulted. Urine Urine specimen obtained by clean catch procedure / Unknown Non-blood Collection / Unknown 10/22/2024 12:13 PM EDT 10/22/2024 12:13 PM EDT us Vladislav Ramirez MD LAB URINE ORDERABLES Fin al Result [facility] [address] [place] [address], [place] [phone] * Myelin oligodendrocyte glycoprotein antibody with reflex to titer (10/22/2024 12:13 PM EDT) [facility] MOG Antibody, Cell-based IFA Negative Negative 10/26/2024 6:05 AM EDT [facility] Blood Venous blood specimen / Unknown Venipuncture / Unknown 10/22/2024 12:13 PM EDT 10/22/2024 12:13 PM EDT Narrative [facility] - 10/26/2024 6:05 AM EDT Test(s) 826284-[id number] Antibody, Cell-based IFA was developed and its performance characteristics determined by [facility]. It has not been cleared or approved by the Food and Drug Administration. Performed at: 01 - [address] [id number] Track Moving Machine Operator: Bibiana Carlson MD, Phone: [phone] Vladislav Ramirez MD LAB BLOOD ORDERABLES Fin al Result [facility] * Sjogrens antibodies, SSA and SSB (10/22/2024 12:13 PM EDT) Pathologist [facility] Sjogren's SS-A (Ro) Ab Quant 10 <20 units LAB CHEMISTRY METHOD 10/27/2024 10:31 AM EDT [facility] Sjogren's SS-A (Ro) Ab Negative Negative LAB CHEMISTRY METHOD 10/27/2024 10:31 AM EDT [facility] Sjogren's SS-B (La) Ab Quant 2 <20 units LAB CHEMISTRY METHOD 10/27/2024 10:31 AM EDT [facility] Sjogren's SS-B (La) Ab Negative Negative LAB CHEMISTRY METHOD 10/27/2024 10:31 AM EDT [facility] Blood Venous blood specimen / Unknown Venipuncture / Unknown 10/22/2024 12:13 PM EDT 10/22/2024 12:13 PM EDT Vladislav Ramirez MD LAB BLOOD ORDERABLES Fin al Result [facility] [address] [place] [address], [place] [phone] * (ABNORMAL) CBC auto differential (10/22/2024 12:13 PM EDT) WBC 3.5(L) 4.8 - 10.8 K/mcL LAB HEMETOLOGY METHOD 10/22/2024 2:20 PM EDT [facility] RBC 4.20 3.80 - 4.80 M/mcL LAB HEMETOLOGY METHOD 10/22/2024 2:20 PM EDT [facility] Hemoglobin 12.6 11.5 - 16.0 g/dL LAB HEMETOLOGY METHOD 10/22/2024 2:20 PM EDT [facility] Hematocrit 39.1 35.0 - 47.0 % LAB HEMETOLOGY METHOD 10/22/2024 2:20 PM EDT [facility] MCV 93.1 79.0 - 98.0 FL LAB HEMETOLOGY METHOD 10/22/2024 2:20 PM EDT [facility] MCH 30.0 27.0 - 32.0 pcg LAB HEMETOLOGY METHOD 10/22/2024 2:20 PM EDT [facility] MCHC 32.2 32.0 - 37.0 g/dL LAB HEMETOLOGY METHOD 10/22/2024 2:20 PM EDT [facility] RDW 13.2 11.0 - 15.0 % LAB HEMETOLOGY METHOD 10/22/2024 2:20 PM EDT [facility] Platelets 228 130 - 400 K/mcL LAB HEMETOLOGY METHOD 10/22/2024 2:20 PM [facility] MPV 11.2(H) 7.0 - 11.0 FL LAB HEMETOLOGY METHOD 10/22/2024 2:20 PM EDT [facility] NRBC 0.0 <1.0 % LAB HEMETOLOGY METHOD 10/22/2024 2:20 PM [facility] NRBC Absolute 0.00 <0.10 K/mcL LAB HEMETOLOGY METHOD 10/22/2024 2:20 PM [facility] Neutrophils Relative 51.1 % LAB HEMETOLOGY METHOD 10/22/2024 2:20 PM [facility] Lymphocytes Relative 32.1 % LAB HEMETOLOGY METHOD 10/22/2024 2:20 PM [facility] Monocytes Relative 11.0 % LAB HEMETOLOGY METHOD 10/22/2024 2:20 PM [facility] Eosinophils Relative 2.9 % LAB HEMETOLOGY METHOD 10/22/2024 2:20 PM [facility] Basophils Relative 1.2 % LAB HEMETOLOGY METHOD 10/22/2024 2:20 PM [facility] Immature Granulocytes Relative 1.7 % LAB HEMETOLOGY METHOD 10/22/2024 2:20 PM [facility] Neutrophils Absolute 1.77 1.50 - 7.00 K/mcL LAB HEMETOLOGY METHOD 10/22/2024 2:20 PM [facility] Lymphocytes Absolute 1.11 1.00 - 5.00 K/mcL LAB HEMETOLOGY METHOD 10/22/2024 2:20 PM T [facility] Monocytes Absolute 0.38 0.20 - 1.00 K/mcL LAB HEMETOLOGY METHOD 10/22/2024 2:20 PM EDT [facility] Eosinophils Absolute 0.10 0.00 - 0.50 K/[facility] LAB HEMETOLOGY METHOD 10/22/2024 2:20 PM EDT [facility] Basophils Absolute 0.04 0.00 - 0.20 K/[facility] LAB HEMETOLOGY METHOD 10/22/2024 2:20 PM EDT [facility] Immature Granulocytes Absolute 0.06(H) 0.00 - 0.03 K/[facility] LAB HEMETOLOGY METHOD 10/22/2024 2:20 PM EDT [facility] Blood Venous blood specimen / Unknown Venipuncture / Unknown 10/22/2024 12:13 PM EDT 10/22/2024 12:13 PM EDT us Vladislav Ramirez MD LAB BLOOD ORDERABLES Fin al Result Performing Organization Address City/[facility]/ZIP Co de Phone Number [facility] [address] [place] [address], * Borrelia burgdorferi antibody (10/22/2024 12:13 PM EDT) [facility] Lyme Ab Negative Negative LAB CHEMISTRY METHOD 10/23/2024 10:31 AM EDT [facility] Comment: No laboratory evidence of infection with B. burgdorferi (Lyme disease). Negative results may occur in patients recently infected (<=14 days) with B. burgdorferi. If recent infection is suspected, repeat testing on a new sample collected in 7- 14 days is recommended. Blood Venous blood specimen / Unknown Venipuncture / Unknown 10/22/2024 12:13 PM EDT 10/22/2024 12:13 PM EDT us Vladislav Ramirez MD LAB BLOOD ORDERABLES Fin al Result [facility] [address] [place] [address], [place] [phone] * Hepatitis B core antibody IgM (10/22/2024 12:13 PM EDT) [facility] Hep B Core IgM Negative Negative LAB CHEMISTRY METHOD 10/22/2024 8:27 PM EDT [facility] Blood Venous blood specimen / Unknown Venipuncture / Unknown 10/22/2024 12:13 PM EDT 10/22/2024 12:13 PM EDT Narrative [facility] - 10/22/2024 8:27 PM EDT Over the counter supplements containing high doses of biotin may interfere with this assay. If interference is suspected, patients shoud be retested after refraining from biotin supplements for 72 hours. us Vladislav Ramirez MD LAB BLOOD ORDERABLES Fin al Result Performing Organization Address [facility] Co de Phone Number [facility] [address] [place] [address], [place] [phone] * Creatinine (10/22/2024 12:13 PM EDT) [facility] Creatinine 0.79 0.50 - 1.10 mg/dL LAB CHEMISTRY METHOD 10/22/2024 7:00 PM EDT [facility] eGFR 97 >=60 mL/min/1. 73m2 LAB CHEMISTRY METHOD 10/22/2024 7:00 PM EDT [facility] Comment:Calculation based on the Chronic Kidney Disease Epidemiology Collaboration (CKD-EPI) equation refit without adjustment for race. Blood Venous blood specimen / Unknown Venipuncture / Unknown 10/22/2024 12:13 PM EDT 10/22/2024 12:13 PM EDT us Vladislav Ramirez MD LAB BLOOD ORDERABLES Fin al Result [facility] [address] [place] [address], [place] [phone] * Culture urine (10/22/2024 12:13 PM EDT) [facility] Culture, Urine 50,000-99,000 CFU/mL Mixed urogenital zheng, no uropathogens present. Suggest repeat specimen if clinically indicated. 10/24/2024 12:48 PM EDT [facility] Urine Urine specimen obtained by clean catch procedure / Unknown Non-blood Collection / Unknown 10/22/2024 12:13 PM EDT 10/22/2024 2:25 PM EDT us Vladislav Ramirez MD LAB MICROBIOLOGY - GENER AL ORDERABLES Final Result Performing Organization Address [facility]/ZIP Co de Phone Number [facility] [address] [place] [address], [place] [phone] * Rheumatoid factor (10/22/2024 12:13 PM EDT) [facility] Rheumatoid Factor <10.0 <15.0 I Unit/mL LAB CHEMISTRY METHOD 10/22/2024 7:24 PM EDT [facility] Blood Venous blood specimen / Unknown Venipuncture / Unknown 10/22/2024 12:13 PM EDT 10/22/2024 12:13 PM EDT us Vladislav Ramirez MD LAB BLOOD ORDERABLES Fin al Result [facility] [address] [place] [address], [place] [phone] * Varicella zoster antibody IgG (10/22/2024 12:13 PM EDT) [facility] Varicella IgG Positive Positive LAB CHEMISTRY METHOD 10/23/2024 10:31 AM EDT [facility] Varicella Zoster IgG 22.00 >=1.00 S/CO LAB CHEMISTRY METHOD 10/23/2024 10:31 AM EDT [facility] Blood Venous blood specimen / Unknown Venipuncture / Unknown 10/22/2024 12:13 PM EDT 10/22/2024 12:13 PM EDT Narrative [facility] - 10/23/2024 10:31 AM EDT Interpretation >= 1.00 S/CO is considered to be consistent with Immunity us Vladislav Ramirez MD LAB BLOOD ORDERABLES Fin al Result Performing Organization Address City/[facility]/ZIP Co de Phone Number [facility] [address] [place] [address], [place] [phone] * BUN (10/22/2024 12:13 PM EDT) BUN 8 5 - 25 mg/dL LAB CHEMISTRY METHOD 10/22/2024 7:00 PM EDT [facility] Blood Venous blood specimen / Unknown Venipuncture / Unknown 10/22/2024 12:13 PM EDT 10/22/2024 12:13 PM EDT us Vladislav Ramirez MD LAB BLOOD ORDERABLES Fin al Result [facility] [address] [place] [address], [place] [phone] * Immunoglobulin IgA (10/22/2024 12:13 PM EDT) IgA 316 61 - 348 mg/dL LAB CHEMISTRY METHOD 10/22/2024 7:24 PM EDT [facility] Blood Venous blood specimen / Unknown Venipuncture / Unknown 10/22/2024 12:13 PM EDT 10/22/2024 12:13 PM EDT us Vladislav Ramirez MD LAB BLOOD ORDERABLES Fin al Result Performing Organization Address [facility]/ZIP Co de Phone Number [facility] [address] [place] [address], [place] [phone] * Immunoglobulin IgM (10/22/2024 12:13 PM EDT) IgM 58 23 - 259 mg/dL LAB CHEMISTRY METHOD 10/22/2024 7:24 PM EDT [facility] Blood Venous blood specimen / Unknown Venipuncture / Unknown 10/22/2024 12:13 PM EDT 10/22/2024 12:13 PM EDT Vladislav Ramirez MD LAB BLOOD ORDERABLES Fin al Result Performing Organization Address [facility] de Phone Number [facility] [address] [place] [address], [place] [phone] * (ABNORMAL) Immunoglobulin IgG (10/22/2024 12:13 PM EDT) Total IgG 2,040(H) 549 - 1,584 mg/dL LAB CHEMISTRY METHOD 10/22/2024 7:24 PM EDT [facility] Blood Venous blood specimen / Unknown Venipuncture / Unknown 10/22/2024 12:13 PM EDT 10/22/2024 12:13 PM EDT Vladislav Ramirez MD LAB BLOOD ORDERABLES Fin al Result Performing Organization Address [facility] Co de Phone Number [facility] [address] [place] [address], [place] [phone] * Hepatic function panel (10/22/2024 12:13 PM EDT) Total Protein 7.8 6.0 - 8.0 g/dL LAB CHEMISTRY METHOD 10/22/2024 7:24 PM EDT [facility] Albumin 3.7 3.2 - 5.0 g/dL LAB CHEMISTRY METHOD 10/22/2024 7:24 PM EDT [facility] Total Bilirubin 0.4 0.0 - 1.4 mg/dL LAB CHEMISTRY METHOD 10/22/2024 7:24 PM EDT [facility] Bilirubin, Direct <0.1 0.0 - 0.3 mg/dL LAB CHEMISTRY METHOD 10/22/2024 7:24 PM EDT [facility] Bilirubin, Indirect LAB CHEMISTRY METHOD 10/22/2024 7:24 PM EDT [facility] Comment:Unable to calculate Indirect Bilirubin. ALT (SGPT) 48 10 - 60 unit/L LAB CHEMISTRY METHOD 10/22/2024 7:24 PM EDT [facility] AST (SGOT) 20 10 - 42 unit/L LAB CHEMISTRY METHOD 10/22/2024 7:24 PM EDT [facility] Alkaline Phosphatase 71 42 - 121 unit/L LAB CHEMISTRY METHOD 10/22/2024 7:24 PM EDT [facility] Blood Venous blood specimen / Unknown Venipuncture / Unknown 10/22/2024 12:13 PM EDT 10/22/2024 12:13 PM EDT Vladislav Ramirez MD LAB BLOOD ORDERABLES Fin al Result [facility] [address] [place] [address], from Last [address] [place] [address] PUBLIC PLANS Care Teams Rn Lactation Consultant Relationship Specialty Start Date End Date Robin Mcdaniels MD [address] [place] [address] [address] M[place]AL[place] Isabel PCP - General Internal Medicine 10/22/24
== END 2024-11-07 12:38 | disposition home or self-care (01) ==
LOC: HO.HWS 11:46
PROVIDERS: PCP Internal Medicine; Visit Provider Obstetrics & Gynecology
DX: Z30.09 Encounter for other general counseling and advice on contraception (principal)
CPT/HCPCS: 98004

== ENCOUNTER 2024-11-08 13:53 | Outpatient (AMB) | payer OTHER, SELFPAY ==
[2024-11-08 14:04] VITALS: BP 102/80; PULSE 83; O2SAT 98; BMI 27.1
--- NOTE | 2024-11-08 14:04 | MHC.PC.OV ---
Vital Signs 11/08/24 14:04 Height 5 ft 4 in Weight 158 lb 2 oz BMI 27.1 BP 102/80 Blood Pressure Location Lt brachial Position Sitting Pulse 83 Pulse Source Pulse Oximeter Pulse Oximetry (%) 98 Oxygen Delivery Method Room Air Intake Visit Reasons: pulmonary embolism Ham Pumper Required: No Accompanied by: Self / Same As Patient Allergies No Known Allergies (No Known Allergies*) Allergy (Verified 11/08/24 14:29) Medication List - Last Reconciled 11/08/24 by Robin Mcdaniels MD albuterol sulfate 90 mcg/actuation (Ventolin HFA) 2 puffs inhalation Q4-6H PRN amitriptyline 10 mg PO BEDTIME amlodipine 5 mg PO DAILY apixaban (Eliquis) 5 mg PO BID 30 days clonidine HCl 0.2 mg PO BEDTIME PRN fluoxetine 40 mg PO DAILY gqbrzggunjx-byipdszwq-ttylwkgs 100-62.5-25 mcg (Trelegy Ellipta) 1 inh inhalation DAILY hydroxyzine HCl 25 mg PO TID PRN 30 days ubrogepant (Ubrelvy) 50 mg PO ONCE PRN Tobacco use date assessed: 11/08/24 Dental Screening Dental Screen Date: 11/08/24 Did you have a dental visit in the last 12 months?: Yes Did you have a dental problem in the last 6 months where you did not have access to dental care?: No Was dental information given to patient?: Patient has dentist HPI pulmonary embolism HPI Details Patient comes in today for her follow-up visit States she was seen at [facility] a couple of weeks ago currently being sent for an MRI of the cervical and thoracic spine for further evaluation She was advised that she most likely has MS, based on her recent brain MRI findings Patient states that she has been experiencing increasing heartburn over the past few months now and these are sometimes severe enough to cause some pain in her chest area She denies any abdominal pain, nausea vomiting She denies any headaches or dizziness Denies any exertional chest pains but still has some mild PAPPAS She is still taking Eliquis for her pulmonary embolism, which was diagnosed back at the end of May 2024 No change in bowel habits noted She had her follow-up labs done last month - to discuss her results [facility] Medical History Reactive airway disease Asthma Chronic migraine without aura Abnormal MRI of the head Pulmonary embolism Sore throat LGSIL on Pap smear of cervix Pain in both hands Bilateral hand numbness Overweight (BMI 25.0-29.9) Insomnia Vitamin D deficiency Pure hypercholesterolemia Depression Anxiety Status post hysteroscopy (~03/12/17) Carpal tunnel syndrome Surgical History S/P cubital tunnel release History of carpal tunnel release History of mastopexy (~09/28/19) Status post abdominoplasty (~09/28/19) Family History Mother Mental illness in member of household Hypertension Cervical cancer Maternal Grandfather Gastric cancer Other Mental health problem Social History Household Members: Spouse and Children Housing: House Alcohol intake: current Alcohol intake frequency: holidays/special occasions only Patient Tobacco Use Status: Never used Tobacco Tobacco use type: Cigarette e-Cigarette/Vaping Use: Never Used Second Hand Smoke Exposure: Yes service: No Current occupational status: employed 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 1. Little interest or pleasure in doing things: several days 2. Feeling down, depressed, or hopeless: several days 3. Trouble falling or staying asleep, or sleeping too much: several days 4. Feeling tired or having little energy: several days 5. Poor appetite or overeating: not at all 6. Feeling bad about yourself - or that you are a failure or have let yourself or your family down: not at all 7. Trouble concentrating on things, such as reading the newspaper or watching television: several days 8. Moving or speaking so slowly that other people could have noticed. Or the opposite - being so fidgety or restless that you have been moving around a lot more than usual: not at all 9. Thoughts that you would be better off or of hurting yourself in some way: not at all Total score: 5 Depression Screening Interpretation: Positive Depression Screening Follow-up: Existing condition, In treatment and Community Mental Health Worker F/U Depression Screening Done: Yes 78440 - PHQ-9 Billing: Yes Source: Developed by Drs. Raphael Goldstein, Ilda Michel, Daniel Sosa and colleagues, with an educational phan from [employer]. Thrive Questionnaire Date Thrive assessed: 11/08/24 I am a: Patient What is your living situation today?: I have a steady place to live Within the past 12 months, did the food you bought not last and you didn't have the money to get more?: Never true Within the past 12 months, did you worry whether your food would run out before you got money to buy more?: Never true Do you have trouble paying for medicines?: No Do you have trouble getting transportation to medical appointments?: No Do you have trouble paying your heating and electricity bill?: No Do you have trouble taking care of your child, family member or friend?: No Do you have trouble with day-to-day activities such as bathing, preparing meals, shopping, managing finances, etc.?: No Are you currently unemployed and looking for a job?: No Are you interested in more education?: No Please select the resources that you would like help with: None Currently or been in a relationship where the following occur: No concerns reported THRIVE Score: 0 AUDIT C Alcohol Use Questionnaire (AUDIT-C) 1. How often do you have a drink containing alcohol?: Monthly or less 2. How many drinks containing alcohol do you have on a typical day when you are drinking?: 1 or 2 3. How often do you have six or more drinks on one occasion?: Never Total Score: 1 Score Reviewed/Action Taken: Yes DAMION-7 AMB Questionnaire DAMION-7 Date DAMION - 7 assessed: 11/08/24 Feeling nervous, anxious, or on edge: 1 = Several days Not being able to stop or control worryin = Several days Worrying too much about different things: 1 = Several days Trouble relaxin = Several days Being so restless that it is hard to sit still: 1 = Several days Becoming easily annoyed or irritable: 0 = Not at all Feeling afraid as if something awful might happen: 0 = Not at all Total DAMION-7 score (0-4 normal; 5-9 mild; 10-14 moderate; 15-21 severe): 5 Source: Developed by Drs. Raphael Goldstein, Ilda Michel, Daniel Sosa and colleagues, with an educational phan from [employer]. Review of Systems Const Denies chills, Reports difficulty sleeping, Reports fatigue, Denies fever(s) and Reports headache(s) (recurrent) Eyes Denies blurry vision, Denies change in vision, Denies irritation and Denies itchy eyes ENT Denies dysphagia, Reports dizziness (on and off), Denies otalgia, Reports headache(s) (recurrent), Denies neck pain, Denies odynophagia and Denies sore throat Card Denies chest pain, Denies irregular heart rhythm, Denies palpitations and Reports dyspnea on exertion (mild) Resp Denies chest congestion, Denies cough, Reports dyspnea on exertion (mild) and Denies wheezing GI Denies abdominal pain, Denies constipation, Denies dysphagia, Reports heartburn (increasing lately - see HPI), Denies diarrhea, Reports nausea (on and off, associated with her headaches), Denies odynophagia and Denies vomiting Denies difficulty voiding, Denies dysuria and Denies urinary urgency Musc Denies back pain, Denies arthralgias and Denies neck pain Skin/Breast Denies lesions and Denies rash Neuro Reports dizziness (on and off), Reports headache(s) (recurrent) and Denies paresthesias Psych Reports anxiety and Reports depression (better controlled) Endo Reports fatigue and Denies palpitations Fredi/Lymph Denies easy bruising Aller/Immun Denies itchy eyes and Denies wheezing Physical exam (Primary Care) Vital Signs: Last Vital Signs Pulse 83 11/08/24 14:04 BP 102/80 11/08/24 14:04 Pulse Ox 98 11/08/24 14:04 Oxygen Delivery Method Room Air 11/08/24 14:04 BMI result Body Mass Index 27.1 Tobacco/Smoking Status: Tobacco use Status Tobacco use date assessed 11/08/24 11/08/24 14:09 Patient Tobacco Use Status Never used Tobacco 11/08/24 14:09 Tobacco use type Cigarette 11/08/24 14:09 e-Cigarette/Vaping Use Never Used 11/08/24 14:09 PHQ-9: PHQ-9 Score PHQ-9: Total score 5 11/08/24 14:41 Depression Screening Interpretation: Positive Depression Screening Follow-up: Existing condition, In treatment and Community Mental Health Worker F/U Thrive Assessment: Date of Thrive Assessment Date Thrive assessed 11/08/24 11/08/24 14:09 Currently or been in a relationship where the following occur: No concerns reported Const General: no acute distress and alert HENMT Ears: TM's normal bilaterally and EAC's normal Throat: Yes posterior oropharynx normal and Yes tonsils normal (no TP congestion) Neck Neck: Yes supple and No lymphadenopathy Thyroid: Thyroid normal Resp Auscultation: clear to auscultation bilaterally, no rales and no wheezes Cardio Rate: regular rate Rhythm: regular rhythm Heart sounds: no murmurs GI Palpation (GI): Soft to palpation and nontender Auscultation: normal bowel sounds General: Yes no CVA tenderness Back/Spine/Pelvis Back: no CVA tenderness Thoracic/Lumbar Spine: No lumbar spinal tenderness Skin Rashes: no rashes Extrem General: Yes no clubbing, cyanosis or edema Results Reviewed Results Reviewed: Laboratory Tests 10/11/24 10/11/24 08:44 08:50 WBC 4.7 L Hgb 12.8 Hct 38.2 Plt Count 254 Sodium 140 Potassium 4.0 Creatinine 0.82 Estimated GFR > 60 Fasting Glucose 94 Calcium 8.7 D AST 20 ALT 22 Triglycerides 70 Cholesterol 208 H LDL Cholesterol, Calc 139 H HDL Cholesterol 55 25-OH Vitamin D Total 29.0 L TSH 1.67 Ur Specific Luana >= 1.030 H Urine Protein Trace Urine Glucose (UA) Negative Urine Blood Negative Urine Nitrite Negative Ur Leukocyte Esterase Trace H Coding Level of Care Code Est Pt Level 4 (87375) Diagnoses Acute pulmonary embolism without acute cor pulmonale, unspecified pulmonary embolism type I26.99 Acute cor pulmonale presence: without acute cor pulmonale Chronicity: acute Pulmonary embolism type: unspecified Heartburn R12 Abnormal MRI of the head 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.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 Moderate persistent reactive airway disease without complication J45.40 Asthma severity: moderate Asthma persistence: persistent Asthma complication type: uncomplicated Pure hypercholesterolemia E78.00 Vitamin D deficiency E55.9 Insomnia, unspecified type G47.00 Insomnia type: unspecified Anxiety F41.9 Episode of recurrent major depressive disorder, unspecified depression episode severity F33.9 Depression Type: major depressive disorder Major depression recurrence: recurrent Active/Remission status: currently active Major depression episode severity: unspecified Additional Codes PHQ-9 - 28149 - PHQ-9 Billing: Yes ([id number]) Assessment & Plan Assessment & Plan (1) Pulmonary embolism: Code(s): I26.99 - Other pulmonary embolism without acute cor pulmonale Category: Medical Qualifiers: Acute cor pulmonale presence: without acute cor pulmonale Chronicity: acute Pulmonary embolism type: unspecified Qualified Code(s): I26.99 - Other pulmonary embolism without acute cor pulmonale Plan: This was discovered when patient went to the ER at [facility] back on 06/01/2024 for recurrent symptoms of chest tightness, exertional dyspnea, dizziness and fatigue and was likely related to her Gammagard infusions at the time She had a chest CTA done as part of her work up when her d-dimer level came back elevated, and CTA revealed (+) segmental and subsegmental emboli in the lower lobe pulmonary artery branches She was seen by Hematology a few months ago but was not worked up for hypercoagulable state as her insurance reportedly denied covering any of her tests but patient states that her healthcare advisory services manager, Dr. Rafita Hall in [place], was able to get these covered and done and her tests supposedly all came back negative - will try to have office request for a copy of these results sent over [facility] for review and documentation Continue Eliquis 5 mg BID Will send patient for a repeat CT/imaging studies later this month to reassess her pulmonary emboli and if these are completely cleared up, can then consider discontinuing Eliquis at that time (2) Heartburn: Code(s): R12 - Heartburn Category: Medical Plan: Dietary restrictions reinforced Patient is advised that increasing heartburns can be a rare side effect of Eliquis Will start her on Pantoprazole 20 mg QD (3) Abnormal MRI of the head: Comment: white matter chnages suspicious of demyelination Code(s): R93.0 - Abnormal findings on diagnostic imaging of skull and head, not elsewhere classified Category: Medical Plan: Her brain MRI done earlier this month revealed the presence of concerning demyelinating plaques in the deep periventricular white matter areas She was seen by neurology last week and was reportedly advised that these findings are highly suggestive of MS and she has been referred to the [facility] for further evaluation - was seen there a couple of weeks ago for her initial visit (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 Hall but this was recently discontinued as this was likely the etiology of patient's pulmonary emboli a few months ago (5) Reactive airway disease: Code(s): J45.909 - Unspecified asthma, uncomplicated Category: Medical Qualifiers: Asthma severity: moderate Asthma persistence: persistent Asthma complication type: uncomplicated Qualified Code(s): J45.40 - Moderate persistent asthma, uncomplicated Plan: She was supposedly advised by Dr. Hall that she does have asthma and was started on Trelegy Ellipta at her last visit Patient feels that this has helped a lot with her respiratory symptoms lately Continue Trelegy Ellipta 100-62.5-25 mcg 1 inhalation QD and Albuterol HFA 1 to 2 inhalations Q 6 hours PRN (6) Pure hypercholesterolemia: Code(s): E78.00 - Pure hypercholesterolemia, unspecified Category: Medical Plan: Results of her labs done last month reviewed and discussed with patient - she is advised that her cholesterol levels have increased slightly from previous and are only borderline elevated Reinforced low cholesterol diet (7) Vitamin D deficiency: Code(s): E55.9 - Vitamin D deficiency, unspecified Category: Medical Plan: Continue Vitamin D3 1000 units (25 mcg) QD (8) Insomnia: Code(s): G47.00 - Insomnia, unspecified Category: Medical Qualifiers: Insomnia type: unspecified Qualified Code(s): G47.00 - Insomnia, unspecified Plan: Sleep hygiene reinforced She used to take Zolpidem 10 mg Q HS PRN but states that it was not helping much and she stopped taking it a while back as she also does not wish to become dependent on the medication States that she also tried some OTC THC with Melatonin last year with variable results She is currently taking Clonidine 0.2 mg daily at bedtime PRN (9) Anxiety: Code(s): F41.9 - Anxiety disorder, unspecified Category: Medical Plan: Continue Hydroxyzine 25 mg TID PRN and Fluoxetine 40 mg QD (10) Depression: Code(s): F32.9 - Major depressive disorder, single episode, unspecified Category: Medical Qualifiers: Depression Type: major depressive disorder Major depression recurrence: recurrent Active/Remission status: currently active Major depression episode severity: unspecified Qualified Code(s): F33.9 - Major depressive disorder, recurrent, unspecified Plan: Continue Fluoxetine 40 mg QD Follow up with psychiatry as scheduled Plan Follow up in 4 months Orders: Orders CT angio chest PE protocol 12/02/24 I26.99 - Other pulmonary embolism without acute cor pulmonale Medications: New pantoprazole 40 mg PO DAILY 90 tabs 3RF 90 days
--- OUTSIDE RECORDS SUMMARY | 2024-11-08 14:21 | XMS_ITS | Clinical Summary ---
Author Organization [facility] Address [address] [place] [phone] Phone Care Team Providers Care Foil Operator Name Role Phone Pcp, Unknown Primary [...] DIRECT CONNECTORCARE DIRECT CONNECTORCARE DIRECT Care Teams Foil Operator Relationship Specialty Start Date End Date Pcp, Unknown PCP - General 11/09/23 Additional Source Comments The information contained in this document represents components of the legal health record. It is not the complete legal health record.[facility]
--- OUTSIDE RECORDS SUMMARY | 2024-11-08 14:21 | XMS_ITS | Clinical Summary ---
Author Organization [address] [facility] Address [address] [place] [address] Phone Care Team Providers Care Filter Helper Name Role Phone Robin Mcdaniels MD Primary Care Provider + [phone] Allergies No known active allergies Medications amitriptyline [...] by mouth 2 (two) times a day. Active albuterol HFA (PROAIR HFA ; PROVENTIL HFA ; VENTOLIN HFA) 90 mcg/actuation inhaler Inhale 2 puffs by mouth if needed for wheezing or shortness of breath. 5 Active Encounters Date Type Department Care Team Description 10/22/2024 11:00 AM EDT Consult [address] [address] Vladislav Ramirez MD White matter [...] file Travel History Travel Start Travel End [place] 10/14/2024 10/20/2024 Last Filed Vital Signs Vital [...] Info) Description 11/08/2024 3:30 PM EDT Appointment [facility] [address] [place] [address] 11/08/2024 4:15 PM EDT Appointment [facility] [address] [place] [address] 12/12/2024 4:00 PM EDT Office Visit [facility] [address] [facility] [address] [place] [address] Vladislav Ramirez MD [address] [place] [phone] Health Maintenance Due Date Last Done Comments [...] system TRUONG URINE CULTURE TUBE Routine 10/23/19 25 12:13 PM EDT White matter lesion of [...] Hepatitis C antibody (10/22/2024 12:13 PM EDT) Pathologist [facility] Hepatitis C Antibody Negative Negative LAB CHEMISTRY METHOD 10/22/2024 8:27 PM EDT [facility] Blood Venous blood specimen / Unknown Venipuncture / Unknown 10/22/2024 12:13 PM EDT 10/22/2024 12:13 PM EDT Vladislav Ramirez MD LAB BLOOD ORDERABLES Fin al Result [facility] [address] [place] [address], * HIV 1,2 antibody, p24 antigen with reflex to differentiation (10/22/2024 12:13 PM EDT) Pathologist [facility] HIV Combo AB/AG Negative Negative LAB CHEMISTRY METHOD 10/22/2024 8:28 PM EDT [facility] Blood Venous blood specimen / Unknown Venipuncture / Unknown 10/22/2024 12:13 PM EDT 10/22/2024 12:13 PM EDT Narrative [facility] - 10/22/2024 8:28 PM EDT This assay is a 4th generation assay allowing for earlier detection of HIV infection by detecting the presence of the HIV-1 p24 antigen as well as the traditional antibodies to HIV type 1 (including group O) and type 2. Use of a 4th generation assay is the current CDC recommendation for HIV screening. Vladislav Ramirez MD LAB BLOOD ORDERABLES Fin al Result [facility] [address] [place] [address], [place] [phone] * (ABNORMAL) Urinalysis with reflex microscopic and culture (10/22/2024 12:13 PM EDT) Specific [place] Urine 1.017 1.003 - 1.030 LAB URINALYSIS - AUTOMATED METHOD 10/22/2024 2:25 PM EDT [facility] pH, Urine 7.0 5.0 - 8.0 pH LAB URINALYSIS - AUTOMATED METHOD [facility] Leukocytes, Urine Small(A) Negative LAB URINALYSIS - AUTOMATED METHOD 10/22/2024 2:[address] [facility] Nitrite, Urine Negative Negative LAB URINALYSIS - AUTOMATED METHOD 10/22/2024 2:25 PM EDT [facility] Protein, Urine Negative <=Trace mg/dL LAB URINALYSIS - AUTOMATED METHOD 10/22/2024 2:25 PM EDT [facility] Glucose, Urine Negative Negative mg/dL LAB URINALYSIS - AUTOMATED METHOD [facility] Ketones, Urine Negative Negative mg/dL LAB URINALYSIS - AUTOMATED METHOD 10/22/2024 2:[address] [facility] Urobilinogen, Urine 1.0 0.2 - 1.0 mg/dL LAB URINALYSIS - AUTOMATED METHOD 10/22/2024 2:25 PM EDT [facility] Bilirubin, Urine Negative Negative LAB URINALYSIS - AUTOMATED METHOD 10/22/2024 2:25 PM EDT [facility] Blood, Urine Negative Negative LAB URINALYSIS - AUTOMATED METHOD 10/22/2024 2:25 PM EDT [facility] RBC, Urine 2.1 0 - 4 /HPF LAB URINALYSIS - AUTOMATED METHOD 10/22/2024 2:25 PM EDT [facility] WBC, Urine 2.6 0 - 4 /HPF LAB URINALYSIS - AUTOMATED METHOD 10/22/2024 2:25 PM EDT [facility] Squamous Epithelial, Urine >100(H) 0 - 60 /LPF LAB URINALYSIS - AUTOMATED METHOD 10/22/2024 2:25 PM EDT [facility] Bacteria, Urine Few(A) Negative /HPF LAB URINALYSIS - AUTOMATED METHOD 10/22/2024 2:25 PM EDT [facility] Hyaline Casts, Urine 0.4 0 - 3 /LPF LAB URINALYSIS - AUTOMATED METHOD 10/22/2024 2:25 PM EDT [facility] Urine Urine specimen obtained by clean catch procedure / Unknown Non-blood Collection / Unknown 10/22/2024 12:13 PM EDT 10/22/2024 12:13 PM EDT Vladislav Ramirez MD LAB URINE ORDERABLES Fin al Result [facility] [address] [place] [address], * Interferon gamma interpretation (10/22/2024 12:13 PM EDT) Quantiferon Plus Interpretation Negative Negative LAB CHEMISTRY METHOD 10/23/2024 1:46 PM EDT [facility] Blood Venous blood specimen / Unknown Venipuncture / Unknown 10/22/2024 12:13 PM EDT 10/22/2024 12:13 PM EDT us Vladislav Ramirez MD LAB BLOOD ORDERABLES Fin al Result Performing Organization Address [facility] Co de Phone Number [facility] [address] [place] [address], * Interferon gamma antigen 2 (10/22/2024 12:13 PM EDT) Blood Venous blood specimen / Unknown Venipuncture / Unknown 10/22/2024 12:13 PM EDT 10/22/2024 12:13 PM EDT us Vladislav Ramirez MD LAB BLOOD ORDERABLES Fin al Result Performing Organization Address [facility] Co de Phone Number [facility] [address] [place] [address], [place] [phone] * Interferon gamma antigen 1 (10/22/2024 12:13 PM EDT) Blood Venous blood specimen / Unknown Venipuncture / Unknown 10/22/2024 12:13 PM EDT 10/22/2024 12:13 PM EDT us Vladislav Ramirez MD LAB BLOOD ORDERABLES Fin al Result Performing Organization Address [facility]/ZIP Co de Phone Number [facility] [address] [place] [address], [place] [phone] * Interferon gamma mitogen (10/22/2024 12:13 PM EDT) Blood Venous blood specimen / Unknown Venipuncture / Unknown 10/22/2024 12:13 PM EDT 10/22/2024 12:13 PM EDT us Vladislav Ramirez MD LAB BLOOD ORDERABLES Fin al Result [facility] [address] [place] [address], * Interferon gamma NIL (10/22/2024 12:13 PM EDT) Blood Venous blood specimen / Unknown Venipuncture / Unknown 10/22/2024 12:13 PM EDT 10/22/2024 12:13 PM EDT Vladislav Ramirez MD LAB BLOOD ORDERABLES Fin al Result Performing Organization Address [facility] Co de Phone Number [facility] [address] [place] [address], * Hepatitis B surface antigen with reflex to confirmation (10/22/2024 12:13 PM EDT) Hepatitis B Surface Ag Negative Negative LAB CHEMISTRY METHOD 10/22/2024 8:44 PM EDT [facility] Blood Venous blood specimen / Unknown Venipuncture / Unknown 10/22/2024 12:13 PM EDT 10/22/2024 12:13 PM EDT Narrative [facility] - 10/22/2024 8:44 PM EDT Over the counter supplements containing high doses of biotin may interfere with this assay. If interference is suspected, patients shoud be retested after refraining from biotin supplements for 72 hours. us Vladislav Ramirez MD LAB BLOOD ORDERABLES Fin al Result Performing Organization Address [facility] Co de Phone Number [facility] [address] [place] [address], * Truong urine culture tube (10/22/2024 12:13 PM EDT) Extra Tube Hold for add-ons. 10/22/2024 2:01 PM EDT [facility] Comment:Auto resulted. Urine Urine specimen obtained by clean catch procedure / Unknown Non-blood Collection / Unknown 10/22/2024 12:13 PM EDT 10/22/2024 12:13 PM EDT us Vladislav Ramirez MD LAB URINE ORDERABLES Fin al Result [facility] [address] [place] [address], * Myelin oligodendrocyte glycoprotein antibody with reflex to titer (10/22/2024 12:13 PM EDT) MOG Antibody, Cell-based IFA Negative Negative 10/26/2024 6:05 AM EDT [facility] Blood Venous blood specimen / Unknown Venipuncture / Unknown 10/22/2024 12:13 PM EDT 10/22/2024 12:13 PM EDT Narrative [facility] - 10/26/2024 6:05 AM EDT Test(s) [id number] Antibody, Cell-based IFA was developed and its performance characteristics determined by [facility]. It has not been cleared or approved by the Food and Drug Administration. Performed at: [address] [id number] Cloth Classer: Bibiana Carlson MD, Phone: [phone] us Vladislav Ramirez MD LAB BLOOD ORDERABLES Fin al Result Performing Organization Address City/[facility]/ZIP Co de Phone Number [facility] * Sjogrens antibodies, SSA and SSB (10/22/2024 12:13 PM EDT) Sjogren's SS-A (Ro) Ab Quant 10 <20 units LAB CHEMISTRY METHOD 10/27/2024 10:31 AM EDT [facility] Sjogren's SS-A (Ro) Ab Negative Negative LAB CHEMISTRY METHOD 10/27/2024 10:31 AM EDT [facility] Sjogren's SS-B (La) Ab Quant 2 <20 units LAB CHEMISTRY METHOD 10/27/2024 10:31 AM EDT [facility] Sjogren's SS-B (La) Ab Negative Negative LAB CHEMISTRY METHOD 10/27/2024 10:31 AM EDT [facility] Blood Venous blood specimen / Unknown Venipuncture / Unknown 10/22/2024 12:13 PM EDT 10/22/2024 12:13 PM EDT Vladislav Ramirez MD LAB BLOOD ORDERABLES Fin al Result [facility] [address] [place] [address], * (ABNORMAL) CBC auto differential (10/22/2024 12:13 PM EDT) WBC 3.5(L) 4.8 - 10.8 K/mcL LAB HEMETOLOGY METHOD 10/22/2024 2:20 PM EDT [facility] RBC 4.20 3.80 - 4.80 M/mcL LAB HEMETOLOGY METHOD 10/22/2024 2:20 PM EDT [facility] Hemoglobin 12.6 11.5 - 16.0 g/dL LAB HEMETOLOGY METHOD 10/22/2024 2:20 PM EDT [facility] Hematocrit 39.1 35.0 - 47.0 % LAB HEMETOLOGY METHOD 10/22/2024 2:20 PM EDT [facility] MCV 93.1 79.0 - 98.0 FL LAB HEMETOLOGY METHOD 10/22/2024 2:20 PM EDT [facility] MCH 30.0 27.0 - 32.0 pcg LAB HEMETOLOGY METHOD 10/22/2024 2:20 PM EDT [facility] MCHC 32.2 32.0 - 37.0 g/dL LAB HEMETOLOGY METHOD 10/22/2024 2:20 PM EDT [facility] RDW 13.2 11.0 - 15.0 % LAB HEMETOLOGY METHOD 10/22/2024 2:20 PM EDT [facility] Platelets 228 130 - 400 K/mcL LAB HEMETOLOGY METHOD 10/22/2024 2:[address] [facility] MPV 11.2(H) 7.0 - 11.0 FL LAB HEMETOLOGY METHOD 10/22/2024 2:20 PM EDT [facility] NRBC 0.0 <1.0 % LAB HEMETOLOGY METHOD 10/22/2024 2:20 PM EDT [facility] NRBC Absolute 0.00 <0.10 K/mcL LAB HEMETOLOGY METHOD 10/22/2024 2:[address] [facility] Neutrophils Relative 51.1 % LAB HEMETOLOGY METHOD 10/22/2024 2:20 PM EDT [facility] Lymphocytes Relative 32.1 % LAB [facility]OLOG[facility] Monocytes Relative 11.0 % LAB HEMETOLOGY METHOD 10/22/2024 2:[address] [facility] Eosinophils Relative 2.9 % LAB HEMETOLOGY METHOD 10/22/2024 2:[address] [facility] Basophils Relative 1.2 % LAB [facility]OLOG[facility]24 [facility] Immature Granulocytes Relative 1.7 % LAB HEMETOLOGY METHOD 10/22/2024 2:20 PM EDT [facility] Neutrophils Absolute 1.77 1.50 - 7.00 K/mcL LAB HEMETOLOGY METHOD 10/22/2024 2:20 PM EDT [facility] Lymphocytes Absolute 1.11 1.00 - 5.00 K/mcL LAB HEMETOLOGY METHOD 10/22/2024 2:20 PM EDT [facility] Monocytes Absolute 0.38 0.20 - 1.00 K/mcL LAB HEMETOLOGY METHOD 10/22/2024 2:20 PM EDT [facility] Eosinophils Absolute 0.10 0.00 - 0.50 K/mcL LAB HEMETOLOGY METHOD 10/22/2024 2:20 PM EDT [facility] Basophils Absolute 0.04 0.00 - 0.20 K/[facility] LAB HEMETOLOGY METHOD 10/22/2024 2:20 PM EDT [facility] Immature Granulocytes Absolute 0.06(H) 0.00 - 0.03 K/[facility] LAB HEMETOLOGY METHOD 10/22/2024 2:20 PM EDT [facility] Blood Venous blood specimen / Unknown Venipuncture / Unknown 10/22/2024 12:13 PM EDT 10/22/2024 12:13 PM EDT us Vladislav Ramirez MD LAB BLOOD ORDERABLES Fin al Result [facility] [address] [place] [address], * Borrelia burgdorferi antibody (10/22/2024 12:13 PM EDT) [facility] Lyme Ab Negative Negative LAB CHEMISTRY METHOD 10/23/2024 10:31 AM EDT [facility] Comment: No laboratory evidence [...] ORDERABLES Fin al Result Performing Organization Address City/[facility]/ZIP Co de Phone Number [facility] [address] [place] [address], [place] [phone] * Hepatitis B core antibody IgM (10/22/2024 12:13 PM EDT) Hep B Core IgM Negative Negative LAB CHEMISTRY METHOD 10/22/2024 8:27 PM EDT [facility] Blood Venous blood specimen / Unknown Venipuncture / Unknown 10/22/2024 12:13 PM EDT 10/22/2024 12:13 PM EDT Narrative [facility] - 10/22/2024 8:27 PM EDT Over the counter supplements containing high doses of biotin may interfere with this assay. If interference is suspected, patients shoud be retested after refraining from biotin supplements for 72 hours. us Vladislav Ramirez MD LAB BLOOD ORDERABLES Fin al Result Performing Organization Address City/[facility]/ZIP Co de Phone Number [facility] [address] [place] [address], [place] [phone] * Creatinine (10/22/2024 12:13 PM EDT) Creatinine 0.79 0.50 - 1.10 mg/dL LAB CHEMISTRY METHOD 10/22/2024 7:00 PM EDT [facility] eGFR 97 >=60 mL/min/1. 73m2 LAB CHEMISTRY METHOD 10/22/2024 7:00 PM EDT [facility] Comment:Calculation based on the Chronic Kidney Disease Epidemiology Collaboration (CKD-EPI) equation refit without adjustment for race. Blood Venous blood specimen / Unknown Venipuncture / Unknown 10/22/2024 12:13 PM EDT 10/22/2024 12:13 PM EDT us Vladislav Ramirez MD LAB BLOOD ORDERABLES Fin al Result Performing Organization Address [facility] Co de Phone Number [facility] [address] [place] [address], * Culture urine (10/22/2024 12:13 PM EDT) [facility] Culture, Urine 50,000-99,000 CFU/mL Mixed urogenital zheng, no uropathogens present. Suggest repeat specimen if clinically indicated. 10/24/2024 12:48 PM EDT [facility] Urine Urine specimen obtained by clean catch procedure / Unknown Non-blood Collection / Unknown 10/22/2024 12:13 PM EDT 10/22/2024 2:25 PM EDT us Vladislav Ramirez MD LAB MICROBIOLOGY - GENER AL ORDERABLES Final Result Performing Organization Address [facility] de Phone Number [facility] [address] [place] [address], [place] [phone] * Rheumatoid factor (10/22/2024 12:13 PM EDT) [facility] Rheumatoid Factor <10.0 <15.0 I Unit/mL LAB CHEMISTRY METHOD 10/22/2024 7:24 PM EDT [facility] Blood Venous blood specimen / Unknown Venipuncture / Unknown 10/22/2024 12:13 PM EDT 10/22/2024 12:13 PM EDT us Vladislav Ramirez MD LAB BLOOD ORDERABLES Fin al Result Performing Organization Address [facility]/ZIP Co de Phone Number [facility] [address] [place] [address], [place] [phone] * Varicella zoster antibody IgG (10/22/2024 12:13 PM EDT) [facility] Varicella IgG Positive Positive LAB CHEMISTRY METHOD 10/23/2024 10:31 AM EDT [facility] Varicella Zoster IgG 22.00 >=1.00 S/CO LAB CHEMISTRY METHOD 10/23/2024 10:31 AM EDT [facility] Blood Venous blood specimen / Unknown Venipuncture / Unknown 10/22/2024 12:13 PM EDT 10/22/2024 12:13 PM EDT Narrative [facility] - 10/23/2024 10:31 AM EDT Interpretation >= 1.00 S/CO is considered to be consistent with Immunity us Vladislav Ramirez MD LAB BLOOD ORDERABLES Fin al Result Performing Organization Address [facility] Co de Phone Number [facility] [address] [place] [address], [place] [phone] * BUN (10/22/2024 12:13 PM EDT) BUN 8 5 - 25 mg/dL LAB CHEMISTRY METHOD 10/22/2024 7:00 PM EDT [facility] Blood Venous blood specimen / Unknown Venipuncture / Unknown 10/22/2024 12:13 PM EDT 10/22/2024 12:13 PM EDT us Vladislav Ramirez MD LAB BLOOD ORDERABLES Fin al Result [facility] [address] [place] [address], [place] [phone] * Immunoglobulin IgA (10/22/2024 12:13 PM EDT) IgA 316 61 - 348 mg/dL LAB CHEMISTRY METHOD 10/22/2024 7:24 PM EDT [facility] Blood Venous blood specimen / Unknown Venipuncture / Unknown 10/22/2024 12:13 PM EDT 10/22/2024 12:13 PM EDT us Vladislav Ramirez MD LAB BLOOD ORDERABLES Fin al Result [facility] [address] [place] [address], [place] [phone] * Immunoglobulin IgM (10/22/2024 12:13 PM EDT) IgM 58 23 - 259 mg/dL LAB CHEMISTRY METHOD 10/22/2024 7:24 PM EDT [facility] Blood Venous blood specimen / Unknown Venipuncture / Unknown 10/22/2024 12:13 PM EDT 10/22/2024 12:13 PM EDT us Vladislav Ramirez MD LAB BLOOD ORDERABLES Fin al Result Performing Organization Address [facility]/ZIP Co de Phone Number [facility] [address] [place] [address], [place] [phone] * (ABNORMAL) Immunoglobulin IgG (10/22/2024 12:13 PM EDT) [facility] Total IgG 2,040(H) 549 - 1,584 mg/dL LAB CHEMISTRY METHOD 10/22/2024 7:24 PM EDT [facility] Blood Venous blood specimen / Unknown Venipuncture / Unknown 10/22/2024 12:13 PM EDT 10/22/2024 12:13 PM EDT us Vladislav Ramirez MD LAB BLOOD ORDERABLES Fin al Result [facility] [address] [place] [address], [place] [phone] * Hepatic function panel (10/22/2024 12:13 PM EDT) Total Protein 7.8 6.0 - 8.0 g/dL LAB CHEMISTRY METHOD 10/22/2024 7:24 PM EDT [facility] Albumin 3.7 3.2 - 5.0 g/dL LAB CHEMISTRY METHOD 10/22/2024 7:24 PM EDT [facility] Total Bilirubin 0.4 0.0 - 1.4 mg/dL LAB CHEMISTRY METHOD 10/22/2024 7:24 PM EDT [facility] Bilirubin, Direct <0.1 0.0 - 0.3 mg/dL LAB CHEMISTRY METHOD 10/22/2024 7:24 PM EDT [facility] Bilirubin, Indirect LAB CHEMISTRY METHOD 10/22/2024 7:24 PM EDT [facility] Comment:Unable to calculate Indirect Bilirubin. ALT (SGPT) 48 10 - 60 unit/L LAB CHEMISTRY METHOD 10/22/2024 7:24 PM EDT [facility] AST (SGOT) 20 10 - 42 unit/L LAB CHEMISTRY METHOD 10/22/2024 7:24 PM EDT [facility] Alkaline Phosphatase 71 42 - 121 unit/L LAB CHEMISTRY METHOD 10/22/2024 7:24 PM EDT [facility] Blood Venous blood specimen / Unknown Venipuncture / Unknown 10/22/2024 12:13 PM EDT 10/22/2024 12:13 PM EDT Vladislav Ramirez MD LAB BLOOD ORDERABLES Fin al Result [facility] [address] [place] [address], [place] [phone] from Last [address] [place] [address] [employer]ANS [employer] [id number] Care Teams Filter Helper Relationship Specialty Start Date End Date Robin Mcdaniels MD [address] [place] [address] [address] [place] PCP - General Internal Medicine 10/22/24
== END 2024-11-08 14:44 | disposition home or self-care (01) ==
LOC: HO.HMCH 13:54
PROVIDERS: PCP Internal Medicine; Visit Provider Internal Medicine
DX: I26.99 Other pulmonary embolism without acute cor pulmonale (principal); R12 Heartburn; R93.0 Abnormal findings on diagnostic imaging of skull and head, not elsewhere classified; D80.3 Selective deficiency of immunoglobulin G [IgG] subclasses; J45.40 Moderate persistent asthma, uncomplicated; E78.00 Pure hypercholesterolemia, unspecified; E55.9 Vitamin D deficiency, unspecified; G47.00 Insomnia, unspecified; F41.9 Anxiety disorder, unspecified; F33.9 Major depressive disorder, recurrent, unspecified

== ENCOUNTER → 2024-11-08 13:53 | Outpatient (BNVA) | payer OTHER, SELFPAY | PROVIDERS: PCP Internal Medicine; Visit Provider Internal Medicine | DX: D80.3 Selective deficiency of immunoglobulin G [IgG] subclasses (principal); I26.99 Other pulmonary embolism without acute cor pulmonale; R12 Heartburn; R93.0 Abnormal findings on diagnostic imaging of skull and head, not elsewhere classified; J45.40 Moderate persistent asthma, uncomplicated; E78.00 Pure hypercholesterolemia, unspecified; E55.9 Vitamin D deficiency, unspecified; G47.00 Insomnia, unspecified; F41.9 Anxiety disorder, unspecified; F33.9 Major depressive disorder, recurrent, unspecified | CPT/HCPCS: 96127; 99212 ==

== ENCOUNTER 2024-12-25 10:57 | Outpatient (REF) | payer OTHER, SELFPAY ==
--- OUTSIDE RECORDS SUMMARY | 2024-12-23 15:30 | XMS_ITS | Encounter Summary ---
Author Organization [facility] Address [address] [place] [address] Care Team Providers Care Assistant Superintendent For Curriculum Name Role Phone Robin Mcdaniels MD Primary Care Provider + [phone] Reason for Referral * Imaging (Routine) - Pending Review Specialty Diagnoses / Procedures Referred By Radha pineda Referred To Contact Radiology Diagnoses White matter lesion of central nervous system Paresthesia Procedures MR Brain wo and w Contrast Vladislav Ramirez MD [address] [place] [address] Phone: tel: fax: [facility] Referral ID Status Reason Start Date Expiration Date V isits Requested Visits Authorized [id number] Pending Review 12/23/2024 12/23/2025 1 1 Encounter Details Date Type Department Care Team (Late st Contact Info) Description 12/23/2024 3:30 PM EDT Telemedicine [facility] [address] [facility] [address] [place] [phone] Vladislav Ramirez MD [address] [place] [address] 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); Paresthesia Social History Tobacco Use Types Packs/Day Years Used Date Smoking Tobacco: Never Assessed Housing Instability Answer Date Recorde d Are you worried that in the next 2 months you may not have stable housing? No 12/23/2024 Food Access & Nutrition Answer Date Rec orded Do you have access to a vari ety of food including fruits and vegetables? Yes 12/23/2024 Access to Healthcare Answer Date Record ed Within the last 3 months, ho w many times did you visit the emergency department for your medical care? 0 12/23/2024 Health Literacy Answer Date Recorded How often do you need to hav e someone help you when you read instructions, pamphlets, or other written material from your doctor or pharmacy? Never 12/23/2024 Caregiver: How often do you need to have someone help you when you read instructions, pamphlets, or other written material from your doctor or pharmacy? Not on file 12/23/2024 Financial Risk Answer Date Recorded How hard is it for you to pa y for the very basics like food, housing, medical care, and air conditioning / heating? Not very hard 12/23/2024 Transportation Answer Date Recorded Has the lack of transportati on kept you from meetings, work, or from getting things needed for daily living? No Has the lack of transportati on kept you from medical appointments or from getting medications? No 12/23/2024 Social Isolation Answer Date Recorded How often do you feel lonely or isolated from th ose around you? Never 12/23/2024 Food Risk Answer Date Recorded Within the past 12 months we worried whether our food would run out before we got money to buy more. Never true 12/23/2024 Within the past 12 months th e food we bought just didn't last and we didn't have money to get more. Never true 12/23/2024 Dependent Care Answer Date Recorded Do you need help finding or paying for care for your loved ones. For example, early childhood worker or elderly care for an older adult? No 12/23/2024 Education Answer Date Recorded Do you think completing more education or training, like finishing a GED, going to college, or learning a trade, would be helpful for you? No 12/23/2024 Employment and Income Answer Date Recor ded During the last four weeks, have you been actively looking for work? No 12/23/2024 Living Situation Answer Date Recorded What is your living situation? Unrecognized valu e 12/23/2024 Comments Unknown Sex and Gender Information Value Date Recorded Sex Assigned at Not on file Legal Sex Female 8:58 AM EST Gender Identity Not on file Sexual Orientation Not on file documented as of this encounter Progress Notes * Vladislav Ramirez MD - 12/23/2024 3:30 PM EDT Telehealth Video: Patient was advised about telehealth delivery of care and HIPAA privacy and risk of communicating remotely. Patients visit is being conducted with HIPAA compliant high-resolution audio and video equipment and understands the limitation of the treatment provided via telehealth. Patient was informed, in the event that the video connection is lost or fails during this visit, provider may call the patient back, have telehealth visit rescheduled, or patient may elect to have in-person visit scheduled. The patient consents to the use of this video visit in providing care and is comfortable that they are in a quiet and private location to speak freely about their health. The patient understands that today???s visit will be submitted to the patient???s insurance and may incur a co-pay or deductible which they are responsible for. Patients Location[place] HPI: Stacy Espinoza is a 39 y.o. year old female referred to our center by Robin Mcdaniels MD for evaluation and management of white matter lesion concerning for inflammation Disease Summary Date of onset/Initial symptom presentation: Date of diagnosis of MS: Disease course at onset: Current disease course: Last MS exacerbation: Previous disease therapies(reason for switch): Current disease therapy: Most recent MRI Brain: T2 changes concerning for inflammation with lesion perpendicular to periventricular areas Most recent MRI Cervical spine: Most recent MRI Thoracic spine: CSF: JCV serology result and date: MS mimickers: MOG ab , AQP4 ab Interval history Patient is here for follow up No new neurological symptom concerning for demyelination since last visit Patient requested a follow-up to go over her scans together reviewed MRI brain poor quality thick slices showing some concerning juxtacortical and periventricular lesion? Discussed with the patient that the lesion is concerning for inflammation but we need to get better quality MRI plus or minus spinal tap to assess for inflammation if the MRI brain is not conclusive Interval history Patient is here for follow up No new neurological symptom concerning for demyelination since last visit Patient has expressing paresthesia around her face and her arms and her legs Patient has been very concerned about her symptoms Since last visit patient cervical and thoracic spine did show no T2 changes unfortunately we were unable to obtain MRI brain to review Discussed with the patient lab results with no concerns of any inflammatory markers HPI 39 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 , her medical issues a year and half ago she started have HPV test positive , on her pap smear , she was diagnosed with hypo-gammaglobimia She was havingbronchitis every year , almost for 9 years , she had episodes with prolonged course , she was started on IVIG on gammaguard , she had side effects , she had pulmonary embolism , she was started on eliquis , she had switched to a different IVIG She had 3 surgeries carpel tunnel and cubital tunnel, she has been having numbness , pain , used beher whole arm , she has numbness in her hands now Reviewing other neurological symptoms She ocassionally have numbness in her toes She has been experiencing worsen headache , for almost 2 yrs , constant , she has been having it continuously , she has been struggling with her vision blurry vision bilateral nonepisodic She had an MRI brain done that showed T2 changes concerning for inflammation she was referred to our clinic for further evaluation and management She has been having pain around her waist tightness in her torso for last week She has been experiencing confused , forgetful more short term memory Active Symptoms: Bowel/bladder:for 4 months of discomfort in her bladder , she has urgency lately Gait impairment: she has been experiencing physical Fatigue: she has been experiencing worsen fatigue , she sleep 5-6 hrs Taking vitamin D supplementation: no Heat Sensitivity:yes Past or present Lhermitte's: no No past medical history on file. Current Outpatient Medications Medication Sig Dispense Refill albuterol HFA (PROAIR HFA ; PROVENTIL HFA ; VENTOLIN HFA) 90 mcg/actuation inhaler Inhale 2 puffs by mouth if needed for wheezing or shortness of breath. amitriptyline (ELAVIL) 10 mg tablet Take 1 tablet (10 mg total) by mouth at bedtime. cloNIDine (CATAPRES) 0.1 mg tablet Take 1 tablet (0.1 mg total) by mouth at bedtime. cloNIDine (CATAPRES) 0.2 mg tablet Take 1 tablet (0.2 mg total) by mouth at bedtime. Eliquis 5 mg tablet Take 1 tablet (5 mg total) by mouth 2 (two) times a day. FLUoxetine (PROzac) 40 mg capsule Take 1 capsule (40 mg total) by mouth 1 (one) time each day. No current facility-administered medications for this visit. No Known Allergies Social history: Tobacco: no Alcohol socially Drug use: no Processed foods/high Sodium diet: yes Exercise habits: active -6 SHE WORK [employer] Family history: There is no significant family history of multiple sclerosis, rheumatoid arthritis,type 1 diabetes, lupus, or other autoimmune diseases. Neurologic Exam: There were no vitals taken for this visit. MS: AOx3 CN: perrla, , V1-3 intact to LT, face symmetric, bilateral SCM/trapezius 5/5, tongue/uvula/palate midline Motor: 5/5 in all extremities Reflexes: 2+ in bilateral biceps and patellae, toes downgoing bilaterally Cerebellar: FNF intact bilaterally, FFM intact bilaterally, HARDIK intact bilaterally, tandem gait normal, romberg negative Labs: Imaging: All images were reviewed by me. MRI brain: T2 changes concerning inflammation MRI C spine: No concerning T2 changes MRI T spine: No concerning T2 changes A/P: Stacy Espinoza is a 39 y.o. year old female referred to our center by Robin Mcdaniels MD for white matter lesion . 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 Patient has been symptomatic with episodes concerning for myelitis syndrome we obtained an MRI of cervical and thoracic spine that did notshow any T2 changes unfortunately we were not able to obtain MRI brain to be reviewed Patient requested a follow-up to go over her scans together reviewed MRI brain poor quality thick slices showing some concerning juxtacortical and periventricular lesion? Discussed with the patient that the lesion is concerning for inflammation but we need to get better quality MRI plus or minus spinal tap to assess for inflammation if the MRI brain is not conclusive Connect with allergy immunology Will order MRI brain with and without contrast better quality scan MRI C/T spine with and without contrast to assess no lesion We will consider obtaining a spinal tap if the MRI of the brain is not conclusive -bloodwork for MS mimickers negative -Will consider PT/OT/ST referral for functional evaluation - Consider urology referral -RTC in 2 months for follow up The patient and I discussed the clinical picture during today's appointment. Additional time was spent prior to the actual appointment reviewing records, lab values and imaging results and preparing documentation for today's visit. There was also time spent following the in person visit documenting, arranging for further diagnostic testing and follow-up appointments. The entire time spent in thisprocess was greater than40 minutes. The majority of the actual [id number] visit was spent counseling the patient with respect to the current neurological picture. Vladislav Ramirez MD documented in this encounter Plan of Treatment Upcoming Encounters Date Type Department Care Team (Late st Contact Info) Description 03/19/2025 3:30 PM EST Office Visit [facility] [address] [facility] [address] [place] [id number] Vladislav Ramirez MD [address] [place] [address] Scheduled Orders Name Type Priority Associated Diagnoses Orde r Schedule MR Brain wo and w Contrast Imaging Routine White matter lesion of central nervous system Paresthesia Expected: 12/23/2024, Expires: 12/23/2025 documented as of this encounter Visit Diagnoses Diagnosis White matter lesion of central nervous system- Primary Paresthesia Disturbance of skin sensation documented in this encounter Additional Health Concerns Assessment Noted Time PHQ-9 Depression Total Score: 9 12/24/19 2:44 PM EDT documented as of this encounter Care Teams Assistant Superintendent For Curriculum Relationship Specialty Start Date End Date Robin Mcdaniels MD [address] [place] [address] [address] [place], [place] PCP - General Internal Medicine 10/22/24 documented as of this encounter
--- NOTE | ~2024-12-25 | CT_ITS ---
EXAMINATION: CT ANGIOGRAM CHEST CLINICAL INFORMATION: I26.99 - Other pulmonary embolism without acute cor pulmonale, 6 months follow up of pulmonary embolism - still on Eliquis COMPARISON: None available. TECHNIQUE: Multiple axial images were obtained through the chest after the administration of 75 mL of Omnipaque 350 intravenous contrast. Extensive vascular post-processing including two-dimensional and three-dimensional reformatted images were created and reviewed on an independent workstation. This CT examination was performed using dose optimization techniques as appropriate, variously including the following: *Automated exposure control *Adjustment of mA and/or kV according to patient size (this includes techniques or standardized protocols for targeted exams where dose is matched to indication/reason for exam; i.e. extremities or head) *Use of iterative reconstruction technique FINDINGS: QUALITY OF STUDY/CONTRAST BOLUS: Adequate PULMONARY ARTERIES: No filling defects are identified. THORACIC AORTA: There is no aneurysm, dissection, or atherosclerotic calcifications. LUNGS AND PLEURA: Lungs are clear. There is no pleural thickening or pleural effusion. MEDIASTINUM: Unremarkable CORONARY ARTERY CALCIFICATION: None CHEST WALL/AXILLA: No axillary or internal mammary lymphadenopathy. Bilateral breast implants appear grossly intact. UPPER ABDOMEN: Unremarkable BONES: Unremarkable CT/CT angio chest PE protocol IMPRESSION: No evidence of residual or new pulmonary embolus. Fleischner guidelines were followed. Electronically signed by: Colin Thompson MD 12/25/2024 11:54 AM EDT
[2024-12-25] MEDS: iohexoL 350 MG/ML 100 ML INFUS..BTL 65 ML IV (11:44)
--- OUTSIDE RECORDS SUMMARY | 2024-12-25 14:35 | XMS_ITS | Clinical Summary ---
Author Organization [facility] Address [address] [place] [id number] Phone Care Team Providers Care Welder Experimental Name Role Phone Pcp, Unknown Primary Care [...] (18-6 5 YEARS) 02/27/2002 PAP SMEAR 02/27/2005 MAMMOGRAM 2024 INFLUENZA VACCINE (#1) 2024 COVID-19 VACCINE (2024-2 6 season) 2024 HEPATITIS A VACCINES Aged Out No [...] DIRECT CONNECTORCARE DIRECT CONNECTORCARE DIRECT Care Teams Welder Experimental Relationship Specialty Start Date End Date Pcp, Unknown PCP - General 11/09/23 Additional Source Comments The information contained in this document represents components of the legal health record. It is not the complete legal health record.[facility]
--- OUTSIDE RECORDS SUMMARY | 2024-12-25 14:36 | XMS_ITS | Clinical Summary ---
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); Paresthesia 12/19/[address] [address] Vladislav Ramirez MD 12/12/2024 4:00 PM EDT Office Visit [facility] [address] [phone] Vladislav Ramirez MD 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); Paresthesia 11/08/2024 3:06 PM EDT - 11/08/2024 11:59 PM EDT Hospital Encounter [facility] MRI [address] [place] [address] White matter lesion of central nervous system Discharge Disposition: Home or Self Care 11/08/2024 3:05 PM EDT - 11/08/2024 11:59 PM EDT Hospital Encounter [facility] MRI [address] [place] [address] White matter lesion of central nervous system Discharge Disposition: Home or Self Care 10/22/2024 11:00 AM EDT Consult [facility] [address] [phone] Vladislav Ramirez MD White matter lesion of [...] care for your loved ones. For example, childbirth educator or elderly care for an older adult? [...] on file Sexual Orientation Not on file Last Filed Vital Signs Vital Sign Reading Time Taken Comments Blood Pressure 123/85 12/12/2024 3:56 PM EDT Pulse 92 12/12/2024 3:56 PM EDT Temperature - - Respiratory Rate - - Oxygen Saturation 99% 12/12/2024 3:56 PM EDT Inhaled Oxygen Concentration - - Weight 68 kg (150 lb) 12/12/2024 3:56 PM EDT Height 162.6 cm (5' 4 ) 12/12/2024 3:56 PM EDT Body Mass Index 25.75 12/12/2024 3:56 PM EDT Plan of Treatment Upcoming Encounters Date Type Department Care Team (Late st Contact Info) Description 03/19/2025 3:30 PM EST Office Visit [facility] 175 [facility] [address] [place] [address] Vladislav Ramirez MD 175 [place] [address] Health Maintenance Due Date Last Done Comments Breast Cancer Screening 1984 Hepatitis B Vaccines (1 of 3 - 19+ 3-dose series) 02/27/2003 Cervical Cancer Screening: P ap Smear 02/27/2005 HPV Vaccines (1 - 3-dose SCD M series) 02/27/2011 COVID-19 Vaccine (2024-2 6 season) 2024 07/30/2020, 07/09/2020 Influenza Vaccine (#1) 2024 Social Influencers of Health Screening 12/23/2025 12/23/2024 DTaP,Tdap,and Td Vaccines (4 - Td or Tdap) 07/13/2033 07/14/2023, 01/02/2018, 11/17/2011 RSV Immunization Adult Patients (1 - 1-dose 75+ series) 02/27/2059 Pneumococcal Vaccine: Pediatrics (0 to 5 Years) and At-Risk Patients (6 to 49 Years) Aged Out 07/14/2023 No longer eligible b ased on patient's age to complete this topic HIV Screening Completed 10/22/2024 Hepatitis C Screening Completed 10/22/2024 Depression Screening Completed 12/23/2024 HIB Vaccines Aged Out No longer eligi [...] Procedure Name Priority Date/Time Associated Diagnosis Comments MR THORACIC SPINE WO AND W CONTRAST Routine 11/08/2024 4:56 PM EDT White matter lesion of central nervous system MR CERVICAL SPINE WO AND W CONTRAST Routine 11/08/2024 3:52 PM EDT White matter lesion of central nervous system INTERFERON GAMMA INTERPRETATION Routine 10/22/2024 12:13 PM [...] White matter lesion of central nervous system JCV POLYOMA VIRUS ANTIBODY WITH REFLEX TO INHIBITION ASSAY Routine 10/22/2024 12:13 PM EDT White matter [...] system from Last 3 Months Results * MR Thoracic Spine wo and w Contrast (11/08/2024 4:56 PM EDT) Anatomical Region Laterality Modality T-spine, Spine Magnetic Resonan ce 11/12/2024 2:55 PM EDT Impressions 11/12/2024 3:51 PM EDT No evidence of demyelinating disease affecting the thoracic spinal cord. -------- FINAL REPORT -------- Dictated By: Abel Kelly Dictated Date: 11/12/2024 14:55 ET Assigned Physician: Abel Kelly Reviewed and Electronically Signed By: Abel Kelly Signed Date: 11/12/2024 15:51 ET Workstation ID: [id number] Transcribed By: Self Edit Transcribed Date: 11/12/2024 14:56 ET Narrative 11/12/2024 3:51 PM EDT PROCEDURE: MRI of the thoracic spine with intravenous contrast. HISTORY: Multiple sclerosis, new event. COMPARISON: None. TECHNIQUE: Sagittal and axial multisequence MRI of the thoracic spine with and without intravenous contrast. IV contrast dose: 15 mL Dotarem from a 15 mL vial with 0 mL discarded. FINDINGS: A 2.4 cm left adnexal cyst is partially visible on digital commentator images; this is likely a benign functional cyst in a patient of this age. The uterus is retroflexed. The visualized soft tissues are otherwise unremarkable. Normal thoracic spinal alignment. No marrow infiltrative lesion. Degenerative changes of the cervical and lumbar spine which are incompletely evaluated on this exam. There are minimal degenerative changes of the thoracic vertebral endplates and facet joints. No disc herniation. No thoracic spinal or foraminal stenosis. No cord signal abnormality. No abnormal cord enhancement. Procedure Note Abel Kelly MD - 11/12/2024 PROCEDURE: MRI of the thoracic spine with intravenous contrast. HISTORY: Multiple sclerosis, new event. COMPARISON: None. TECHNIQUE: Sagittal and axial multisequence MRI of the thoracic spine withand without intravenous contrast. IV contrast dose: 15 mL Dotarem from a 15 mL vial with 0 mL discarded. FINDINGS: A 2.4 cm left adnexal cyst is partially visible on digital commentator images; this islikely a benign functional cyst in a patient of this age. The uterus isretroflexed. The visualized soft tissues are otherwise unremarkable. Normal thoracic spinal alignment. No marrow infiltrative lesion.Degenerative changes of the cervical and lumbar spine which areincompletely evaluated on this exam. There are minimal degenerative changes of the thoracic vertebral endplatesand facet joints. No disc herniation. No thoracic spinal or foraminalstenosis. No cord signal abnormality. No abnormal cord enhancement. IMPRESSION: No evidence of demyelinating disease affecting the thoracic spinal cord. -------- FINAL REPORT -------- Dictated By: Abel Kelly Dictated Date: 11/12/2024 14:55 ET Assigned Physician: Abel Kelly Reviewed and Electronically Signed By: Abel Kelly Signed Date: 11/12/2024 15:51 ET Workstation ID: [id number] Transcribed By: Self Edit Transcribed Date: 11/12/2024 14:56 ET Vladislav Ramirez MD IMG MRI PROCEDURES Final Result * MR Cervical Spine wo and w Contrast (11/08/2024 3:52 PM EDT) Anatomical Region Laterality Modality C-spine, Spine Magnetic Resonan ce 11/12/2024 2:41 PM EDT Impressions 11/12/2024 2:46 PM EDT No findings to suggest demyelinating disease involving the cervical cord. Small protrusions at C5-6 and C3-4 which indent the cord but do not cause spinal stenosis. -------- FINAL REPORT -------- Dictated By: Abel Kelly Dictated Date: 11/12/2024 14:41 ET Assigned Physician: Abel Kelly Reviewed and Electronically Signed By: Abel Kelly Signed Date: 11/12/2024 14:46 ET Workstation ID: [id number] Transcribed By: Self Edit Transcribed Date: 11/12/2024 14:41 ET Narrative 11/12/2024 2:46 PM EDT PROCEDURE: MRI of the cervical spine with intravenous contrast. HISTORY: Multiple sclerosis, new event. COMPARISON: None. TECHNIQUE: Sagittal and axial multisequence MRI of the cervical spine with and without intravenous contrast. IV contrast dose: 15 mL Dotarem from a 15 mL vial with 0 mL discarded. FINDINGS: Visualized portions of the brain are normal. There is minimal mucosal thickening in the sphenoid sinus and trace fluid in the right mastoids. Visualized portions of the skull base are otherwise unremarkable. The paraspinous soft tissues are normal. Straightening of the typical cervical lordosis. No listhesis. No marrow infiltrative lesion. The cord is normal in caliber. There is no cord signal abnormality. No abnormal cord enhancement. Cervical disc levels: C2-3: No significant disc or facet abnormality. No spinal or foraminal stenosis. C3-4: Small right central focal protrusion which slightly indents the anterior cord. There is a small central annular fissure. No spinal or foraminal stenosis. C4-5: Minimal central focal protrusion without spinal or foraminal stenosis. C5-6: Small right central focal protrusion and annular fissure which indents the cord. No significant spinal stenosis. Minimal left facet arthropathy. No foraminal stenosis. C6-7: Minimal bilateral facet arthropathy without spinal or foraminal stenosis. C7-T1: Minimal left facet arthropathy. No spinal or foraminal stenosis. Procedure Note Abel Kelly MD - 11/12/2024 PROCEDURE: MRI of the cervical spine with intravenous contrast. HISTORY: Multiple sclerosis, new event. COMPARISON: None. TECHNIQUE: Sagittal and axial multisequence MRI of the cervical spine withand without intravenous contrast. IV contrast dose: 15 mL Dotarem from a 15 mL vial with 0 mL discarded. FINDINGS: Visualized portions of the brain are normal. There is minimal mucosalthickening in the sphenoid sinus and trace fluid in the right mastoids.Visualized portions of the skull base are otherwise unremarkable. The paraspinous soft tissues are normal. Straightening of the typical cervical lordosis. No listhesis. No marrowinfiltrative lesion. The cord is normal in caliber. There is no cord signal abnormality. Noabnormal cord enhancement. Cervical disc levels: C2-3: No significant disc or facet abnormality. No spinal or foraminalstenosis. C3-4: Small right central focal protrusion which slightly indents theanterior cord. There is a small central annular fissure. No spinal orforaminal stenosis. C4-5: Minimal central focal protrusion without spinal or foraminalstenosis. C5-6: Small right central focal protrusion and annular fissure whichindents the cord. No significant spinal stenosis. Minimal left facetarthropathy. No foraminal stenosis. C6-7: Minimal bilateral facet arthropathy without spinal or foraminalstenosis. C7-T1: Minimal left facet arthropathy. No spinal or foraminal stenosis. IMPRESSION: No findings to suggest demyelinating disease involving the cervicalcord. Small protrusions at C5-6 and C3-4 which indent the cord but do not causespinal stenosis. -------- FINAL REPORT -------- Dictated By: Abel Kelly Dictated Date: 11/12/2024 14:41 ET Assigned Physician: Abel Kelly Reviewed and Electronically Signed By: Abel Kelly Signed Date: 11/12/2024 14:46 ET Workstation ID: [id number] Transcribed By: Self Edit Transcribed Date: 11/12/2024 14:41 ET Vladislav Ramirez MD IMG MRI PROCEDURES Final Result * Hepatitis C antibody (10/22/2024 12:13 PM EDT) Hepatitis C Antibody Negative Negative LAB CHEMISTRY METHOD 10/22/2024 8:27 PM EDT [facility] [place] ([facility]) [facility] Blood Venous blood specimen / Unknown Venipuncture / Unknown 10/22/2024 12:13 PM EDT 10/22/2024 12:13 PM EDT Vladislav Ramirez MD LAB BLOOD ORDERABLES Fin al Result [facility] [address] [place] [address], [place] [phone] * HIV 1,2 antibody, p24 antigen with reflex to differentiation (10/22/2024 12:13 PM EDT) [facility] HIV Combo AB/AG Negative Negative LAB CHEMISTRY METHOD 10/22/2024 8:28 PM EDT [facility] Blood Venous blood specimen / Unknown Venipuncture / Unknown 10/22/2024 12:13 PM EDT 10/22/2024 12:13 PM EDT Narrative [facility] - 10/22/2024 8:28 PM [...] MD LAB BLOOD ORDERABLES Fin al Result [facility] [address] [place] [address], [place] [phone] * (ABNORMAL) Urinalysis with reflex microscopic and culture (10/22/2024 12:13 PM EDT) [facility] Specific [place] Urine 1.017 1.003 - 1.030 LAB URINALYSIS - AUTOMATED METHOD 10/22/2024 2:25 PM EDT [facility] pH, Urine 7.0 5.0 - 8.0 pH LAB URINALYSIS - AUTOMATED METHOD 10/22/2024 2:25 PM EDT [facility] Leukocytes, Urine Small(A) Negative LAB URINALYSIS - AUTOMATED METHOD 10/22/2024 2:25 PM EDT [facility] Nitrite, Urine Negative Negative LAB URINALYSIS - AUTOMATED METHOD 10/22/2024 2:25 PM EDT [facility] Protein, Urine Negative <=Trace mg/dL LAB URINALYSIS - AUTOMATED METHOD 10/22/2024 2:25 PM [facility] Glucose, Urine Negative Negative mg/dL LAB URINALYSIS - AUTOMATED METHOD 10/22/2024 2:25 PM [facility] Ketones, Urine Negative Negative mg/dL LAB URINALYSIS - AUTOMATED METHOD 10/22/2024 2:25 PM [facility] Urobilinogen, Urine 1.0 0.2 - 1.0 mg/dL LAB URINALYSIS - AUTOMATED METHOD 10/22/2024 2:25 PM [facility] Bilirubin, Urine Negative Negative LAB URINALYSIS - AUTOMATED METHOD 10/22/2024 2:25 PM [facility] Blood, Urine Negative Negative LAB URINALYSIS - AUTOMATED METHOD 10/22/2024 2:25 PM [facility] RBC, Urine 2.1 0 - 4 /HPF LAB URINALYSIS - AUTOMATED METHOD 10/22/2024 2:25 PM [facility] WBC, Urine 2.6 0 - 4 /HPF LAB URINALYSIS - AUTOMATED METHOD 10/22/2024 2:25 PM [facility] Squamous Epithelial, Urine >100(H) 0 - 60 /LPF LAB URINALYSIS - AUTOMATED METHOD 10/22/2024 2:25 PM [facility] Bacteria, Urine Few(A) Negative /HPF LAB URINALYSIS - AUTOMATED METHOD 10/22/2024 2:25 PM [facility] Hyaline Casts, Urine 0.4 0 - 3 /LPF LAB URINALYSIS - AUTOMATED METHOD 10/22/2024 2:25 PM [facility] Urine Urine specimen obtained by clean catch procedure / Unknown Non-blood Collection / Unknown 10/22/2024 12:13 PM EDT 10/22/2024 12:13 PM EDT us Vladislav Ramirez MD LAB URINE ORDERABLES Fin al Result Performing Organization Address [facility] Co de Phone Number [facility] [address] [place] [address], [place] [phone] * Interferon gamma interpretation (10/22/2024 12:13 PM EDT) [facility] Signature Quantiferon Plus Interpretation Negative Negative LAB CHEMISTRY METHOD 10/23/2024 1:46 PM EDT [facility] Blood Venous blood specimen / Unknown Venipuncture / Unknown 10/22/2024 12:13 PM EDT 10/22/2024 12:13 PM EDT us Vladislav Ramirez MD LAB BLOOD ORDERABLES Fin al Result Performing Organization Address [facility] Co de Phone Number [facility] [address] [place] [address], [place] [phone] * Interferon gamma antigen 2 (10/22/2024 12:13 PM EDT) Blood Venous blood specimen / Unknown Venipuncture / Unknown 10/22/2024 12:13 PM EDT 10/22/2024 12:13 PM EDT us Vladislav Ramirez MD LAB BLOOD ORDERABLES Fin al Result Performing Organization Address City/[facility]/ZIP Co de Phone Number [facility] [address] [place] [address], [place] [phone] * Interferon gamma antigen 1 (10/22/2024 12:13 PM EDT) Blood Venous blood specimen / Unknown Venipuncture / Unknown 10/22/2024 12:13 PM EDT 10/22/2024 12:13 PM EDT us Vladislav Ramirez MD LAB BLOOD ORDERABLES Fin al Result Performing Organization Address City/[facility] Co de Phone Number [facility] [address] [place] [address], [place] [phone] * Interferon gamma mitogen (10/22/2024 12:13 PM EDT) Blood Venous blood specimen / Unknown Venipuncture / Unknown 10/22/2024 12:13 PM EDT 10/22/2024 12:13 PM EDT us Vladislav Ramirez MD LAB BLOOD ORDERABLES Fin al Result Performing Organization Address [facility] Co de Phone Number [facility] [address] [place] [address], * Interferon gamma NIL (10/22/2024 12:13 PM EDT) Blood Venous blood specimen / Unknown Venipuncture / Unknown 10/22/2024 12:13 PM EDT 10/22/2024 12:13 PM EDT us Vladislav Ramirez MD LAB BLOOD ORDERABLES Fin al Result Performing Organization Address [facility] de Phone Number [facility] [address] [place] [address], [place] [phone] * Hepatitis B surface antigen with reflex to confirmation (10/22/2024 12:13 PM EDT) Hepatitis B Surface Ag Negative Negative LAB CHEMISTRY METHOD 10/22/2024 8:44 PM EDT [facility] Blood Venous blood specimen / Unknown Venipuncture / Unknown 10/22/2024 12:13 PM EDT 10/22/2024 12:13 PM EDT Narrative [facility] - 10/22/2024 8:44 PM EDT Over the counter supplements containing high doses of biotin may interfere with this assay. If interference is suspected, patients shoud be retested after refraining from biotin supplements for 72 hours. us Vladislav Ramirez MD LAB BLOOD ORDERABLES Fin al Result Performing Organization Address [facility]/ZIP Co de Phone Number [facility] [address] [place] [address], [place] [phone] * Truong urine culture tube (10/22/2024 12:13 PM EDT) Pathologist [facility] Extra Tube Hold for add-ons. 10/22/2024 2:01 PM EDT [facility] Comment:Auto resulted. Urine Urine specimen obtained by clean catch procedure / Unknown Non-blood Collection / Unknown 10/22/2024 12:13 PM EDT 10/22/2024 12:13 PM EDT Vladislav Ramirez MD LAB URINE ORDERABLES Fin al Result Performing Organization Address [facility] de Phone Number [facility] [address] [place] [address], [place] [phone] * Myelin oligodendrocyte glycoprotein antibody with reflex to titer (10/22/2024 12:13 PM EDT) [facility] MOG Antibody, Cell-based IFA Negative Negative 10/26/2024 6:05 AM EDT [facility] Blood Venous blood specimen / Unknown Venipuncture / Unknown 10/22/2024 12:13 PM EDT 10/22/2024 12:13 PM EDT Narrative [facility] - 10/26/2024 6:05 AM EDT Test(s) 586171-[id number] Antibody, Cell-based IFA was developed and its performance characteristics determined by [facility]. It has not been cleared or approved by the Food and Drug Administration. Performed at: 01 - [address] [id number] [employer] Salesperson: Bibiana Carlson MD, Phone: [phone] us Vladislav Ramirez MD LAB BLOOD ORDERABLES Fin al Result Performing Organization Address City/[facility]/ZIP Co de Phone Number [facility] * (ABNORMAL) JCV polyoma virus antibody with reflex to inhibition assay (10/22/2024 12:13 PM EDT) [facility] Index Value 2.77 11/18/2024 3:05 PM EDT [facility] JCV Antibody Positive( A) 11/18/2024 3:05 PM EDT [facility] Comment: Index interpretive criteria: <0.20 negative 0.20-0.40 indeterminate >0.40 positive Interpretation Note 11/18/2024 3:05 PM EDT [facility] Comment: INTERPRETATION Negative: Antibodies to JCV not detected. Indeterminate: Low level reactivity detected, see Inhibition Assay result below for the final antibody result. Positive: Antibodies to ANDREA virus (JCV) detected indicating the patient has been exposed to JCV at an undetermined time. The STRATIFY JCV(R) DxSelect(TM) Antibody Test is an enzyme-linked immunosorbent assay (RANDAL) designed to detect JCV antibodies to help identify individuals who have been exposed to the virus. Samples with low level reactivity in the detection assay are retested in a confirmation (inhibition) assay to confirm presence or absense of JCV-specific antibodies. Retrospective analyses of post marketing data from various sources, including observational studies and spontaneous reports obtained worldwide, suggest that the risk of developing PML may be associated with relative levels of serum anti-JCV antibody as measured by anti-JCV antibody index. (1) (1) TYSABRI(natalizumab)US Prescribing Information Interpretation Note 11/18/2024 3:05 PM EDT [facility] Comment: Positive: Antibodies to ANDREA virus (JCV) detected indicating the patient has been exposed to JCV at an undetermined time Negative: Antibodies to JCV not detected Blood Venous blood specimen / Unknown Venipuncture / Unknown 10/22/2024 12:13 PM EDT 10/22/2024 12:13 PM EDT Narrative [facility] - 11/18/2024 3:05 PM EDT Performed at: 01 - [facility] [address] [place] [id number] [employer] Salesperson: Janae Serna MD, Phone: [phone] us Vladislav Ramirez MD LAB BLOOD ORDERABLES Fin al Result [facility] * Sjogrens antibodies, SSA and SSB (10/22/2024 12:13 PM EDT) Pathologist [facility] Sjogren's SS-A (Ro) Ab Quant 10 <20 units LAB CHEMISTRY METHOD 10/27/2024 10:31 AM EDT [facility] Sjogren's SS-A (Ro) Ab Negative Negative LAB CHEMISTRY METHOD 10/27/2024 10:31 AM EDT [facility] Sjogren's SS-B (La) Ab Quant 2 <20 units LAB CHEMISTRY METHOD 10/27/2024 10:31 AM EDT [facility] Sjogren's SS-B (La) Ab Negative Negative LAB CHEMISTRY METHOD 10/27/2024 10:31 AM EDT [facility] Blood Venous blood specimen / Unknown Venipuncture / Unknown 10/22/2024 12:13 PM EDT 10/22/2024 12:13 PM EDT us Vladislav Ramirez MD LAB BLOOD ORDERABLES Fin al Result [facility] [address] [place] [address], * (ABNORMAL) CBC auto differential (10/22/2024 12:13 PM EDT) Pathologist [facility] WBC 3.5(L) 4.8 - 10.8 K/mcL LAB HEMETOLOGY METHOD 10/22/2024 2:20 PM EDT [facility] RBC 4.20 3.80 - 4.80 M/mcL LAB HEMETOLOGY METHOD 10/22/2024 2:20 PM EDT [facility] Hemoglobin 12.6 11.5 - 16.0 g/dL LAB HEMETOLOGY METHOD 10/22/2024 2:20 PM EDT [facility] Hematocrit 39.1 35.0 - 47.0 % LAB HEMETOLOGY METHOD 10/22/2024 2:20 PM EDT [facility] MCV 93.1 79.0 - 98.0 FL LAB HEMETOLOGY METHOD 10/22/2024 2:20 PM EDT [facility] MCH 30.0 27.0 - 32.0 pcg LAB HEMETOLOGY METHOD 10/22/2024 2:20 PM EDT [facility] MCHC 32.2 32.0 - 37.0 g/dL LAB HEMETOLOGY METHOD 10/22/2024 2:20 PM EDT [facility] RDW 13.2 11.0 - 15.0 % LAB HEMETOLOGY METHOD 10/22/2024 2:20 PM EDT [facility] Platelets 228 130 - 400 K/mcL LAB HEMETOLOGY METHOD 10/22/2024 2:20 PM EDT [facility] MPV 11.2(H) 7.0 - 11.0 FL LAB HEMETOLOGY METHOD 10/22/2024 2:20 PM EDT [facility] NRBC 0.0 <1.0 % LAB HEMETOLOGY METHOD 10/22/2024 2:20 PM EDT [facility] NRBC Absolute 0.00 <0.10 K/mcL LAB HEMETOLOGY METHOD 10/22/2024 2:20 PM EDT [facility] Neutrophils Relative 51.1 % LAB HEMETOLOGY METHOD 10/22/2024 2:20 PM EDT [facility] Lymphocytes Relative 32.1 % LAB HEMETOLOGY METHOD 10/22/2024 2:20 PM EDT [facility] Monocytes Relative 11.0 % LAB HEMETOLOGY METHOD 10/22/2024 2:20 PM EDT [facility] Eosinophils Relative 2.9 % LAB HEMETOLOGY METHOD 10/22/2024 2:20 PM EDT [facility] Basophils Relative 1.2 % LAB HEMETOLOGY METHOD 10/22/2024 2:20 PM EDT [facility] Immature Granulocytes Relative 1.7 % LAB HEMETOLOGY METHOD 10/22/2024 2:20 PM EDT [facility] Neutrophils Absolute 1.77 1.50 - 7.00 K/mcL LAB HEMETOLOGY METHOD 10/22/2024 2:20 PM EDT [facility] Lymphocytes Absolute 1.11 1.00 - 5.00 K/mcL LAB HEMETOLOGY METHOD 10/22/2024 2:20 PM EDT [facility] Monocytes Absolute 0.38 0.20 - 1.00 K/mcL LAB HEMETOLOGY METHOD 10/22/2024 2:20 PM EDT [facility] Eosinophils Absolute 0.10 0.00 - 0.50 K/mcL LAB HEMETOLOGY METHOD 10/22/2024 2:20 PM EDT [facility] Basophils Absolute 0.04 0.00 - 0.20 K/mcL LAB HEMETOLOGY METHOD 10/22/2024 2:20 PM EDT [facility] Immature Granulocytes Absolute 0.06(H) 0.00 - 0.03 K/mcL LAB HEMETOLOGY METHOD 10/22/2024 2:20 PM EDT [facility] Blood Venous blood specimen / Unknown Venipuncture / Unknown 10/22/2024 12:13 PM EDT 10/22/2024 12:13 PM EDT Vladislav Ramirez MD LAB BLOOD ORDERABLES Fin al Result [facility] [address] [place] [address], * Borrelia burgdorferi antibody (10/22/2024 12:13 PM EDT) [facility] Lyme Ab Negative Negative LAB CHEMISTRY METHOD 10/23/2024 10:31 AM EDT [facility] Comment: No laboratory evidence [...] ORDERABLES Fin al Result Performing Organization Address [facility] de Phone Number [facility] [address] [place] [address], [place] [phone] * Hepatitis B core antibody IgM (10/22/2024 12:13 PM EDT) [facility] Hep B Core IgM Negative Negative LAB CHEMISTRY METHOD 10/22/2024 8:27 PM EDT [facility] Blood Venous blood specimen / Unknown Venipuncture / Unknown 10/22/2024 12:13 PM EDT 10/22/2024 12:13 PM EDT Narrative [facility] - 10/22/2024 8:27 PM EDT Over the counter supplements containing high doses of biotin may interfere with this assay. If interference is suspected, patients shoud be retested after refraining from biotin supplements for 72 hours. us Vladislav Ramirez MD LAB BLOOD ORDERABLES Fin al Result Performing Organization Address [facility] Co de Phone Number [facility] [address] [place] [address], [place] [phone] * Creatinine (10/22/2024 12:13 PM EDT) [facility] Creatinine 0.79 0.50 - 1.10 mg/dL LAB CHEMISTRY METHOD 10/22/2024 7:00 PM EDT [facility] eGFR 97 >=60 mL/min/1. 73m2 LAB CHEMISTRY METHOD 10/22/2024 7:00 PM EDT [facility] Comment:Calculation based on the Chronic Kidney Disease Epidemiology Collaboration (CKD-EPI) equation refit without adjustment for race. Blood Venous blood specimen / Unknown Venipuncture / Unknown 10/22/2024 12:13 PM EDT 10/22/2024 12:13 PM EDT us Vladislav Ramirez MD LAB BLOOD ORDERABLES Fin al Result Performing Organization Address [facility] Co de Phone Number [facility] [address] [place] [address], [place] [phone] * Culture urine (10/22/2024 12:13 PM EDT) Pathologist [facility] Culture, Urine 50,000-99,000 CFU/mL Mixed urogenital zheng, no uropathogens present. Suggest repeat specimen if clinically indicated. 10/24/2024 12:48 PM EDT [facility] Urine Urine specimen obtained by clean catch procedure / Unknown Non-blood Collection / Unknown 10/22/2024 12:13 PM EDT 10/22/2024 2:25 PM EDT us Vladislav Ramirez MD LAB MICROBIOLOGY - GENER AL ORDERABLES Final Result Performing Organization Address [facility]/ZIP Co de Phone Number [facility] [address] [place] [address], [place] [phone] * Rheumatoid factor (10/22/2024 12:13 PM EDT) Rheumatoid Factor <10.0 <15.0 I Unit/mL LAB CHEMISTRY METHOD 10/22/2024 7:24 PM EDT [facility] Blood Venous blood specimen / Unknown Venipuncture / Unknown 10/22/2024 12:13 PM EDT 10/22/2024 12:13 PM EDT us Vladislav Ramirez MD LAB BLOOD ORDERABLES Fin al Result Performing Organization Address [facility] de Phone Number [facility] [address] [place] [address], * Varicella zoster antibody IgG (10/22/2024 12:13 PM EDT) Varicella IgG Positive Positive LAB CHEMISTRY METHOD 10/23/2024 10:31 AM EDT [facility] Varicella Zoster IgG 22.00 >=1.00 S/CO LAB CHEMISTRY METHOD 10/23/2024 10:31 AM EDT [facility] Blood Venous blood specimen / Unknown Venipuncture / Unknown 10/22/2024 12:13 PM EDT 10/22/2024 12:13 PM EDT Narrative [facility] - 10/23/2024 10:31 AM EDT Interpretation >= 1.00 S/CO is considered to be consistent with Immunity us Vladislav Ramirez MD LAB BLOOD ORDERABLES Fin al Result Performing Organization Address [facility] de Phone Number [facility] [address] [place] [address], [place] [phone] * BUN (10/22/2024 12:13 PM EDT) BUN 8 5 - 25 mg/dL LAB CHEMISTRY METHOD 10/22/2024 7:00 PM EDT [facility] Blood Venous blood specimen / Unknown Venipuncture / Unknown 10/22/2024 12:13 PM EDT 10/22/2024 12:13 PM EDT us Vladislav Ramirez MD LAB BLOOD ORDERABLES Fin al Result Performing Organization Address [facility]/ZIP Co de Phone Number [facility] [address] [place] [address], [place] [phone] * Immunoglobulin IgA (10/22/2024 12:13 PM EDT) IgA 316 61 - 348 mg/dL LAB CHEMISTRY METHOD 10/22/2024 7:24 PM EDT [facility] Blood Venous blood specimen / Unknown Venipuncture / Unknown 10/22/2024 12:13 PM EDT 10/22/2024 12:13 PM EDT Vladislav Ramirez MD LAB BLOOD ORDERABLES Fin al Result Performing Organization Address [facility] de Phone Number [facility] [address] [place] [address], [place] [phone] * Immunoglobulin IgM (10/22/2024 12:13 PM EDT) IgM 58 23 - 259 mg/dL LAB CHEMISTRY METHOD 10/22/2024 7:24 PM EDT [facility] Blood Venous blood specimen / Unknown Venipuncture / Unknown 10/22/2024 12:13 PM EDT 10/22/2024 12:13 PM EDT Vladislav Ramirez MD LAB BLOOD ORDERABLES Fin al Result Performing Organization Address City/[facility]/ZIP Co de Phone Number [facility] [address] [place] [address], [place] [phone] * (ABNORMAL) Immunoglobulin IgG (10/22/2024 12:13 PM EDT) Total IgG 2,040(H) 549 - 1,584 mg/dL LAB CHEMISTRY METHOD 10/22/2024 7:24 PM EDT [facility] Blood Venous blood specimen / Unknown Venipuncture / Unknown 10/22/2024 12:13 PM EDT 10/22/2024 12:13 PM EDT Vladislav Ramirez MD LAB BLOOD ORDERABLES Fin al Result [facility] [address] [place] [address], [place] [phone] * Hepatic function panel (10/22/2024 12:13 PM EDT) Total Protein 7.8 6.0 - 8.0 g/dL LAB CHEMISTRY METHOD 10/22/2024 7:24 PM EDT [facility] Albumin 3.7 3.2 - 5.0 g/dL LAB CHEMISTRY METHOD 10/22/2024 7:24 PM EDT [facility] Total Bilirubin 0.4 0.0 - 1.4 mg/dL LAB CHEMISTRY METHOD 10/22/2024 7:24 PM EDT [facility] Bilirubin, Direct <0.1 0.0 - 0.3 mg/dL LAB CHEMISTRY METHOD 10/22/2024 7:24 PM EDT [facility] Bilirubin, Indirect LAB CHEMISTRY METHOD 10/22/2024 7:24 PM EDT [facility] Comment:Unable to calculate Indirect Bilirubin. ALT (SGPT) 48 10 - 60 unit/L LAB CHEMISTRY METHOD 10/22/2024 7:24 PM EDT [facility] AST (SGOT) 20 10 - 42 unit/L LAB CHEMISTRY METHOD 10/22/2024 7:24 PM EDT [facility] Alkaline Phosphatase 71 42 - 121 unit/L LAB CHEMISTRY METHOD 10/22/2024 7:24 PM EDT [facility] Blood Venous blood specimen / Unknown Venipuncture / Unknown 10/22/2024 12:13 PM EDT 10/22/2024 12:13 PM EDT Vladislav Ramirez MD LAB BLOOD ORDERABLES Fin al Result [facility] [place] [facility] [address] [place] [address], [place] [phone] from Last 3 Months Insurance [facility] [employer] Care Teams Trader Fixed Income Relationship Specialty Start Date End Date Robin Mcdaniels MD [address] [place] [address] [place] [address] [place] PCP - General Internal Medicine 10/22/24
== END 2024-12-25 10:58 | disposition home or self-care (01) ==
LOC: HO.CT 10:57
PROVIDERS: PCP Internal Medicine; Visit Provider Internal Medicine
DX: I26.99 Other pulmonary embolism without acute cor pulmonale (principal)
CPT/HCPCS: 71275; Q9967

== ENCOUNTER → 2024-12-25 10:59 | Outpatient (BNV) | payer OTHER, SELFPAY | PROVIDERS: PCP Internal Medicine; Visit Provider Radiology Diagnostic Radiology | DX: I26.99 Other pulmonary embolism without acute cor pulmonale (principal) | CPT/HCPCS: 71275 ==

== ENCOUNTER 2025-01-20 14:43 | Outpatient (AMB) | payer OTHER, SELFPAY ==
--- NOTE | 2025-01-20 14:46 | MHC.OFFVIS ---
Vital Signs 01/20/25 14:47 Height 5 ft 4 in Weight 163 lb 2 oz BMI 28.0 BP 108/72 Blood Pressure Location Rt brachial Position Sitting Pulse 86 Pulse Source Pulse Oximeter Pulse Oximetry (%) 98 Oxygen Delivery Method Room Air Intake Visit Reasons: 4mnth follow up Intake Note: Follow up Chronic migraine without aura, h/o abnormal Brain MRI Dinkey Press Operator Required: No Accompanied by: Self / Same As Patient Allergies No Known Allergies (No Known Allergies*) Allergy (Verified 01/20/25 14:47) Medication List - Last Reconciled 01/20/25 by Mariela Castle MD albuterol sulfate 90 mcg/actuation (Ventolin HFA) 2 puffs inhalation Q4-6H PRN amitriptyline 10 mg PO BEDTIME apixaban (Eliquis) 5 mg PO BID 30 days clonidine HCl 0.2 mg PO BEDTIME PRN fluoxetine 40 mg PO DAILY hydroxyzine HCl 25 mg PO TID PRN 30 days medroxyprogesterone mg IM pantoprazole 40 mg PO DAILY 90 days rimegepant (Nurtec ODT) 75 mg PO ONCE PRN HPI Comments Details: 39y/o female with possible MS , migraines - comes for follow up. she saw Dr. Smith at [facility] - suspecting MS and is scheduled for LP Her migraines have been better with amitriptyline 10 mg qhs -2-3 headaches a week..she used to have daily migraines Ubrelvy was not approved inspite of triptans and ERGOT derivatives being contraindicated in her History from last visit-she was hospitalized for pulmonary embolism 2 mths ago and had headaches dizziness, blurry vision at that time.she had MRI brain which showed white matter changes c/w demyelinating plaques . 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 she has blurry vision , denies double vision , has phil hand numbness( has carpal tunnel and cubital tunnel), denies weakness, has vertigo sometimes. she denies any gait issues. Her reports daily headaches for over 1 year.the daily headaches are bitemporal frontal , it worsens once a week where she has severe eye pain, with nausea, photophobia, phonophobia , no visual aura.The severe headaches can last 24 hrs . she treats with motrin. She has neck pain when she has a severe headache. [facility] Medical History Reactive airway disease Asthma Chronic migraine without aura Abnormal MRI of the head Pulmonary embolism Sore throat LGSIL on Pap smear of cervix Pain in both hands Bilateral hand numbness Overweight (BMI 25.0-29.9) Insomnia Vitamin D deficiency Pure hypercholesterolemia Depression Anxiety Status post hysteroscopy (~03/12/17) Carpal tunnel syndrome Surgical History S/P cubital tunnel release History of carpal tunnel release History of mastopexy (~09/28/19) Status post abdominoplasty (~09/28/19) Family History Mother Mental illness in member of household Hypertension Cervical cancer Maternal Grandfather Gastric cancer Other Mental health problem Social History Household Members: Spouse and Children Housing: House Alcohol intake: current Alcohol intake frequency: holidays/special occasions only Patient Tobacco Use Status: Never used Tobacco Tobacco use type: Cigarette e-Cigarette/Vaping Use: Never Used Second Hand Smoke Exposure: Yes service: No Current occupational status: employed 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 Sexual orientation: Straight/Heterosexual Gender identity: Female Cognitive needs: No Hearing needs: No Vision needs: No Female Reproductive History Menstrual Age of Menarche: 14 Physical Exam Const General: cooperative, healthy appearing, comfortable and no acute distress Nutritional Appearance: average body habitus Orientation/consciousness: patient oriented x3 Eyes Pupils: Equal, round and reactive pupils present Neuro General: patient oriented x3, gait normal, tone normal, moves all extremities and no focal motor deficits Cranial nerves: Yes Equal, round and reactive pupils present, Yes Bilaterally intact EOM present, Yes Nystagmus not present, Yes Normal facial strength present, Yes Midline tongue present, Yes Symmetric palate elevation present and Yes Ability to bilaterally elevate shoulders present Cognition (Neuro): normal cognition Gait exam (Neuro): Normal gait present Motor exam (neuro): 5/5 motor strength present throughout and Normal motor muscle tone present throughout Coordination: [id number] test normal Assessment & Plan Assessment & Plan (1) Chronic migraine without aura: Code(s): G43.709 - Chronic migraine without aura, not intractable, without status migrainosus Category: Medical Qualifiers: Status migrainosus presence: without status migrainosus Intractability: not intractable Qualified Code(s): G43.709 - Chronic migraine without aura, not intractable, without status migrainosus (2) Abnormal MRI of the head: Comment: white matter changes suspicious of demyelination Code(s): R93.0 - Abnormal findings on diagnostic imaging of skull and head, not elsewhere classified Category: Medical Plan Reviewed MRI images with patient F/u [facility] center for further eval Increase amitriptyline 25mg qhs and nurtec 75 mg as needed for migraine s TRIPTANS CONTRAINDICATED DUE TO PULMONARY EMBOLISM Medications: New rimegepant (Nurtec ODT) 1 tab qd as needed for migraines 75 mg PO ONCE PRN 20 tabs 6RF migraine headache Changed From amitriptyline 10 mg PO BEDTIME 30 tabs 6RF To amitriptyline 25 mg PO BEDTIME 30 tabs 6RF Discontinued ubrogepant (Ubrelvy) 1 tab at onset of migraine and repeat in 2 hrs a s needed maximum 4 tabs a day Discontinued Reason: Doctor's Order 50 mg PO ONCE PRN 14 tabs 4RF migraine Coding Level of Care Code Est Pt Level 4 (27404) Complex EM visit Add On G2211 Diagnoses Chronic migraine without aura without status migrainosus, not intractable G43.709 Status migrainosus presence: without status migrainosus Intractability: not intractable Abnormal MRI of the head R93.0
[2025-01-20 14:47] VITALS: BP 108/72; PULSE 86; O2SAT 98; BMI 28.0
--- OUTSIDE RECORDS SUMMARY | 2025-01-21 05:01 | XMS_ITS | Clinical Summary ---
Author Organization [facility] Address [address] [place], [place] [id number] Phone Care Team Providers Care Impersonator Character Name Role Phone Pcp, Unknown Primary Care [...] patient's age to complete this topic IPV VACCINES Aged Out No longer eligi ble [...] DIRECT CONNECTORCARE DIRECT CONNECTORCARE DIRECT Care Teams Impersonator Character Relationship Specialty Start Date End Date Pcp, Unknown PCP - General 11/09/23 Additional Source Comments The information contained in this document represents components of the legal health record. It is not the complete legal health record.[facility]
== END 2025-01-20 15:10 | disposition home or self-care (01) ==
LOC: HO.HSMS 14:44
PROVIDERS: PCP Internal Medicine; Visit Provider Psychiatry & Neurology Neurology
DX: G43.709 Chronic migraine without aura, not intractable, without status migrainosus (principal); R93.0 Abnormal findings on diagnostic imaging of skull and head, not elsewhere classified
CPT/HCPCS: 99214

== ENCOUNTER → 2025-01-20 14:43 | Outpatient (BNVA) | payer OTHER, SELFPAY | PROVIDERS: PCP Internal Medicine; Visit Provider Psychiatry & Neurology Neurology | DX: Z71.2 Person consulting for explanation of examination or test findings (principal); G43.709 Chronic migraine without aura, not intractable, without status migrainosus; R93.0 Abnormal findings on diagnostic imaging of skull and head, not elsewhere classified | CPT/HCPCS: 99212 ==

== ENCOUNTER 2025-02-04 10:26 | Outpatient (AMB) | payer OTHER, SELFPAY ==
[2025-02-04 10:45] VITALS: BP 108/68; BMI 27.5
--- NOTE | 2025-02-04 10:45 | A.OFFVIS_ITS ---
Vital Signs 02/04/25 10:45 Height 5 ft 4 in Weight 160 lb BMI 27.5 BP 108/68 Intake Visit Reasons: Annual/ control follow up Client Care Manager Required: No Information Interpreted: non-clinical & clinical Supervisor Laundry: Supervisor Laundry Present (Arpita BROUSSARD) Accompanied by: Self / Same As Patient Allergies No Known Allergies (No Known Allergies*) Allergy (Verified 02/04/25 10:46) Is last menstrual period known: No (depo provera) HPI Comments Details: Presenting for annual exam. No complaints. The patient is interested in discussing different options of control has been on Depo-Provera last 6 years and developed PE is on Eliquis currently and is due for Depo-Provera. Last Pap/HPV was negative in 01/27, preceded by LGSIL HPV positive, colpo biopsy ECC in 01/26 Last Mammogram in 02/26 was BI-RADS 2 [facility] Medical History Reactive airway disease Asthma Chronic migraine without aura Abnormal MRI of the head Pulmonary embolism Sore throat LGSIL on Pap smear of cervix Pain in both hands Bilateral hand numbness Overweight (BMI 25.0-29.9) Insomnia Vitamin D deficiency Pure hypercholesterolemia Depression Anxiety Status post hysteroscopy (~03/12/17) Carpal tunnel syndrome Surgical History History of lumbar fusion S/P cubital tunnel release History of carpal tunnel release History of mastopexy (~09/28/19) Status post abdominoplasty (~09/28/19) Family History Mother Mental illness in member of household Hypertension Cervical cancer Maternal Grandfather Gastric cancer Other Mental health problem Social History Household Members: Spouse and Children Housing: House Alcohol intake: current Alcohol intake frequency: holidays/special occasions only Patient Tobacco Use Status: Never used Tobacco Tobacco use type: Cigarette e-Cigarette/Vaping Use: Never Used Second Hand Smoke Exposure: Yes service: No Current occupational status: employed 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 Sexual orientation: Straight/Heterosexual Gender identity: Female Cognitive needs: No Hearing needs: No Vision needs: No Female Reproductive History Menstrual Age of Menarche: 14 control method: progesterone injection Total pregnancies: 3 Full term: 3 Number of Living Children: 3 Date of last pap smear: 01/26/24 Date of Mammogram: 03/05/24 Review of Systems Const All systems reviewed & are unremarkable except as noted in HPI and below Card Reports as per HPI Resp Reports as per HPI GI Reports as per HPI and Reports no additional complaints Reports as per HPI Physical Exam Vital Signs: BMI result Body Mass Index 27.5 Const General: cooperative, healthy appearing and comfortable Chest Chest palpation & inspection: normal inspection of the chest and normal palpation of entire chest wall Breast/axilla inspection: normal inspection of the breasts and normal inspection of the axillae Breast/axilla palpation: normal palpation of the breasts, normal palpation of the axillae and no axillary lymphadenopathy Resp Effort & Inspection: normal respiratory effort Auscultation: clear to auscultation bilaterally Percussion: percussion normal Cardio Palpation: normal PMI Rate: regular rate Rhythm: regular rhythm Heart sounds: no murmurs and no rubs Peripheral pulses: Peripheral pulses 2+ throughout GI Inspection: Yes normal to inspection Palpation (GI): Soft to palpation, nontender, no guarding, not rigid and No hepatosplenomegaly present Percussion: Yes normal to percussion Auscultation: normal bowel sounds Rectal Exam - Female: deferred General: Yes bladder normal to palpation External Female Exam: No lesion Speculum Exam - Vagina: normal appearance of the vagina, normal palpation, normal vaginal discharge and not erythematous Speculum Exam - Cervix: normal appearance of the cervix and normal palpation Bimanual exam- vagina & uterus: normal bimanual exam, normal palpation, uterine size normal, bladder normal to palpation, consistency normal and normal palpation Bimanual Exam- Adnexa, other: normal adnexae, no masses and no tenderness Assessment & Plan Assessment & Plan (1) Well woman exam: Code(s): Z01.419 - Encounter for gynecological examination (general) (routine) without abnormal findings Category: Medical Plan: Cotesting not indicated this year. Mammogram scheduled on 03/11/2025. Counseled the patient about the recommended dietary allowance of 1000 mg of Calcium & 600 IU of vitamin D. The patient was instructed to perform monthly self-breast exams and to schedule an annual exam in a year; All questions answered and the patient verbalized understanding. Instructed the patient to schedule annual exam in a year (2) Family planning: Comment: History of PE on Eliquis Code(s): Z30. - Encounter for other general counseling and advice on contraception Category: Social Hx Plan: Discussed with the patient the different options of control including control pills/Nuvaring, DMPA, different types of IUD ?s, sterilization. All the pros, cons, risks and benefits of each were discussed with the patient. The patient decided to go ahead with laparoscopic sterilization using bilateral salpingectomy. Since the patient has history of PE on Eliquis, refer to a tertiary care center, [facility] more resources are available. Instructions given the patient is a backup method for control till the procedure scheduling. Instructed the patient to call our office back in case a referral appointment is not scheduled, missed or canceled so that we will assist on rescheduling another appointment, the patient verbalized understanding agreed with the plan. Coding Level of Care Code Est Pt Level 3 (57006) Est Pt Prev Care 40-64y(11834) Diagnoses Well woman exam Z01.419 Family planning Z30.09
--- OUTSIDE RECORDS SUMMARY | 2025-02-04 12:00 | XMS_ITS | Clinical Summary ---
Author Organization [facility] Address [address] [place] [phone] Phone Care Team Providers Care Box Toe Flanger Stitchdowns Name Role Phone Pcp, Unknown Primary Care [...] DIRECT CONNECTORCARE DIRECT CONNECTORCARE DIRECT Care Teams Box Toe Flanger Stitchdowns Relationship Specialty Start Date End Date Pcp, Unknown PCP - General 11/09/23 Additional Source Comments The information contained in this document represents components of the legal health record. It is not the complete legal health record.[facility]
--- OUTSIDE RECORDS SUMMARY | 2025-02-04 12:00 | XMS_ITS | Clinical Summary ---
Author Organization [facility] Address [address] [place] [address] Phone Care Team Providers Care Cell Technician Name Role Phone Robin Mcdaniels MD Primary Care Provider + [phone] Allergies No known active allergies Medications amitriptyline (ELAVIL) 10 mg tablet Take 1 tablet (10 mg total) by mouth at bedtime. 5 Active FLUoxetine (PROzac) 40 mg capsule Take 1 capsule (40 mg total) by mouth 1 (one) time each day. 5 Active cloNIDine (CATAPRES) 0.2 mg tablet Take [...] wheezing or shortness of breath. 5 Active Nurtec 75 mg dispersible tablet Take 1 tablet (75 mg total) by mouth. 5 Active omeprazole OTC (PriLOSEC OTC) 20 mg EC tablet Take 1 tablet (20 mg total) by mouth 1 (one) time each day. Do not crush, chew, or split. Active Encounters Date Type Department Care Team Description 01/24/2025 12:01 PM EST - 01/24/2025 11:59 PM EST Hospital Encounter [facility] Interventional Radiology [address] [place] [address] White matter lesion of central nervous system; Paresthesia Discharge Disposition: Home or Self Care 01/06/2025 7:47 AM EST - 01/06/2025 11:59 PM EST Hospital Encounter [facility] MRI [address] [place] [address] White matter lesion of central nervous system; Paresthesia Discharge Disposition: Home or Self Care 12/23/2024 3:30 PM EDT Telemedicine [facility] [address] [phone] Vladislav Ramirez MD 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); Paresthesia 12/19/2024 Telephone [facility] [address] [address] Vladislav Ramirez MD 12/12/2024 4:00 PM EDT Office Visit [facility] [address] [address] Vladislav Ramirez MD 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); Paresthesia 11/08/2024 3:06 PM EDT - 11/08/2024 11:59 PM EDT Hospital Encounter [facility] MRI [address] [place] [address] White matter lesion of central nervous system Discharge Disposition: Home or Self Care 11/08/2024 3:05 PM EDT - 11/08/2024 11:59 PM EDT Hospital Encounter [facility] MRI [address] [place] [address] White matter lesion of central nervous system Discharge Disposition: Home or Self Care from Last 3 Months Social History Tobacco [...] your loved ones. For example, early childhood specialist or elderly care for an older adult? [...] living situation? Unrecognized valu e 12/23/2024 Comments No Sex and Gender Information Value Date Recorded Sex Assigned at Not on file Legal Sex Female 8:58 AM EST Gender Identity Not on file Sexual Orientation Not on file Last Filed Vital Signs Vital Sign Reading Time Taken Comments Blood Pressure 95/51 01/24/2025 1:47 PM EST Pulse 65 01/24/2025 1:47 PM EST Temperature 36.3 C (97.4 F) 01/24/2025 12:23 PM EST Respiratory Rate 15 01/24/2025 1:47 PM EST Oxygen Saturation 97% 01/24/2025 1:47 PM EST Inhaled Oxygen Concentration - - Weight 73.9 kg (163 lb) 01/24/2025 12:23 PM EST Height 162.6 cm (5' 4 ) 01/24/2025 12:23 PM EST Body Mass Index 27.98 01/24/2025 12:23 PM EST Plan of Treatment Upcoming Encounters Date Type Department Care Team (Late st Contact Info) Description 03/19/2025 3:30 PM EST Office Visit [facility] 175 [facility] [address] [place] [address] Vladislav Ramirez MD [address] [place] [address] Health Maintenance Due Date Last Done Comments Breast Cancer Screening 1984 Hepatitis B Vaccines (1 of 3 - 19+ 3-dose series) 02/27/2003 Cervical Cancer Screening: P ap Smear 02/27/2005 HPV Vaccines (1 - 3-dose SCD M series) 02/27/2011 COVID-19 Vaccine (3 - 2024-2 6 season) [...] Procedure Name Priority Date/Time Associated Diagnosis Comments IR LUMBAR PUNCTURE DIAGNOSTIC Routine 01/24/2025 1:59 PM EST Paresthesia White matter lesion of central nervous system PROTEIN, CSF Routine 01/24/2025 1:55 PM EST White matter lesion of central nervous system Paresthesia MYELIN BASIC PROTEIN, CSF Routine 01/24/2025 1:55 PM EST White matter lesion of central nervous system Paresthesia MISCELLANEOUS LAB TEST Routine 1:55 PM EST White matter lesion of central nervous system Paresthesia GLUCOSE, CSF Routine 01/24/2025 1:55 PM EST White matter lesion of central nervous system Paresthesia CSF CELL COUNT WITH REFLEX TO DIFFERENTIAL Routine 01/24/2025 1:55 PM EST White matter lesion of central nervous system Paresthesia OLIGOCLONAL BANDING Routine 01/24/2025 1 2:36 PM EST White matter lesion of central nervous system Paresthesia MR BRAIN WO AND W CONTRAST Routine 01/06/2025 9:32 AM EST White matter lesion of central nervous system Paresthesia MR THORACIC SPINE WO AND W CONTRAST [...] central nervous system from Last 3 Months or Most Recently Relevant to Health Maintenance Results * IR Lumbar Puncture Diagnostic w Fluoro/CT (01/24/2025 1:59 PM EST) Anatomical Region Laterality Modality Spine, L-spine N/A Interventional R adiology 01/24/2025 3:24 PM EST Impressions 01/24/2025 3:26 PM EST Fluoroscopic-guided lumbar puncture. -------- FINAL REPORT -------- Dictated By: Kelly Roberts Dictated Date: 01/24/2025 15:24 ET Assigned Physician: Kelly Roberts Reviewed and Electronically Signed By: Kelly Roberts Signed Date: 01/24/2025 15:26 ET Workstation ID: [id number] Transcribed By: Self Edit Transcribed Date: 01/24/2025 15:24 ET Narrative 01/24/2025 3:26 PM EST INDICATION: White matter lesion concerning for multiple sclerosis TECHNIQUE: Written informed consent obtained. Patient placed in the left lateral decubitus position on the angiographic table and lower lumbar spine draped and prepped in usual sterile fashion. 6 cc of 1% buffered lidocaine utilized as local anesthetic. Sedation: Moderate intravenous sedation was initiated and maintained for 14 minutes while the patient was independently monitored by the radiology nurse under the supervision of the interventional radiologist. A total of 2 mg of Versed and 50 mcg of fentanyl administered during the procedure. Under fluoroscopic guidance 20 gauge spinal needle advanced into the thecal sac at the L5-S1 level. Clear CSF noted from the needle hub on the 1st 3 vials with fluid turning hemorrhagic while filling the 4th vial. Approximately 15 mL of CSF removed and sent for evaluation as ordered. Opening pressure 22 centimeters of water with closing pressure 14 centimeters of water. Needle removed and bandage applied. The patient tolerated the procedure well and left the department in stable condition without immediate complications. FINDINGS: Needle access at the L5-S1. Total patient dose (air kerma): 32 mGy Procedure Note Kelly Roberts MD - 01/24/2025 INDICATION: White matter lesion concerning for multiple sclerosis TECHNIQUE: Written informed consent obtained. Patient placed in the left lateral decubitus position on the angiographictable and lower lumbar spine draped and prepped in usual sterile fashion. 6 cc of 1% buffered lidocaine utilized as local anesthetic. Sedation: Moderate intravenous sedation was initiated and maintained for14 minutes while the patient was independently monitored by the radiologynurse under the supervision of the interventional radiologist. A total of2 mg of Versed and 50 mcg of fentanyl administered during the procedure. Under fluoroscopic guidance 20 gauge spinal needle advanced into thethecal sac at the L5-S1 level. Clear CSF noted from the needle hub on the1st 3 vials with fluid turning hemorrhagic while filling the 4th vial.Approximately 15 mL of CSF removed and sent for evaluation as ordered.Opening pressure 22 centimeters of water with closing pressure 14centimeters of water. Needle removed and bandage applied. The patienttolerated the procedure well and left the department in stable conditionwithout immediate complications. FINDINGS: Needle access at the L5-S1. Total patient dose (air kerma): 32 mGy IMPRESSION: Fluoroscopic-guided lumbar puncture. -------- FINAL REPORT -------- Dictated By: Kelly Roberts Dictated Date: 01/24/2025 15:24 ET Assigned Physician: Kelly Roberts Reviewed and Electronically Signed By: Kelly Roberts Signed Date: 01/24/2025 15:26 ET Workstation ID: [id number] Transcribed By: Self Edit Transcribed Date: 01/24/2025 15:24 ET Vladislav Ramirez MD IMG IR PROCEDURES Final Result * CSF cell count with reflex to differential (01/24/2025 1:55 PM EST) Total Nucleated Cells, CSF 3 0 - 4 /mm3 01/24/2025 3:07 PM EST [facility] RBC, CSF 3 0 - 10 /mm3 01/24/2025 3:07 PM EST [facility] Color, CSF Colorless 01/24/2025 3:07 PM EST [facility] Appearance, CSF Clear Clear 01/24/2025 3:07 PM EST [facility] Tube Number, CSF 3 01/24/2025 3:07 PM EST [facility] Cerebrospinal Fluid Lumbar subarachnoid space / Unknown Non-blood Collection / Unknown 01/24/2025 1:55 PM EST 01/24/2025 2:11 PM EST us Vladislav Ramirez MD LAB BODY FLUIDS AND STOO LS ORDERABLES Final Result [facility] [address] [place] [address], [place] [phone] * Igg index - Miscellaneous Test (01/24/2025 1:55 PM EST) Pathologist [facility] Miscellaneous Test COMMENT 2024 3:05 PM EST [facility] Cerebrospinal Fluid Non-blood Collection / Unknown 01/24/2025 1:55 PM EST 01/24/2025 2:12 PM EST Narrative [facility] - 01/27/2025 3:05 PM EST Performed At: [address] [facility] [address], [address] [place], [place] [id number] Yeyo Stephens MD Ph:[phone] us Vladislav Ramirez MD LAB BLOOD ORDERABLES Fin al Result [facility] * (ABNORMAL) Protein, CSF (01/24/2025 1:55 PM EST) Protein, CSF 46(H) 15 - 45 mg/dL 01/24/2025 3:59 PM EST [facility] Cerebrospinal Fluid Lumbar subarachnoid space / Unknown Non-blood Collection / Unknown 01/24/2025 1:55 PM EST 01/24/2025 2:11 PM EST us Vladislav Ramirez MD LAB BODY FLUIDS AND STOO LS ORDERABLES Final Result [facility] [address] [place] [address], * Myelin basic protein, CSF (01/24/2025 1:55 PM EST) [facility] Myelin Basic Protein <2.0 < OR = 4.0 mcg/L 01/30/2025 10:39 PM EST [facility] Comment: Result Interpretation < or = 4.0 mcg/L Negative 4.1-6.0 mcg/L Weakly Positive >6.0 mcg/L Positive This test was developed and its analytical performance characteristics have been determined by [facility]. It has not been cleared or approved by the FDA. This assay has been validated pursuant to the CLIA regulations and is used for clinical purposes. Test Performed at: [facility] [address] [address] Naveed Serna MD, PhD, REZA Cerebrospinal Fluid Lumbar subarachnoid space / Unknown Non-blood Collection / Unknown 01/24/2025 1:55 PM EST 01/24/2025 2:11 PM EST us Vladislav Ramirez MD LAB BODY FLUIDS AND STOO LS ORDERABLES Final Result [facility] [address] [place] [address] * Glucose, CSF (01/24/2025 1:55 PM EST) Pathologist [facility] Glucose, CSF 51 40 - 80 mg/dL 01/24/2025 4:00 PM EST [facility] Cerebrospinal Fluid Lumbar subarachnoid space / Unknown Non-blood Collection / Unknown 01/24/2025 1:55 PM EST 01/24/2025 2:11 PM EST us Vladislav Ramierz MD LAB BODY FLUIDS AND STOO LS ORDERABLES Final Result [email or web address] [address] [place] [address], [place] [phone] * Oligoclonal banding (01/24/2025 12:36 PM EST) Pathologist [facility] Oligoclonal Bands See Below 025 12:58 PM EST [facility] Comment: The sample is negative for CSF-specific oligoclonal bands. The CSF sample contains oligoclonal bands; however, since the corresponding serum contains the same oligoclonal bands, this does not indicate CSF-specific oligoclonal banding, and this is considered a negative study. Test performed at [facility], [address], [place] [address] Magalie Razo MD, PhD - Wing Scorer Blood Venous blood specimen / Unknown Venipuncture / Unknown 01/24/2025 12:36 PM EST 01/24/2025 12:51 PM EST us Vladislav Ramirez MD LAB BLOOD ORDERABLES Fin al Result [facility] [address] [place] [address] * MR Brain wo and w Contrast (01/06/2025 9:32 AM EST) Anatomical Region Laterality Modality Head and Neck Magnetic Resonan ce 01/08/2025 3:17 PM EST Impressions 01/08/2025 3:56 PM EST Scattered cortical and periventricular supratentorial white matter lesions. Some of the lesions are not seen on the prior study, but this may be technical, as a previous examination was performed with a less sensitive technique. There is no diffusion restriction or contrast enhancement to suggest active demyelination. -------- FINAL REPORT -------- Dictated By: Abel Kelly Dictated Date: 01/08/2025 15:17 ET Assigned Physician: Abel Kelly Reviewed and Electronically Signed By: Abel Kelly Signed Date: 01/08/2025 15:56 ET Workstation ID: [id number] Transcribed By: Self Edit Transcribed Date: 01/08/2025 15:17 ET Narrative 01/08/2025 3:56 PM EST PROCEDURE: Contrast-enhanced MRI of the brain. HISTORY: multiple sclerosis. TECHNIQUE: Multiplanar multisequence MRI of the brain with and without intravenous contrast. IV CONTRAST DOSE: 15 mL Dotarem from a 15 mL vial with 0 mL discarded. COMPARISON: 09/10/2024. FINDINGS: BRAIN: There are scattered juxtacortical and periventricular T2 hyperintense lesions in the supratentorial white matter. Some of the lesions are not seen on the previous study, which was performed with a less sensitive technique (a volume acquisition FLAIR sequence was not obtained). A few of the lesions are hypointense on the T1-weighted spin-echo sequence; the T1 lesion burden is unchanged. No diffusion abnormality. No mass or extra-axial fluid collection. No hydrocephalus. The major intracranial flow voids are preserved. Age commensurate ventricles and sulci. No abnormal enhancement. Incidental note of a cavum velum interpositum. ORBITS: Normal. No signal abnormality in the optic nerves. SINUSES/MASTOIDS: Minimal mucosal thickening in the sphenoids. Mild rightward bowing of the inferior nasal septum. CALVARIUM: Normal. OTHER: The visualized skull base soft tissues are normal. Procedure Note Abel Kelly MD - 01/08/2025 PROCEDURE: Contrast-enhanced MRI of the brain. HISTORY: multiple sclerosis. TECHNIQUE: Multiplanar multisequence MRI of the brain with and withoutintravenous contrast. IV CONTRAST DOSE: 15 mL Dotarem from a 15 mL vial with 0 mL discarded. COMPARISON: 09/10/2024. FINDINGS: BRAIN: There are scattered juxtacortical and periventricular [id number] lesions in the supratentorial white matter. Some of thelesions are not seen on the previous study, which was performed with aless sensitive technique (a volume acquisition FLAIR sequence was notobtained). A few of the lesions are hypointense on the P0-[id number]-ibqa sequence; the T1 lesion burden is unchanged. No diffusionabnormality. No mass or extra-axial fluid collection. No hydrocephalus.The major intracranial flow voids are preserved. Age commensurateventricles and sulci. No abnormal enhancement. Incidental note of acavum velum interpositum. ORBITS: Normal. No signal abnormality in the optic nerves. SINUSES/MASTOIDS: Minimal mucosal thickening in the sphenoids. Mildrightward bowing of the inferior nasal septum. CALVARIUM: Normal. OTHER: The visualized skull base soft tissues are normal. IMPRESSION: Scattered cortical and periventricular supratentorial white matterlesions. Some of the lesions are not seen on the prior study, but thismay be technical, as a previous examination was performed with a lesssensitive technique. There is no diffusion restriction or contrastenhancement to suggest active demyelination. -------- FINAL REPORT -------- Dictated By: Abel Kelly Dictated Date: 01/08/2025 15:17 ET Assigned Physician: Abel Kelly Reviewed and Electronically Signed By: Abel Kelly Signed Date: 01/08/2025 15:56 ET Workstation ID: [id number] Transcribed By: Self Edit Transcribed Date: 01/08/2025 15:17 ET Vladislav Ramirez MD IMG MRI PROCEDURES Final Result * MR Thoracic Spine wo and w [...] Signed Date: 11/12/2024 15:51 ET Workstation ID: [id number] Transcribed By: Self Edit Transcribed Date: 11/12/2024 [...] left adnexal cyst is partially visible on exceptional children's teacher images; this is likely a benign functional [...] left adnexal cyst is partially visible on exceptional children's teacher images; this islikely a benign functional cyst [...] Abel Kelly Reviewed and Electronically Signed By: bAel Kelly Signed Date: 11/12/2024 15:51 ET Workstation ID: [id number] Transcribed By: Self Edit Transcribed Date: 11/12/2024 [...] Signed Date: 11/12/2024 14:46 ET Workstation ID: [id number] Transcribed By: Self Edit Transcribed Date: 11/12/2024 [...] Signed Date: 11/12/2024 14:46 ET Workstation ID: [id number] Transcribed By: Self Edit Transcribed Date: 11/12/2024 14:41 ET us Vladislav Ramirez MD IMG MRI PROCEDURES Final Result * Hepatitis C antibody (10/22/2024 12:13 PM EDT) Pathologist [facility] Hepatitis C Antibody Negative Negative LAB CHEMISTRY METHOD 10/22/2024 8:27 PM EDT [facility] Blood Venous blood specimen / Unknown Venipuncture / Unknown 10/22/2024 12:13 PM EDT 10/22/2024 12:13 PM EDT us Vladislav Ramirez MD LAB BLOOD ORDERABLES Fin al Result [facility] [address] [place] [address], [place] [phone] * HIV 1,2 antibody, p24 antigen with reflex to differentiation (10/22/2024 12:13 PM EDT) Pathologist [facility] HIV Combo AB/AG Negative Negative LAB CHEMISTRY METHOD 10/22/2024 8:28 PM EDT [facility] Blood Venous blood specimen / Unknown Venipuncture / Unknown 10/22/2024 12:13 PM EDT 10/22/2024 12:13 PM EDT Narrative [facility] - 10/22/2024 8:28 PM EDT This [...] MD LAB BLOOD ORDERABLES Fin al Result [facility] [[email or web address] [address] [place] [address], from Last 3 Months or Most Recently Relevant to Health Maintenance Insurance [facility] [employer] Care Teams Cell Technician Relationship Specialty Start Date End Date Robin Mcdaniels MD [address] [place] [address] [place] [address] PCP - General Internal Medicine 10/22/24
== END 2025-02-04 11:25 | disposition home or self-care (01) ==
LOC: HO.HWS 10:28
PROVIDERS: PCP Internal Medicine; Visit Provider Obstetrics & Gynecology
DX: Z01.419 Encounter for gynecological examination (general) (routine) without abnormal findings (principal); Z30.09 Encounter for other general counseling and advice on contraception
CPT/HCPCS: 99396; 99459

== ENCOUNTER → 2025-02-04 10:26 | Outpatient (BNVA) | payer OTHER, SELFPAY | PROVIDERS: PCP Internal Medicine; Visit Provider Obstetrics & Gynecology | DX: Z01.419 Encounter for gynecological examination (general) (routine) without abnormal findings (principal); Z30.09 Encounter for other general counseling and advice on contraception | CPT/HCPCS: 99396 ==